=== PATIENT | female | born 1955 | race Caucasian/White ===

== ENCOUNTER 2016-11-09 14:46 | Emergency (ER) | payer OTHER ==
[~2016-11-09] VITALS: Ht 152.4 cm; Wt 61.2 kg
[~2016-11-09 14:46] MED LIST: AMOXICILLIN875 M1 PO; ATORVASTATIN CA20 MG PO; ATORVASTATIN CA40 M1 PO; ATORVASTATIN CA40 MG PO; AUGMENTIN 875 M1 TAB PO; LISINOPRIL10 MG PO; LOPRESSOR 12.12.5 MG PO; METOPROLOL SUCC25 M1 PO; OXYCODONE HCL5 M1 PO; ROXICODONE5 MG PO; SYNTHROID0.025 MG PO; SYNTHROID0.125 MG PO
--- NOTE | 2016-11-09 16:17 | ED GENERAL ADULT ---
History of Present Illness General Chief Complaint: General Adult Stated Complaint: SENT IN FOR HIGH B/P Source: patient Exam Limitations: no limitations Vital Signs & Intake/Output Vital Signs & Intake/Output Vital Signs Date Time Temp Pulse Resp B/P Pulse O2 O2 Flow FiO2 Ox Delivery Rate 11/09 1617 98 Room Air 11/09 1451 97.4 96 18 157/73 96 Room Air Allergies Coded Allergies: NO KNOWN ALLERGIES (08/11/15) Reconcile Medications Amoxicillin 875 MG TABLET 1 TAB PO BID ANTIBIOTIC Atorvastatin Calcium 40 MG TABLET 1 TAB PO DAILY CHOLESTEROL (Reported) Levothyroxine Sodium (Synthroid) 0.125 MG TAB 1 TAB PO DAILY AC THYROID HEALTH Metoprolol Succinate 25 MG TAB 1 TAB PO DAILY HEART/BP (Reported) Oxycodone HCl 5 MG TABLET 1 TAB PO Q6-PRN PRN PAIN Triage Note: 61 [facility]ENTER DUE TO HYPERTENSION, "IT WAS 200 OVER SOMETHING". PT STATES HX OF SAME AND IS ON METOPROLOL BID - TOOK DOSE SCHEDULED THIS AM AND IS DUE AGAIN AT DINNER. DENIES COMPLAINTS. DENIES C/P. DENIES SOB. ONLY FEELS "WARM" B/P 157/73. Triage Nurses Notes Reviewed? yes Onset: Abrupt Duration: minute(s): (30) Timing: single episode today Injury Environment: home Severity: mild No Modifying Factors: none Associated Symptoms: ANXIETY HPI: This is a 61 year old female who presents to [facility] ER for chief complaint of elevated blood pressure while at the wound care center. She states that she was nervous about the wound dressing changes since they are painful. She is complaint with her BP medications. SHe states now that the appointment is over she is feeling better. No headache, blurred vision, dizziness, confusion. Denies any weakness, numbness, difficulty waling. No chest pain, shortness of breath, cough, palpitations. Past History Travel History Traveled to [place] past 21 day No Medical History Any Pertinent Medical History? see below for history Neurological: NONE EENT: NONE Cardiovascular: CAD, hypertension, hyperlipidemia, PVD Respiratory: NONE Gastrointestinal: NONE Hepatic: NONE Renal: NONE Musculoskeletal: NONE Psychiatric: NONE Endocrine: hyperthyroidism Blood Disorders: NONE Cancer(s): NONE GEOLOGICAL SCOUT/Reproductive: NONE History of MRSA: No History of VRE: No History of CDIFF: No Surgical History Surgical History: non-contributory, TUBAL LIGATION Psychosocial History Who do you live with Significant Other Services at Home None What is your primary language Georgian Tobacco Use: Quit >30 days ago Family History Hx Contributory? No Review of Systems Review of Systems Constitutional: Denies: chills, fever. EENTM: Reports: no symptoms. Respiratory: Denies: cough, short of breath, sputum production. Cardiovascular: Denies: chest pain, palpitations. GI: Denies: abdominal pain. Genitourinary: Reports: no symptoms. Musculoskeletal: Reports: no symptoms. Skin: Reports: no symptoms. Neurological/Psychological: Reports: anxiety. Denies: ataxia, confusion, headache. Hematologic/Endocrine: Denies: bruising, bleeding, polyuria, polydipsia. Immunologic/Allergic: Denies: splenectomy. All Other Systems: Reviewed and Negative Physical Exam Physical Exam General Appearance: well developed/nourished, alert, awake, anxious, mild distress Head: atraumatic, normal appearance Eyes: Bilateral: normal appearance, PERRL, EOMI. Ears, Nose, Throat: normal pharynx, normal ENT inspection, hearing grossly normal Neck: normal inspection, supple, full range of motion Respiratory: normal breath sounds, chest non-tender, no respiratory distress Cardiovascular: regular rate/rhythm Peripheral Pulses: 2+ radial (R), 2+ radial (L) Gastrointestinal: normal bowel sounds, soft, non-tender Extremities: normal inspection, normal capillary refill, normal range of motion, no edema, BILATERAL LEGS WRAPPED Neurologic/Psych: no motor/sensory deficits, awake, alert, oriented x 3, normal gait, normal mood/affect Skin: intact, normal color, warm/dry Core Measures ACS in differential dx? No CVA/TIA Diagnosis: No Severe Sepsis Present: No Septic Shock Present: No Progress Differential Diagnoses I considered the following diagnoses in my evaluation of the patient: [ hypertension, elevated blood pressure, anxiety, pain] Plan of Care: Manual blood pressure in the ED 150/80. Initial ED EKG: none Departure Departure Time of Disposition: 1628 Disposition: HOME OR SELF CARE Condition: Stable Clinical Impression Primary Impression: Anxiety Secondary Impressions: Elevated blood pressure reading Referrals: Ama MUÑOZ MD (PCP/Family) Additional Instructions: CONTINUE YOUR REGULAR BLOOD PRESSURE MEDICATIONS. RETURN TO THE ER NEEDED. Departure Forms: Customer Survey General Discharge Information Critical Care Note Critical Care Note Critical Care Time: non-applicable
[2016-11-09 16:39] VITALS: BP 151/80
[2017-02-14] MEDS ORDERED: FERROUS SULFAT325 M3 PO (08:57)
[2017-02-14] MEDS ORDERED: GABAPENTIN300 M2 PO (08:58)
== END 2016-11-09 16:39 ==
LOC: ERH 14:46
DX: F41.9 Anxiety disorder, unspecified (principal); I10 Essential (primary) hypertension

== ENCOUNTER 2016-11-17 11:36 | Inpatient (IN) | payer OTHER ==
[~2016-11-17] VITALS: Ht 152.4 cm; Wt 63.5 kg
--- NOTE | 2016-11-17 11:43 | ED GENERAL ADULT ---
History of Present Illness General Chief Complaint: Lower Extremity Problems Stated Complaint: BIBA LEG WOUNDS Source: patient, family, old records Exam Limitations: no limitations Vital Signs & Intake/Output Vital Signs & Intake/Output Vital Signs Date Time Temp Pulse Resp B/P Pulse O2 O2 Flow FiO2 Ox Delivery Rate 11/18 1551 99.0 93 20 124/62 96 11/18 0927 98 136/64 11/18 0832 99.4 96 20 132/64 94 11/18 0041 98.2 101 20 160/74 96 Room Air 11/17 2138 92 116/68 ED Intake and Output 11/18 0000 11/17 1200 Intake Total 1060 Output Total 575 Balance 485 Intake, IV 700 Intake, Oral 360 Output, Urine 575 Patient 140 lb 140 lb Weight Allergies Coded Allergies: NO KNOWN ALLERGIES (08/11/15) Triage Nurses Notes Reviewed? yes Onset: Gradual Duration: hour(s): (13) Timing: no prior history Injury Environment: home Severity: moderate Severity Numbers: 8 No Modifying Factors: none HPI: Patient is a 61-year-old female with history of coronary artery disease, hypertension, peripheral vascular disease presenting to the emergency department with chief complaint of increasing lower extremity pain, numbness and tingling getting worse over the past 13 hours. She saw her vascular surgeon yesterday and was started on amoxicillin for suspected cellulitis of the left lower extremity. She took her first dose this morning. The worsening pain started prior to taking amoxicillin. Denies any fevers but reports malaise. She had a very difficult time walking to answer the door this morning for her visiting nurse. She also reports that her right foot feels cooler than normal. Denies any specific injury. The wounds on her left lower extremity have been there for the past 3 years. According to her vascular surgeon the wounds have been improving but recently got infected. (BENTLEY PADILLA,LISANDRA) Reconcile Medications Amoxicillin/Clavulanate Potass (Amox-Clav 875-125 MG Tablet) 875 MG-125 MG TABLET 1 TAB PO BID cellulitis (Reported) Atorvastatin Calcium 40 MG TABLET 1 TAB PO DAILY CHOLESTEROL (Reported) Hydrochlorothiazide 25 MG TABLET 1 TAB PO DAILY Blood pressure (Reported) Levothyroxine Sodium (Synthroid) 0.125 MG TAB 1 TAB PO DAILY AC THYROID HEALTH Lisinopril 10 MG TABLET 1 TAB PO DAILY BP (Reported) Metoprolol Tartrate 50 MG TABLET 1 TAB PO BID blood pressure (Reported) Oxycodone HCl 5 MG TABLET 1 TAB PO Q6-PRN PRN PAIN (MAYE TOM,JAMA) Past History Travel History Traveled to [place] past 21 day No Medical History Any Pertinent Medical History? 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 No (LISANDRA RUST) Review of Systems Review of Systems Constitutional: Reports: no symptoms. Comments Review of systems: See HPI, All other systems negative. Constitutional, no chills fever or weight loss HEENT: No visual changes no sore throat no congestion Cardiovascular: No chest pain ,palpitation Skin, no jaundice no rashes Respiratory: No dyspnea cough sputum or hemoptysis GI: No nausea no vomiting : No dysuria No hematuria Muscle skeletal: no back pain, no neck pain, Neurologic: no confusion Psych: No stress anxiety Immunology: No splenectomy or history of AIDS (LISANDRA RUST) Physical Exam Physical Exam General Appearance: well developed/nourished, no apparent distress, alert, awake , comfortable Comments: Well-developed well-nourished person in no acute distress HEENT: Pupils equally round and reactive to light and accommodation. Nose is atraumatic. Neck: Normal inspection Back: Nontender Cardiovascular: Regular rate and rhythms no murmurs rubs or gallops, normal JVP Respiratory: Chest nontender. No respiratory distress.breath sounds clear to auscultation bilaterally Extremity: 2+ pitting edema in the left lower extremity, no edema noted in the right lower extremity. Positive calf tenderness to palpation of the left lower extremity. Pedal pulses are 1+ bilaterally. Limited range of motion of left foot secondary to pain and swelling. Very warm to palpation over this area. Right foot is very cool to palpation, pale in color. Neuro: Alert oriented x3, motor sensory normal, lower extremity deep tendon reflexes are intact bilaterally. Skin: Left lower extremity has chronic-appearing wounds, approximately 3, ulcerous, tenderness palpation extremely erythematous and warm to palpation over the left lower extremity from the dorsum of the left foot extending to the left patella. Moderate edema noted of the left lower extremity. No active discharge from the chronic wounds, dressing is dry. Psych: Mood and affect is normal, memory and judgment is normal. Core Measures ACS in differential dx? No CVA/TIA Diagnosis: No Severe Sepsis Present: No Septic Shock Present: No (BENTLEY PADILLA,LISANDRA) Progress Differential Diagnoses I considered the following diagnoses in my evaluation of the patient: DVT, arterial occlusion, cellulitis, sepsis, neuropathy Plan of Care: Orders Procedure Date/time Status PT Evaluate & Treat 11/18 UNK Active Therapeutic Activities 11/18 UNK Complete PT EVAL LOW COMPLEX 20 MIN 11/18 UNK Complete Gait Training 11/18 UNK Complete Isolation 11/18 UNK Active Skin/Pressure Ulcer Assess (Sk 11/17 1951 Active Pain Treatment and Response 11/17 1946 Active PHYSICIAN CONSULT 11/17 UNK Active Current Medications Sig/Bibi Start time Last Medication Dose Stop Time Status Admin Acetaminophen 650 MG Q6P PRN 11/17 1715 AC (Tylenol) Morphine Sulfate 2 MG Q4P PRN 11/17 1715 AC (Morphine) Laboratory Tests 11/18/16 0615: Anion Gap 8, Estimated GFR > 60, BUN/Creatinine Ratio 20.0, Triglycerides 89, Cholesterol 126, LDL Cholesterol, Calc 63 L, HDL Cholesterol 46, Cholesterol/ HDL Ratio 3, CBC w Diff NO MAN DIFF REQ, RBC 3.59 L, MCV 79.8 L, MCH 25.8 L, RDW 16.4 H, MPV 8.6, Gran % 68.3, Lymphocytes % 20.1 L, Monocytes % 10.5 H, Eosinophils % 0.6, Basophils % 0.5, Absolute Granulocytes 5.5, Absolute Lymphocytes 1.6, Absolute Monocytes 0.8 H, Absolute Eosinophils 0.1, Absolute Basophils 0, PUBS MCHC 32.3 L 11/17/16 2233: Urine Color YEL, Urine Clarity CLDY H, Urine pH 6.0, Ur Specific [place] 1.020, Urine Protein NEG, Urine Ketones NEG, Urine Nitrite NEG, Urine Bilirubin NEG, Urine Urobilinogen 0.2, Ur Leukocyte Esterase LARGE H, Ur Microscopic SEDIMENT EXAMINED, Urine RBC 5-10 H, Urine WBC 25-50 H, Ur Epithelial Cells MOD H, Urine Mucus FEW, Urine Hemoglobin TRACE-INTACT, Urine Glucose NEG 11/17/163: Ur Random Creatinine 75.0, Ur Random Sodium 117 H, Ur Random Potassium 14.2, Fraction Sodium Excret 1.9 H Diagnostic Imaging: Viewed by Me: Ultrasound. Discussed w/RAD: Ultrasound. Radiology Impression: PATIENT: DARRELL MONTES PRESENT AGE: 61 PATIENT ACCOUNT NO: [id number] : 54 LOCATION: [facility] ORDERING PHYSICIAN: LISANDRA PADILLA SERVICE DATE: 11/17/16 EXAM TYPE: US - US-UNILATERAL VENOUS DOPPLER EXAMINATION: US TRIPLEX LOWER EXTREMITY, LEFT CLINICAL INFORMATION: Pain redness and swelling. COMPARISON: None. TECHNIQUE: Color-flow triplex imaging with spectral analysis and compression Doppler were performed on the left lower extremity. FINDINGS: Respiratory variation, normal compression and augmented flow are noted throughout the lower extremity. The visualized common femoral vein, superficial femoral vein, profunda femoral vein, popliteal vein and midcalf peroneal and posterior tibial venous segments show no evidence of deep venous thrombosis. Technologist incidentally notes occlusion of the femoral artery with reconstitution in the popliteal. There is no Harper's cyst. IMPRESSION: Normal triplex deep venous scan without evidence of deep venous thrombosis involving the left lower extremity. Femoral artery occlusion. Initial ED EKG: NSR (78 BPM) Comments: 11/17/2016 1:41:09 PM on arrival patient no acute distress, neurologically intact , pupils are one plus bilaterally. Suspecting cellulitis in the left lower extremity, concern for arterial occlusion in the right lower family secondary to cool extremity. We will speak with vascular initially to determine if more imaging is needed secondary to extensive history of arterial occlusion. 11/17/2016 2:40:05 PM patient will be admitted for cellulitis, IV antibiotics. Spoke with , her vascular surgeon, he is recommending admission to medicine with formal consultation if needed. He is not recommending any imaging of the large airways at this time as he just saw her yesterday in the office. 11/17/2016 2:53:42 PM patient given IV Unasyn for cellulitis. Pain controlled at this time. Patient will be admitted for cellulitis to general medicine. (LISANDRA RUST) Departure Departure Time of Disposition: 1348 Disposition: STILL A PATIENT Condition: Stable Clinical Impression Primary Impression: Cellulitis Qualifiers: Site of cellulitis: extremity Site of cellulitis of extremity: lower extremity Laterality: left Qualified Code: L03.116 - Cellulitis of left lower limb Referrals: Ama MUÑOZ MD (PCP/Family) Departure Forms: Customer Survey General Discharge Information Admission Note Spoke With: MIKE GARCIA MD Documentation of Exam: Documentation of any treatments & extenuating circumstances including Concerns Regarding Discharge (functional status, medication knowledge or non-compliance, living conditions, etc.) that warrant an admission rather than observation: Patient requiring IV antibiotics, blood cultures return, vascular consultation, may require infectious disease consultation. Discharge at this time would be medically harmful. (LISANDRA RUST) PA/NUT ROASTER HELPER Co-Sign Statement Statement: ED Attending supervision documentation- X I saw and evaluated the patient. I have also reviewed all the pertinent lab results and diagnostic results. I agree with the findings and the plan of care as documented in the PA's/NUT ROASTER HELPER's documentation. [] I have reviewed the ED Record and agree with the PA's/NUT ROASTER HELPER's documentation. [] Additions or exceptions (if any) to the PAs/NUT ROASTER HELPER's note and plan are summarized below: [] (MAYE TOM,JAMA) Critical Care Note Critical Care Note Critical Care Time: non-applicable (LISANDRA RUST)
--- NOTE | 2016-11-17 11:47 | NUR ---
61 Y/O FEMALE BIBA FROM HOME FOR BILATERAL LEG PAIN WITH NUMBNESS, TINGLING AND DECREASED SENSATION. PT STS FOR PAST THREE YRS SHE HAS HAD WOUNDS FROM SHAVING AND HAS SINCE RECEIVED 3 SKIN GRAFTS TO THE LEFT LEG. PT ARRIVES A/O X3 AND STS SHE USUALLY SEES DR. MIKE AND SAW HIM YESTERDAY AND DRESSED WOUND AND ALL WAS FINE TILL LAST NIGHT WHEN SHE STARTED TO EXPERIENCE SYMPTOMS AND THIS MORNING SHE WAS UNABLE TO AMBULATE TO GET DOOR FOR VISITING NURSE. PT ARRIVES AND STS PAIN 6/10 ABLE TO FEEL TOUCH BUT STS IT IS NUMB AND 'WIRED" WHEN TOUCHED. THERE IS NO WOUNDS TO THE RIGHT LEG BUT IT DOES FELL NUMB WITH DECREASE SENSATION. PA STUDENT AT BEDSIDE TO JAZ PT
--- NOTE | 2016-11-17 11:59 | NUR ---
VALERIE HAGAN EVALUATED PT
--- NOTE | 2016-11-17 12:42 | NUR ---
PT DIFFICULT STICK, 1 BLOOD CULTURE BOTTLE SENT, LAV,SST, AND BLUE TOP
[2016-11-17 12:53] LABS: ABSOLUTE BASOPHIL COUNT 0 /CUMM (0.0-0.2); ABSOLUTE EOSINOPHIL COUNT 0.1 /CUMM (0.0-0.7); ABSOLUTE GRANULOCYTE CT 7.5 /CUMM (1.4-6.5); ABSOLUTE LYMPH COUNT 1.5 /CUMM (1.2-3.4); ABSOLUTE MONOCYTE COUNT 0.5 /CUMM (0.10-0.60); BASOPHIL % 0 % (0.0-2.0); EOSINOPHIL % 0.8 % (0-5); GRANULOCYTE % 78.5 % (42.2-75.2); HEMATOCRIT 33.1 % (37-47); MEAN CORPUSCULAR HGB 25.1 PG (27.0-31.0); MEAN CORPUSCULAR HGB CONC 31.4 G/DL (33.0-37.0); MEAN CORPUSCULAR VOLUME 79.8 FL (81.0-99.0); MEAN PLATELET VOLUME 8.1 FL (7.4-10.4); PLATELET COUNT 389 /CUMM (130-400); RBC DISTRIBUTION WIDTH 16.7 % (11.5-14.5); RED BLOOD CELL CT 4.14 /CUMM (4.20-5.40); WHITE BLOOD CELL COUNT 9.6 /CUMM (4.8-10.8)
[2016-11-17] MEDS ORDERED: LISINOPRIL10 M1 PO (14:29)
--- NOTE | 2016-11-17 14:31 | NUR ---
PT MEDICATED WITH UNASYN AND NS PER EMAR. EKG COMPLETED AND CMR DONE.
--- NOTE | 2016-11-17 14:33 | NUR ---
HOUSE STAFF AT BEDSIDE FOR EVAL.
--- NOTE | 2016-11-17 14:36 | ULTRASOUND REPORT ---
EXAMINATION: US TRIPLEX LOWER EXTREMITY, LEFT CLINICAL INFORMATION: Pain redness and swelling. COMPARISON: None. TECHNIQUE: Color-flow triplex imaging with spectral analysis and compression Doppler were performed on the left lower extremity. FINDINGS: Respiratory variation, normal compression and augmented flow are noted throughout the lower extremity. The visualized common femoral vein, superficial femoral vein, profunda femoral vein, popliteal vein and midcalf peroneal and posterior tibial venous segments show no evidence of deep venous thrombosis. Technologist incidentally notes occlusion of the femoral artery with reconstitution in the popliteal. There is no Harper's cyst. IMPRESSION: Normal triplex deep venous scan without evidence of deep venous thrombosis involving the left lower extremity. Femoral artery occlusion.
--- NOTE | 2016-11-17 14:53 | History & Physical ---
See Addendum JILL RAYGOZA 11/17/16 4813: General Information and HPI MD Statement: I have seen and personally examined DARRELL SINGH and documented this H&P. The patient is a 61 year old F who presented with a patient stated chief complaint of left leg ulcers and redness Source of Information: patient, old records History of Present Illness: Ms. Singh is a 61-year-old woman who is known to be in her usual state of health until 1 week ago. 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 Kline) with recent antibiotic use for increasing erythema of the left lower extremity. She was sent by Dr. Knutson's office, when she complained of pain and loss of sensation/tingling, numbness sensation in her lower extremities, worsening in redness in left leg x1 day. As per the patient, worsening of redness in the left lower extremity 1 day, spreading from the foot up to left knee. Was also concerned about tingling numbness sensation bilateral lower that started this a.m, associated motor weakness in the feet, inability to stand on her feet. Also associated with increasing pain bilateral lower extremities, L> R, 6/10, no radiation, located in the feet. No discharge from ulcers on the left foot. No fever, shortness of breath, palpitations were noted. No lightheadedness, seizures, motor weakness in upper and lower extremities. Former smoker 35 pack years, quit 3 years ago. Recent addition of diuretic to her medication list. Sees Dr. Mejia PCP, Dr. Simon (fence installer), Dr. Donald (vascular surgeon), Dr. Kline (supervisor rod placing). Allergies/Medications Allergies: Coded Allergies: NO KNOWN ALLERGIES (08/11/15) Home Med list Amoxicillin/Clavulanate Potass (Amox-Clav 875-125 MG Tablet) 875 MG-125 MG TABLET 1 TAB PO BID cellulitis (Reported) Atorvastatin Calcium 40 MG TABLET 1 TAB PO DAILY CHOLESTEROL (Reported) Hydrochlorothiazide 25 MG TABLET 1 TAB PO DAILY Blood pressure (Reported) Levothyroxine Sodium (Synthroid) 0.125 MG TAB 1 TAB PO DAILY AC THYROID HEALTH Lisinopril 10 MG TABLET 1 TAB PO DAILY BP (Reported) Metoprolol Tartrate 50 MG TABLET 1 TAB PO BID blood pressure (Reported) Oxycodone HCl 5 MG TABLET 1 TAB PO Q6-PRN PRN PAIN Past History Travel History Traveled to [place] past 21 day No Medical History Neurological: NONE EENT: NONE Cardiovascular: CAD, hypertension, hyperlipidemia, PVD Respiratory: NONE Gastrointestinal: NONE Hepatic: NONE Renal: NONE Musculoskeletal: NONE Psychiatric: NONE Endocrine: hyperthyroidism Blood Disorders: NONE Cancer(s): NONE 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 Psychosocial History Services at Home: None ETOH Use: denies use Illicit Drug Use: denies illicit drug use Functional Ability ADLs Independent: dressing, eating, toileting, bathing. Ambulation: independent IADLs Independent: shopping, housework, finances, food prep, telephone, transportation , medication admin. Review of Systems Review of Systems Constitutional: Denies: chills, fever. EENTM: Denies: visual changes. Cardiovascular: Reports: peripheral edema. Denies: orthopena, palpitations. Respiratory: Denies: cough, orthopnea, short of breath. GI: Denies: abdominal pain, bloody stool, changes in stool. Genitourinary: Denies: dysuria, urgency. Musculoskeletal: Denies: back pain. Skin: Reports: change in skin color, erythema. Neurological/Psychological: Reports: numbness, paresthesia, tingling. Hematologic/Endocrine: Denies: polyuria. Exam & Diagnostic Data Last 24 Hrs of Vital Signs/I&O Vital Signs Date Time Temp Pulse Resp B/P Pulse O2 O2 Flow FiO2 Ox Delivery Rate 11/17 1725 97.9 91 20 142/68 97 11/17 1600 96.5 83 15 126/57 99 Room Air Room Air 11/17 1418 98.0 74 22 138/61 100 Room Air 11/17 1137 97.1 71 124/58 99 Intake & Output 11/17 1600 11/17 0800 11/17 0000 Intake Total Output Total Balance Patient 140 lb Weight Physical Exam General Appearance Alert, Oriented X3, Cooperative, No Acute Distress, Mild Distress Skin No Rashes, ulcers: 1. left ankle 2. left soria x 3 ulcers couldnt assess the size and character of each. pt declines to expose the wounds. HEENT Atraumatic, PERRLA, EOMI, Mucous Membr. moist/pink Neck Supple, No JVD, No thryomegaly, +2 Carotid Pulse wo Bruit Lymphatic Cervical nl Cardiovascular Regular Rate, Normal S1, Normal S2, No Murmurs Lungs Normal Air Movement Abdomen Soft, No Tenderness Neurological Normal Gait, Normal Speech, Strength at 5/5 X4 Ext, Normal Tone, Sensation Intact, Cranial Nerves 3-12 NL Extremities No Clubbing, No Cyanosis, decreased pulsations dorsalis pedis-b/l, tibialis posterior b/l Body Front and Back (Adult) 1) 1. multiple ulcers Diagnostic Data EKG Results No STTWI NSR Assessment/Plan Assessment: She is an older lady w/ a PMH of PAD, chronic left leg ulcers is being evaluated for sudden onset of paresthesias of bilateral feet, increasing erythema in the left leg not associated w/ any discharge. At the time of admission, vitals- Temp 97.1, OK 71, BP 124/78, 99 RA. On examination, increased erythema, assoicated w/ worsening pain likely indicates an infection. Lab findings indicated- WBC 9.6, Hb 10.4 (Baseline 11.3), HCT 33.1 , platelets 389, Normal electrolytes- Na 142, K 3.6, Bicarbonate 27, Abnormal kidney function- BUN 24, Sr creatinine 1.7(baseline 0.8), LA 1.3. CTA 2014- indicated infrarenal abdominal aortic occlusion extending into the common iliac arteries. Also, was left superficial femoral artery is occluded Differential diagnosis- 1. Rule out Cellulitis/Infected leg ulcers. 2. Rule out Ostemyelitis. Below is the problem list and plan: 1. Lef leg erythema and swelling- No fever or leucocytosis(she was given amoxicillin). Althought, appears erythematous. Cellulitis in the differential. As per ID's instruction, to rule out Osteomyelitis, as the ulcer is close to tibial surgace. Pt to be started on unasyn(renal adjusted dose). Blood cultures x 2. Continue to monitor for fever and lecucocytosis. Assess the ulcers in the am. Check MRI w/o lela. Consider ASA. 2. 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 No s/s s/o cord compression. Neurology consult to be obtained. May consider an MRI, to rule out any ishcemic changes which is a remote possibility. 3. FRANCIS- History is very unclear for the reason of FRANCIS. Likely medication changes , or use of NSAIDs. Check urine lytes to assess pre-renal vs intrinsic causes. 4. DVT prophylaxis- heparin. As Ranked By This Provider Problem List: 1. Cellulitis Qualifiers Site of cellulitis: extremity Site of cellulitis of extremity: lower extremity Laterality: left Qualified Code: L03.116 - Cellulitis of left lower limb Core Measures/Miscellaneous Acute Coronary Syndrome ACS Diagnosis: No Cerebrovascular Accident CVA/TIA Diagnosis: No Congestive Heart Failure CHF Diagnosis: No Venous Thromboembolism VTE Risk Factors: Acute medical illness, Age > 40 VTE Prophylaxis Ordered Inpt: Pharm- Heparin No Mech VTE prophylaxis d/t: No contraindications No VTE Pharm Prophylaxis d/t: No contraindications VTE Diagnosis: No VTE Type: NONE VTE Confirmed by (Test): NONE Severe Sepsis Severe Sepsis Present: No Septic Shock Septic Shock Present: No Miscellaneous Documentation Attending Case Discussed With: CARLOS TOM,PASTORA Morgan Primary Care Physician: Ama MEJIA MD Patient sees these Specialists dr. yanely knutson Level of Patient Care: General Medicine [facility] 11/17/16 0445: Resident Review Statement Resident Statement: examined this patient, discussed with pharmacy intern, agreed with pharmacy intern, discussed with family, reviewed EMR data (avail), discussed with nursing , discussed with case mgmt, reviewed images, amended to note Other Findings: 61 yo female with pmh of hypertension, HLD, peripheral arterial disease/chronic venous insufficiency with non healing Lt. leg ulcers s/p multiple debridements and skin grafts by Dr. Knutson and Dr. Kline (last graft in ) came to ED due to inability to walk and numbness of bilateral feet this morning. She denies any bladder/bowel dysfunction or saddle anesthesia. She was seen by Dr. Knutson yesterday due to erythema of Lt. leg and given augmentin. She also started taking hydrochlorothiazide from September along with lisinopril by PCP. On exam, she was afebrile, LLE erythematous with 2+ pitting edema with chronic ulcers which were covered by dressing, and she didn't allow to take off dressing. Labs reveal normal white blood cell count with BUN/Cr 24/1.7 (baseline 0.8). Last aortogram 03/2015: Infrarenal abdominal aortic occlusion extending into the common iliac arteries. 1. Lt. leg ulcers with erythema: With underlyng severe PAD (infrarenal abdominal aortic occlusion), vascular surgery will be consulted for further management. check US of Lt. leg. Regarding possible cellulitis or osteomyelitis, ID will be consulted. Continue IV unasyn for now and follow blood/wound cultures. 2. Acute kidney injury: likely from recent HCTZ/lisinopril combination, continue IV fluid holid those meds. Check UA, lytes, FeNa. Avoid NSAIDs or nephrotoxic medications. 3. Numbness of feet: she doesn't have symptoms of spinal cord compression. unclear etiology. Check HbA1c, consider neurology consult for peripheral neuropathy / MRI. DVT ppx: SC heparin, DNR/I.
--- NOTE | 2016-11-17 15:07 | NUR ---
BED ASSIGNMENT [id number]
--- NOTE | 2016-11-17 15:07 | Cons- Vascular Surgery ---
General Information and HPI Consulting Request Date of Consult: 11/17/16 Requested By: PASTORA GONZALEZ MD Reason for Consult: Left leg wound with cellulitis History of Present Illness: 61-year-old female seen at the wound Center on November 16 with a history of left lower extremity ulceration. Recently the wound has been healing with adequate granulation tissue. However over the past week she began to have erythema and pain in the area. This has occurred previously and is consistent with cellulitis. The patient has known venous insufficiency/peripheral arterial disease which has been stable. Her wounds have healed in the past. However due to her recent pain she was told if this were to worsen to go to the emergency room. She returns today after having significant erythema and discomfort. Allergies/Medications Allergies: Coded Allergies: NO KNOWN ALLERGIES (08/11/15) Home Med List: Amoxicillin 875 MG TABLET 1 TAB PO BID ANTIBIOTIC Atorvastatin Calcium 40 MG TABLET 1 TAB PO DAILY CHOLESTEROL (Reported) Levothyroxine Sodium (Synthroid) 0.125 MG TAB 1 TAB PO DAILY AC THYROID HEALTH Lisinopril 10 MG TABLET 1 TAB PO DAILY BP (Reported) Metoprolol Succinate 25 MG TAB 1 TAB PO DAILY HEART/BP (Reported) Oxycodone HCl 5 MG TABLET 1 TAB PO Q6-PRN PRN PAIN Current Medications: Current Medications Sig/Bibi Start time Last Medication Dose Route Stop Time Status Admin Ampicillin Sodium/ 0 .STK-MED ONE 11/18 1357 DC Sulbactam Sodium .ROUTE Ampicillin Sodium/ 3,000 MG ONCE ONE 11/17 1330 DC 11/17 Sulbactam Sodium IV 11/17 1359 1424 Sodium Chloride 100 ML Heparin Sodium 5,000 UNIT Q8 11/17 1400 AC (Porcine) SC Morphine Sulfate 0 .STK-MED ONE 11/18 1237 DC .ROUTE Morphine Sulfate 2 MG ONCE ONE 11/17 1200 DC 11/17 IV 11/17 1201 1255 Sodium Chloride 1,000 ML BOLUS ONE 11/17 1215 DC 11/17 IV 11/17 1414 1424 Past History Medical History Neurological: NONE EENT: NONE Cardiovascular: CAD, hypertension, hyperlipidemia, PVD Respiratory: NONE Gastrointestinal: NONE Hepatic: NONE Renal: NONE Musculoskeletal: NONE Psychiatric: NONE Endocrine: hyperthyroidism Blood Disorders: NONE Cancer(s): NONE 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 Surgical History Pertinent Surgical History: non-contributory, TUBAL LIGATION Psychosocial History Services at Home: None ETOH Use: denies use Illicit Drug Use: denies illicit drug use Review of Systems Review of Systems: Progressive left lower extremity redness and discomfort Exam & Diagnostic Data Vital Signs and I&O Vital Signs Date Time Temp Pulse Resp B/P Pulse O2 O2 Flow FiO2 Ox Delivery Rate 11/17 1418 98.0 74 22 138/61 100 Room Air 11/17 1137 97.1 71 124/58 99 Intake & Output 11/17 1600 11/17 0800 11/17 0000 11/16 1600 11/16 0800 11/16 0000 Intake Total Output Total Balance Patient 140 lb Weight Physical Exam: Bilateral exam demonstrates both lower extremities are perfused. She does have significant erythema involving the wounds of the left leg. This has changed since previous exam. There is no pato purulence. However her exam is consistent with cellulitis. She has dopplerable distal pedal signals. Physical Exam General Appearance: well developed/nourished, alert Extremities: normal inspection (see above exam), swelling, tenderness Assessment/Plan Assessment/Plan 61-year-old female with mixed venous insufficiency and peripheral arterial disease resulting in ulceration. Her wounds which have been making progress have become compromised due to cellulitis. 1.) Recommend admission for IV antibiotics 2.) Would use following wound care: Dress wounds daily with Adaptic, Aquacel and bilateral Jevon wraps 3.) Please do not use Xeroform or Telfa as this will further compromise wounds 4.) We will follow while patient is an inpatient Problem List: 1. Wound of left lower extremity Copies To: TITI TOM,NAKITA; PRIMO NORWOOD DPM; DAYTON TOM,JAMES Moreno; HARPER TOM, FLAVIO Consult Acknowledgment - Thank you for your consult request. 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
--- NOTE | 2016-11-17 15:57 | NUR ---
REPORT GIVEN TO AMEENA ALONSO.
--- NOTE | 2016-11-17 16:03 | NUR ---
DARRELL MONTES Nurse Note by: MARIANA JOSÉ I agree with the BUNDLES HANGER findings/evaluation of this patient's condition. Entered by: MARIANA JOSÉ Date: 11/17/16 Time: 4743
--- NOTE | 2016-11-17 16:05 | NUR ---
TRANSPORT CALLED 3 TIMES. NO ONE ANSWERED, UNABLE TO LEAVE A MESSAGE.
--- NOTE | 2016-11-17 16:41 | Admission Certification ---
Admission Certification Certification Statement - As attending physician, I certify that at the time of - admission, based on clinical presentation, severity of - symptoms, need for further diagnostic testing and - therapeutic interventions, and risk of adverse outcomes - without in-hospital treatment, in my clinical assessment, - this patient requires an acute hospital stay for a minimum - of two nights or longer. I have also considered psychsocial - factors such as support system, advanced age, financial - issues, cognitive issues, and failed out-patient treatments, - past re-admission history, safety of patient, and lack of - compliance as applicable. Specific rationale supporting this admission is: Acute kidney injury and cellulitis
--- NOTE | 2016-11-17 16:41 | PN- Att Addend ---
Attending Addendum Attending Brief Note 61-year-old female with past medical history of peripheral vascular disease, hypertension, hyperlipidemia and the chronic ulcer on the left leg for last 3 years. Patient has history of multiple debridements of the ulcer and follows up with wound care clinic and was seen in the wound care clinic yesterday. Patient admitted with chief complaint of worsening redness of her left lower extremity over the last few days and was started on by mouth Augmentin yesterday. Patient decided to come to the ER today for above complaint. Patient in the ER found to also have an acute kidney injury with creatinine of 1.7, and her baseline creatinine is 0.8. Reviewing her record that shows that the patient is on hydrochlorothiazide and lisinopril. It appears that her hydrochlorothiazide was started the month ago. So we will hold her hydrochlorothiazide and lisinopril and given IV fluids and repeat the basic metabolic panel in the morning. Cellulitis of left lower extremity, wound culture sent yesterday are growing staph aureus and the Beta strept. We'll start her on Unasyn 3 g IV every 6 and will follow up on the wound cultures. Given the patient's exposure to healthcare system and positive wound cultures for staph aureus we will discuss the case with the infectious disease and will start vancomycin if needed. Discussed with patient the care plan.
--- NOTE | 2016-11-17 17:11 | Cons- Infect Disease ---
General Information and HPI Consulting Request Date of Consult: 11/17/16 Requested By: PASTORA GONZALEZ MD Reason for Consult: Rule out cellulitis left leg Source of Information: patient, old records History of Present Illness: This is a 61-year-old woman with hypertension, begun on Hydrochlorothiazide one month prior to admission, chronic renal insufficiency, peripheral vascular disease, venous insufficiency, with chronic nonhealing ulcers on the lateral aspect of her left leg status post multiple debridements, status post a skin graft 5 months prior to admission which failed, with local wound care and periodic debridements since then, most recently one day prior to admission, at which point she was placed on Augmentin because of a one-week history of increasing erythema of the left leg, admitted today after she came to the emergency room with inability to walk secondary to bilateral foot numbness. In the ER she was afebrile, with a white blood cell count of 10,000 and a BUN/ creatinine of 24 and 1.7. She was begun on Unasyn and admitted. She does report chronic pain in the left leg and notes increased erythema over the past week but denies any fevers or chills. Allergies/Medications Allergies: Coded Allergies: NO KNOWN ALLERGIES (08/11/15) Home Med List: Amoxicillin 875 MG TABLET 1 TAB PO BID ANTIBIOTIC Atorvastatin Calcium 40 MG TABLET 1 TAB PO DAILY CHOLESTEROL (Reported) Levothyroxine Sodium (Synthroid) 0.125 MG TAB 1 TAB PO DAILY AC THYROID HEALTH Lisinopril 10 MG TABLET 1 TAB PO DAILY BP (Reported) Metoprolol Succinate 25 MG TAB 1 TAB PO DAILY HEART/BP (Reported) Oxycodone HCl 5 MG TABLET 1 TAB PO Q6-PRN PRN PAIN Past History Travel History Traveled to [place] past 21 day No Medical History Neurological: NONE EENT: NONE Cardiovascular: CAD, hypertension, hyperlipidemia, PVD Respiratory: NONE Gastrointestinal: NONE Hepatic: NONE Renal: chronic kidney disease Musculoskeletal: NONE Psychiatric: NONE Endocrine: hypothyroidism Blood Disorders: NONE Cancer(s): NONE 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 History of MRSA: No History of VRE: No History of CDIFF: No Surgical History Surgical History: TUBAL LIGATION Psychosocial History Services at Home: None ETOH Use: denies use Illicit Drug Use: denies illicit drug use Review of Systems Review of Systems All Other Systems: Reviewed and Negative Exam & Diagnostic Data Last 24 Hrs of Vital Signs/I&O Vital Signs Date Time Temp Pulse Resp B/P Pulse O2 O2 Flow FiO2 Ox Delivery Rate 11/17 1600 96.5 83 15 126/57 99 Room Air Room Air 11/17 1418 98.0 74 22 138/61 100 Room Air 11/17 1137 97.1 71 124/58 99 Intake & Output 11/17 1600 11/17 0800 11/17 0000 Intake Total Output Total Balance Patient 140 lb Weight Physical Exam Other Physical Findings: She is awake and alert in no acute distress. She is afebrile. Skin reveals no rash. HEENT exam is negative. Neck is supple with no adenopathy. Lungs are clear. Heart regular rhythm with no murmur. Abdomen is soft, nontender with positive bowel sounds. Back no CVA tenderness. Extremities superficial ulcers on the lateral aspect of her left calf, with erythema surrounding these ulcers, mildly tender to palpation, with no edema; pulses 1+ and equal. Neuro decreased sensation both feet, with no focal weakness. Last 24 Hours of Lab Results: Laboratory Tests 11/17 11/17 11/17 1305 1237 1237 Chemistry Sodium (137 - 145 mmol/L) 142 Potassium (3.5 - 5.1 mmol/L) 3.6 Chloride (98 - 107 mmol/L) 100 Carbon Dioxide (22 - 30 mmol/L) 27 Anion Gap (5 - 16) 15 BUN (7 - 17 mg/dL) 24 H Creatinine (0.5 - 1.0 mg/dL) 1.7 H Estimated GFR (>60 ml/min) 30 L BUN/Creatinine Ratio (7 - 25 %) 14.1 Glucose (65 - 99 mg/dL) 108 H Hemoglobin A1c Pending Lactic Acid (0.7 - 2.1 mmol/L) 1.3 Calcium (8.4 - 10.2 mg/dL) 9.9 Total Bilirubin (0.2 - 1.3 mg/dL) 0.7 AST (14 - 36 U/L) 18 ALT (9 - 52 U/L) 23 Alkaline Phosphatase (<127 U/L) 122 Total Protein (6.3 - 8.2 g/dL) 7.8 Albumin (3.5 - 5.0 g/dL) 4.2 Globulin (1.9 - 4.2 gm/dL) 3.6 Albumin/Globulin Ratio (1.1 - 2.2 %) 1.2 TSH (0.270 - 4.200 uIU/mL) 3.470 Free T4 (0.78 - 2.44 ng/dL) 2.02 Hematology CBC w Diff NO MAN DIFF REQ WBC (4.8 - 10.8 /CUMM) 9.6 RBC (4.20 - 5.40 /CUMM) 4.14 L Hgb (12.0 - 16.0 G/DL) 10.4 L Hct (37 - 47 %) 33.1 L MCV (81.0 - 99.0 FL) 79.8 L MCH (27.0 - 31.0 PG) 25.1 L RDW (11.5 - 14.5 %) 16.7 H Plt Count (130 - 400 /CUMM) 389 MPV (7.4 - 10.4 FL) 8.1 Gran % (42.2 - 75.2 %) 78.5 H Lymphocytes % (20.5 - 51.1 %) 15.2 L Monocytes % (1.7 - 9.3 %) 5.5 Eosinophils % (0 - 5 %) 0.8 Basophils % (0.0 - 2.0 %) 0 L Absolute Granulocytes (1.4 - 6.5 /CUMM) 7.5 H Absolute Lymphocytes (1.2 - 3.4 /CUMM) 1.5 Absolute Monocytes (0.10 - 0.60 /CUMM) 0.5 Absolute Eosinophils (0.0 - 0.7 /CUMM) 0.1 Absolute Basophils (0.0 - 0.2 /CUMM) 0 PUBS MCHC (33.0 - 37.0 G/DL) 31.4 L Last 24 Hours of Ernesto Results: Superficial culture left leg November 16 positive for Group B strep and Staph aureus sensitivities pending Blood cultures 2 November 17 pending Diagnostic Data Recent Imaging Findings: Doppler of the left leg negative for DVT; occlusion of the femoral artery with reconstitution in the popliteal is noted incidentally Assessment/Plan Assessment/Plan Impression: This is a 61-year-old woman with a history of hypertension, recently begun on Hydrochlorothiazide, peripheral vascular disease and venous insufficiency, with chronic nonhealing ulcers on the lateral aspect of the left calf, status post multiple debridements and skin grafts, admitted today with the acute onset of numbness of both feet preventing her from walking and with a one week history of increasing erythema of the left leg, found to be afebrile with a normal white blood cell count and with an elevated BUN/creatinine. The etiology of her numbness is unclear. It may be secondary to a peripheral neuropathy, though it is reportedly acute, raising concern for more acute processes including spinal cord compression. The elevated BUN/creatinine could signify urinary retention, which would support the concern of cord compression, or may be medication related as she was recently begun on Hydrochlorothiazide. She has no fever or leukocytosis to suggest a cellulitis, but she reports increased erythema and, therefore, can continue her on antibiotics with close monitoring of her exam. Though the ulcers are superficial underlying osteomyelitis may need to be ruled out given their chronicity. Suggestion: 1. X-ray of the left fibula 2. Consider MRI of the left leg if x-ray negative 3. Bladder scan to rule out urinary retention 4. Neurology evaluation regarding her bilateral foot numbness 5. Further evaluation of her peripheral vascular disease and ulcers per Vascular surgery 6. Decrease Unasyn to 1.5 g IV every 8 hours Consult Acknowledgment - Thank you for your consult request.
[2016-11-17 17:25] VITALS: BP 142/68
[2016-11-17] MEDS ORDERED: AMOX-CLAV 875-1 EACH PO (17:28)
[2016-11-17] MEDS ORDERED: HYDROCHLOROTHIA25 M1 PO (17:28)
[2016-11-17] MEDS ORDERED: METOPROLOL TART50 M1 PO (17:29)
--- NOTE | 2016-11-17 18:25 | PN- Student ---
Subjective Subjective: Source: Patient History of Present Illness: Ms. Singh is a 61 y/o F that came in to the ED due to a chief complain of feet numbness. She has a past medical history of hypertension, hyperlipidemia, peripheral vascular disease and chronic ulcers due to PVD. The main complaint was that she had loss of sensation and parasthesias in both of her legs and the L-leg in particular had worsening cellulitis, edema and epidermal scalling. The patient stated that the symptoms started this morning when she was sleeping in her bed and she noticed that wasn't able to stand up in her feet due to weakness bilaterally. She also had pain which she rated 6/10 in the morning. Currently she is not complaining of any pain and she associates the relief due to the pain medications that were given to her while waiting on the ED. The patient can ambulate without any assistance and denies leg claudication at short distances (e.g. house-hold errands). The patient denies nausea, vomiting, diarrhea, constipation and weight loss. She mentioned that is a former smoker with a 35 pack/year Hx but she quit 3 years ago. Allergies/Medications: Allergies - No known allergies Current Medications - Amoxicillin (875 MG TABLET 1 TAB PO BID) - Atorvastatin Calcium (40 MG TABLET 1 TAB PO DAILY) - Levothyroxine Sodium (0.125 MG TAB 1 TAB PO DAILY AC) - Lisinopril (10 MG TABLET 1 TAB PO DAILY) - Metoprolol Succinate (25 MG TAB 1 TAB PO DAILY) - Oxycodone (HCl 5 MG TABLET 1 TAB PO Q6-PRN) Past Medical Hx: Travel History Patient denies any trips outside of the [facility]. Medical History Neurological- NONE Cardiovascular- CAD, HTN, Hyperlipidemia, Peripheral Vascular Disease Respiratory- NONE Gastrointestinal- NONE Hepatic- NONE Renal- NONE Psychiatric- NONE Endocrine- Hypothyroidism Surgical History No surgeries Family History: MOTHER Diabetes Mellitus (Diseased) Psychosocial History: Where do you live? Home Who Do You Live With? Brother Services at Home: None Primary Language: Faroese Smoking Status: Former Smoker (Quit 3 y/a) with 35 pack year Hx. EtOH Use: Denies use Illicit Drug Use: Denies any use of Illicit drugs Functional Ability: ADLs Independent: dressing, eating, toileting, bathing. Ambulation: independent IADLs Independent: shopping, housework, finances, food prep, telephone, transportation , medication admin. Review of Systems: General: The patient denies any changes in appetite, weight loss and is not in any respiratory distress at the present. Patient also denies nausea, vomiting, diarrhea, fever, chills or night sweats. HEENT: No dizzines or changes in vision. Cardiovascular: No palpitations/running heart. Respiratory: No shortness of breath. GI: No constipation, nause, vomiting or diarrhea. Genitourinary: No changes in urine color or frequency. Skin: Refer to HPI. MSK: Refer to HPI. Objective Objective: Current Medications Sig/Bibi Start time Last Medication Dose Route Stop Time Status Admin Acetaminophen 650 MG Q6P PRN 11/17 171 AC PO Ampicillin Sodium/ 0 .STK-MED ONE 11/18 1357 CAN Sulbactam Sodium .ROUTE Ampicillin Sodium/ 1,500 MG TID 11/17 2200 AC Sulbactam Sodium IV Sodium Chloride 100 ML Ampicillin Sodium/ 3,000 MG Q6H 11/17 1930 CAN Sulbactam Sodium IV Sodium Chloride 100 ML Ampicillin Sodium/ 3,000 MG ONCE ONE 11/17 1330 DC 11/17 Sulbactam Sodium IV 11/17 1359 1424 Sodium Chloride 100 ML Atorvastatin Calcium 40 MG DAILY@1700 11/18 1700 AC PO Heparin Sodium 5,000 UNIT Q8 11/17 1400 AC 11/17 (Porcine) SC 1539 Influenza Virus 0.5 ML ONCE ONE 11/17 1815 DC Vaccine IM 11/17 1816 Levothyroxine Sodium 0.125 MG DAILY AC 11/18 0700 AC PO Metoprolol Tartrate 50 MG BID 11/17 2200 AC PO Morphine Sulfate 0 .STK-MED ONE 11/18 1237 DC .ROUTE Morphine Sulfate 2 MG Q4P PRN 11/17 171 AC IV Morphine Sulfate 2 MG ONCE ONE 11/17 1200 DC 11/17 IV 11/17 1201 1255 Oxycodone HCl 5 MG Q6P PRN 11/17 1715 AC PO Sodium Chloride 1,000 ML Q10H 11/17 1715 AC IV Sodium Chloride 1,000 ML BOLUS ONE 11/17 1215 DC 11/17 IV 11/17 1414 1424 Vital Signs Date Time Temp Pulse Resp B/P Pulse O2 O2 Flow FiO2 Ox Delivery Rate 11/17 1725 97.9 91 20 142/68 97 11/17 1600 96.5 83 15 126/57 99 Room Air Room Air 11/17 1418 98.0 74 22 138/61 100 Room Air 11/17 1137 97.1 71 124/58 99 Intake & Output 11/17 1600 11/17 0800 11/17 0000 Intake Total Output Total Balance Patient 140 lb Weight Physical Examination: General: Ms. Singh is a 61 y/o F that is presenting without any signs of respiratory distress, afebrile and alert & oriented X3. Patient denies any weight changes, anorexia, chills or night sweats. HEENT: PERRLA, EOMI. Neck: No lymphadenothy on inspection/palpation. No JVD. Mouth: No signs of central cyanosis. Lungs: Clear to auscultation. CV: S1, S2 were heard; No murmurs were heard. GI: Soft, non-tender and wihout any masses. Upper Extremities: No rashes or edema present. Lower Extremities: No rashes but erythematous changes on left leg, decreased pulses and diminished sensation on light touch. Neurological: Normal Speech. Results Results: Laboratory Tests 11/17/16 1305: Lactic Acid 1.3 11/17/16 123: Hemoglobin A1c Pending 11/17/16 123: Anion Gap 15, Estimated GFR 30 L, BUN/Creatinine Ratio 14.1, Glucose 108 H, Calcium 9.9, Total Bilirubin 0.7, AST 18, ALT 23, Alkaline Phosphatase 122, Total Protein 7.8, Albumin 4.2, Globulin 3.6, Albumin/Globulin Ratio 1.2, TSH 3.470, Free T4 2.02, CBC w Diff NO MAN DIFF REQ, RBC 4.14 L, MCV 79.8 L, MCH 25.1 L, RDW 16.7 H, MPV 8.1, Gran % 78.5 H, Lymphocytes % 15.2 L, Monocytes % 5.5, Eosinophils % 0.8, Basophils % 0 L, Absolute Granulocytes 7.5 H, Absolute Lymphocytes 1.5, Absolute Monocytes 0.5, Absolute Eosinophils 0.1, Absolute Basophils 0, PUBS MCHC 31.4 L Microbiology 11/17 1340 BLOOD: Blood Culture - RECD 11/17 1250 BLOOD: Blood Culture - RECD 11/17 1237 BLOOD: Blood Culture - CAN Cancelled: REJECT BOTTLES- INCORRECT ORDR DRAWN AT TWO SEPERATE TIMES Assessment/Plan Assessment: Ms. Singh is a 61 y/o F patient (DNR/DNI) that came in to the ED due to bilateral leg parasthesias, numbness and muscukar weakness which started this morning when she was unable to stand from her bed. The patient has a previous history of HTN, Hyperlipidemia and Peripheral Vascular Disease which has been monitored by Dr. Knutson, her Vascular Surgeon. Based on the physical examination the patient has ulcerative changes in her left leg accompanied by ulcers mostly located on the tibial region of the leg. The patient denied leg claudication on moderate distances. Plan: Problem List & Plan: 1) Cellulitis Start the patient on antibiotics to avoid any potential infection or cellulitis exacerbation (Unasyn). The cellulitis on the left leg could be due to PVD or due to the ulcerative changes. 2) Lower Limb Neurological Signs Place a naeurological consult to assess numbness of the lower limbs. 3) L-leg Ulcers Follow-up on Vascular Surgeon (Dr. Knutson) visit to evaluate exten or deterioration of the ulcers. Order MRI to assess L-tibial compromise due to contiguos ulcer and rule out osteomyelitis. 4) DVT Prophylaxis Start the patient on Lovenox.
--- NOTE | 2016-11-17 19:59 | NUR ---
LATE ENTRY: 1650 PT ARRIVED ON FLOOR FROM ER. VSS, RA, AFEBRILE, PT DENIES PAIN-LESS THAN 4-AT THIS TIME. #20 IV TO RAC NS 500 ML THROUGH DIAL-A-FLOW, WOUNDS TO LLE COVERED W/GAUZE, DRESSING INTACT. PT ORIENTED TO ROOM/FLOOR. WILL CONTINUE TO MONITOR.
--- NOTE | 2016-11-17 22:28 | RADIOLOGY REPORT ---
EXAMINATION: 2 views of the left tibia/fibula CLINICAL INFORMATION: Left leg ulcers. COMPARISON: None available. FINDINGS: Soft tissue ulcers are appreciated along the medial and ventral aspect of the left lower extremity. There are no fractures. The bony articulations are maintained. No bony erosions. No periosteal reaction. No radiopaque foreign bodies. No knee joint effusion. IMPRESSION: Soft tissue ulcers are appreciated along the medial and ventral aspect of the left lower extremity. There is no radiographic evidence of osteomyelitis.
[2016-11-18 00:41] VITALS: BP 160/74
--- NOTE | 2016-11-18 06:00 | PN- Housestaff ---
JILL RAYGOZA 11/18/16 0559: Subjective Follow-up For: 1. left leg ulcers, and erythema Subjective: She was comfortable this morning. MAXIMUM TEMPERATURE 99.4. White has remained stable overnight. Symptoms improved compared to yesterday. Review of Systems Constitutional: Reports: see HPI. Objective Last 24 Hrs of Vital Signs/I&O Vital Signs Date Time Temp Pulse Resp B/P Pulse O2 O2 Flow FiO2 Ox Delivery Rate 11/18 0041 98.2 101 20 160/74 96 Room Air 11/17 2138 92 116/68 11/17 1725 97.9 91 20 142/68 97 11/17 1600 96.5 83 15 126/57 99 Room Air Room Air 11/17 1418 98.0 74 22 138/61 100 Room Air 11/17 1137 97.1 71 124/58 99 Intake & Output 11/18 0800 11/18 0000 11/17 1600 Intake Total 120 1060 Output Total 475 575 Balance -355 485 Intake, IV 700 Intake, Oral 120 360 Output, Urine 475 575 Patient 140 lb Weight Physical Exam General Appearance: No Acute Distress Other Physical Findings: General Exam: AAOx3, No acute distress, Skin: No rashes, no breakdown HEENT: PERRLA, EOMI Neck: Supple, No JVD No cervical lymphadenopathy CVS: Reg Rate, Normal S1,S2, No MGR Resp: Normal air entry, no ronchi/rales Abdomen: Soft, No tenderness, Normal Bowel Sounds Neuro: Normal Speech, Strength 5/5 b/l x 4 extremities, Sensation intact, CN III -XII NL, Reflexes 2+ Extremities: No cyanosis, pedal edema, erythema decreased compared to yesterday, ulcers on left lower extremity. No discharge. Current Medications: Current Medications Sig/Bibi Start time Last Medication Dose Route Stop Time Status Admin Acetaminophen 650 MG Q6P PRN 11/17 1715 AC PO Ampicillin Sodium/ 0 .STK-MED ONE 11/18 1357 CAN Sulbactam Sodium .ROUTE Ampicillin Sodium/ 1,500 MG TID 11/17 2200 AC 11/17 Sulbactam Sodium IV 2136 Sodium Chloride 100 ML Ampicillin Sodium/ 3,000 MG Q6H 11/17 1930 CAN Sulbactam Sodium IV Sodium Chloride 100 ML Ampicillin Sodium/ 3,000 MG ONCE ONE 11/17 1330 DC 11/17 Sulbactam Sodium IV 11/17 1359 1424 Sodium Chloride 100 ML Atorvastatin Calcium 40 MG DAILY@1700 11/18 1700 AC PO Heparin Sodium 5,000 UNIT Q8 11/17 1400 AC 11/18 (Porcine) SC 0540 Influenza Virus 0.5 ML ONCE ONE 11/17 1815 DC Vaccine IM 11/17 181 Levothyroxine Sodium 0.125 MG DAILY AC 11/18 0700 AC 11/18 PO 0540 Metoprolol Tartrate 50 MG BID 11/17 2200 AC 11/17 PO 2138 Morphine Sulfate 0 .STK-MED ONE 11/18 1237 DC .ROUTE Morphine Sulfate 2 MG Q4P PRN 11/17 171 AC IV Morphine Sulfate 2 MG ONCE ONE 11/17 1200 DC 11/17 IV 11/17 1201 1255 Oxycodone HCl 5 MG Q6P PRN 11/17 1715 AC 11/18 PO 0421 Sodium Chloride 1,000 ML Q10H 11/17 1715 AC 11/18 IV 0421 Sodium Chloride 1,000 ML BOLUS ONE 11/17 1215 DC 11/17 IV 11/17 1414 1424 Last 24 Hrs of Lab/Ernesto Results Last 24 Hrs of Labs/Mics: Laboratory Tests 11/17/162232: Urine Color YEL, Urine Clarity CLDY H, Urine pH 6.0, Ur Specific [place] 1.020, Urine Protein NEG, Urine Ketones NEG, Urine Nitrite NEG, Urine Bilirubin NEG, Urine Urobilinogen 0.2, Ur Leukocyte Esterase LARGE H, Ur Microscopic SEDIMENT EXAMINED, Urine RBC 5-10 H, Urine WBC 25-50 H, Ur Epithelial Cells MOD H, Urine Mucus FEW, Urine Hemoglobin TRACE-INTACT, Urine Glucose NEG 11/17/16 2233: Ur Random Creatinine 75.0, Ur Random Sodium 117 H, Ur Random Potassium 14.2, Fraction Sodium Excret 1.9 H 11/17/16 1305: Lactic Acid 1.3 11/17/16 1237: Hemoglobin A1c Pending 11/17/16 1237: Anion Gap 15, Estimated GFR 30 L, BUN/Creatinine Ratio 14.1, Glucose 108 H, Calcium 9.9, Total Bilirubin 0.7, AST 18, ALT 23, Alkaline Phosphatase 122, Total Protein 7.8, Albumin 4.2, Globulin 3.6, Albumin/Globulin Ratio 1.2, TSH 3.470, Free T4 2.02, CBC w Diff NO MAN DIFF REQ, RBC 4.14 L, MCV 79.8 L, MCH 25.1 L, RDW 16.7 H, MPV 8.1, Gran % 78.5 H, Lymphocytes % 15.2 L, Monocytes % 5.5, Eosinophils % 0.8, Basophils % 0 L, Absolute Granulocytes 7.5 H, Absolute Lymphocytes 1.5, Absolute Monocytes 0.5, Absolute Eosinophils 0.1, Absolute Basophils 0, PUBS MCHC 31.4 L 11/17/16 1000: Lactic Acid Cancelled Microbiology 11/17 1340 BLOOD: Blood Culture - RECD 11/17 1250 BLOOD: Blood Culture - RECD 11/17 1237 BLOOD: Blood Culture - CAN Cancelled: REJECT BOTTLES- INCORRECT ORDR DRAWN AT TWO SEPERATE TIMES Assessment/Plan Assessment: She is an older lady w/ a PMH of PAD, chronic left leg ulcers is being evaluated for sudden onset of paresthesias of bilateral feet, increasing erythema in the left leg not associated w/ any discharge. Differential diagnosis- 1. Rule out Cellulitis/Infected leg ulcers. 2. Rule out Ostemyelitis. Below is the problem list and plan: 1. Lef leg erythema and swelling- No fever or leucocytosis. Received Augmentin as an outpatient. Although, appears erythematous. Cellulitis in the differential. To continue Augmentin at renally adjusted dose, as kidney function improved. X-ray left leg did not show any radiological signs of osteomyelitis. MRI as an outpatient. Blood cultures 2-negative so far. To discharge the patient on Augmentin in the a.m. Continue to monitor for fever and lecucocytosis. Consider use of aspirin. 2. 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 No s/s s/o cord compression. Neurology consult to be obtained. 3. FRANCIS- History is very unclear for the reason of FRANCIS. Likely medication changes , or use of NSAIDs. Resolved. Urine sodium 117, fraction sodium excretion 1.9. Likely from a diuretic. 4. DVT prophylaxis- heparin. Problem List: 1. Cellulitis Pain Ratin Pain Location: Left lower extremity Pain Goal: Pain 4 or less Pain Plan: Morphine and oxycodone. Tomorrow's Labs & Rationales: No labs necessary, as they were normal this jase LEVY MD,[employer] [facility] 11/18/16 1551: Attending MD Review Statement Attending Statement Attending MD Statement: examined this patient, discuss w/resident/PA/MEDICAL REVIEWER, agreed w/resident/PA/MEDICAL REVIEWER, reviewed EMR data (avail) Attending Assessment/Plan: Will continue Unasyn, monitor renal function, follow PT recommendations, follow vascular recommendations, continue home medications, DVT PPx
--- NOTE | 2016-11-18 06:53 | PN- Student ---
Subjective Subjective: Source: Patient Follow-up for: Cellulitis & L-leg ulcers Ms. Singh is a 61 y/o F that came in to the ED due to a chief complain of feet numbness. She has a past medical history of hypertension, hyperlipidemia, peripheral vascular disease and chronic ulcers due to PVD. The main complaint was that she had loss of sensation and parasthesias in both of her legs and the L-leg in particular had worsening cellulitis, edema and epidermal scalling. Review of Systems: General: The patient denies any changes in appetite, weight loss and is not in any respiratory distress at the present. Patient also denies nausea, vomiting, diarrhea, fever, chills or night sweats. HEENT: No dizzines or changes in vision. Cardiovascular: No palpitations/running heart. Respiratory: No shortness of breath. GI: No constipation, nause, vomiting or diarrhea. Genitourinary: No changes in urine color or frequency. Skin: Refer to HPI. MSK: Refer to HPI. Objective Objective: Current Medications Sig/Bibi Start time Last Medication Dose Route Stop Time Status Admin Acetaminophen 650 MG Q6P PRN 11/17 171 AC PO Ampicillin Sodium/ 0 .STK-MED ONE 11/18 1357 CAN Sulbactam Sodium .ROUTE Ampicillin Sodium/ 1,500 MG TID 11/17 2199 AC 11/17 Sulbactam Sodium IV 2136 Sodium Chloride 100 ML Ampicillin Sodium/ 3,000 MG Q6H 11/17 1930 CAN Sulbactam Sodium IV Sodium Chloride 100 ML Ampicillin Sodium/ 3,000 MG ONCE ONE 11/17 1330 DC 11/17 Sulbactam Sodium IV 11/17 1359 1424 Sodium Chloride 100 ML Atorvastatin Calcium 40 MG DAILY@1700 11/18 1700 AC PO Heparin Sodium 5,000 UNIT Q8 11/17 1400 AC 11/18 (Porcine) SC 0540 Influenza Virus 0.5 ML ONCE ONE 11/17 1815 DC Vaccine IM 11/17 1816 Levothyroxine Sodium 0.125 MG DAILY AC 11/18 0700 AC 11/18 PO 0540 Metoprolol Tartrate 50 MG BID 11/17 2200 AC 11/17 PO 2138 Morphine Sulfate 0 .STK-MED ONE 11/18 1237 DC .ROUTE Morphine Sulfate 2 MG Q4P PRN 11/17 1715 AC IV Morphine Sulfate 2 MG ONCE ONE 11/17 1200 DC 11/17 IV 11/17 1201 1255 Oxycodone HCl 5 MG Q6P PRN 11/17 1715 AC 11/18 PO 0421 Sodium Chloride 1,000 ML Q10H 11/17 1715 AC 11/18 IV 0421 Sodium Chloride 1,000 ML BOLUS ONE 11/17 1215 DC 11/17 IV 11/17 1414 1424 Vital Signs Date Time Temp Pulse Resp B/P Pulse O2 O2 Flow FiO2 Ox Delivery Rate 11/18 0832 99.4 96 20 132/64 94 11/18 0041 98.2 101 20 160/74 96 Room Air 11/17 2138 92 116/68 11/17 1725 97.9 91 20 142/68 97 11/17 1600 96.5 83 15 126/57 99 Room Air Room Air 11/17 1418 98.0 74 22 138/61 100 Room Air 11/17 1137 97.1 71 124/58 99 Intake & Output 11/18 1600 11/18 0800 11/18 0000 Intake Total 920 1060 Output Total 675 575 Balance 245 485 Intake, IV 800 700 Intake, Oral 120 360 Number 0 Bowel Movements Output, Urine 675 575 Patient 140 lb Weight Physical Examination: General: Ms. Singh is a 61 y/o F that is presenting without any signs of respiratory distress, afebrile and alert & oriented X3. Patient denies any weight changes, anorexia, chills or night sweats. HEENT: PERRLA, EOMI. Neck: No lymphadenothy on inspection/palpation. No JVD. Mouth: No signs of central cyanosis. Lungs: Clear to auscultation. CV: S1, S2 were heard; No murmurs were heard. GI: Soft, non-tender and wihout any masses. Upper Extremities: No rashes or edema present. Lower Extremities: No rashes but erythematous changes on left leg, normal pulses and intact sensation on light touch. Neurological: Normal Speech. Results Results: Laboratory Tests 11/18/16 0615: Sodium Pending, Potassium Pending, Chloride Pending, Carbon Dioxide Pending, Anion Gap Pending, BUN Pending, Creatinine Pending, BUN/Creatinine Ratio Pending , Triglycerides Pending, Cholesterol Pending, LDL Cholesterol, Calc Pending, HDL Cholesterol Pending, Cholesterol/HDL Ratio Pending, CBC w Diff Pending, WBC Pending, RBC Pending, Hgb Pending, Hct Pending, MCV Pending, MCH Pending, RDW Pending, Plt Count Pending, MPV Pending, PUBS MCHC Pending 11/17/163: Urine Color YEL, Urine Clarity CLDY H, Urine pH 6.0, Ur Specific [place] 1.020, Urine Protein NEG, Urine Ketones NEG, Urine Nitrite NEG, Urine Bilirubin NEG, Urine Urobilinogen 0.2, Ur Leukocyte Esterase LARGE H, Ur Microscopic SEDIMENT EXAMINED, Urine RBC 5-10 H, Urine WBC 25-50 H, Ur Epithelial Cells MOD H, Urine Mucus FEW, Urine Hemoglobin TRACE-INTACT, Urine Glucose NEG 11/17/16 2233: Ur Random Creatinine 75.0, Ur Random Sodium 117 H, Ur Random Potassium 14.2, Fraction Sodium Excret 1.9 H 11/17/16 1305: Lactic Acid 1.3 11/17/16 1237: Hemoglobin A1c Pending 11/17/16 1237: Anion Gap 15, Estimated GFR 30 L, BUN/Creatinine Ratio 14.1, Glucose 108 H, Calcium 9.9, Total Bilirubin 0.7, AST 18, ALT 23, Alkaline Phosphatase 122, Total Protein 7.8, Albumin 4.2, Globulin 3.6, Albumin/Globulin Ratio 1.2, TSH 3.470, Free T4 2.02, CBC w Diff NO MAN DIFF REQ, RBC 4.14 L, MCV 79.8 L, MCH 25.1 L, RDW 16.7 H, MPV 8.1, Gran % 78.5 H, Lymphocytes % 15.2 L, Monocytes % 5.5, Eosinophils % 0.8, Basophils % 0 L, Absolute Granulocytes 7.5 H, Absolute Lymphocytes 1.5, Absolute Monocytes 0.5, Absolute Eosinophils 0.1, Absolute Basophils 0, PUBS MCHC 31.4 L 11/17/16 1000: Lactic Acid Cancelled Microbiology 11/17 1340 BLOOD: Blood Culture - RECD 11/17 1250 BLOOD: Blood Culture - RECD 11/17 1237 BLOOD: Blood Culture - CAN Cancelled: REJECT BOTTLES- INCORRECT ORDR DRAWN AT TWO SEPERATE TIMES Assessment/Plan Assessment: Ms. Singh is a 61 y/o F patient (DNR/DNI) that came in to the ED due to bilateral leg parasthesias, numbness and muscukar weakness which started this morning when she was unable to stand from her bed. The patient has a previous history of HTN, Hyperlipidemia and Peripheral Vascular Disease which has been monitored by Dr. Knutson, her Vascular Surgeon. Based on the physical examination the patient has ulcerative changes in her left leg accompanied by ulcers mostly located on the tibial region of the leg. The patient denied leg claudication on moderate distances. Plan: Problem List & Plan: 1) Cellulitis Start the patient on antibiotics to avoid any potential infection or cellulitis. The cellulitis on the left leg could be due to PVD or due to the ulcerative changes. 2) Lower Limb Neurological Signs Place a naeurological consult to assess numbness of the lower limbs. 3) L-leg Ulcers Follow-up on Vascular Surgeon (Dr. Knutson) visit to evaluate exten or deterioration of the ulcers. Order MRI to assess L-tibial compromise due to contiguos ulcer and rule out osteomyelitis. 4) DVT Prophylaxis Start the patient on Lovenox. 11/17 1340 BLOOD: Blood Culture - RECD 11/17 1250 BLOOD: Blood Culture - RECD 11/17 1237 BLOOD: Blood Culture - CAN Cancelled: REJECT BOTTLES- INCORRECT ORDR DRAWN AT TWO SEPERATE TIMES
[2016-11-18 08:32] VITALS: BP 132/64
--- NOTE | 2016-11-18 08:42 | PN- Vascular Surgery ---
Surgical Brief Attending Note Brief Attending Note: VASCULAR ATTENTNG NOTE; Pt. seen in f/u today. States leg is improved. No rrest pain. PE: Stable LE exam/erythema decreased A/P Cellulitis/CVI/PAD 1.) Cont. ABX as pt. is improving 2.) X RAY neg for osteo--MRI likely will be expensive and low yield--recomm. d/c exam, 3.) evlevationb/cont. local wound care
[2016-11-18 09:09] LABS: ABSOLUTE BASOPHIL COUNT 0 /CUMM (0.0-0.2); ABSOLUTE EOSINOPHIL COUNT 0.1 /CUMM (0.0-0.7); ABSOLUTE GRANULOCYTE CT 5.5 /CUMM (1.4-6.5); ABSOLUTE LYMPH COUNT 1.6 /CUMM (1.2-3.4); ABSOLUTE MONOCYTE COUNT 0.8 /CUMM (0.10-0.60); BASOPHIL % 0.5 % (0.0-2.0); EOSINOPHIL % 0.6 % (0-5); GRANULOCYTE % 68.3 % (42.2-75.2); HEMATOCRIT 28.7 % (37-47); MEAN CORPUSCULAR HGB 25.8 PG (27.0-31.0); MEAN CORPUSCULAR HGB CONC 32.3 G/DL (33.0-37.0); MEAN CORPUSCULAR VOLUME 79.8 FL (81.0-99.0); MEAN PLATELET VOLUME 8.6 FL (7.4-10.4); PLATELET COUNT 366 /CUMM (130-400); RBC DISTRIBUTION WIDTH 16.4 % (11.5-14.5); RED BLOOD CELL CT 3.59 /CUMM (4.20-5.40); WHITE BLOOD CELL COUNT 8.1 /CUMM (4.8-10.8)
--- NOTE | 2016-11-18 13:01 | PN- Infect Dx ---
Subjective Subjective: Afebrile. She feels improved and notes decreased erythema and pain in the left leg. The numbness of both feet has also improved. Objective Last 24 Hrs of Vital Signs/I&O Vital Signs Date Time Temp Pulse Resp B/P Pulse O2 O2 Flow FiO2 Ox Delivery Rate 11/18 0927 98 136/64 11/18 0832 99.4 96 20 132/64 94 11/18 0041 98.2 101 20 160/74 96 Room Air 11/17 2138 92 116/68 11/17 1725 97.9 91 20 142/68 97 11/17 1600 96.5 83 15 126/57 99 Room Air Room Air 11/17 1418 98.0 74 22 138/61 100 Room Air Intake & Output 11/18 1600 11/18 0800 11/18 0000 Intake Total 920 1060 Output Total 675 575 Balance 245 485 Intake, IV 800 700 Intake, Oral 120 360 Number 0 Bowel Movements Output, Urine 675 575 Patient 140 lb Weight Physical Exam Other Physical Findings: She appears comfortable in no distress Extremities mild erythema of the left leg, with desquamation, minimally tender on palpation Results Last 24 Hours of Lab Results: Laboratory Tests 11/18 11/17 0615 2233 Chemistry Sodium (137 - 145 mmol/L) 140 Potassium (3.5 - 5.1 mmol/L) 3.9 Chloride (98 - 107 mmol/L) 106 Carbon Dioxide (22 - 30 mmol/L) 26 Anion Gap (5 - 16) 8 BUN (7 - 17 mg/dL) 16 Creatinine (0.5 - 1.0 mg/dL) 0.8 Estimated GFR (>60 ml/min) > 60 BUN/Creatinine Ratio (7 - 25 %) 20.0 Triglycerides (<150 mg/dL) 89 Cholesterol (<200 MG/DL) 126 LDL Cholesterol, Calc (65 - 129 mg/dL) 63 L HDL Cholesterol (40 - 60 mg/dL) 46 Cholesterol/HDL Ratio (0.00 - 4.23 %) 3 Hematology CBC w Diff NO MAN DIFF REQ WBC (4.8 - 10.8 /CUMM) 8.1 RBC (4.20 - 5.40 /CUMM) 3.59 L Hgb (12.0 - 16.0 G/DL) 9.3 L Hct (37 - 47 %) 28.7 L MCV (81.0 - 99.0 FL) 79.8 L MCH (27.0 - 31.0 PG) 25.8 L RDW (11.5 - 14.5 %) 16.4 H Plt Count (130 - 400 /CUMM) 366 MPV (7.4 - 10.4 FL) 8.6 Gran % (42.2 - 75.2 %) 68.3 Lymphocytes % (20.5 - 51.1 %) 20.1 L Monocytes % (1.7 - 9.3 %) 10.5 H Eosinophils % (0 - 5 %) 0.6 Basophils % (0.0 - 2.0 %) 0.5 Absolute Granulocytes (1.4 - 6.5 /CUMM) 5.5 Absolute Lymphocytes (1.2 - 3.4 /CUMM) 1.6 Absolute Monocytes (0.10 - 0.60 /CUMM) 0.8 H Absolute Eosinophils (0.0 - 0.7 /CUMM) 0.1 Absolute Basophils (0.0 - 0.2 /CUMM) 0 PUBS MCHC (33.0 - 37.0 G/DL) 32.3 L Urines Urine Color (YEL,AMB,STR) YEL Urine Clarity (CLEAR) CLDY H Urine pH (5.0 - 8.0) 6.0 Ur Specific [place] (1.001 - 1.035) 1.020 Urine Protein (NEG,<30 MG/DL) NEG Urine Ketones (NEG) NEG Urine Nitrite (NEG) NEG Urine Bilirubin (NEG) NEG Urine Urobilinogen (0.1 - 1.0 EU/dl) 0.2 Ur Leukocyte Esterase (NEG) LARGE H Ur Microscopic SEDIMENT EXAMINED Urine RBC (0 - 5 /HPF) 5-10 H Urine WBC (0 - 2 /HPF) 25-50 H Ur Epithelial Cells (NONE,FEW) MOD H Urine Mucus (FEW,NONE) FEW Urine Hemoglobin (NEG) TRACE-INTACT Urine Glucose (N MG/DL) NEG 11/17 11/17 2233 1305 Chemistry Lactic Acid (0.7 - 2.1 mmol/L) 1.3 Urines Ur Random Creatinine (mg/dL) 75.0 Ur Random Sodium (30 - 90 mmol/L) 117 H Ur Random Potassium (mmol/L) 14.2 Fraction Sodium Excret (<1% %) 1.9 H Last 24 Hours of Ernesto Results: Blood cultures 2 November 17 negative Superficial culture left leg November 16 positive for Group B strep and MSSA Recent Imaging Studies: X-ray of the left tibia and fibula November 17 no evidence of osteomyelitis Assessment/Plan Impression: Stable on Unasyn Day 2 of treatment for possible cellulitis of the left leg, with patient reporting decreased erythema and pain and with temperatures and white blood cell count remaining normal. Her renal insufficiency has resolved and was likely secondary to the Hydrochlorothiazide. Her bilateral foot numbness has also improved. Suggestion: 1. Can defer MRI of the left leg and pursue as an outpatient 2. Local wound care to her left leg ulcers per Vascular surgery 3. Increase Unasyn to 1.5 g IV every 6 hours, with change to Augmentin 875 mg po every 12 hours if continues to improve
[2016-11-18 15:51] VITALS: BP 124/62
--- NOTE | 2016-11-18 19:47 | Cons- Neurology ---
General Information and HPI Consulting Request Date of Consult: 11/18/16 Requested By: PASTORA GONZALEZ MD Reason for Consult: numbness in feet Source of Information: patient Exam Limitations: no limitations History of Present Illness: 61 year old admitted with cellulitis. C/w tingling and numbness in the feet that she had not experienced before on day 1 of admission. Since starting antibiotics the tingling has subsided. She also admits to long standing fatigability on walking with leg cramps that imporve with rest. No pato weakness at any point. Allergies/Medications Allergies: Coded Allergies: NO KNOWN ALLERGIES (08/11/15) Home Med List: Amoxicillin/Clavulanate Potass (Amox-Clav 875-125 MG Tablet) 875 MG-125 MG TABLET 1 TAB PO BID cellulitis (Reported) Atorvastatin Calcium 40 MG TABLET 1 TAB PO DAILY CHOLESTEROL (Reported) Hydrochlorothiazide 25 MG TABLET 1 TAB PO DAILY Blood pressure (Reported) Levothyroxine Sodium (Synthroid) 0.125 MG TAB 1 TAB PO DAILY AC THYROID HEALTH Lisinopril 10 MG TABLET 1 TAB PO DAILY BP (Reported) Metoprolol Tartrate 50 MG TABLET 1 TAB PO BID blood pressure (Reported) Oxycodone HCl 5 MG TABLET 1 TAB PO Q6-PRN PRN PAIN Current Medications: Current Medications Sig/Bibi Start time Last Medication Dose Route Stop Time Status Admin Acetaminophen 650 MG Q6P PRN 11/17 1715 AC PO Ampicillin Sodium/ 1,500 MG Q6 11/18 1800 AC 11/18 Sulbactam Sodium IV 1740 Sodium Chloride 100 ML Ampicillin Sodium/ 1,500 MG TID 11/17 2200 DC 11/18 Sulbactam Sodium IV 0927 Sodium Chloride 100 ML Atorvastatin Calcium 40 MG DAILY@1700 11/18 1700 AC 11/18 PO 1740 Heparin Sodium 5,000 UNIT Q8 11/17 1400 AC 11/18 (Porcine) SC 1245 Levothyroxine Sodium 0.125 MG DAILY AC 11/18 0700 AC 11/18 PO 0540 Metoprolol Tartrate 50 MG BID 11/17 2200 AC 11/18 PO 0927 Morphine Sulfate 0 .STK-MED ONE 11/18 1237 DC .ROUTE Morphine Sulfate 2 MG Q4P PRN 11/17 1715 AC IV Oxycodone HCl 5 MG Q6P PRN 11/17 1715 AC 11/18 PO 1740 Sodium Chloride 1,000 ML Q10H 11/17 1715 DC 11/18 IV 0421 Review of Systems Review of Systems: As per HPI. 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 Psychosocial History Services at Home: None Smoking Status: Never Smoked ETOH Use: denies use Illicit Drug Use: denies illicit drug use Functional Ability ADLs Independent: dressing, eating, toileting, bathing. Ambulation: independent IADLs Independent: shopping, housework, finances, food prep, telephone, transportation , medication admin. Exam & Diagnostic Data Vital Signs and I&O Vital Signs Date Time Temp Pulse Resp B/P Pulse O2 O2 Flow FiO2 Ox Delivery Rate 11/18 1551 99.0 93 20 124/62 96 11/18 0927 98 136/64 11/18 0832 99.4 96 20 132/64 94 11/18 0041 98.2 101 20 160/74 96 Room Air 11/17 2138 92 116/68 Intake & Output 11/18 1600 11/18 0800 11/18 0000 Intake Total 920 1060 Output Total 675 575 Balance 245 485 Intake, IV 800 700 Intake, Oral 120 360 Number 0 Bowel Movements Output, Urine 675 575 Patient 140 lb Weight Physical Exam: Exam not completed as the patient felt that her symptoms have subsided. Last 48 Hours of Lab Results: Laboratory Tests 11/18 11/17 0615 2233 Chemistry Sodium (137 - 145 mmol/L) 140 Potassium (3.5 - 5.1 mmol/L) 3.9 Chloride (98 - 107 mmol/L) 106 Carbon Dioxide (22 - 30 mmol/L) 26 Anion Gap (5 - 16) 8 BUN (7 - 17 mg/dL) 16 Creatinine (0.5 - 1.0 mg/dL) 0.8 Estimated GFR (>60 ml/min) > 60 BUN/Creatinine Ratio (7 - 25 %) 20.0 Triglycerides (<150 mg/dL) 89 Cholesterol (<200 MG/DL) 126 LDL Cholesterol, Calc (65 - 129 mg/dL) 63 L HDL Cholesterol (40 - 60 mg/dL) 46 Cholesterol/HDL Ratio (0.00 - 4.23 %) 3 Hematology CBC w Diff NO MAN DIFF REQ WBC (4.8 - 10.8 /CUMM) 8.1 RBC (4.20 - 5.40 /CUMM) 3.59 L Hgb (12.0 - 16.0 G/DL) 9.3 L Hct (37 - 47 %) 28.7 L MCV (81.0 - 99.0 FL) 79.8 L MCH (27.0 - 31.0 PG) 25.8 L RDW (11.5 - 14.5 %) 16.4 H Plt Count (130 - 400 /CUMM) 366 MPV (7.4 - 10.4 FL) 8.6 Gran % (42.2 - 75.2 %) 68.3 Lymphocytes % (20.5 - 51.1 %) 20.1 L Monocytes % (1.7 - 9.3 %) 10.5 H Eosinophils % (0 - 5 %) 0.6 Basophils % (0.0 - 2.0 %) 0.5 Absolute Granulocytes (1.4 - 6.5 /CUMM) 5.5 Absolute Lymphocytes (1.2 - 3.4 /CUMM) 1.6 Absolute Monocytes (0.10 - 0.60 /CUMM) 0.8 H Absolute Eosinophils (0.0 - 0.7 /CUMM) 0.1 Absolute Basophils (0.0 - 0.2 /CUMM) 0 PUBS MCHC (33.0 - 37.0 G/DL) 32.3 L Urines Urine Color (YEL,AMB,STR) YEL Urine Clarity (CLEAR) CLDY H Urine pH (5.0 - 8.0) 6.0 Ur Specific [place] (1.001 - 1.035) 1.020 Urine Protein (NEG,<30 MG/DL) NEG Urine Ketones (NEG) NEG Urine Nitrite (NEG) NEG Urine Bilirubin (NEG) NEG Urine Urobilinogen (0.1 - 1.0 EU/dl) 0.2 Ur Leukocyte Esterase (NEG) LARGE H Ur Microscopic SEDIMENT EXAMINED Urine RBC (0 - 5 /HPF) 5-10 H Urine WBC (0 - 2 /HPF) 25-50 H Ur Epithelial Cells (NONE,FEW) MOD H Urine Mucus (FEW,NONE) FEW Urine Hemoglobin (NEG) TRACE-INTACT Urine Glucose (N MG/DL) NEG 11/17 11/17 11/17 11/17 2233 1305 1237 1237 Chemistry Sodium (137 - 145 mmol/L) 142 Potassium (3.5 - 5.1 mmol/L) 3.6 Chloride (98 - 107 mmol/L) 100 Carbon Dioxide (22 - 30 mmol/L) 27 Anion Gap (5 - 16) 15 BUN (7 - 17 mg/dL) 24 H Creatinine (0.5 - 1.0 mg/dL) 1.7 H Estimated GFR (>60 ml/min) 30 L BUN/Creatinine Ratio (7 - 25 %) 14.1 Glucose (65 - 99 mg/dL) 108 H Hemoglobin A1c (<5.7) 6.3 H Lactic Acid (0.7 - 2.1 mmol/L) 1.3 Calcium (8.4 - 10.2 mg/dL) 9.9 Total Bilirubin (0.2 - 1.3 mg/dL) 0.7 AST (14 - 36 U/L) 18 ALT (9 - 52 U/L) 23 Alkaline Phosphatase (<127 U/L) 122 Total Protein (6.3 - 8.2 g/dL) 7.8 Albumin (3.5 - 5.0 g/dL) 4.2 Globulin (1.9 - 4.2 gm/dL) 3.6 Albumin/Globulin Ratio (1.1 - 2.2 %) 1.2 TSH (0.270 - 4.200 uIU/mL) 3.470 Free T4 (0.78 - 2.44 ng/dL) 2.02 Hematology CBC w Diff NO MAN DIFF REQ WBC (4.8 - 10.8 /CUMM) 9.6 RBC (4.20 - 5.40 /CUMM) 4.14 L Hgb (12.0 - 16.0 G/DL) 10.4 L Hct (37 - 47 %) 33.1 L MCV (81.0 - 99.0 FL) 79.8 L MCH (27.0 - 31.0 PG) 25.1 L RDW (11.5 - 14.5 %) 16.7 H Plt Count (130 - 400 /CUMM) 389 MPV (7.4 - 10.4 FL) 8.1 Gran % (42.2 - 75.2 %) 78.5 H Lymphocytes % (20.5 - 51.1 %) 15.2 L Monocytes % (1.7 - 9.3 %) 5.5 Eosinophils % (0 - 5 %) 0.8 Basophils % (0.0 - 2.0 %) 0 L Absolute Granulocytes (1.4 - 6.5 /CUMM) 7.5 H Absolute Lymphocytes (1.2 - 3.4 /CUMM) 1.5 Absolute Monocytes (0.10 - 0.60 /CUMM) 0.5 Absolute Eosinophils (0.0 - 0.7 /CUMM) 0.1 Absolute Basophils (0.0 - 0.2 /CUMM) 0 PUBS MCHC (33.0 - 37.0 G/DL) 31.4 L Urines Ur Random Creatinine (mg/dL) 75.0 Ur Random Sodium (30 - 90 mmol/L) 117 H Ur Random Potassium (mmol/L) 14.2 Fraction Sodium Excret (<1% %) 1.9 H 11/17 UNK Chemistry Lactic Acid Cancelled Assessment/Plan Assessment: 61 year old woman with PVD and cellulitis and related paresthesias now resolved with antibiotic treatment. Recommendations: None. Thsi consult is inappropriate and therefore will not be billed. Consult Acknowledgment - Thank you for your consult request.
[2016-11-18 23:59] VITALS: BP 120/60
--- NOTE | 2016-11-19 07:30 | PN- Housestaff ---
Subjective Follow-up For: 1. left leg swelling and redness Subjective: Ms Singh was comfortable this am. No complaints. Slept well, vitals were stable overngiht. She remained afebrile. Discussed with her about conitinuing the antibiotic that was already prescribed to her. She would have to follow up with her vascular surgeon about aspirin and high dose statin. Review of Systems Constitutional: Reports: see HPI. Objective Last 24 Hrs of Vital Signs/I&O Vital Signs Date Time Temp Pulse Resp B/P Pulse O2 O2 Flow FiO2 Ox Delivery Rate 11/18 2359 98.1 78 18 120/60 95 Room Air 11/18 2108 90 132/58 11/18 1551 99.0 93 20 124/62 96 11/18 0927 98 136/64 11/18 0832 99.4 96 20 132/64 94 Intake & Output 11/19 0800 11/19 0000 11/18 1600 Intake Total 300 100 410 Output Total 225 200 Balance 75 -100 410 Intake, IV 110 Intake, Oral 300 100 300 Number 1 Bowel Movements Output, Urine 225 200 Physical Exam General Appearance: No Acute Distress Other Physical Findings: AAOx3, No acute distress, Skin: No rashes, no breakdown HEENT: PERRLA, EOMI Neck: Supple, No JVD No cervical lymphadenopathy CVS: Reg Rate, Normal S1,S2, No MGR Resp: Normal air entry, no ronchi/rales Abdomen: Soft, No tenderness, Normal Bowel Sounds Neuro: Normal Speech, Strength 5/5 b/l x 4 extremities, Sensation intact, CN III -XII NL, Reflexes 2+ Extremities: No cyanosis, pedal edema, erythema decreased compared to yesterday, ulcers on left lower extremity. No discharge Current Medications: Current Medications Sig/Bibi Start time Last Medication Dose Route Stop Time Status Admin Acetaminophen 650 MG .STK-MED ONE 11/18 2053 DC PO 11/18 2054 Acetaminophen 650 MG Q6P PRN 11/17 171 AC 11/18 PO 2108 Ampicillin Sodium/ 1,500 MG Q6 11/18 1800 AC 11/19 Sulbactam Sodium IV 0545 Sodium Chloride 100 ML Ampicillin Sodium/ 1,500 MG TID 11/17 2200 DC 11/18 Sulbactam Sodium IV 0927 Sodium Chloride 100 ML Atorvastatin Calcium 40 MG DAILY@1700 11/18 1700 AC 11/18 PO 1740 Heparin Sodium 5,000 UNIT Q8 11/17 1400 AC 11/19 (Porcine) SC 0546 Levothyroxine Sodium 0.125 MG DAILY AC 11/18 0700 AC 11/19 PO 0546 Metoprolol Tartrate 50 MG BID 11/17 2200 AC 11/18 PO 2108 Morphine Sulfate 0 .STK-MED ONE 11/18 1237 DC .ROUTE Morphine Sulfate 2 MG Q4P PRN 11/17 171 AC IV Oxycodone HCl 5 MG Q6P PRN 11/17 1715 AC 11/18 PO 2348 Sodium Chloride 1,000 ML Q10H 11/17 1715 DC 11/18 IV 0421 Assessment/Plan Assessment: She is an older lady w/ a PMH of PAD, chronic left leg ulcers is being evaluated for sudden onset of paresthesias of bilateral feet, increasing erythema in the left leg not associated w/ any discharge. Differential diagnosis- 1. Rule out Cellulitis/Infected leg ulcers. 2. Rule out Ostemyelitis. Below is the problem list and plan: 1. Lef leg erythema and swelling- No fever or leucocytosis. Received Augmentin x 1 day as an outpatient. Cellulitis is in the differential, but considering inadequate blood supply; would treat the ulcers w/ abx for a total of 10 days. MRI to be done as an outpatient. Since the pt has PAD, she should be started on ASA. Did not have any contraindications-no GI bleed etc. Statin dose should be adjusted to a high dose statin. Defer the decsion to the vascular surgeron; pt gives a history of intolerace to high dose statin. 2. 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 No s/s s/o cord compression. 3. FRANCIS- History is very unclear for the reason of FRANCIS. Likely medication changes , or use of NSAIDs. Resolved. Urine sodium 117, fraction sodium excretion 1.9. Likely from a diuretic. Currently stable. 4. DVT prophylaxis- heparin. Problem List: 1. Cellulitis Pain Ratin Pain Location: left lower extremity Pain Goal: Pain 4 or less Pain Plan: tylenol prn roxycodone morphine Tomorrow's Labs & Rationales: none
[2016-11-19 08:01] VITALS: BP 148/80
--- NOTE | 2016-11-19 08:17 | PN- Student ---
Subjective Subjective: Follow-up for: Bilateral Feet Numbness & L-leg ulcers The patient was visited this morning and she was lying down on bed and seemed comfortable. She mentioned that sleeped well last night and there were no overnight complications. The patient denied any previous use for aspirin in the past and any complications like GI bleeding. The patient explained that she has not been able to receive a bypass of the leg in the past because of her ulcer issues. Review of Systems: General: The patient denies any changes in appetite, weight loss and is not in any respiratory distress at the present. Patient also denies nausea, vomiting, diarrhea, fever, chills or night sweats. HEENT: No dizzines or changes in vision. Cardiovascular: No palpitations/running heart. Respiratory: No shortness of breath. GI: No constipation, nause, vomiting or diarrhea. No GI bleeds. Genitourinary: No changes in urine color or frequency. Skin: Refer to HPI. Objective Objective: Current Medications Sig/Bibi Start time Last Medication Dose Route Stop Time Status Admin Acetaminophen 650 MG .STK-MED ONE 11/18 2053 DC PO 11/18 2054 Acetaminophen 650 MG Q6P PRN 11/17 1714 AC 11/18 PO 2109 Ampicillin Sodium/ 1,500 MG Q6 11/18 1800 AC 11/19 Sulbactam Sodium IV 0545 Sodium Chloride 100 ML Ampicillin Sodium/ 1,500 MG TID 11/17 2199 DC 11/18 Sulbactam Sodium IV 0927 Sodium Chloride 100 ML Atorvastatin Calcium 40 MG DAILY@1700 11/18 1700 AC 11/18 PO 1740 Heparin Sodium 5,000 UNIT Q8 11/17 1400 AC 11/19 (Porcine) SC 0546 Levothyroxine Sodium 0.125 MG DAILY AC 11/18 0700 AC 11/19 PO 0546 Metoprolol Tartrate 50 MG BID 11/17 2200 AC 11/18 PO 2108 Morphine Sulfate 0 .STK-MED ONE 11/18 1237 DC .ROUTE Morphine Sulfate 2 MG Q4P PRN 11/17 1714 AC IV Oxycodone HCl 5 MG Q6P PRN 11/17 171 AC 11/18 PO 2348 Sodium Chloride 1,000 ML Q10H 11/17 171 DC 11/18 IV 0421 Vital Signs Date Time Temp Pulse Resp B/P Pulse O2 O2 Flow FiO2 Ox Delivery Rate 11/19 0801 98.6 101 20 148/80 95 Room Air 11/18 2359 98.1 78 18 120/60 95 Room Air 11/18 2108 90 132/58 11/18 1551 99.0 93 20 124/62 96 11/18 0927 98 136/64 11/18 0832 99.4 96 20 132/64 94 Intake & Output 11/19 1600 11/19 0800 11/19 0000 Intake Total 300 510 Output Total 225 200 Balance 75 310 Intake, IV 110 Intake, Oral 300 400 Number 1 Bowel Movements Output, Urine 225 200 Physical Examination: General: Ms. Singh is a 61 y/o F that is presenting without any signs of respiratory distress, afebrile and alert & oriented X3. Patient denies any weight changes, anorexia, chills or night sweats. HEENT: PERRLA, EOMI. Neck: No JVD. Lungs: Clear to auscultation. CV: S1, S2 were heard; No murmurs were heard. Lower Extremities: No rashes but erythematous changes on left leg, normal pulses and intact sensation on light touch. Neurological: Normal Speech. Results Results: Laboratory Tests 11/18/16 0615: Anion Gap 8, Estimated GFR > 60, BUN/Creatinine Ratio 20.0, Triglycerides 89, Cholesterol 126, LDL Cholesterol, Calc 63 L, HDL Cholesterol 46, Cholesterol/ HDL Ratio 3, CBC w Diff NO MAN DIFF REQ, RBC 3.59 L, MCV 79.8 L, MCH 25.8 L, RDW 16.4 H, MPV 8.6, Gran % 68.3, Lymphocytes % 20.1 L, Monocytes % 10.5 H, Eosinophils % 0.6, Basophils % 0.5, Absolute Granulocytes 5.5, Absolute Lymphocytes 1.6, Absolute Monocytes 0.8 H, Absolute Eosinophils 0.1, Absolute Basophils 0, PUBS MCHC 32.3 L 11/17/16 2233: Urine Color YEL, Urine Clarity CLDY H, Urine pH 6.0, Ur Specific [place] 1.020, Urine Protein NEG, Urine Ketones NEG, Urine Nitrite NEG, Urine Bilirubin NEG, Urine Urobilinogen 0.2, Ur Leukocyte Esterase LARGE H, Ur Microscopic SEDIMENT EXAMINED, Urine RBC 5-10 H, Urine WBC 25-50 H, Ur Epithelial Cells MOD H, Urine Mucus FEW, Urine Hemoglobin TRACE-INTACT, Urine Glucose NEG 11/17/16 2233: Ur Random Creatinine 75.0, Ur Random Sodium 117 H, Ur Random Potassium 14.2, Fraction Sodium Excret 1.9 H 11/17/16 1305: Lactic Acid 1.3 11/17/16 1237: Hemoglobin A1c 6.3 H 11/17/16 1237: Anion Gap 15, Estimated GFR 30 L, BUN/Creatinine Ratio 14.1, Glucose 108 H, Calcium 9.9, Total Bilirubin 0.7, AST 18, ALT 23, Alkaline Phosphatase 122, Total Protein 7.8, Albumin 4.2, Globulin 3.6, Albumin/Globulin Ratio 1.2, TSH 3.470, Free T4 2.02, CBC w Diff NO MAN DIFF REQ, RBC 4.14 L, MCV 79.8 L, MCH 25.1 L, RDW 16.7 H, MPV 8.1, Gran % 78.5 H, Lymphocytes % 15.2 L, Monocytes % 5.5, Eosinophils % 0.8, Basophils % 0 L, Absolute Granulocytes 7.5 H, Absolute Lymphocytes 1.5, Absolute Monocytes 0.5, Absolute Eosinophils 0.1, Absolute Basophils 0, PUBS MCHC 31.4 L 11/17/16 1000: Lactic Acid Cancelled Microbiology 11/17 1340 BLOOD: Blood Culture - RES 11/17 1250 BLOOD: Blood Culture - RES 11/17 1237 BLOOD: Blood Culture - CAN Cancelled: REJECT BOTTLES- INCORRECT ORDR DRAWN AT TWO SEPERATE TIMES Assessment/Plan Assessment: Ms. Singh is a 61 y/o F patient (DNR/DNI) that came in to the ED due to bilateral leg parasthesias, numbness and muscukar weakness which started on the 17 of November morning when she was unable to stand from her bed. The patient has a previous history of HTN, Hyperlipidemia and Peripheral Vascular Disease which has been monitored by Dr. Knutson, her Vascular Surgeon. Patient can potentially be discharged today. Plan: Problem List & Plan: 1) Parasthesias and Numbness in both legs The patient mentioned that she still feels mild numbness and tingling although physical examination revealed no neurological compromise bilaterally. Sensation is preserved in light touch and pulses were felt though diminished, ruling out any possibility of neural damage due to vascular insufficency. Dr. Magallanes consult yesterday ruled out any neurological finding. No objective signs support this set of symptoms. Refer the patient to EMG procedure as Outpatient. 2) Erythema on L-leg Mild edema and eythema was present on the L-leg and some areas were noticeable for epidermal shedding. Since the patient has a cronic PHx of arterial vascular insufficiency the erythematous changes could be due to third spacing. Administer aspirin for th is problem and if it becomes itchy utilize anti-histamines. 3) Chronic Multiple Ulcers on L-leg Based on the PVD and since it's arterial the ulcers are deep and painful. Tx the patient with Antibiotics as inpatient and a course of Azithromycin for 5 days (Z Pack) to prevent any potential infection due to concern of contiguos ostemyelitis (since ulcers are present near the tibial bone). Follow up with vascular surgeon to assess healed ulcers. By pass graft is higly recommended in this patient.
--- NOTE | 2016-11-19 09:03 | Patient Discharge Instructions ---
Discharge Instructions General Discharge Information You were seen/treated for: #1 left lower leg ulcers and paresthesias Watch for these problems: #1 chest pain, shortness of breath #2 severe leg pain, discharge from left lower extremity ulcers. Special Instructions: #1 please follow-up with your vascular surgeon within 1-2 weeks of discharge. #2 please follow-up with your primary care provider within 1-2 weeks of discharge. #3 please take your medications as prescribed Acute Coronary Syndrome Inclusion Criteria At DC or during hospital stay patient has or had the following: ACS DIAGNOSIS No Discharge Core Measures Meds if any: Prescribed or Continued at Discharge Meds if any: NOT Prescribed or Continued at Discharge Congestive Heart Failure Inclusion Criteria At DC or during hospital stay patient has or had the following: CHF DIAGNOSIS No Discharge Core Measures Meds if any: Prescribed or Continued at Discharge Meds if any: NOT Prescribed or Continued at Discharge Cerebrovascular accident Inclusion Criteria At DC or during hospital stay patient has or had the following: CVA/TIA Diagnosis No Discharge Core Measures Meds if any: Prescribed or Continued at Discharge Meds if any: NOT Prescribed or Continued at Discharge Venous thromboembolism Inclusion Criteria VTE Diagnosis No VTE Type NONE VTE Confirmed by (Test) NONE Discharge Core Measures - Per Current guidelines, there needs to be overlap - treatment for the first 5 days of Warfarin therapy. - If discharged on Warfarin prior to 5 days of - overlap therapy, the patient will need to be - assessed for post discharge needs including - *Post discharge parental anticoagulation - *Warfarin and/or parental anticoagulation education - *Follow up date to check INR post discharge At least 5 days overlap therapy as Inpatient No Meds if any: Prescribed or Continued at Discharge Note: Overlap Therapy is Warfarin and Anticoagulant Meds if any: NOT Prescribed or Continued at Discharge
[2016-11-19 09:19] VITALS: BP 148/80
[2016-11-19] MEDS ORDERED: ASPIRIN81 M4 PO (10:00)
--- NOTE | 2016-12-09 16:08 | Discharge Summary ---
Visit Information Visit Dates Admission Date: 11/17/16 Discharge Date: 11/19/16 Hospital Course Course Attending Physician: JESSICA LEVY MD Primary Care Physician: Ama MUÑOZ MD [facility] Course: Ms. 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 Kline) with recent antibiotic use for increasing erythema of the left lower extremity. She was sent by Dr. Knutson's office, when she complained of pain and loss of sensation/tingling, numbness sensation in her lower extremities, worsening in redness in left leg x1 day prior to admission. At the time of admission, vitals- Temp 97.1(Tm 99.), MA 71, BP 124/78, 99 RA. On examination, increased erythema, assoicated w/ worsening pain likely indicates an infection. Lab findings indicated- WBC 9.6, Hb 10.4 (Baseline 11.3), HCT 33.1 , platelets 389, Normal electrolytes- Na 142, K 3.6, Bicarbonate 27, Abnormal kidney function- BUN 24, Sr creatinine 1.7(baseline 0.8), LA 1.3. CTA 2014- indicated infrarenal abdominal aortic occlusion extending into the common iliac arteries. Also, was left superficial femoral artery is occluded. Venous dopplers did not show any DVT. Differential diagnosis- 1. Cellulitis/Infected leg ulcers. 2. Rule out Ostemyelitis. Below is the problem list and plan: 1. Lef leg erythema and swelling- No fever or leucocytosis(she was given amoxicillin as an outpatient). Cellulitis was in the differential, and was started on unasyn, which was transitioned to po amoxicillin to complete a total course of 10 days. Osteomyelitis was in the differential, as the ulcer was too close to tibial surgace. Blood cultures x 2. To check MRI as an outpateint. Vitals were stable during the stay in the hospital, and did not have any leucocytosis. Dr. Leslie was consulted for advice. Wound care w/ daily with Adaptic, Aquacel and bilateral Jevon wraps was done. Dr. Knutson was consulted for advice, on management of PAD. Aspirin was added to medication regimen. 2. 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 No s/s s/o cord compression. Dr. Magallanes was consulted for advice. 3. FRANCIS- History is very unclear for the reason of FRANCIS. Likely medication changes , or use of NSAIDs. Resolved during the stay in the hospital. Sr Cr 1.7-->0.8. 4. DVT prophylaxis- heparin. Allergies: Coded Allergies: NO KNOWN ALLERGIES (08/11/15) Pertinent Lab Results: RAD - [id number], LEFT 11/17/16- Soft tissue ulcers are appreciated along the medial and ventral aspect of the left lower extremity. There is no radiographic evidence of osteomyelitis. ---- US - US-UNILATERAL VENOUS DOPPLER Normal triplex deep venous scan without evidence of deep venous thrombosis involving the left lower extremity. Femoral artery occlusion. --- Disposition Summary Disposition Principal Diagnosis: Cellulits/infected ulcer Additional Diagnosis: PAD Discharge Disposition: home or self care Discharge Instructions General Discharge Information Code Status: Full Code Patient's Diet: Waddleet Patient's Activity: as tolerated. Follow-Up Instructions/Appts: #1 please follow-up with your vascular surgeon within 1-2 weeks of discharge. #2 please follow-up with your primary care provider within 1-2 weeks of discharge. #3 please take your medications as prescribed Medications at Discharge Discharge Medications: Continue taking these medications: Levothyroxine Sodium (Synthroid) 0.125 MG TAB 1 Tablet ORAL DAILY BEFORE BREAKFAST Qty = 30 Atorvastatin Calcium (Atorvastatin Calcium) 40 MG TABLET 1 Tablet ORAL DAILY Comments: Last Taken: 11/18/16 Time: 1730 Oxycodone HCl (Oxycodone HCl) 5 MG TABLET 1 Tablet ORAL EVERY 6 HOURS NEEDED as needed for PAIN Qty = 30 Comments: Last Taken: 11/19/16 Time: 0900 Lisinopril (Lisinopril) 10 MG TABLET 1 Tablet ORAL DAILY Comments: NOT GIVEN IN HOSPITAL Hydrochlorothiazide (Hydrochlorothiazide) 25 MG TABLET 1 Tablet ORAL DAILY Qty = 90 Comments: NOT GIVEN IN HOSPITAL Metoprolol Tartrate (Metoprolol Tartrate) 50 MG TABLET 1 Tablet ORAL TWICE DAILY Qty = 180 Comments: Last Taken: 11/19/16 Time: 0900 Start taking the following new medications: Aspirin (Aspirin*) 81 MG TAB.CHEW 1 Tablet ORAL DAILY Qty = 30 No Refills Copies To: WANDA TOM,Ama PRINCE Attending MD Review Statement Documenting Attending: JESSICA LEVY MD
[2017-02-14] MEDS ORDERED: FERROUS SULFAT325 M3 PO (08:57)
[2017-02-14] MEDS ORDERED: GABAPENTIN300 M2 PO (08:58)
== END 2016-11-19 14:14 | disposition home health service (06) | DRG 383 ==
LOC: ENRESERVDT → ENRESERVTM → ERH 11:36 → ERHI 13:57 → 2NB 13:57 → ENPENDDIS 13:57 → 2NB 16:30
PROVIDERS: Internal Medicine; Physician Assistant; ADMIT Internal Medicine
DX: L03.116 Cellulitis of left lower limb (principal); N17.9 Acute kidney failure, unspecified; L97.929 Non-pressure chronic ulcer of unspecified part of left lower leg with unspecified severity; T50.2X5A Adverse effect of carbonic-anhydrase inhibitors, benzothiadiazides and other diuretics, initial encounter; Y92.009 Unspecified place in unspecified non-institutional (private) residence as the place of occurrence of the external cause; I73.9 Peripheral vascular disease, unspecified; I10 Essential (primary) hypertension; E78.5 Hyperlipidemia, unspecified; I25.10 Atherosclerotic heart disease of native coronary artery without angina pectoris
CPT/HCPCS: 2NBP; 84133; 84300; 87184; 36415; 73590-LT; 81001; 82436; 82570; 87040; 87070; 87071; 87147; 93005; 93010; 96374; 97116-GO; 97161-GP; 97530-GO; J1644; Q2036

== ENCOUNTER 2016-12-07 14:28 | Emergency (ER) | payer OTHER ==
[~2016-12-07] VITALS: Ht 152.4 cm; Wt 63.5 kg
[~2016-12-07 14:28] MED LIST changes: +AMOX-CLAV 875-1 EACH PO; +ASPIRIN81 M4 PO; +HYDROCHLOROTHIA25 M1 PO; +LISINOPRIL10 M1 PO; +METOPROLOL TART50 M1 PO
--- NOTE | 2016-12-07 14:39 | ED GENERAL ADULT ---
History of Present Illness General Chief Complaint: Lower Extremity Problems Stated Complaint: BIBA LT LEG PAIN Source: patient Exam Limitations: no limitations Vital Signs & Intake/Output Vital Signs & Intake/Output Vital Signs Date Time Temp Pulse Resp B/P Pulse O2 O2 Flow FiO2 Ox Delivery Rate 12/07 1638 97.0 100 16 170/74 98 Room Air 12/07 1429 97.0 98 18 147/65 95 Room Air ED Intake and Output 12/08 0000 12/07 1200 Intake Total Output Total Balance Patient 140 lb Weight Allergies Coded Allergies: NO KNOWN ALLERGIES (08/11/15) Reconcile Medications Aspirin (Aspirin*) 81 MG TAB.CHEW 1 TAB PO DAILY ARTERIAL DISEASE Atorvastatin Calcium 40 MG TABLET 1 TAB PO DAILY CHOLESTEROL (Reported) Doxycycline Hyclate (Vibramycin) 100 MG CAPSULE 1 CAP PO BID cellulitis Doxycycline Hyclate (Vibramycin) 100 MG CAPSULE 1 CAP PO BID cellulitis Hydrochlorothiazide 25 MG TABLET 1 TAB PO DAILY Blood pressure (Reported) Levothyroxine Sodium (Synthroid) 0.125 MG TAB 1 TAB PO DAILY AC THYROID HEALTH Lisinopril 10 MG TABLET 1 TAB PO DAILY BP (Reported) Metoprolol Tartrate 50 MG TABLET 1 TAB PO BID blood pressure (Reported) Oxycodone HCl 5 MG TABLET 1 TAB PO Q6-PRN PRN PAIN Triage Note: BIBA FROM HOME WITH C/O LEFT LOWER LEG PAIN, "I HAVE HAD MULTIPLE SKIN GRAFTS FOR BAD CIRCULATION OVER THE YEARS". 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 Triage Nurses Notes Reviewed? yes Onset: Abrupt Duration: day(s): Timing: recent history HPI: 12/07/16 4:30 pm 61-year-old female presents to the emergency department for suture removal and check of her stasis dermatitis on her left lower extremity. The patient has a history of vascular dermatitis. She status post skin grafts to the left lower extremity. She had sutures placed at [facility] approximately 10 days ago for ruptured varicosity according to the patient. She denies other complaints, no fever. She does say that the areas immediately surrounding the ulcerations are more redder than it had been, no fever. The onset of the symptoms were abrupt, the duration has been approximately 10 days ago, the severity is significant as her symptoms required to come to the emergency department. On physical exam she is awake alert oriented 3. Her left leg has multiple ulcerations. There are 2 sutures in the medial aspect of one of the ulcerations. The sutures were removed by me. She has stasis dermatitis with ulceration to the left lower 70. We'll put the patient on Vibramycin. She'll follow-up with the wound center this week to 2 sutures were removed and a Xeroform dressing was placed by the medical student under my direct supervision Past History Travel History Traveled to [place] past 21 day No Medical History Any Pertinent Medical History? 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 Hx Contributory? No Review of Systems Review of Systems Constitutional: Denies: fever. EENTM: Reports: no symptoms. Respiratory: Denies: short of breath. Cardiovascular: Denies: chest pain. GI: Reports: no symptoms. Genitourinary: Reports: no symptoms. Musculoskeletal: Reports: see HPI. Skin: Reports: see HPI. Neurological/Psychological: Reports: no symptoms. Hematologic/Endocrine: Reports: no symptoms. Physical Exam Physical Exam General Appearance: alert, awake, anxious, mild distress Head: atraumatic, normal appearance Eyes: Bilateral: normal appearance, PERRL, EOMI. Ears, Nose, Throat: normal ENT inspection Neck: supple Respiratory: no respiratory distress Cardiovascular: regular rate/rhythm Extremities: pedal edema Neurologic/Psych: no motor/sensory deficits, awake, alert, oriented x 3 Skin: rash Comments: The patient is status post skin grafting to the left lower extremity. She has multiple ulcerations, there is granulation tissue in the ulcerations. These are in the mid lower leg. There is a 2 inch medial ulceration on the leg. There were 2 sutures within the ulceration. Procedure under sterile technique, the 2 sutures were removed without complication. Xeroform sterile dressing was applied by the medical student under my direct supervision.. The patient was instructed to follow-up with the wound clinic, she is also following up with Dr. Knutson this week. She was put on doxycycline for 10 days. Core Measures ACS in differential dx? No CVA/TIA Diagnosis: No Severe Sepsis Present: No Septic Shock Present: No Progress Differential Diagnoses I considered the following diagnoses in my evaluation of the patient: [ Cellulitis, necrotizing fasciitis, infected ulceration, suture removal, abscess] Plan of Care: Follow-up the wound center this week, doxycycline as instructed, return to the ER fever or worse. Initial ED EKG: none Departure Departure Disposition: HOME OR SELF CARE Condition: Stable Clinical Impression Primary Impression: Visit for suture removal Secondary Impressions: Cellulitis, Skin ulcer Referrals: Ama MUÑOZ MD (PCP/Family) Departure Forms: Customer Survey General Discharge Information Prescriptions: Current Visit Scripts Doxycycline Hyclate (Vibramycin) 1 CAP PO BID #20 CAP Doxycycline Hyclate (Vibramycin) 1 CAP PO BID #20 CAP Critical Care Note Critical Care Note Critical Care Time: non-applicable
[2016-12-07] MEDS ORDERED: VIBRAMYCIN100 MG PO ×2 (16:28→16:29)
[2016-12-07 16:38] VITALS: BP 170/74
[2017-02-14] MEDS ORDERED: FERROUS SULFAT325 M3 PO (08:57)
[2017-02-14] MEDS ORDERED: GABAPENTIN300 M2 PO (08:58)
== END 2016-12-07 17:05 ==
LOC: ERH 14:28
DX: L03.116 Cellulitis of left lower limb (principal)
CPT/HCPCS: 99281

== ENCOUNTER 2016-12-17 10:17 | Inpatient (IN) | payer OTHER ==
[~2016-12-17] VITALS: Ht 152.4 cm; Wt 59.9 kg
[~2016-12-17 10:17] MED LIST changes: +VIBRAMYCIN100 MG PO
[2016-12-17 12:10] VITALS: BP 86/44
[2016-12-17 13:55] LABS: ABSOLUTE BASOPHIL COUNT 0 /CUMM (0.0-0.2); ABSOLUTE EOSINOPHIL COUNT 0 /CUMM (0.0-0.7); ABSOLUTE GRANULOCYTE CT 12.1 /CUMM (1.4-6.5); ABSOLUTE LYMPH COUNT 1.5 /CUMM (1.2-3.4); BASOPHIL % 0.2 % (0.0-2.0); EOSINOPHIL % 0.1 % (0-5); GRANULOCYTE % 82.7 % (42.2-75.2); HEMATOCRIT 28.3 % (37-47); MEAN CORPUSCULAR HGB 25.4 PG (27.0-31.0); MEAN CORPUSCULAR HGB CONC 31.5 G/DL (33.0-37.0); MEAN CORPUSCULAR VOLUME 80.5 FL (81.0-99.0); MEAN PLATELET VOLUME 8.1 FL (7.4-10.4); PLATELET COUNT 539 /CUMM (130-400); RBC DISTRIBUTION WIDTH 17.3 % (11.5-14.5); RED BLOOD CELL CT 3.51 /CUMM (4.20-5.40); WHITE BLOOD CELL COUNT 14.7 /CUMM (4.8-10.8)
[2016-12-17 14:06] LABS: PT 17.5 SEC (9.4-12.5)
--- NOTE | 2016-12-17 14:19 | Cons- Cardiology ---
General Information and HPI Consulting Request Date of Consult: 12/17/16 Requested By: ELINA MIKE MD Reason for Consult: Preoperative assessment and clearance Source of Information: patient, old records Exam Limitations: no limitations History of Present Illness: 61 year old female with extensive history of vascular disease. Admitted now for vascular surgical intervention on Tuesday by Dr. Mike. Cardiology input requested to evaluate the patient prior to the surgical procedure and clear for surgical intervention. The patient has been stable from a cardiovascular standpoint but her activities are very limited due to her left leg ischemic symptoms. Allergies/Medications Allergies: Coded Allergies: NO KNOWN ALLERGIES (08/11/15) Home Med List: Aspirin (Aspirin*) 81 MG TAB.CHEW 1 TAB PO DAILY ARTERIAL DISEASE Atorvastatin Calcium 40 MG TABLET 1 TAB PO DAILY CHOLESTEROL (Reported) Doxycycline Hyclate (Vibramycin) 100 MG CAPSULE 1 CAP PO BID cellulitis Doxycycline Hyclate (Vibramycin) 100 MG CAPSULE 1 CAP PO BID cellulitis Hydrochlorothiazide 25 MG TABLET 1 TAB PO DAILY Blood pressure (Reported) Levothyroxine Sodium (Synthroid) 0.125 MG TAB 1 TAB PO DAILY AC THYROID HEALTH Lisinopril 10 MG TABLET 1 TAB PO DAILY BP (Reported) Metoprolol Tartrate 50 MG TABLET 1 TAB PO BID blood pressure (Reported) Oxycodone HCl 5 MG TABLET 1 TAB PO Q6-PRN PRN PAIN Current Medications: Current Medications Sig/Bibi Start time Last Medication Dose Route Stop Time Status Admin Ampicillin Sodium/ 3,000 MG Q6H 12/17 1400 AC Sulbactam Sodium IV Sodium Chloride 100 ML Dextrose/Sodium 1,000 ML Q8H 12/17 1300 AC 12/17 Chloride IV 12/18 0459 1309 Ondansetron HCl 4 MG Q6P PRN 12/17 1315 AC IV Oxycodone/ 1 TAB Q4P PRN 12/17 1315 AC Acetaminophen PO Oxycodone/ 2 TAB Q4P PRN 12/17 1315 AC Acetaminophen PO Past History Medical History Neurological: NONE EENT: NONE Cardiovascular: CAD, hypertension, hyperlipidemia, PVD Respiratory: NONE Gastrointestinal: NONE Hepatic: NONE Renal: NONE Musculoskeletal: NONE Psychiatric: NONE Endocrine: hypothyroidism Blood Disorders: NONE Cancer(s): 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 Psychosocial History Services at Home: None Functional Ability ADLs Independent: dressing, eating, toileting, bathing. Ambulation: independent IADLs Independent: shopping, housework, finances, food prep, telephone, transportation , medication admin. Exam & Diagnostic Data Vital Signs and I&O Intake & Output 12/17 1600 12/17 0800 12/17 0000 12/16 1600 12/16 0800 12/16 0000 Intake Total Output Total Balance Patient 130 lb Weight Physical Exam: General: Thin WF in mild distress due to leg discomfort: VSS HEENT: normal NEck: JVP normal; carotid normal bilaterally without audible bruits. Chest: essentially clear bilaterally Heart: Regular S1, S2, 1/6 systolic murmur Ext: left leg wrapped. Labs/[place] Results: Laboratory Tests 12/17 1301 Chemistry Sodium Pending Potassium Pending Chloride Pending Carbon Dioxide Pending Anion Gap Pending BUN Pending Creatinine Pending BUN/Creatinine Ratio Pending Calcium Pending Phosphorus Pending Magnesium Pending Coagulation PT (9.4 - 12.5 SEC) 17.5 H INR (0.90 - 1.19) 1.68 H Hematology CBC w Diff NO MAN DIFF REQ WBC (4.8 - 10.8 /CUMM) 14.7 H RBC (4.20 - 5.40 /CUMM) 3.51 L Hgb (12.0 - 16.0 G/DL) 8.9 L Hct (37 - 47 %) 28.3 L MCV (81.0 - 99.0 FL) 80.5 L MCH (27.0 - 31.0 PG) 25.4 L RDW (11.5 - 14.5 %) 17.3 H Plt Count (130 - 400 /CUMM) 539 H MPV (7.4 - 10.4 FL) 8.1 Gran % (42.2 - 75.2 %) 82.7 H Lymphocytes % (20.5 - 51.1 %) 10.0 L Monocytes % (1.7 - 9.3 %) 7.0 Eosinophils % (0 - 5 %) 0.1 Basophils % (0.0 - 2.0 %) 0.2 Absolute Granulocytes (1.4 - 6.5 /CUMM) 12.1 H Absolute Lymphocytes (1.2 - 3.4 /CUMM) 1.5 Absolute Monocytes (0.10 - 0.60 /CUMM) 1.0 H Absolute Eosinophils (0.0 - 0.7 /CUMM) 0 Absolute Basophils (0.0 - 0.2 /CUMM) 0 PUBS MCHC (33.0 - 37.0 G/DL) 31.5 L Diagnostic Data EKG Results Pending Assessment/Plan Assessment/Plan Assessment: 1. PAD with left leg ischemia 2. CAD 3. HTN 4. HLD 5. Microcytic anemia 6. Chronic renal insufficiency. REcommendations: - In preparation for the upcoming surgical procedure please schedule an echocardiogram to assess LV function and a Persantine nuclear stress test to better exclude ischemia. - NPO after midnite Tuesday for stress test on Tuesday AM. - In my absence, Dr. Busby will be present for the stress test on Tuesday. - Further plans after the above results are available - Otherwise continue as per the vascular surgical service. - If a CTA of the aorta with runoff is performed, the patient should have very close monitoring of her renal function following the procedure. Consult Acknowledgment - Thank you for your consult request.
[2016-12-17 14:55] VITALS: BP 100/56
[2016-12-17 16:44] VITALS: BP 120/62
--- NOTE | 2016-12-17 17:31 | Admission Core Measures ---
Admission Lab Results I reviewed the following labs: Laboratory Tests 12/17 1301 Chemistry Sodium (137 - 145 mmol/L) 139 Potassium (3.5 - 5.1 mmol/L) 4.4 Chloride (98 - 107 mmol/L) 98 Carbon Dioxide (22 - 30 mmol/L) 20 L Anion Gap (5 - 16) 21 H BUN (7 - 17 mg/dL) 57 H Creatinine (0.5 - 1.0 mg/dL) 1.9 H Estimated GFR (>60 ml/min) 27 L BUN/Creatinine Ratio (7 - 25 %) 30.0 H Calcium (8.4 - 10.2 mg/dL) 9.6 Phosphorus (2.5 - 4.5 mg/dL) 5.2 H Magnesium (1.6 - 2.3 mg/dL) 2.4 H Coagulation PT (9.4 - 12.5 SEC) 17.5 H INR (0.90 - 1.19) 1.68 H Hematology CBC w Diff NO MAN DIFF REQ WBC (4.8 - 10.8 /CUMM) 14.7 H RBC (4.20 - 5.40 /CUMM) 3.51 L Hgb (12.0 - 16.0 G/DL) 8.9 L Hct (37 - 47 %) 28.3 L MCV (81.0 - 99.0 FL) 80.5 L MCH (27.0 - 31.0 PG) 25.4 L RDW (11.5 - 14.5 %) 17.3 H Plt Count (130 - 400 /CUMM) 539 H MPV (7.4 - 10.4 FL) 8.1 Gran % (42.2 - 75.2 %) 82.7 H Lymphocytes % (20.5 - 51.1 %) 10.0 L Monocytes % (1.7 - 9.3 %) 7.0 Eosinophils % (0 - 5 %) 0.1 Basophils % (0.0 - 2.0 %) 0.2 Absolute Granulocytes (1.4 - 6.5 /CUMM) 12.1 H Absolute Lymphocytes (1.2 - 3.4 /CUMM) 1.5 Absolute Monocytes (0.10 - 0.60 /CUMM) 1.0 H Absolute Eosinophils (0.0 - 0.7 /CUMM) 0 Absolute Basophils (0.0 - 0.2 /CUMM) 0 PUBS MCHC (33.0 - 37.0 G/DL) 31.5 L Admission Meds I reviewed the following Meds: Current Medications Sig/Bibi Start time Last Medication Dose Stop Time Status Admin Atorvastatin Calcium 40 MG 1700 12/17 1700 AC (Lipitor) Levothyroxine Sodium 0.125 MG DAILY AC 12/18 0700 AC (Synthroid) Metoprolol Tartrate 50 MG BID 12/17 2200 AC (Lopressor) Ondansetron HCl 4 MG Q6P PRN 12/17 1315 AC (Zofran) Oxycodone/ 1 TAB Q4P PRN 12/17 1315 AC Acetaminophen (Percocet) Sodium Chloride 1,000 ML BOLUS ONE 12/17 1445 CAN (Normal Saline 0.9%) 12/17 1544 Acute Coronary Syndrome Inclusion Criteria ACS Diagnosis No Inpatient Core Measures LDL Reminder: If No, please order W/I first 24hr of stay Congestive Heart Failure Inclusion Criteria CHF Diagnosis No Cerebrovascular accident Inclusion Criteria CVA/TIA Diagnosis No Inpatient Core Measures Bedside Swallow Eval Reminder: If BSE failed, place ST order Antithrombotic Reminder: Order Antithrombotic Medication by end of day 2 Antithrombotic Reminder: Document Reason Antithrombotic Not ordered by end of day 2 AFIB/Flutter Reminder: If Present, add to problem list AFIB/Flutter Reminder: Order Anticoag Medication for pts with AFIB/Flutter Atherosclerosis Reminder: If Present, add to problem list LDL Reminder: If No, please order W/I first 24hr of stay PT Order Reminder: If No, please order Venous thromboembolism Inpatient Core Measures VTE Risk Factors: Age > 40 VTE Prophylaxis Ordered In Pharm- Heparin No [facility] VTE prophylaxis d/t Lower limb ischemia No VTE Pharm Prophylaxis d/t No contraindications Inclusion Criteria - Per Current guidelines, there needs to be overlap - treatment for the first 5 days of Warfarin therapy. - Parenteral Anticoagulation (IV or SC) needs to be - given along with Warfarin therapy. VTE Diagnosis No VTE Type NONE VTE Confirmed by (Test) NONE Problem List As ranked by this Provider includes Assessment & Plan 1. PAD (peripheral artery disease) HOME MEDS Home Med List Aspirin (Aspirin*) 81 MG TAB.CHEW 1 TAB PO DAILY ARTERIAL DISEASE Atorvastatin Calcium 40 MG TABLET 1 TAB PO DAILY CHOLESTEROL (Reported) Doxycycline Hyclate (Vibramycin) 100 MG CAPSULE 1 CAP PO BID cellulitis Doxycycline Hyclate (Vibramycin) 100 MG CAPSULE 1 CAP PO BID cellulitis Hydrochlorothiazide 25 MG TABLET 1 TAB PO DAILY Blood pressure (Reported) Levothyroxine Sodium (Synthroid) 0.125 MG TAB 1 TAB PO DAILY AC THYROID HEALTH Lisinopril 10 MG TABLET 1 TAB PO DAILY BP (Reported) Metoprolol Tartrate 50 MG TABLET 1 TAB PO BID blood pressure (Reported) Oxycodone HCl 5 MG TABLET 1 TAB PO Q6-PRN PRN PAIN
[2016-12-17 23:21] LABS: PTT 38 SEC (25-37)
[2016-12-18] VITALS: BP 106/76
[2016-12-18 00:02] VITALS: BP 106/58
[2016-12-18 07:05] LABS: PTT 48 SEC (25-37)
[2016-12-18 08:17] VITALS: BP 136/65
[2016-12-18 08:21] LABS: ABSOLUTE BASOPHIL COUNT 0 /CUMM (0.0-0.2); ABSOLUTE EOSINOPHIL COUNT 0 /CUMM (0.0-0.7); ABSOLUTE GRANULOCYTE CT 11.4 /CUMM (1.4-6.5); ABSOLUTE LYMPH COUNT 1.6 /CUMM (1.2-3.4); ABSOLUTE MONOCYTE COUNT 1.3 /CUMM (0.10-0.60); BASOPHIL % 0.2 % (0.0-2.0); EOSINOPHIL % 0.2 % (0-5); GRANULOCYTE % 79.7 % (42.2-75.2); HEMATOCRIT 25.1 % (37-47); MEAN CORPUSCULAR HGB 25.5 PG (27.0-31.0); MEAN CORPUSCULAR HGB CONC 31.5 G/DL (33.0-37.0); MEAN CORPUSCULAR VOLUME 81.2 FL (81.0-99.0); MEAN PLATELET VOLUME 8.2 FL (7.4-10.4); PLATELET COUNT 539 /CUMM (130-400); WHITE BLOOD CELL COUNT 14.4 /CUMM (4.8-10.8)
--- NOTE | 2016-12-18 08:49 | PN- Vascular Surgery ---
Subjective Subjective: NAEO. Patient continues to have pain in her LLE. She has had similar ulcers off and on for the past couple of years. No changes in sensation to LLE. States she still has good feeling in her left foot. Tolerating diet without n/ v. Denies CP/SOB. Objective Vital Signs and I&Os Vital Signs Date Time Temp Pulse Resp B/P Pulse O2 O2 Flow FiO2 Ox Delivery Rate 12/18 0817 98.3 107 20 136/65 96 Room Air 12/18 0002 98.0 96 20 106/58 95 12/17 2216 112 112/60 12/17 1644 98.2 107 20 120/62 96 Room Air 12/17 1455 96 100/56 12/17 1210 98.1 98 18 86/44 96 Room Air Room Air Intake & Output 12/18 1600 12/18 0800 12/18 0000 12/17 1600 12/17 0800 12/17 0000 Intake Total 1240 600 240 Output Total 300 150 Balance 940 450 240 Intake, IV 1000 360 Intake, Oral 240 240 240 Output, Urine 300 150 Patient 130 lb Weight Physical Exam: General: NAD, comfortable, A&Ox3 Chest: Decreased breath sounds at lung bases, no wheezes, no rales. Heart S1S2 normal. Abdomen: soft, nontender, nondistended. Ext: Left soria/foot ucler covered with xeroform and gauze dressing. No purulent drainage. Dopplerable PT in Left foot. No calve swelling/TTP. Current Medications: Current Medications Sig/Bibi Start time Last Medication Dose Route Stop Time Status Admin Ampicillin Sodium/ 3,000 MG Q6H 12/17 1400 AC 12/18 Sulbactam Sodium IV 0246 Sodium Chloride 100 ML Atorvastatin Calcium 40 MG 1700 12/17 1700 AC 12/17 PO 1849 Dextrose/Sodium 1,000 ML Q8H 12/17 1300 DC 12/17 Chloride IV 12/18 0459 1309 Heparin Sodium/ 25,000 UNIT Q24H 12/17 1445 AC 12/17 Dextrose IV 1619 Dextrose/Water 500 ML Levothyroxine Sodium 0.125 MG DAILY AC 12/18 0700 AC 12/18 PO 0528 Metoprolol Tartrate 50 MG BID 12/17 2200 AC 12/17 PO 2216 Ondansetron HCl 4 MG Q6P PRN 12/17 1315 AC IV Oxycodone/ 1 TAB Q4P PRN 12/17 1315 AC Acetaminophen PO Oxycodone/ 2 TAB Q4P PRN 12/17 1315 AC 12/17 Acetaminophen PO 1849 Sodium Chloride 1,000 ML BOLUS ONE 12/17 1445 CAN IV 12/17 1544 Sodium Chloride 1,000 ML Q10H 12/17 1445 AC 12/18 IV 0045 Results Last 48 Hours of Labs: Laboratory Tests 12/18 12/18 12/18 0652 0600 0600 Chemistry Sodium (137 - 145 mmol/L) 140 Potassium (3.5 - 5.1 mmol/L) 4.0 Chloride (98 - 107 mmol/L) 101 Carbon Dioxide (22 - 30 mmol/L) 25 Anion Gap (5 - 16) 14 BUN (7 - 17 mg/dL) 37 H Creatinine (0.5 - 1.0 mg/dL) 0.9 Estimated GFR (>60 ml/min) > 60 BUN/Creatinine Ratio (7 - 25 %) 41.1 H Calcium (8.4 - 10.2 mg/dL) 8.7 Phosphorus (2.5 - 4.5 mg/dL) 3.3 Magnesium (1.6 - 2.3 mg/dL) 2.1 Coagulation PT (9.4 - 12.5 SEC) Cancelled 17.0 H INR (0.90 - 1.19) Cancelled 1.63 H APTT (25 - 37 SEC) 48 H Hematology CBC w Diff NO MAN DIFF REQ WBC (4.8 - 10.8 /CUMM) 14.4 H RBC (4.20 - 5.40 /CUMM) 3.10 L Hgb (12.0 - 16.0 G/DL) 7.9 L Hct (37 - 47 %) 25.1 L MCV (81.0 - 99.0 FL) 81.2 MCH (27.0 - 31.0 PG) 25.5 L RDW (11.5 - 14.5 %) 17.0 H Plt Count (130 - 400 /CUMM) 539 H MPV (7.4 - 10.4 FL) 8.2 Gran % (42.2 - 75.2 %) 79.7 H Lymphocytes % (20.5 - 51.1 %) 11.1 L Monocytes % (1.7 - 9.3 %) 8.8 Eosinophils % (0 - 5 %) 0.2 Basophils % (0.0 - 2.0 %) 0.2 Absolute Granulocytes (1.4 - 6.5 /CUMM) 11.4 H Absolute Lymphocytes (1.2 - 3.4 /CUMM) 1.6 Absolute Monocytes (0.10 - 0.60 /CUMM) 1.3 H Absolute Eosinophils (0.0 - 0.7 /CUMM) 0 Absolute Basophils (0.0 - 0.2 /CUMM) 0 PUBS MCHC (33.0 - 37.0 G/DL) 31.5 L 12/17 12/17 2230 1301 Chemistry Sodium (137 - 145 mmol/L) 139 Potassium (3.5 - 5.1 mmol/L) 4.4 Chloride (98 - 107 mmol/L) 98 Carbon Dioxide (22 - 30 mmol/L) 20 L Anion Gap (5 - 16) 21 H BUN (7 - 17 mg/dL) 57 H Creatinine (0.5 - 1.0 mg/dL) 1.9 H Estimated GFR (>60 ml/min) 27 L BUN/Creatinine Ratio (7 - 25 %) 30.0 H Calcium (8.4 - 10.2 mg/dL) 9.6 Phosphorus (2.5 - 4.5 mg/dL) 5.2 H Magnesium (1.6 - 2.3 mg/dL) 2.4 H Coagulation PT (9.4 - 12.5 SEC) 17.5 H INR (0.90 - 1.19) 1.68 H APTT (25 - 37 SEC) 38 H Hematology CBC w Diff NO MAN DIFF REQ WBC (4.8 - 10.8 /CUMM) 14.7 H RBC (4.20 - 5.40 /CUMM) 3.51 L Hgb (12.0 - 16.0 G/DL) 8.9 L Hct (37 - 47 %) 28.3 L MCV (81.0 - 99.0 FL) 80.5 L MCH (27.0 - 31.0 PG) 25.4 L RDW (11.5 - 14.5 %) 17.3 H Plt Count (130 - 400 /CUMM) 539 H MPV (7.4 - 10.4 FL) 8.1 Gran % (42.2 - 75.2 %) 82.7 H Lymphocytes % (20.5 - 51.1 %) 10.0 L Monocytes % (1.7 - 9.3 %) 7.0 Eosinophils % (0 - 5 %) 0.1 Basophils % (0.0 - 2.0 %) 0.2 Absolute Granulocytes (1.4 - 6.5 /CUMM) 12.1 H Absolute Lymphocytes (1.2 - 3.4 /CUMM) 1.5 Absolute Monocytes (0.10 - 0.60 /CUMM) 1.0 H Absolute Eosinophils (0.0 - 0.7 /CUMM) 0 Absolute Basophils (0.0 - 0.2 /CUMM) 0 PUBS MCHC (33.0 - 37.0 G/DL) 31.5 L Assessment/Plan Assessment/Plan 61yo F with severe PAD. She will require a CTA with runoff of lower extremities but Creatinine yesterday was 1.9. She has been getting IVF at 100mL /hr. - Pain control - continue IVF hydration - f/u Cr - continue regular diet - heparin gtt - I/O's - will d/w attending Core Measures/Miscellaneous Venous Thromboembolism VTE Risk Factors: Age > 40 VTE Contraindications: No Contraindications VTE Prophylaxis Ordered Inpt: Pharm- Heparin VTE Diagnosis: No VTE Type: NONE VTE Confirmed by (Test): NONE Beta Nury Is Beta Unry a Home Med? Yes If Yes, Was This Ordered Today? Yes Antibiotics Is Patient on Antibiotics? Yes
--- NOTE | 2016-12-18 13:26 | CT SCAN REPORT ---
PROCEDURE: CT ANGIOGRAM ABDOMEN, PELVIS AND LOWER EXTREMITY RUNOFF WITH CONTRAST INTERPRETING VASCULAR \T\ INTERVENTIONAL RADIOLOGIST: Rene Rodriguez MD CLINICAL INFORMATION: Severe PAD, left leg ischemia. TECHNIQUE: Routine abdominal aorta and lower extremity runoff CTA protocol with contrast was performed. 125 mL of Optiray 350 was administered. The images were reviewed and postprocessed on a dedicated 3-D workstation. COMPARISON: CTA runoff 04/12/2015. FINDINGS: Vascular: 1. Mesenteric Arteries: There is mild stenosis at the origin of the celiac artery. The SMA appears widely patent. The ELIZA is occluded as it originates via the occluded infrarenal aorta. 2. Renal Arteries:Due to the motion artifact, the distal aspects of the renal arteries could not be interrogated. The single renal arteries bilaterally appear to be patent proximally. 3. Infrarenal Abdominal Aorta: There is moderate calcified plaque in the suprarenal abdominal aorta. There is chronic occlusion of the infrarenal abdominal aorta. There are extensive collateral vessels throughout the abdominal and pelvic body wall. 4. Right Lower Extremity Arterial Perfusion: The right common iliac artery is again occluded. Collaterals via the right internal iliac artery reconstitute the right external iliac artery which is diminutive but patent. The right common femoral artery is patent. The profunda femoral artery is patent. The SFA popliteal arteries are both widely patent. Venous contamination limits evaluation of the runoff to the foot; however, there does appear to be a 3-vessel runoff to the right foot. 5. Left Lower Extremity Arterial Perfusion: The left common iliac artery is again heavily calcified and occluded. The external iliac artery is moderately calcified and diminutive but is reconstituted via collaterals from the internal iliac artery. The common femoral artery is diminutive but patent. The SFA is occluded from the bifurcation but reconstitutes at the level of the adductor hiatus via collaterals. The profunda femoral artery appears patent. The popliteal artery is patent proximally but appears to be severely diseased in the midportion but reconstitutes below the knee. Evaluation below the knee is limited due to venous contamination; however, there does appear to be at least a 2-vessel runoff to the right foot. 6. Inferior Vena Cava: Patent. 7. Iliac venous system: Patent. 8. Deena-mesenteric venous system: Patent. Nonvascular: LUNG BASES: Respiratory motion degrades image quality in the lung bases. No focal consolidation. LIVER, GALLBLADDER, AND BILIARY TREE: Subcentimeter hypodensity in the dome of the liver too small to characterize but statistically likely represents a small cyst. Geographic area of low attenuation along the anterior falciform ligament likely represents focal fatty infiltration. Apparent thickening of the gallbladder fundus with tiny focal calcification is similar to prior exam. PANCREAS: Unremarkable. SPLEEN: Unremarkable. ADRENAL GLANDS: Unremarkable. KIDNEYS AND URETERS: Renal cortical thinning in the posterior lower pole of the right kidney is similar to prior, may be sequela of prior infectious/ischemic insult. The kidneys otherwise enhance symmetrically. No hydronephrosis. Tiny subcentimeter hypodensities in the interpolar region of both kidneys are too small to characterize but statistically likely represent small cysts. BLADDER: Unremarkable. GASTROINTESTINAL TRACT: The small and large bowel are unremarkable. The appendix is unremarkable. ABDOMINAL WALL: Extensive collateral vessels throughout the abdominal and pelvic wall. Fat-containing left inguinal hernia. LYMPH NODES: No enlarged abdominal or pelvic lymph nodes are appreciated. PELVIC VISCERA: The retroverted uterus is unremarkable. No adnexal masses. OSSEOUS STRUCTURES: No destructive bony lesions. IMPRESSION: 1. 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 Reconstitution of the external iliac arteries via internal iliac artery collaterals. Extensive body wall collaterals. 2. 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 3. Venous contamination limits evaluation below the knee; however, there does appear to be a 3-vessel runoff to the feet bilaterally. 4. Apparent gallbladder fundus thickening with focal calcification; this may represent adenomyomatosis versus a small calcified polyp, unchanged from prior. 5. Probable focal hepatic steatosis along the falciform ligament.
[2016-12-18 16:09] LABS: PTT 61 SEC (25-37)
[2016-12-18 16:32] VITALS: BP 122/56
[2016-12-19 01:25] VITALS: BP 112/62
[2016-12-19 05:39] LABS: ABSOLUTE BASOPHIL COUNT 0.1 /CUMM (0.0-0.2); ABSOLUTE EOSINOPHIL COUNT 0 /CUMM (0.0-0.7); ABSOLUTE GRANULOCYTE CT 10.5 /CUMM (1.4-6.5); ABSOLUTE LYMPH COUNT 1.4 /CUMM (1.2-3.4); ABSOLUTE MONOCYTE COUNT 1.2 /CUMM (0.10-0.60); BASOPHIL % 0.7 % (0.0-2.0); EOSINOPHIL % 0.2 % (0-5); GRANULOCYTE % 79.8 % (42.2-75.2); HEMATOCRIT 23.5 % (37-47); MEAN CORPUSCULAR HGB 25.9 PG (27.0-31.0); MEAN CORPUSCULAR HGB CONC 31.8 G/DL (33.0-37.0); MEAN CORPUSCULAR VOLUME 81.3 FL (81.0-99.0); MEAN PLATELET VOLUME 8.6 FL (7.4-10.4); PLATELET COUNT 416 /CUMM (130-400); RBC DISTRIBUTION WIDTH 17.1 % (11.5-14.5); WHITE BLOOD CELL COUNT 13.2 /CUMM (4.8-10.8)
[2016-12-19 05:52] LABS: PTT 63 SEC (25-37)
--- NOTE | 2016-12-19 08:08 | PN- Vascular Surgery ---
Subjective Subjective: No acute events overnight. Continues to complain of pain in her LLE. No changes in sensation to LLE. Tolerating diet, voiding spontaneously. Understands that she is scheduled for surgery on Tuesday12/21/2016. Objective Vital Signs and I&Os Vital Signs Date Time Temp Pulse Resp B/P Pulse O2 O2 Flow FiO2 Ox Delivery Rate 12/19 0125 98.6 96 20 112/62 97 Room Air 12/18 203 138/64 12/18 1632 99.0 102 19 122/56 97 12/18 1112 107 136/65 12/18 0817 98.3 107 20 136/65 96 Room Air Intake & Output 12/19 0800 12/19 0000 12/18 1600 12/18 0800 12/18 0000 12/17 1600 Intake Total 1226 384.9 1700 1240 600 240 Output Total 600 600 300 150 Balance 1226 -215.1 1100 940 450 240 Intake, IV 1026 384.9 1200 1000 360 Intake, Oral 200 500 240 240 240 Output, Urine 600 600 300 150 Patient 130 lb Weight Physical Exam: General: CAOx3, NAD. Chest: Decreased breath sounds at lung bases. Regular, rate, rhythm. Ext: Left soria/foot ucler covered with xeroform and gauze dressing. No purulent drainage. Dopplerable PT in Left foot. No calve swelling/TTP. Current Medications: Current Medications Sig/Bibi Start time Last Medication Dose Route Stop Time Status Admin Ampicillin Sodium/ 3,000 MG Q6H 12/17 1400 12/19 Sulbactam Sodium IV 0146 Sodium Chloride 100 ML Atorvastatin Calcium 40 MG 1700 12/17 1700 12/18 PO 1605 Heparin Sodium/ 25,000 UNIT Q24H 12/17 1445 AC 12/18 Dextrose IV 1609 Dextrose/Water 500 ML Levothyroxine Sodium 0.125 MG DAILY AC 12/18 0700 12/19 PO 0541 Metoprolol Tartrate 50 MG BID 12/17 2200 12/18 PO 2031 Ondansetron HCl 4 MG Q6P PRN 12/17 1315 AC IV Oxycodone/ 1 TAB Q4P PRN 12/17 1315 AC Acetaminophen PO Oxycodone/ 2 TAB Q4P PRN 12/17 1315 AC 12/18 Acetaminophen PO 1909 Sodium Chloride 1,000 ML Q10H 12/17 1445 AC 12/18 IV 2030 Results Last 48 Hours of Labs: Laboratory Tests 12/19 12/18 0500 1445 Chemistry Sodium (137 - 145 mmol/L) 142 Potassium (3.5 - 5.1 mmol/L) 3.9 Chloride (98 - 107 mmol/L) 103 Carbon Dioxide (22 - 30 mmol/L) 27 Anion Gap (5 - 16) 12 BUN (7 - 17 mg/dL) 17 Creatinine (0.5 - 1.0 mg/dL) 0.7 Estimated GFR (>60 ml/min) > 60 BUN/Creatinine Ratio (7 - 25 %) 24.3 Coagulation APTT (25 - 37 SEC) 63 H 61 H Hematology CBC w Diff NO MAN DIFF REQ WBC (4.8 - 10.8 /CUMM) 13.2 H RBC (4.20 - 5.40 /CUMM) 2.90 L Hgb (12.0 - 16.0 G/DL) 7.5 L Hct (37 - 47 %) 23.5 L MCV (81.0 - 99.0 FL) 81.3 MCH (27.0 - 31.0 PG) 25.9 L RDW (11.5 - 14.5 %) 17.1 H Plt Count (130 - 400 /CUMM) 416 H MPV (7.4 - 10.4 FL) 8.6 Gran % (42.2 - 75.2 %) 79.8 H Lymphocytes % (20.5 - 51.1 %) 10.5 L Monocytes % (1.7 - 9.3 %) 8.8 Eosinophils % (0 - 5 %) 0.2 Basophils % (0.0 - 2.0 %) 0.7 Absolute Granulocytes (1.4 - 6.5 /CUMM) 10.5 H Absolute Lymphocytes (1.2 - 3.4 /CUMM) 1.4 Absolute Monocytes (0.10 - 0.60 /CUMM) 1.2 H Absolute Eosinophils (0.0 - 0.7 /CUMM) 0 Absolute Basophils (0.0 - 0.2 /CUMM) 0.1 PUBS MCHC (33.0 - 37.0 G/DL) 31.8 L 12/18 12/18 12/18 0652 0600 0600 Chemistry Sodium (137 - 145 mmol/L) 140 Potassium (3.5 - 5.1 mmol/L) 4.0 Chloride (98 - 107 mmol/L) 101 Carbon Dioxide (22 - 30 mmol/L) 25 Anion Gap (5 - 16) 14 BUN (7 - 17 mg/dL) 37 H Creatinine (0.5 - 1.0 mg/dL) 0.9 Estimated GFR (>60 ml/min) > 60 BUN/Creatinine Ratio (7 - 25 %) 41.1 H Calcium (8.4 - 10.2 mg/dL) 8.7 Phosphorus (2.5 - 4.5 mg/dL) 3.3 Magnesium (1.6 - 2.3 mg/dL) 2.1 Coagulation PT (9.4 - 12.5 SEC) Cancelled 17.0 H INR (0.90 - 1.19) Cancelled 1.63 H APTT (25 - 37 SEC) 48 H Hematology CBC w Diff NO MAN DIFF REQ WBC (4.8 - 10.8 /CUMM) 14.4 H RBC (4.20 - 5.40 /CUMM) 3.10 L Hgb (12.0 - 16.0 G/DL) 7.9 L Hct (37 - 47 %) 25.1 L MCV (81.0 - 99.0 FL) 81.2 MCH (27.0 - 31.0 PG) 25.5 L RDW (11.5 - 14.5 %) 17.0 H Plt Count (130 - 400 /CUMM) 539 H MPV (7.4 - 10.4 FL) 8.2 Gran % (42.2 - 75.2 %) 79.7 H Lymphocytes % (20.5 - 51.1 %) 11.1 L Monocytes % (1.7 - 9.3 %) 8.8 Eosinophils % (0 - 5 %) 0.2 Basophils % (0.0 - 2.0 %) 0.2 Absolute Granulocytes (1.4 - 6.5 /CUMM) 11.4 H Absolute Lymphocytes (1.2 - 3.4 /CUMM) 1.6 Absolute Monocytes (0.10 - 0.60 /CUMM) 1.3 H Absolute Eosinophils (0.0 - 0.7 /CUMM) 0 Absolute Basophils (0.0 - 0.2 /CUMM) 0 PUBS MCHC (33.0 - 37.0 G/DL) 31.5 L 02/24 02/24 2230 1301 Chemistry Sodium (137 - 145 mmol/L) 139 Potassium (3.5 - 5.1 mmol/L) 4.4 Chloride (98 - 107 mmol/L) 98 Carbon Dioxide (22 - 30 mmol/L) 20 L Anion Gap (5 - 16) 21 H BUN (7 - 17 mg/dL) 57 H Creatinine (0.5 - 1.0 mg/dL) 1.9 H Estimated GFR (>60 ml/min) 27 L BUN/Creatinine Ratio (7 - 25 %) 30.0 H Calcium (8.4 - 10.2 mg/dL) 9.6 Phosphorus (2.5 - 4.5 mg/dL) 5.2 H Magnesium (1.6 - 2.3 mg/dL) 2.4 H Coagulation PT (9.4 - 12.5 SEC) 17.5 H INR (0.90 - 1.19) 1.68 H APTT (25 - 37 SEC) 38 H Hematology CBC w Diff NO MAN DIFF REQ WBC (4.8 - 10.8 /CUMM) 14.7 H RBC (4.20 - 5.40 /CUMM) 3.51 L Hgb (12.0 - 16.0 G/DL) 8.9 L Hct (37 - 47 %) 28.3 L MCV (81.0 - 99.0 FL) 80.5 L MCH (27.0 - 31.0 PG) 25.4 L RDW (11.5 - 14.5 %) 17.3 H Plt Count (130 - 400 /CUMM) 539 H MPV (7.4 - 10.4 FL) 8.1 Gran % (42.2 - 75.2 %) 82.7 H Lymphocytes % (20.5 - 51.1 %) 10.0 L Monocytes % (1.7 - 9.3 %) 7.0 Eosinophils % (0 - 5 %) 0.1 Basophils % (0.0 - 2.0 %) 0.2 Absolute Granulocytes (1.4 - 6.5 /CUMM) 12.1 H Absolute Lymphocytes (1.2 - 3.4 /CUMM) 1.5 Absolute Monocytes (0.10 - 0.60 /CUMM) 1.0 H Absolute Eosinophils (0.0 - 0.7 /CUMM) 0 Absolute Basophils (0.0 - 0.2 /CUMM) 0 PUBS MCHC (33.0 - 37.0 G/DL) 31.5 L Recent Imaging Studies: CTA abdomen, pelvix, lower extremities with runoff 12/18/2016 IMPRESSION: 1. 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 Reconstitution of the external iliac arteries via internal iliac artery collaterals. Extensive body wall collaterals. 2. 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 3. Venous contamination limits evaluation below the knee; however, there does appear to be a 3-vessel runoff to the feet bilaterally. 4. Apparent gallbladder fundus thickening with focal calcification; this may represent adenomyomatosis versus a small calcified polyp, unchanged from prior. 5. Probable focal hepatic steatosis along the falciform ligament. Assessment/Plan Assessment/Plan This is a 61 year old female with a significant past cardiac and medical history admitted for severe PAD, ischemia to E. CTA abdomen, pelvis, and lower extremity with runoff completed yesterday 12/18/2016 demonstrating chronic occlusion to infrarenal abdominal aorta, and L SFA. Cr 0.7 stable today after IVF hydration and CTA imaging. - Pain control: percocet - regular diet, NPO after midnight for nuclear stress test. - Cardiology: Nuclear stress test tomorrow. Echocardiogram ordered, results pending - Plan for OR Tuesday if medically cleared - continue IVF NS at 100 cc/hr - CBC, BMP reviewed - continue unasyn - continue regular diet - continue heparin gtt - strict I/O's - continue home medications - Will follow up with attending. Core Measures/Miscellaneous Venous Thromboembolism VTE Risk Factors: Age > 40 VTE Contraindications: No Contraindications VTE Prophylaxis Ordered Inpt: Pharm- Heparin VTE Diagnosis: No VTE Type: NONE VTE Confirmed by (Test): NONE Beta Nury Is Beta Nury a Home Med? Yes If Yes, Was This Ordered Today? Yes Antibiotics Is Patient on Antibiotics? Yes
[2016-12-19 08:17] VITALS: BP 134/59
[2016-12-19 16:30] VITALS: BP 132/60
[2016-12-19 19:34] LABS: PTT 70 SEC (25-37)
[2016-12-19 23:43] VITALS: BP 120/72
--- NOTE | 2016-12-20 07:10 | PN- Vascular Surgery ---
Subjective Subjective: The patient was seen this morning. She was sleepy but easily arousable complaining of left lower leg pain. She had no other complaints the current time. Objective Vital Signs and I&Os Vital Signs Date Time Temp Pulse Resp B/P Pulse O2 O2 Flow FiO2 Ox Delivery Rate 12/19 2343 98.0 92 20 120/72 95 Room Air 12/19 2033 110 126/66 12/19 1630 98.2 99 20 132/60 100 Room Air 12/19 0904 134/59 12/19 0817 99.1 106 20 134/59 97 Room Air Intake & Output 12/20 0800 12/20 0000 12/19 1600 12/19 0800 12/19 0000 12/18 1600 Intake Total 6261 391 4206 1226 384.9 1700 Output Total 550 600 300 600 600 Balance 450 25 900 1226 -215.1 1100 Intake, IV 1000 548 289 0957 384.9 1200 Intake, Oral 240 500 200 500 Output, Urine 550 600 300 600 600 Physical Exam: Gen.: Sleepy but arousable and in no obvious distress Skin: Warm and dry Extremities: Bilateral lower extremities are warm without calf tenderness. Gross motor and sensory are intact. There is 1+ pitting edema bilaterally Left pretibial area with surgical dressing that is clean, dry, and intact. I could not appreciate any distal palpable pulses on the left lower extremity. Right lower extremity with palpable DP pulse. Assessment/Plan Assessment/Plan Assessment: 61-year-old female with significant peripheral vascular disease currently being treated for a nonhealing left lower extremity ulcer. The patient has significant occlusive disease and is due to have an axillary bifemoral bypass tomorrow if deemed an acceptable risk by cardiology Plan: Follow-up morning laboratory studies Continue heparin drip and IV antibiotics Follow up echo and nuclear stress test for today Continue current pain regiment Daily dressing changes Follow-up cardiology consultation recommendations Core Measures/Miscellaneous Venous Thromboembolism VTE Risk Factors: Age > 40 VTE Contraindications: No Contraindications VTE Prophylaxis Ordered Inpt: Pharm- Heparin VTE Diagnosis: No VTE Type: NONE VTE Confirmed by (Test): NONE Beta Nury Is Beta Nury a Home Med? Yes If Yes, Was This Ordered Today? Yes Antibiotics Is Patient on Antibiotics? Yes
[2016-12-20 08:22] LABS: PTT 70 SEC (25-37)
[2016-12-20 08:36] VITALS: BP 140/70
--- NOTE | 2016-12-20 09:46 | PN- Vascular Surgery ---
Surgical Brief Attending Note Brief Attending Note: 61-year-old female admitted with advanced PAD. Recently her lower extremity exam has gotten significantly worse. She been making steady progress with wound care and had declined surgery. However since her leg has worsened she wishes now to consent to proceed. Awaiting stress test and cardiac clearance for a extra-anatomic axillobifemoral bypass tomorrow. No rest pain. Physical exam reveals lower extremity are perfused. There are no palpable pedal pulses. Right leg demonstrates dense eschar. Motor and sensation are intact. A/p 61-year-old female for extra-anatomic bypass tomorrow Continue local wound care Continue medical therapy and antibiotics to infected wound base and high risk for infection due to need for extensive revascularization
--- NOTE | 2016-12-20 14:37 | IV DIPYRIDAMOLE NUCLEAR STRESS ---
Clinical Diagnosis: Possible Coronary Artery Disease Furnace Brazer: Cadence Tran IV DIPYRIDAMOLE INFUSED: 35 mg IV AMINOPHYLLINE INFUSED: 0 mg PATIENT WEIGHT: 130 lbs INTERPRETATION: The patient's baseline EKG showed normal sinus rhythm at 100 BPM. Baseline B/P 150/70. The patient received 35 mg of dipyridamole infused intravenously over a 4 minute period. TC-99M or Myoview was injected after dipyridamole infusion. The patient tolerated the infusion well. There were no EKG changes seen following pharmacologic infusion. IMPRESSION: The test was supervised by the interpreting Optics Engineer, who was in attendance during the entire test. No EKG evidence of stress induced myocardial ischemia. See separately dictated Nuclear Report.
[2016-12-20 16:45] VITALS: BP 134/68
--- NOTE | 2016-12-20 17:18 | NUCLEAR MEDICINE REPORT ---
EXAMINATION: PERSANTINE STRESS AND RESTING SPECT MYOCARDIAL PERFUSION IMAGING STUDY WITH GATED SPECT IMAGES: CLINICAL INDICATION: Coronary artery disease. Hypertension. COMPARISON: None. TECHNIQUE: Regional myocardial perfusion was assessed using a 1 day protocol. Stress images were obtained on 12/20/2016 following the intravenous administration of 18.3 mCi Tc 99m Myoview. Stress consisted of 55 mg Persantine given intravenously. Four minutes following the sestamibi injection, 125 mg aminophylline was given intravenously. Rest images were obtained 12/20/2016 following the intravenous administration of 29.3 mCi Technetium 99m Myoview. Single photon emission tomographic (SPECT) images were obtained. SPECT images were acquired in a 64 x 64 matrix of 64 projections over 180 degrees. There were reconstructed into standard short axis, horizontal and vertical long axis cardiac projections. FINDINGS: The post stress images demonstrate the left ventricular chamber to be normal in size. There is homogeneous distribution of activity in the left ventricular myocardium with no regions of abnormally decreased activity noted. The resting images also demonstrate homogeneous distribution of activity in the left ventricular myocardium, and are not significantly changed from the post stress images. The images were obtained using a gated SPECT technique, which permits visualization of wall motion and calculation of the left ventricular ejection fraction. No left ventricular wall motion abnormalities are noted on either the stress or resting study. The calculated left ventricular ejection fraction is 76% on the stress study. IMPRESSION: Normal Persantine stress and resting myocardial perfusion study with normal left ventricular wall motion and ejection fraction.
[2016-12-20 19:00] VITALS: BP 182/96
[2016-12-20 19:33] LABS: ABSOLUTE BASOPHIL COUNT 0 /CUMM (0.0-0.2); ABSOLUTE EOSINOPHIL COUNT 0 /CUMM (0.0-0.7); ABSOLUTE GRANULOCYTE CT 12.9 /CUMM (1.4-6.5); ABSOLUTE LYMPH COUNT 1.2 /CUMM (1.2-3.4); ABSOLUTE MONOCYTE COUNT 1.5 /CUMM (0.10-0.60); BASOPHIL % 0 % (0.0-2.0); EOSINOPHIL % 0 % (0-5); GRANULOCYTE % 82.8 % (42.2-75.2); HEMATOCRIT 25.5 % (37-47); MEAN CORPUSCULAR HGB 25.5 PG (27.0-31.0); MEAN CORPUSCULAR HGB CONC 31.2 G/DL (33.0-37.0); MEAN CORPUSCULAR VOLUME 81.7 FL (81.0-99.0); MEAN PLATELET VOLUME 8.2 FL (7.4-10.4); PLATELET COUNT 507 /CUMM (130-400); RBC DISTRIBUTION WIDTH 17.2 % (11.5-14.5); RED BLOOD CELL CT 3.12 /CUMM (4.20-5.40); WHITE BLOOD CELL COUNT 15.5 /CUMM (4.8-10.8)
[2016-12-20 19:45] LABS: PTT 65 SEC (25-37)
--- NOTE | 2016-12-20 20:00 | Event Note ---
See Addendum Event Note Event Note: Called by nursing staff to evaluate patient for postprocedure tachycardia. Although she was tachycardic earlier today in the 110s upon return from her echo and dipyridamole stress test her tachycardia and increased to 130 bpm. Of note the patient service technician pst stated that the patient's heart rate did go into the 150s during her echo. Postprocedure studies however of the dipyridamole stress tests were within normal limits according to Dr. Fernandez, sandwich maker. Upon arrival to the patient's bedside the patient did not complain of any chest pain however did state that she was short of breath and wheezing a little bit. There is no nausea or vomiting or dizziness. Blood pressure was 182/96 with a heart rate at 120 and respiratory rate at 26 with an O2 sat at 98% on 2 L. CV: Regular rate and rhythm, tachycardia Lungs: Diffuse wheezing throughout Abdomen: Soft nontender to palpation Extremity: Warm, pulses intact Assessment Wheezing, with tachycardia of unknown origin Plan This case was discussed with Dr. Fernandez who recommended that the patient be evaluated first by the house staff, Dr. Cuello was contacted and this case was reviewed and she said that she would have one of her resident evaluate this patient TERRELL. In the meantime a stat chest x-ray was ordered, CBC, BEP, EKG, were also ordered.
[2016-12-20 20:11] VITALS: BP 186/80
--- NOTE | 2016-12-20 20:38 | RADIOLOGY REPORT ---
EXAMINATION: XR PORTABLE CHEST CLINICAL INFORMATION: Tachycardia. Wheezing. Volume overload. Shortness of breath. COMPARISON: Chest x-ray 05/15/2014 TECHNIQUE: Portable AP portable view of the chest was obtained. 8:03 PM FINDINGS: There is mild central pulmonary vascular congestion. Small right pleural effusion blunting the right costophrenic angle. No focal consolidation. IMPRESSION: Mild central pulmonary vascular congestion.
[2016-12-20 22:10] VITALS: BP 192/92
[2016-12-21 00:26] VITALS: BP 162/78
[2016-12-21 01:00] VITALS: BP 180/98
--- NOTE | 2016-12-21 03:10 | Cons- Medical ---
BRANDON FLETCHER 12/21/16 0310: General Information and HPI Consulting Request Date of Consult: 12/21/16 Requested By: ELINA KNUTSON MD Reason for Consult: Shortness of breath Source of Information: patient, old records Exam Limitations: no limitations History of Present Illness: She is 61-year-old woman with severe peripheral vascular disease, hypertension, hyperlipidemia, chronic nonhealing ulcer on left leg with multiple debridements and failed attempts for multiple skin grafts by Dr. Knutson and Dr. Kline (last graft in ). Admitted now for vascular surgical intervention, extra- anatomic axillobifemoral bypass on Tuesday by Dr. Knutson. She was seen by wellness educator for risk stratification and clearance for surgical procedure. According to their recommendations nuclear stress test and an echocardiogram was performed. IV Dipyridamole Nuclear stress test that did not show any evidence of stress-induced AR. Echocardiogram still pending. According to patient since morning she was having difficulty breathing that exacerbated after stress test. She is unable to complete full sentence. She was on room air but later was on put on 2 L of oxygen via nasal cannula. She denies any chest pain or discomfort , palpitations, nausea, vomiting, abdominal pain, diarrhea or constipation, any urinary changes. Allergies/Medications Allergies: Coded Allergies: NO KNOWN ALLERGIES (08/11/15) Home Med List: Aspirin (Aspirin*) 81 MG TAB.CHEW 1 TAB PO DAILY ARTERIAL DISEASE Atorvastatin Calcium 40 MG TABLET 1 TAB PO DAILY CHOLESTEROL (Reported) Doxycycline Hyclate (Vibramycin) 100 MG CAPSULE 1 CAP PO BID cellulitis Doxycycline Hyclate (Vibramycin) 100 MG CAPSULE 1 CAP PO BID cellulitis Hydrochlorothiazide 25 MG TABLET 1 TAB PO DAILY Blood pressure (Reported) Levothyroxine Sodium (Synthroid) 0.125 MG TAB 1 TAB PO DAILY AC THYROID HEALTH Lisinopril 10 MG TABLET 1 TAB PO DAILY BP (Reported) Metoprolol Tartrate 50 MG TABLET 1 TAB PO BID blood pressure (Reported) Oxycodone HCl 5 MG TABLET 1 TAB PO Q6-PRN PRN PAIN Current Medications: Current Medications Sig/Bibi Start time Last Medication Dose Route Stop Time Status Admin Albuterol Sulfate 3 ML Q4P PRN 12/20 2300 AC 12/20 INH 2240 Aminophylline 250 MG .STK-MED ONE 12/20 1437 DC IV 12/20 1438 Ampicillin Sodium/ 3,000 MG Q6H 12/20 2300 AC 12/21 Sulbactam Sodium IV 0430 Sodium Chloride 100 ML Ampicillin Sodium/ 3,000 MG Q6H 12/17 1400 DC 12/20 Sulbactam Sodium IV 1741 Sodium Chloride 100 ML Aspirin 325 MG ONCE ONE 12/21 0245 DC 12/21 PO 12/21 0246 0430 Atorvastatin Calcium 40 MG 1700 12/17 1700 AC 12/20 PO 1741 Dipyridamole 35 MG ONE ONE 12/20 1115 AC Dextrose/Water 33 ML IV 12/22 0314 Furosemide 20 MG ONCE ONE 12/21 2345 DC IV 12/21 2346 Furosemide 40 MG ONCE ONE 12/21 0430 DC IV 12/21 0431 Furosemide 20 MG ONCE ONE 12/21 0200 DC 12/21 IV 12/21 0201 0218 Furosemide 20 MG ONCE ONE 12/21 0030 DC 12/21 IV 12/21 0031 0023 Heparin Sodium/ 25,000 UNIT Q24H 12/17 1445 DC 12/20 Dextrose IV 12/21 0500 0920 Dextrose/Water 500 ML Levothyroxine Sodium 0.125 MG DAILY AC 12/18 0700 AC 12/20 PO 0526 Lisinopril 10 MG DAILY 12/20 2027 AC 12/20 PO 2210 Methylprednisolone 40 MG DAILY 12/21 0330 AC 12/21 IV 0430 Metoprolol Tartrate 50 MG BID 12/17 2200 AC 12/20 PO 1857 Ondansetron HCl 4 MG Q6P PRN 12/17 1315 AC IV Oxycodone/ 1 TAB Q4P PRN 12/17 1315 AC Acetaminophen PO Oxycodone/ 2 TAB Q4P PRN 12/17 1315 AC 12/19 Acetaminophen PO 1904 Patient Medication 1 ED .STK-MED ONE 12/20 1326 DC Teaching ED 12/20 1327 Sodium Chloride 1,000 ML Q10H 12/17 1445 DC 12/20 IV 1424 Review of Systems Review of Systems Constitutional: Reports: see HPI. Past History Medical History Blood Transfusion Hx: No Neurological: NONE EENT: NONE Cardiovascular: CAD, hypertension, hyperlipidemia, PVD Respiratory: NONE Gastrointestinal: NONE Hepatic: NONE Renal: NONE Musculoskeletal: NONE Psychiatric: NONE Endocrine: hypothyroidism Blood Disorders: NONE Cancer(s): NONE PROVIDER ENROLLMENT SPECIALIST/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 Psychosocial History Where Do You Live? Home Services at Home: None Smoking Status: Former Smoker Functional Ability ADLs Independent: dressing, eating, toileting, bathing. Ambulation: independent IADLs Independent: shopping, housework, finances, food prep, telephone, transportation , medication admin. Exam & Diagnostic Data Last 24 Hrs of Vital Signs/I&O Vital Signs Date Time Temp Pulse Resp B/P Pulse O2 O2 Flow FiO2 Ox Delivery Rate 12/21 0100 99.4 120 24 180/98 94 Nasal 2.0L Cannula 12/21 0026 114 162/78 12/20 2240 95 Nasal 2.0L Cannula 12/20 2209 111 192/92 12/200 111 192/92 12/20 2010 106 186/80 94 Nasal 2.0L Cannula 12/20 1900 99.9 122 26 182/96 98 Nasal 2.0L Cannula 12/20 1857 122 182/96 12/20 1645 99.9 120 24 134/68 89 Room Air 12/20 1010 116 144/68 12/20 0836 98.9 108 20 140/70 92 Room Air 12/20 0800 93 Room Air Room Air Intake & Output 12/21 0800 12/21 0000 12/20 1600 Intake Total Output Total 1265 Balance -1265 Output, Urine 1265 Physical Exam General Appearance: well developed/nourished, alert, awake, moderate distress, tachypneic Ears, Nose, Throat: dry mucous membranes Neck: elevated JVD Respiratory: diffuse rhonchi and wheezes bilaterally, use of accessory muscles Cardiovascular: tachycardia Gastrointestinal: normal bowel sounds, soft, non-tender Extremities: pitting edema bilateral lower extremities. Left leg bandage intact. Very tender to touch. Pedal pulses not palpable. Last 24 Hrs of Labs/Ernesto: Laboratory Tests 12/21/16 0030: Troponin I 0.16 *H 12/20/16 191: Anion Gap 13, Estimated GFR > 60, BUN/Creatinine Ratio 17.1, Calcium 8.6, Phosphorus 3.9, Magnesium 1.7, Troponin I 0.10, Zlo-X-Gtrtiudbrzl Pept 56894 H, APTT 65 H, CBC w Diff NO MAN DIFF REQ, RBC 3.12 L, MCV 81.7, MCH 25.5 L, RDW 17.2 H, MPV 8.2, Gran % 82.8 H, Lymphocytes % 7.8 L, Monocytes % 9.4 H, Eosinophils % 0, Basophils % 0 L, Absolute Granulocytes 12.9 H, Absolute Lymphocytes 1.2, Absolute Monocytes 1.5 H, Absolute Eosinophils 0, Absolute Basophils 0, PUBS MCHC 31.2 L 12/20/16 0720: APTT 70 H Assessment/Plan Assessment/Plan She is 61-year-old woman with severe peripheral vascular disease, hypertension, hyperlipidemia, chronic nonhealing ulcer on left leg with multiple debridements and failed attempts for multiple skin grafts by Dr. Knutson and Dr. Kline (last graft in ). Admitted now for vascular surgical intervention, extra- anatomic axillobifemoral bypass on Tuesday by Dr. Knutson. She is status post IV Dipyridamole nuclear stress test as recommended by cardiology for cardiac clearance before vascular procedure. Patient was having worsening of shortness of breath after having nuclear stress test. She was on 2 L of oxygen by nasal cannula. Physical exam was suggestive of fluid overload and possible congestive heart failure. Stat EKG troponin CBC and BEP were ordered. Chest x-ray was also done. Chest x-ray showed mild central pulmonary vascular congestion. First set of troponins was negative per second troponins came back as positive, 0.16. ProBNP 59027. EKG showed ST segment depressions in leads V4, V5 and V6. Patient was still asymptomatic. We tried to reach cardiology, Dr. Fernandez multiple times but was not able to get hold of him. She was given 20 mg of IV Lasix stat and dose was repeated after some time. In addition to CHF other possibility of shortness of breath could be bronchospasm secondary to IV Dipyridamole. She was given nebulization treatment by respiratory. Finally i was able to talk to Dr. Hawkins about her condition and all above- mentioned events. He recommended to give patient 40 mg of IV Lasix if she is still short of breath. He also recommended to start patient on nitroglycerin, KATT inhibitor, digoxin, low sodium diet and oxygen supplementation. Please note that patient is already on IV heparin drip per vascular surgery. She was given 325 mg by mouth aspirin 1. Later on she was started on Solu- Medrol 40 mg daily. Surgery was contacted and it was found out that given patient's current condition she is not going for surgical procedure until she would be cleared for surgery by wellness educator. Plan * Monitor vitals closely * Continue supplemental oxygen. Keep oxygen saturation more than 92%. Continue TRC nebs * Continue Solu-Medrol 40 mg IV daily * Follow-up echocardiogram * Cardio consult for re evaluation and further recommendations * Serial EKGs and troponins * Strict I's and O's, daily weights * Continue IV heparin drip. Patient was given aspirin 325 mg by mouth 1. Surgery was okay with that. * Further management per surgery Consult Acknowledgment - Thank you for your consult request. KIM SHAVER 12/21/16 0314: Assessment/Plan Consult Acknowledgment - Thank you for your consult request. Attending MD Review Statement Attending Statement Attending MD Statement: examined this patient, discuss w/resident/PA/SURVEY RESEARCH TEACHER, agreed w/resident/PA/SURVEY RESEARCH TEACHER, reviewed EMR data (avail), reviewed images, amended to note Attending Assessment/Plan: CC: acute SOB, Diaphoresis PMHx: HTN, PAD, Chronic ulcer on LLE, CAD, HLD, hypothyroidism We were called for persistent and worsening shortness of breath, diaphoresis, tachycardia, high blood pressure after dipyridamole stress test. Patient went for stress test today, according to her after the injection she was feeling shortness of breath, which progressively worsened. She went for repeat imaging, and came back to floor and was persistently short of breath. Patient was evaluated by surgical PA and was found to be tachycardic in up to 120s to 130s, tachypneic with respiratory rate 26 and requiring 2 L of nasal cannula to saturate at 98%. The purpose of patient with chest x-ray, CBC, BP, EKG and troponin. Chest x-ray showed vascular congestion, proBNP was elevated to 10,300, troponin 0.10. Total 40 mg of IV Lasix was given, IV fluids were stopped. Patient still was tachypneic, short of breath so he was called for consult. Patient denies chest pain, abdominal discomfort, nausea vomiting, headache blurry vision, any neurological weakness. Vitals: HR in 108-122, T max 99.9, RR 26, blood pressure 192/92, saturating 95% on 2 L on examination: Moderate to severe respiratory distress, tachypneic, cannot complete sentences, elevated JVD, mucosa dry, no lymphadenopathy RS: Diffuse wheezing and crackles bilaterally. Abdomen: Soft, NT, ND, bowel sounds present, CVS: S1-S2, RRR, no focal neurological deficit, no pedal edema, peripheral pulses and perfusion intact. Labs: WBC increased to 15.5 with neutrophils 82%, hemoglobin 7.9 stable, repeat BMP unremarkable but troponin increased from 0.12 to 0.16, proBNP 10,300 EKG: ST depression in lateral leads CXR: Mild central pulmonary vascular congestion SPECT scan and dipyridamole stress test done today reviewed: Normal ejection fraction, normal stress test. A and P #1 persistent shortness of breath after stress test, patient is diffusely wheezing bilaterally with crackles, differential includes bronchospasm, rule out ACS. so EKG and troponin were suggested, First set of trop negative but second troponin trending up, we called cardiology. TRC with albuterol, IV Solu-Medrol 40 mg IV daily, continue oxygen by nasal cannula, additional 20 mg of IV Lasix, hold IV fluids, continue heparin drip, aspirin 325 if okay with surgery. Patient received metoprolol already, patient is planned for surgery tomorrow, but because of this persistent shortness of breath and tachycardia, she needs to be reevaluated.
--- NOTE | 2016-12-21 06:15 | Cons- Medical ---
General Information and HPI Consulting Request Date of Consult: 12/21/16 Requested By: ELINA MIKE MD Reason for Consult: Shortness of breath Source of Information: patient, old records Exam Limitations: no limitations History of Present Illness: She is 61-year-old woman with severe peripheral vascular disease, hypertension, hyperlipidemia, chronic nonhealing ulcer on left leg with multiple debridements and failed attempts for multiple skin grafts by Dr. Mike and Dr. Kline (last graft in ). Admitted now for vascular surgical intervention, extra- anatomic axillobifemoral bypass on Tuesday by Dr. Mike. She was seen by edi programmer analyst for risk stratification and clearance for surgical procedure. According to their recommendations nuclear stress test and an echocardiogram was performed. IV Dipyridamole Nuclear stress test that did not show any evidence of stress-induced AK. Echocardiogram still pending. According to patient since morning she was having difficulty breathing that exacerbated after stress test. She is unable to complete full sentence. She was on room air but later was on put on 2 L of oxygen via nasal cannula. She denies any chest pain or discomfort , palpitations, nausea, vomiting, abdominal pain, diarrhea or constipation, any urinary changes. Allergies/Medications Allergies: Coded Allergies: NO KNOWN ALLERGIES (08/11/15) Home Med List: Aspirin (Aspirin*) 81 MG TAB.CHEW 1 TAB PO DAILY ARTERIAL DISEASE Atorvastatin Calcium 40 MG TABLET 1 TAB PO DAILY CHOLESTEROL (Reported) Doxycycline Hyclate (Vibramycin) 100 MG CAPSULE 1 CAP PO BID cellulitis Doxycycline Hyclate (Vibramycin) 100 MG CAPSULE 1 CAP PO BID cellulitis Hydrochlorothiazide 25 MG TABLET 1 TAB PO DAILY Blood pressure (Reported) Levothyroxine Sodium (Synthroid) 0.125 MG TAB 1 TAB PO DAILY AC THYROID HEALTH Lisinopril 10 MG TABLET 1 TAB PO DAILY BP (Reported) Metoprolol Tartrate 50 MG TABLET 1 TAB PO BID blood pressure (Reported) Oxycodone HCl 5 MG TABLET 1 TAB PO Q6-PRN PRN PAIN Past History Medical History Blood Transfusion Hx: No Neurological: NONE EENT: NONE Cardiovascular: CAD, hypertension, hyperlipidemia, PVD Respiratory: NONE Gastrointestinal: NONE Hepatic: NONE Renal: NONE Musculoskeletal: NONE Psychiatric: NONE Endocrine: hypothyroidism Blood Disorders: NONE Cancer(s): NONE CERAMICS ENGINEER/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 Psychosocial History Where Do You Live? Home Services at Home: None Smoking Status: Former Smoker Functional Ability ADLs Independent: dressing, eating, toileting, bathing. Ambulation: independent IADLs Independent: shopping, housework, finances, food prep, telephone, transportation , medication admin. Assessment/Plan Consult Acknowledgment - Thank you for your consult request.
--- NOTE | 2016-12-21 07:20 | PN- Medicine Consult ---
JOCYMARCIEANA 12/21/16 0720: Assessment/Plan Assessment/Plan Assessment: This is a 61-year-old woman with severe peripheral vascular disease, hypertension, hyperlipidemia, chronic nonhealing ulcer on left leg with multiple debridements and failed attempts for multiple skin grafts by Dr. Knutson and Dr. Kline (last graft in ). Admitted now for vascular surgical intervention, extra-anatomic axillobifemoral bypass on Tuesday by Dr. Knutson. She is status post IV Dipyridamole nuclear stress test as recommended by cardiology for cardiac clearance before vascular procedure. Patient had worsening shortness of breath after nuclear stress test necessitating requirement of oxygen at 2 L through NC. Physical examination revealed evidence of fluid overload most likely from congestive heart failure. She had increased proBNP of 10,300 and post troponin is 0.16. Plan: Congestive heart failure Patient is manifesting with new CHF. She is on Lasix, lisinopril 10 mg and was recommended to be started on nitroglycerin and digoxin by cardiology overnight. Will follow up with covering supply chain analyst to determine maximum medical management. Strict I and O's and CHF diet with low sodium. Given new CHF flare the patient cannot proceed with surgery. Elevated troponins First troponin were negative however on the second repeat a troponin of 0.16, repeated troponin this morning 0.27 still going up. Patient received aspirin 325 mg and is on heparin drip. We will continue to trend troponins till when it plateau or start decreasing. Repeat troponin and EKG at 12:30. This patient overnight has remained very tachycardic heart rate in 120s, she is not fluid depleted, we will give metoprolol 50 early and consider dose increase if patient continues to be high. This is a potential candidate to rule out pulmonary embolism. Hypokalemia Potassium level of 3.3, patient receiving 60 MEQ of potassium chloride. Repeat potassium level at 12:30 consider replenishing accordingly. Problem List: 1. Hyperlipidemia 2. HTN (hypertension) 3. CHF (congestive heart failure) 4. Skin ulcer Subjective Subjective: Review the patient lying on the bed he reports he has slept much better. She still continues to have heavy breathing but is better than yesterday. She denies any chest pain or palpitation lightheadedness or dizziness. Overnight the patient has a negative fluid balance of around 2.9 L. Review of Systems Constitutional: Denies: chills, fever. Cardiovascular: Reports: palpitations. Denies: chest pain, peripheral edema. Respiratory: Reports: short of breath. Denies: cough, wheezing. Gastrointestinal: Denies: abdominal pain, nausea, vomiting. Genitourinary: Denies: no symptoms. Musculoskeletal: Denies: no symptoms. Comments: All other systems reviewed and are negative Objective Last 24 Hrs of Vital Signs/I&O Vital Signs Date Time Temp Pulse Resp B/P Pulse O2 O2 Flow FiO2 Ox Delivery Rate 12/21 0100 99.4 120 24 180/98 94 Nasal 2.0L Cannula 12/21 0026 114 162/78 12/20 2240 95 Nasal 2.0L Cannula 12/20 2209 111 192/92 12/20 2210 111 192/92 12/20 2010 106 186/80 94 Nasal 2.0L Cannula 12/20 1900 99.9 122 26 182/96 98 Nasal 2.0L Cannula 12/20 1857 122 182/96 12/20 1645 99.9 120 24 134/68 89 Room Air 12/20 1010 116 144/68 12/20 0836 98.9 108 20 140/70 92 Room Air Intake & Output 12/21 1600 12/21 0800 12/21 0000 Intake Total 450 Output Total 3300 1265 Balance -2850 -1265 Intake, IV 330 Intake, Oral 120 Output, Urine 3300 1265 Physical Exam General Appearance: no apparent distress, alert, awake Head: atraumatic, normal appearance Neck: normal inspection, supple Cardiovascular: regular rate/rhythm Respiratory: crackles, Crackles prominent on the bases Abdomen: normal bowel sounds, soft, non-tender Extremities: normal inspection Current Medications: Current Medications Sig/Bibi Start time Last Medication Dose Route Stop Time Status Admin Albuterol Sulfate 3 ML Q4P PRN 12/20 2300 AC 12/20 INH 2240 Aminophylline 250 MG .STK-MED ONE 12/20 1437 DC IV 12/20 1438 Ampicillin Sodium/ 3,000 MG Q6H 12/20 2300 AC 12/21 Sulbactam Sodium IV 0430 Sodium Chloride 100 ML Ampicillin Sodium/ 3,000 MG Q6H 12/17 1400 DC 12/20 Sulbactam Sodium IV 1741 Sodium Chloride 100 ML Aspirin 325 MG ONCE ONE 12/21 0245 DC 12/21 PO 12/21 0246 0430 Atorvastatin Calcium 40 MG 1700 12/17 1700 AC 12/20 PO 1741 Dipyridamole 35 MG ONE ONE 12/20 1115 AC Dextrose/Water 33 ML IV 12/22 0314 Furosemide 20 MG ONCE ONE 12/21 2345 DC IV 12/21 2346 Furosemide 40 MG ONCE ONE 12/21 0430 DC IV 12/21 0431 Furosemide 20 MG ONCE ONE 12/21 0200 DC 12/21 IV 12/21 0201 0218 Furosemide 20 MG ONCE ONE 12/21 0030 DC 12/21 IV 12/21 0031 0023 Heparin Sodium/ 25,000 UNIT Q24H 12/21 0630 AC 12/21 Dextrose IV 0630 Dextrose/Water 500 ML Heparin Sodium/ 25,000 UNIT Q24H 12/17 1445 DC 12/20 Dextrose IV 12/21 0500 0920 Dextrose/Water 500 ML Levothyroxine Sodium 0.125 MG DAILY AC 12/18 0700 AC 12/21 PO 0630 Lisinopril 10 MG DAILY 12/20 2027 AC 12/20 PO 2210 Magnesium Oxide 400 MG ONE ONE 12/21 0815 DC PO 12/21 0816 Methylprednisolone 40 MG DAILY 12/21 0330 AC 12/21 IV 0430 Metoprolol Tartrate 50 MG BID 12/17 2200 AC 12/20 PO 1857 Ondansetron HCl 4 MG Q6P PRN 12/17 1315 AC IV Oxycodone/ 1 TAB Q4P PRN 12/17 1315 AC Acetaminophen PO Oxycodone/ 2 TAB Q4P PRN 12/17 1315 AC 12/19 Acetaminophen PO 1904 Patient Medication 1 ED .STK-MED ONE 12/20 1326 AK Teaching ED 12/20 1327 Potassium Chloride 60 MEQ ONCE ONE 12/21 0815 DC PO 12/21 0816 Sodium Chloride 1,000 ML Q10H 12/17 1445 DC 12/20 IV 1424 Results Last 24 Hrs Lab/Ernesto Results: Laboratory Tests 12/21/16 0630: Anion Gap 12, Estimated GFR > 60, BUN/Creatinine Ratio 15.7, Troponin I 0.27 *H, CBC w Diff Pending, WBC Pending, RBC Pending, Hgb Pending, Hct Pending, MCV Pending, MCH Pending, RDW Pending, Plt Count Pending, MPV Pending, Gran % Pending, Lymphocytes % Pending, Monocytes % Pending, Eosinophils % Pending, Basophils % Pending, Absolute Granulocytes Pending, Absolute Lymphocytes Pending , Absolute Monocytes Pending, Absolute Eosinophils Pending, Absolute Basophils Pending, PUBS MCHC Pending 12/21/16 0030: Troponin I 0.16 *H 12/20/16 1911: Anion Gap 13, Estimated GFR > 60, BUN/Creatinine Ratio 17.1, Calcium 8.6, Phosphorus 3.9, Magnesium 1.7, Troponin I 0.10, Sbg-K-Ihsnfhopcix Pept 13867 H, APTT 65 H, CBC w Diff NO MAN DIFF REQ, RBC 3.12 L, MCV 81.7, MCH 25.5 L, RDW 17.2 H, MPV 8.2, Gran % 82.8 H, Lymphocytes % 7.8 L, Monocytes % 9.4 H, Eosinophils % 0, Basophils % 0 L, Absolute Granulocytes 12.9 H, Absolute Lymphocytes 1.2, Absolute Monocytes 1.5 H, Absolute Eosinophils 0, Absolute Basophils 0, PUBS MCHC 31.2 L Microbiology 12/21 0215 URINE ROUT: Urine Culture - RECD MIKE GARCIA MD 12/21/16 1741: Attending MD Review Statement Attending Sign Off Attending Cosign Statement: I have: examined this patient, reviewed [facility] E[facility] data, personally reviewd images, discussd w/resident/PA/ASSEMBLER BONDING, discussed mgmt plan w/pt, agreed w/resident/ PA/ASSEMBLER BONDING, amended to note. Other Findings: The patient was seen and discussed with house staff. Agree with plan of care as outlined. Will check CTPA to exclude PE. Cardiology input appreciated. Will transfer patient to medical service.
--- NOTE | 2016-12-21 07:24 | ECHOCARDIOGRAM REPORT ---
DARRELL MONTES Age: 61 : 1955 Gender: F Exam Date: 12/20/2016 16:27 Exam Location: [address] [place] [address] Ht (in): 60 Wt (lb): 130 BSA: 1.59 BP: 144 / 68 Ordering Physician: RODOLFO MARIE Referring Physician: Casey Simon MD Technologist: Emily Weston [facility] Room Number: 209-02 Indications: LV FUNCTION AFTER ACS Rhythm: Sinus Technical Quality: Fair, Technically difficult study FINDINGS Left Ventricle Normal size left ventricle. No obvious regional wall motion abnormalities. Hyperdynamic left ventricular systolic function. Right Ventricle Right ventricle not well visualized, grossly normal. Right Atrium Right atrium not well visualized, grossly normal. Left Atrium Mild left atrial dilatation. Mitral Valve Mitral valve thickened. Aortic Valve Trileaflet aortic valve. Diffuse thickening (sclerosis) of the aortic valve cusps without reduced excursion. No aortic stenosis. No aortic regurgitation. Tricuspid Valve Tricuspid valve not well visualized. Trace to mild tricuspid regurgitation. Right ventricular systolic pressure estimated to be elevated at 50 mmHg. Pulmonic Valve Pulmonic valve not well visualized. Pericardium No pericardial effusion. Great Vessels Aortic root and proximal ascending aorta not well visualized, grossly normal. CONCLUSIONS 1. THis was a technically difficult examination due to the patient's body habitus and elevated heart rate. 2. Mild aortic sclerosis is present with no valvular stenosis or insufficiency. 3. Mitral leaflet thickening is present with mild to moderate eccentric mitral insufficiency and mild left atrial dilatation. 4. There is no significant pericardial fluid present. 5. The left ventricular chamber size is normal. The LV systolic function is hyperdynamic with an ejection fraction of 80%. THere are no obvious resting wall motion abnormalities. 6. The right heart structures were not optimally assessed. Mild tricuspid insufficiency is present with pulmonary hypertension and an estimated RV systolic pressure of 50 mmHg. 7. A followup examination is suggested when the patient's heart rate is slower to reassess the severity of mitral insufficiency and the RV systolic pressure. Casey Simon M.D. (Electronically Signed) Final Date: 21 December 2016 07:23 MEASUREMENTS (Male / Female) Normal Values 2D ECHO LV Diastolic Diameter PLAX 4.1 cm 4.2 - 5.9 / 3.9 - 5.3 cm LV Systolic Diameter PLAX 2.1 cm 2.1 - 4.0 cm LV Fractional Shortening PLAX 48.8 % 25 - 46 % LV Ejection Fraction 2D Teich 80.6 % IVS Diastolic Thickness 1.0 cm LVPW Diastolic Thickness 1.0 cm LV Relative Wall Thickness 0.5 RV Internal Dim ED PLAX 2.2 cm 1.9 - 3.8 cm LVOT Diameter 1.9 cm Aortic Root Diameter 2.5 cm LA Systolic Diameter LX 3.0 cm 3.0 - 4.0 / 2.7 - 3.8 cm LA Volume 36.0 cm 18 - 58 / 22 - 52 cm Ascending Aorta Diameter 2.7 cm DOPPLER AV Peak Velocity 159.0 cm/s AV Peak Gradient 10.1 mmHg AV Mean Velocity 103.0 cm/s AV Mean Gradient 5.0 mmHg AV Velocity Time Integral 30.6 cm LVOT Peak Velocity 132.0 cm/s LVOT Peak Gradient 7.0 mmHg LVOT Mean Velocity 76.1 cm/s LVOT Mean Gradient 3.0 mmHg LVOT Velocity Time Integral 25.1 cm LVOT Stroke Volume 71.2 cm AV Area Cont Eq vti 2.3 cm AV Area Cont Eq pk 2.4 cm MV Peak Velocity 169.0 cm/s MV Peak Gradient 11.4 mmHg MV Mean Velocity 116.0 cm/s MV Mean Gradient 6.0 mmHg Mitral E Point Velocity 131.0 cm/s Mitral A Point Velocity 125.0 cm/s Mitral E to A Ratio 1.0 MV PHT Velocity 179.0 cm/s MV Deceleration Moody 853.0 cm/s MV Pressure Half Time 63.0 ms MV Area PHT 3.5 cm MV Deceleration Time 193.0 ms TR Peak Velocity 335.0 cm/s TR Peak Gradient 44.9 mmHg Right Atrial Pressure 5.0 mmHg Pulmonary Artery Systolic Pressu 49.9 mmHg Right Ventricular Systolic Press 49.9 mmHg PV Peak Velocity 119.0 cm/s PV Peak Gradient 5.7 mmHg PV Mean Velocity 82.2 cm/s PV Mean Gradient 3.0 mmHg PV Velocity Time Integral 18.2 cm LV E' Lateral Velocity 10.0 cm/s Mitral E to LV E' Lateral Ratio 13.1 LV E' Septal Velocity 10.5 cm/s Mitral E to LV E' Septal Ratio 12.5
[2016-12-21 08:01] LABS: ABSOLUTE BASOPHIL COUNT 0 /CUMM (0.0-0.2); ABSOLUTE EOSINOPHIL COUNT 0 /CUMM (0.0-0.7); ABSOLUTE GRANULOCYTE CT 12.7 /CUMM (1.4-6.5); ABSOLUTE LYMPH COUNT 0.7 /CUMM (1.2-3.4); BASOPHIL % 0.2 % (0.0-2.0); EOSINOPHIL % 0 % (0-5); GRANULOCYTE % 87.9 % (42.2-75.2); HEMATOCRIT 25.6 % (37-47); MEAN CORPUSCULAR HGB 25.6 PG (27.0-31.0); MEAN CORPUSCULAR VOLUME 80.1 FL (81.0-99.0); MEAN PLATELET VOLUME 8.9 FL (7.4-10.4); PLATELET COUNT 511 /CUMM (130-400)
--- NOTE | 2016-12-21 08:25 | PN- Vascular Surgery ---
Surgical Brief Attending Note Brief Attending Note: VASCULAR ATTENDING NOTE: Events [id number] test patient noted to have persistent tachycardia and SOB--sats now 94% on 02. Pt. awaiting revasc. surgery. PE: AF HR 115 sat 94 % on O2, RR 18 Ext: LE exam is stable- Trop-trending up A/P Medically compromised-will need to reschedule revasc. 1.) Consider transfer ro medicine for optimization prior to procedure 2.) Await cardiology f/u 3.) Cont. local wound care
[2016-12-21 09:02] VITALS: BP 170/90
[2016-12-21 09:29] LABS: WHITE BLOOD CELL COUNT 14.5 /CUMM (4.8-10.8)
[2016-12-21 09:55] LABS: PTT 67 SEC (25-37)
--- NOTE | 2016-12-21 10:09 | PN- Cardiology ---
Subjective Subjective: The patient underwent echocardiogram and pharmacologic nuclear stress testing yesterday. She noted increased shortness of breath earlier in the day, and when required to lie flat for the tests her shortness of breath became significantly worse. She was noted to have decreased oxygen saturation, and she was started on oxygen. She was noted to have sinus tachycardia, and she was moved to telemetry. Troponin levels were checked and were found to be mildly elevated. Chest x-ray was consistent with congestive heart failure. IV heparin was started. She has had no chest pain. She notes that her shortness of breath is somewhat better today, however it continues to be worse with lying flat. No palpitations. No syncope. No lightheadedness. Objective Vital Signs and I&Os Vital Signs Date Time Temp Pulse Resp B/P Pulse O2 O2 Flow FiO2 Ox Delivery Rate 12/21 0902 97.7 114 20 170/90 96 Nasal 2.0L Cannula 12/21 0844 108 170/90 12/21 0844 108 170/90 12/21 0100 99.4 120 24 180/98 94 Nasal 2.0L Cannula 12/21 0026 114 162/78 12/20 2240 95 Nasal 2.0L Cannula 12/20 2210 111 192/92 12/20 2210 111 192/92 12/20 2010 106 186/80 94 Nasal 2.0L Cannula 12/20 1900 99.9 122 26 182/96 98 Nasal 2.0L Cannula 12/20 1857 122 182/96 12/20 1645 99.9 120 24 134/68 89 Room Air 12/20 1010 116 144/68 Intake & Output 12/21 1600 12/21 0800 12/21 0000 12/20 1600 12/20 0800 12/20 0000 Intake Total 450 1000 625 Output Total 3300 1265 550 600 Balance -2850 -1265 450 25 Intake, IV 330 1000 385 Intake, Oral 120 240 Output, Urine 3300 1265 550 600 Physical Exam: Gen: The patient is in no acute distress HEENT: Normal nose, ears, and oropharynx. Pupils equal bilaterally. Conjunctiva normal. Neck: Supple with no JVD, no masses, and no thyromegaly Lungs: Bilateral rales in the bases with normal respiratory effort Heart: RRR, S1, S2, 1/6 systolic murmur. 1+ peripheral edema, 2+ pulses in the lower extremities bilaterally Abdomen: Soft, nontender, no masses. No hepatomegaly. No splenomegaly Extremities: Left lower extremity dressing in place. No clubbing or cyanosis. Normal muscle strength in the upper and lower extremities Skin: Normal skin turgor with no skin ulcers or lesions noted. Neuro: Cranial nerves intact. Sensation intact Psych: Alert and oriented 3 with appropriate affect Current Medications: Current Medications Sig/Bibi Start time Last Medication Dose Route Stop Time Status Admin Albuterol Sulfate 3 ML Q4P PRN 12/20 2300 AC 12/20 INH 2240 Aminophylline 250 MG .STK-MED ONE 12/20 1437 DC IV 12/20 1438 Ampicillin Sodium/ 3,000 MG Q6H 12/20 2300 AC 12/21 Sulbactam Sodium IV 0430 Sodium Chloride 100 ML Ampicillin Sodium/ 3,000 MG Q6H 12/17 1400 DC 12/20 Sulbactam Sodium IV 1741 Sodium Chloride 100 ML Aspirin 325 MG ONCE ONE 12/21 0245 DC 12/21 PO 12/21 0246 0430 Atorvastatin Calcium 40 MG 1700 12/17 1700 AC 12/20 PO 1741 Dipyridamole 35 MG ONE ONE 12/20 1115 AC Dextrose/Water 33 ML IV 12/22 0314 Furosemide 20 MG ONCE ONE 12/21 2345 DC IV 12/21 2346 Furosemide 40 MG ONCE ONE 12/21 0430 DC IV 12/21 0431 Furosemide 20 MG ONCE ONE 12/21 0200 DC 12/21 IV 12/21 0201 0218 Furosemide 20 MG ONCE ONE 12/21 0030 DC 12/21 IV 12/21 0031 0023 Heparin Sodium/ 25,000 UNIT Q24H 12/21 0630 AC 12/21 Dextrose IV 0630 Dextrose/Water 500 ML Heparin Sodium/ 25,000 UNIT Q24H 12/17 1445 DC 12/20 Dextrose IV 12/21 0500 0920 Dextrose/Water 500 ML Levothyroxine Sodium 0.125 MG DAILY AC 12/18 0700 AC 12/21 PO 0630 Lisinopril 10 MG DAILY 12/20 2027 AC 12/21 PO 0844 Magnesium Oxide 400 MG ONE ONE 12/21 0815 DC 12/21 PO 12/21 0816 0843 Methylprednisolone 40 MG DAILY 12/21 0330 AC 12/21 IV 0430 Metoprolol Tartrate 50 MG BID 12/17 2200 AC 12/21 PO 0844 Ondansetron HCl 4 MG Q6P PRN 12/17 1315 AC IV Oxycodone/ 1 TAB Q4P PRN 12/17 1315 AC Acetaminophen PO Oxycodone/ 2 TAB Q4P PRN 12/17 1315 AC 12/19 Acetaminophen PO 1904 Patient Medication 1 ED .STK-MED ONE 12/20 1326 DC Teaching ED 12/20 1327 Potassium Chloride 60 MEQ ONCE ONE 12/21 0815 DC PO 12/21 0816 Sodium Chloride 1,000 ML Q10H 12/17 1445 DC 12/20 IV 1424 Results Last 48 Hrs of Labs/Mics: Laboratory Tests 12/21/16 0915: APTT Pending 12/21/16 0630: Anion Gap 12, Estimated GFR > 60, BUN/Creatinine Ratio 15.7, Troponin I 0.27 *H, CBC w Diff NO MAN DIFF REQ, RBC 3.20 L, MCV 80.1 L, MCH 25.6 L, RDW 17.0 H, MPV 8.9, Gran % 87.9 H, Lymphocytes % 5.0 L, Monocytes % 6.9, Eosinophils % 0, Basophils % 0.2, Absolute Granulocytes 12.7 H, Absolute Lymphocytes 0.7 L, Absolute Monocytes 1.0 H, Absolute Eosinophils 0, Absolute Basophils 0, PUBS MCHC 32.0 L 12/21/16 0030: Troponin I 0.16 *H 12/20/16 1911: Anion Gap 13, Estimated GFR > 60, BUN/Creatinine Ratio 17.1, Calcium 8.6, Phosphorus 3.9, Magnesium 1.7, Troponin I 0.10, [id number] Pept 65777 H, APTT 65 H, CBC w Diff NO MAN DIFF REQ, RBC 3.12 L, MCV 81.7, MCH 25.5 L, RDW 17.2 H, MPV 8.2, Gran % 82.8 H, Lymphocytes % 7.8 L, Monocytes % 9.4 H, Eosinophils % 0, Basophils % 0 L, Absolute Granulocytes 12.9 H, Absolute Lymphocytes 1.2, Absolute Monocytes 1.5 H, Absolute Eosinophils 0, Absolute Basophils 0, PUBS MCHC 31.2 L 12/20/16 0720: APTT 70 H 12/19/16 1817: APTT 70 H Recent Imaging Studies: Chest x-ray: Mild central pulmonary vascular congestion. Nuclear stress test: The post stress images demonstrate the left ventricular chamber to be normal in size. There is homogeneous distribution of activity in the left ventricular myocardium with no regions of abnormally decreased activity noted. The resting images also demonstrate homogeneous distribution of activity in the left ventricular myocardium, and are not significantly changed from the post stress images. The images were obtained using a gated SPECT technique, which permits visualization of wall motion and calculation of the left ventricular ejection fraction. No left ventricular wall motion abnormalities are noted on either the stress or resting study. The calculated left ventricular ejection fraction is 76% on the stress study. Nuclear images independently reviewed. Echocardiogram: 1. THis was a technically difficult examination due to the patient's body habitus and elevated heart rate. 2. Mild aortic sclerosis is present with no valvular stenosis or insufficiency. 3. Mitral leaflet thickening is present with mild to moderate eccentric mitral insufficiency and mild left atrial dilatation. 4. There is no significant pericardial fluid present. 5. The left ventricular chamber size is normal. The LV systolic function is hyperdynamic with an ejection fraction of 80%. THere are no obvious resting wall motion abnormalities. 6. The right heart structures were not optimally assessed. Mild tricuspid insufficiency is present with pulmonary hypertension and an estimated RV systolic pressure of 50 mmHg. 7. A followup examination is suggested when the patient's heart rate is slower to reassess the severity of mitral insufficiency and the RV systolic pressure. Assessment/Plan Assessment/Plan Assessment: 1. Peripheral arterial disease with left lower summary ischemia 2. Coronary artery disease 3. No evidence of ischemia on nuclear stress test 4. Acute diastolic heart failure (HFpEF) 5. Mild troponin elevation, secondary to demand ischemia and diastolic heart failure Plan: * Lasix 20 mg IV every 12 hours * Continue other cardiac medications. * Follow input and output with daily weights * Would delay surgery until medically stable. * Monitor on telemetry. Continue telemetry? Yes
[2016-12-21 15:30] VITALS: BP 148/72
--- NOTE | 2016-12-21 17:34 | CT SCAN REPORT ---
EXAMINATION: CT ANGIOGRAM OF THE CHEST WITH AND WITHOUT CONTRAST (CT PULMONARY ANGIOGRAM FOR PE) CLINICAL INFORMATION: Shortness of breath. Tachycardia. COMPARISON: Chest x-ray 12/20/2016. Chest x-ray 01/05/2008 TECHNIQUE: Prior to contrast administration, noncontrast localization images were obtained. Subsequently, multidetector volumetric imaging was performed from the thoracic inlet to below the diaphragms following the administration of 71 mL Optiray 320 intravenous contrast. No contrast reaction reported Sagittal, coronal, and MIP oblique sagittal reformatted images were obtained on the CT workstation, uploaded to PACS, and reviewed. Total exam dose-length product 379.52 mGy-cm FINDINGS: QUALITY OF STUDY/CONTRAST BOLUS: Satisfactory. PULMONARY ARTERIES: No central or segmental pulmonary emboli. THORACIC AORTA: Thoracic aortic wall calcifications but no aneurysm of the aorta or aortic dissection. LUNG: Bibasilar atelectasis. Small focal groundglass airspace opacity in the anterior right middle lobe, sagittal image 69. There is emphysematous lucency of lung. PLEURA: Small to moderate volume layering bilateral pleural effusions. MEDIASTINUM: Normal heart size. No pericardial effusion. No hilar or mediastinal lymphadenopathy. No evidence of septal bowing or right heart strain. CHEST WALL/AXILLA: No axillary or internal mammary lymphadenopathy. OSSEOUS STRUCTURES: No acute or suspicious osseous abnormality. UPPER ABDOMEN: Unremarkable. No reflux of contrast into the hepatic veins to suggest elevated right heart pressures. IMPRESSION: 1. No evidence of pulmonary embolism 2. Bibasilar dependent atelectasis with bilateral pleural effusions. Small groundglass infiltrate peripheral anterior right middle lobe. 3. Emphysematous changes of lungs. VTE: negative
[2016-12-21 22:28] LABS: PTT 54 SEC (25-37)
[2016-12-21 22:58] VITALS: BP 122/60
[2016-12-22 06:14] LABS: ABSOLUTE BASOPHIL COUNT 0 /CUMM (0.0-0.2); ABSOLUTE EOSINOPHIL COUNT 0 /CUMM (0.0-0.7); ABSOLUTE GRANULOCYTE CT 10.6 /CUMM (1.4-6.5); ABSOLUTE LYMPH COUNT 1.5 /CUMM (1.2-3.4); ABSOLUTE MONOCYTE COUNT 1.3 /CUMM (0.10-0.60); BASOPHIL % 0.2 % (0.0-2.0); EOSINOPHIL % 0 % (0-5); HEMATOCRIT 24.4 % (37-47); MEAN CORPUSCULAR HGB 25.6 PG (27.0-31.0); MEAN CORPUSCULAR HGB CONC 31.7 G/DL (33.0-37.0); MEAN CORPUSCULAR VOLUME 80.7 FL (81.0-99.0); MEAN PLATELET VOLUME 8.4 FL (7.4-10.4); PLATELET COUNT 510 /CUMM (130-400); RBC DISTRIBUTION WIDTH 17.9 % (11.5-14.5); RED BLOOD CELL CT 3.02 /CUMM (4.20-5.40); WHITE BLOOD CELL COUNT 13.4 /CUMM (4.8-10.8)
[2016-12-22 06:31] LABS: PTT 97 SEC (25-37)
[2016-12-22 08:00] VITALS: BP 168/70
--- NOTE | 2016-12-22 11:48 | PN- Cardiology ---
Subjective Subjective: Clinically, the patient appears to be doing better. Her respiratory status has improved. She is currently off of supplemental oxygen and satting okay. No other cardiac symptoms. Objective Vital Signs and I&Os Vital Signs Date Time Temp Pulse Resp B/P Pulse O2 O2 Flow FiO2 Ox Delivery Rate 12/22 0831 101 168/70 12/22 0831 101 168/70 12/22 0800 94 Room Air 12/22 08 97.9 101 20 168/70 96 Nasal 1.0L Cannula 12/22 0800 97 Nasal 1.0L Cannula 12/22 0000 96 Nasal 2.0L Cannula 12/21 2258 98.6 117 20 122/60 96 Nasal 2.0L Cannula 12/21 2142 117 122/60 12/21 1919 95 Nasal 1.0L Cannula 12/21 1600 Nasal 1.0L Cannula 12/21 1530 97.3 113 18 148/72 96 Nasal 1.0L Cannula 12/21 1506 Nasal 2.0L Cannula Intake & Output 12/22 1600 12/22 0812/22 0000 12/21 1600 12/21 0800 12/21 0000 Intake Total 600 704 480 450 Output Total 250 638 653 5243 1265 Balance 350 -96 -170 -2850 -1265 Intake, IV 360 224 330 Intake, Oral 240 480 480 120 Number 0 Bowel Movements Output, Urine 250 667 124 8211 1265 Patient 130 lb Weight Current Medications: Current Medications Sig/Bibi Start time Last Medication Dose Route Stop Time Status Admin Albuterol Sulfate 3 ML Q4P PRN 12/21 1515 CAN INH Albuterol Sulfate 3 ML Q4P PRN 12/20 2300 AC 12/20 INH 2240 Ampicillin Sodium/ 3,000 MG Q6H 12/20 2300 AC 12/22 Sulbactam Sodium IV 0513 Sodium Chloride 100 ML Atorvastatin Calcium 40 MG 1700 12/17 1700 AC 12/21 PO 1755 Bisacodyl 5 MG DAILY 12/22 1145 AC PO Dipyridamole 35 MG ONE 12/20 1115 DC Dextrose/Water 33 ML IV 12/22 0314 Furosemide 20 MG ONCE ONE 12/21 2345 DC IV 12/21 2346 Furosemide 20 MG 7:30 AM, & 4:30 PM 12/21 1630 AC 12/22 IV 0831 Heparin Sodium 2,500 UNIT ONCE ONE 12/21 2330 DC 12/21 (Porcine) IV 12/21 2331 2330 Heparin Sodium 5,000 UNIT .STK-MED ONE 12/21 2305 DC (Porcine) IV 12/21 2306 Heparin Sodium/ 25,000 UNIT Q24H 12/21 0630 AC 12/22 Dextrose IV 0623 Dextrose/Water 500 ML Levothyroxine Sodium 0.125 MG DAILY AC 12/18 0700 AC 12/22 PO 0623 Lisinopril 10 MG DAILY 12/20 2026 AC 12/22 PO 0831 Methylprednisolone 40 MG DAILY 12/21 0330 DC 12/22 IV 0832 Metoprolol Tartrate 50 MG BID 12/17 220 AC 12/22 PO 0831 Ondansetron HCl 4 MG Q6P PRN 12/17 1315 AC IV Oxycodone/ 1 TAB Q4P PRN 12/17 1315 AC Acetaminophen PO Oxycodone/ 2 TAB Q4P PRN 12/17 1315 AC 12/22 Acetaminophen PO 0831 Patient Medication 1 ED ONE ONE 12/21 1400 DC Teaching ED 12/21 1401 Potassium Chloride 40 MEQ ONCE ONE 12/22 0745 DC PO 12/22 0746 Results Last 48 Hrs of Labs/Mics: Laboratory Tests 12/22/16 0525: Anion Gap 12, Estimated GFR > 60, BUN/Creatinine Ratio 26.3 H, Magnesium 2.2, APTT 97 H, CBC w Diff NO MAN DIFF REQ, RBC 3.02 L, MCV 80.7 L, MCH 25.6 L, RDW 17.9 H, MPV 8.4, Gran % 79.0 H, Lymphocytes % 10.8 L, Monocytes % 10.0 H , Eosinophils % 0, Basophils % 0.2, Absolute Granulocytes 10.6 H, Absolute Lymphocytes 1.5, Absolute Monocytes 1.3 H, Absolute Eosinophils 0, Absolute Basophils 0, PUBS MCHC 31.7 L 12/21/16 2117: APTT 54 H 12/21/16 1330: Anion Gap 14, Estimated GFR > 60, BUN/Creatinine Ratio 20.0, Magnesium 2.0, Troponin I 0.16 *H 12/21/16 0915: APTT 67 H 12/21/16 0630: Anion Gap 12, Estimated GFR > 60, BUN/Creatinine Ratio 15.7, Troponin I 0.27 *H, CBC w Diff NO MAN DIFF REQ, RBC 3.20 L, MCV 80.1 L, MCH 25.6 L, RDW 17.0 H, MPV 8.9, Gran % 87.9 H, Lymphocytes % 5.0 L, Monocytes % 6.9, Eosinophils % 0, Basophils % 0.2, Absolute Granulocytes 12.7 H, Absolute Lymphocytes 0.7 L, Absolute Monocytes 1.0 H, Absolute Eosinophils 0, Absolute Basophils 0, PUBS MCHC 32.0 L 12/21/16 0030: Troponin I 0.16 *H 12/20/16 1911: Anion Gap 13, Estimated GFR > 60, BUN/Creatinine Ratio 17.1, Calcium 8.6, Phosphorus 3.9, Magnesium 1.7, Troponin I 0.10, Kpe-X-Pnecmgljuro Pept 05968 H, APTT 65 H, CBC w Diff NO MAN DIFF REQ, RBC 3.12 L, MCV 81.7, MCH 25.5 L, RDW 17.2 H, MPV 8.2, Gran % 82.8 H, Lymphocytes % 7.8 L, Monocytes % 9.4 H, Eosinophils % 0, Basophils % 0 L, Absolute Granulocytes 12.9 H, Absolute Lymphocytes 1.2, Absolute Monocytes 1.5 H, Absolute Eosinophils 0, Absolute Basophils 0, PUBS MCHC 31.2 L Assessment/Plan Assessment/Plan Assessment: 1. Acute diastolic heart failure 2. Peripheral arterial disease with left lower extremity ischemia; pending surgical intervention 3. Mild to moderate mitral insufficiency 4. Mild troponin elevation related to demand ischemia and acute diastolic heart failure Recommendations: -Continue IV Lasix for another 24 hours -Follow-up chest x-ray, PA and lateral, tomorrow -I will discuss the case with Dr. Knutson prior to any further plans for surgical intervention for timing of surgery. Continue telemetry? Yes
--- NOTE | 2016-12-22 12:08 | PN- Att Addend ---
Attending Addendum Attending Brief Note 61F PMH HTN, HLD, severe PVD admitted initially to vascular surgery service for evaluation of chronic non-healing ischemic ulcer on left foot associated with severe pain. Had CTA evaluation which showed bilateral occlusive disease and was scheduled for bifemoral bypass. Underwent echocardiogram and nuclear stress test. Stress test was negative for ischemia. Echo showed diastolic heart failure and pulmonary hypertension. On the day following the stress tests, patient remained tachycardic and began to complain of shortness of breath. She slowly developed acute on chronic diastolic CHF and elevated troponin in the setting of demand ischemia. She was then transferred to medical service, where a CTA of the chest was done, which did not show pulmonary embolism, but showed mild bilateral pleural effusions. Today she complains of continued left leg pain. Her breathing is improved. Troponin has peaked at 0.27. AFVSS NAD Supple RRR Bibasilar crackles Soft, NTND 1+ edema bilateral feet Pulses diminished A&Ox3 no focal deficits Current Medications Sig/Bibi Start time Last Medication Dose Route Stop Time Status Admin Albuterol Sulfate 3 ML Q4P PRN 12/21 1515 CAN INH Albuterol Sulfate 3 ML Q4P PRN 12/20 2300 AC 12/20 INH 2240 Ampicillin Sodium/ 3,000 MG Q6H 12/20 2300 AC 12/22 Sulbactam Sodium IV 0513 Sodium Chloride 100 ML Atorvastatin Calcium 40 MG 1700 12/17 1700 AC 12/21 PO 1755 Bisacodyl 5 MG DAILY 12/22 1145 AC PO Dipyridamole 35 MG ONE ONE 12/20 1115 DC Dextrose/Water 33 ML IV 12/22 0314 Furosemide 20 MG ONCE 12/21 2345 DC IV 12/21 2346 Furosemide 20 MG 7:30 AM, & 4:30 PM 12/21 1630 AC 12/22 IV 0831 Heparin Sodium 2,500 UNIT ONCE ONE 12/21 2330 DC 12/21 (Porcine) IV 12/21 2331 2330 Heparin Sodium 5,000 UNIT .STK-MED ONE 12/21 2305 DC (Porcine) IV 12/21 2306 Heparin Sodium/ 25,000 UNIT Q24H 12/21 0630 AC 12/22 Dextrose IV 0623 Dextrose/Water 500 ML Levothyroxine Sodium 0.125 MG DAILY AC 12/18 0700 AC 12/22 PO 0623 Lisinopril 10 MG DAILY 12/20 2026 AC 12/22 PO 0831 Methylprednisolone 40 MG DAILY 12/21 0330 DC 12/22 IV 0832 Metoprolol Tartrate 50 MG BID 12/170 AC 12/22 PO 0831 Ondansetron HCl 4 MG Q6P PRN 12/17 1315 AC IV Oxycodone/ 1 TAB Q4P PRN 12/17 1315 AC Acetaminophen PO Oxycodone/ 2 TAB Q4P PRN 12/17 1315 AC 12/22 Acetaminophen PO 0831 Patient Medication 1 ED ONE ONE 12/21 1400 DC Teaching ED 12/21 1401 Potassium Chloride 40 MEQ ONCE ONE 12/22 0745 DC PO 12/22 0746 Laboratory Tests 12/22 12/21 12/21 0525 2117 1330 Chemistry Sodium (137 - 145 mmol/L) 145 143 Potassium (3.5 - 5.1 mmol/L) 3.6 3.9 Chloride (98 - 107 mmol/L) 102 101 Carbon Dioxide (22 - 30 mmol/L) 32 H 28 Anion Gap (5 - 16) 12 14 BUN (7 - 17 mg/dL) 21 H 14 Creatinine (0.5 - 1.0 mg/dL) 0.8 0.7 Estimated GFR (>60 ml/min) > 60 > 60 BUN/Creatinine Ratio (7 - 25 %) 26.3 H 20.0 Magnesium (1.6 - 2.3 mg/dL) 2.2 2.0 Troponin I (< 0.11 ng/ml) 0.16 *H Coagulation APTT (25 - 37 SEC) 97 H 54 H Hematology CBC w Diff NO MAN DIFF REQ WBC (4.8 - 10.8 /CUMM) 13.4 H RBC (4.20 - 5.40 /CUMM) 3.02 L Hgb (12.0 - 16.0 G/DL) 7.7 L Hct (37 - 47 %) 24.4 L MCV (81.0 - 99.0 FL) 80.7 L MCH (27.0 - 31.0 PG) 25.6 L RDW (11.5 - 14.5 %) 17.9 H Plt Count (130 - 400 /CUMM) 510 H MPV (7.4 - 10.4 FL) 8.4 Gran % (42.2 - 75.2 %) 79.0 H Lymphocytes % (20.5 - 51.1 %) 10.8 L Monocytes % (1.7 - 9.3 %) 10.0 H Eosinophils % (0 - 5 %) 0 Basophils % (0.0 - 2.0 %) 0.2 Absolute Granulocytes (1.4 - 6.5 /CUMM) 10.6 H Absolute Lymphocytes (1.2 - 3.4 /CUMM) 1.5 Absolute Monocytes (0.10 - 0.60 /CUMM) 1.3 H Absolute Eosinophils (0.0 - 0.7 /CUMM) 0 Absolute Basophils (0.0 - 0.2 /CUMM) 0 PUBS MCHC (33.0 - 37.0 G/DL) 31.7 L 1. Acute on chronic diastolic CHF 2. Demand ischemia 3. Shortness of breath 4. Sinus tachycardia 5. Severe peripheral arterial disease 6. Chronic LLE ischemic ulcer 7. Intractable leg pain Plan - Continue on telemetry - Continue Lasix - Monitor I/O, daily weights - Follow cardiology and vascular recommendations - CXR tomorrow morning, PA/Lat - Continue heparin drip - Continue home medications - Pending clinical improvement, will hold off on surgical procedure tomorrow, will likely be ready for Sunday 12/24
--- NOTE | 2016-12-22 13:02 | PN- Housestaff ---
Subjective Follow-up For: severe PVD Subjective: Seen and examined patient, complains of left lower leg pain. Denies fever, chills, chest pain, palpitations. Review of Systems Constitutional: Denies: chills, diaphoresis, fever, malaise, weakness, unexplained weight loss. Cardiovascular: Denies: chest pain, edema, orthopena, palpitations, peripheral edema, syncope. Respiratory: Denies: cough, hemoptysis, orthopnea, short of breath, sputum production, stridor, wheezing. Objective Last 24 Hrs of Vital Signs/I&O Vital Signs Date Time Temp Pulse Resp B/P Pulse O2 O2 Flow FiO2 Ox Delivery Rate 12/22 08 101 168/70 12/22 0831 101 16812/22 0800 94 Room Air 12/22 08 97.9 101 20 168/70 96 Nasal 1.0L Cannula 12/22 08 97 Nasal 1.0L Cannula 12/22 0000 96 Nasal 2.0L Cannula 12/21 2258 98.6 117 20 122/60 96 Nasal 2.0L Cannula 12/21 2142 117 122/60 12/21 1919 95 Nasal 1.0L Cannula 12/21 1600 Nasal 1.0L Cannula 12/21 1530 97.3 113 18 148/72 96 Nasal 1.0L Cannula Intake & Output 12/22 1600 12/22 0800 12/22 0000 Intake Total 926.4 600 704 Output Total 1000 250 800 Balance -73.6 350 -96 Intake, IV 326.4 360 224 Intake, Oral 600 240 480 Number 0 Bowel Movements Output, Urine 1000 250 800 Physical Exam General Appearance: Alert, Oriented X3, Cooperative, No Acute Distress Cardiovascular: Regular Rate, Normal S1, Normal S2 Lungs: Clear to Auscultation, Normal Air Movement Extremities: No Edema Current Medications: Current Medications Sig/Bibi Start time Last Medication Dose Route Stop Time Status Admin Albuterol Sulfate 3 ML Q4P PRN 12/21 1515 CAN INH Albuterol Sulfate 3 ML Q4P PRN 12/20 2300 AC 12/20 INH 2240 Ampicillin Sodium/ 3,000 MG Q6H 12/20 2300 AC 12/22 Sulbactam Sodium IV 1237 Sodium Chloride 100 ML Atorvastatin Calcium 40 MG 1700 12/17 1700 AC 12/21 PO 1755 Bisacodyl 5 MG DAILY 12/22 1145 AC 12/22 PO 1346 Dipyridamole 35 MG ONE ONE 12/20 1115 DC Dextrose/Water 33 ML IV 12/22 0314 Furosemide 20 MG ONCE ONE 12/21 2345 DC IV 12/21 2346 Furosemide 20 MG 7:30 AM, & 4:30 PM 12/21 1630 AC 12/22 IV 0831 Heparin Sodium 2,500 UNIT ONCE ONE 12/21 2330 DC 12/21 (Porcine) IV 12/21 2330 2330 Heparin Sodium 5,000 UNIT .STK-MED ONE 12/21 2305 DC (Porcine) IV 12/21 2306 Heparin Sodium/ 25,000 UNIT Q24H 12/21 0630 AC 12/22 Dextrose IV 0623 Dextrose/Water 500 ML Levothyroxine Sodium 0.125 MG DAILY AC 12/18 0700 AC 12/22 PO 0623 Lisinopril 10 MG DAILY 12/20 202 AC 12/22 PO 0831 Methylprednisolone 40 MG DAILY 12/21 0330 DC 12/22 IV 0832 Metoprolol Tartrate 50 MG BID 12/17 2200 AC 12/22 PO 0831 Ondansetron HCl 4 MG Q6P PRN 12/17 1315 AC IV Oxycodone/ 1 TAB Q4P PRN 12/17 1315 AC Acetaminophen PO Oxycodone/ 2 TAB Q4P PRN 12/17 1315 AC 12/22 Acetaminophen PO 0831 Potassium Chloride 40 MEQ ONCE ONE 12/22 0745 DC 12/22 PO 12/22 0746 1346 Last 24 Hrs of Lab/Ernesto Results Last 24 Hrs of Labs/Mics: Laboratory Tests 12/22/16 1341: APTT 55 H 12/22/16 0525: Anion Gap 12, Estimated GFR > 60, BUN/Creatinine Ratio 26.3 H, Magnesium 2.2, APTT 97 H, CBC w Diff NO MAN DIFF REQ, RBC 3.02 L, MCV 80.7 L, MCH 25.6 L, RDW 17.9 H, MPV 8.4, Gran % 79.0 H, Lymphocytes % 10.8 L, Monocytes % 10.0 H , Eosinophils % 0, Basophils % 0.2, Absolute Granulocytes 10.6 H, Absolute Lymphocytes 1.5, Absolute Monocytes 1.3 H, Absolute Eosinophils 0, Absolute Basophils 0, PUBS MCHC 31.7 L 02/28/17 2117: APTT 54 H Assessment/Plan Assessment: 61-year-old woman with severe peripheral vascular disease, hypertension, hyperlipidemia, chronic nonhealing ulcer on left leg with multiple debridements and failed attempts for multiple skin grafts (last graft in ). Current admission for extra-anatomic axillobifemoral bypass. She is status post recent IV Dipyridamole nuclear stress test was normal. She was transferred to the medicine service for acute CHF and positive troponins. Afebrile overnight, white count trending down. Chest x-ray showed mild central pulmonary vascular congestion, Echo shows hyperdynamic EF at 80%. CTA chest shows no evidence of pulmonary embolism. Problem list: New-onset CHF Positive troponins Severe peripheral vascular disease Hypertension Hyperlipidemia Chronic nonhealing ulcer Cellulitis Plan: On IV Lasix, continue strict I's and O's will repeat chest x-ray tomorrow Troponins trended down, no new EKG changes Continue IV heparin, continue to hold aspirin Continue IV Unasyn day 4 for cellulitis Cardiology on board appreciated recommendations, vascular surgeon on board appreciate recommendations Heart healthy diet DVT prophylaxis IV heparin full code Problem List: 1. PAD (peripheral artery disease) 2. Hyperlipidemia 3. HTN (hypertension) 4. CHF (congestive heart failure) 5. Elevated troponin Pain Ratin Pain Location: Left lower leg Pain Goal: Pain 4 or less Pain Plan: Current regimen Tomorrow's Labs & Rationales: CBC/BEP
[2016-12-22 14:47] LABS: PTT 55 SEC (25-37)
[2016-12-22 16:20] VITALS: BP 162/78
[2016-12-22 22:03] LABS: PTT 73 SEC (25-37)
[2016-12-22 22:45] VITALS: BP 158/78
[2016-12-23 00:27] VITALS: BP 147/70
[2016-12-23 08:00] VITALS: BP 168/70
--- NOTE | 2016-12-23 08:08 | PN- Housestaff ---
THEA JERONIMO 12/23/16 0808: Subjective Follow-up For: severe PVD Tele-Events Since Last Visit: NSR, 82-96, no overnight events. Subjective: Seen and examined patient, offers no complaints. Denies fever, chills, chest pain, palpitations. Review of Systems Constitutional: Denies: chills, diaphoresis, fever, malaise, weakness, unexplained weight loss. Cardiovascular: Denies: chest pain, edema, orthopena, palpitations, peripheral edema, syncope. Respiratory: Denies: cough, hemoptysis, orthopnea, short of breath, sputum production, stridor, wheezing. Objective Last 24 Hrs of Vital Signs/I&O Vital Signs Date Time Temp Pulse Resp B/P Pulse O2 O2 Flow FiO2 Ox Delivery Rate 12/23 08 98.4 90 18 168/70 93 Room Air 12/23 0027 98.3 89 20 147/70 94 Room Air 12/22 2245 158/78 12/22 2131 101 176/80 12/22 1620 98.2 106 20 162/78 95 Room Air 12/22 1600 Room Air 12/22 0831 101 168/70 12/22 0831 101 168/70 Intake & Output 12/23 1600 12/23 0800 12/23 0000 Intake Total 495.6 945 Output Total 300 950 Balance 195.6 -5 Intake, IV 445.6 345 Intake, Oral 50 600 Number 1 Bowel Movements Output, Urine 300 950 Physical Exam General Appearance: Alert, Oriented X3, Cooperative, No Acute Distress Cardiovascular: Regular Rate, Normal S1, Normal S2 Lungs: Clear to Auscultation, Normal Air Movement Extremities: left leg dressing Current Medications: Current Medications Sig/Bibi Start time Last Medication Dose Route Stop Time Status Admin Albuterol Sulfate 3 ML Q4P PRN 12/20 2300 AC 12/20 INH 2240 Ampicillin Sodium/ 3,000 MG Q6H 12/20 2300 AC 12/23 Sulbactam Sodium IV 0535 Sodium Chloride 100 ML Atorvastatin Calcium 40 MG 1700 12/17 1700 AC 12/22 PO 1649 Bisacodyl 5 MG DAILY 12/22 1145 AC 12/22 PO 1346 Furosemide 20 MG 7:30 AM, & 4:30 PM 12/21 1630 AC 12/22 IV 1649 Heparin Sodium/ 25,000 UNIT Q24H 12/21 0630 AC 12/22 Dextrose IV 1702 Dextrose/Water 500 ML Levothyroxine Sodium 0.125 MG DAILY AC 12/18 0700 AC 12/23 PO 0608 Lisinopril 10 MG DAILY 12/20 2026 AC 12/22 PO 0831 Methylprednisolone 40 MG DAILY 12/21 0330 DC 12/22 IV 0832 Metoprolol Tartrate 50 MG BID 12/17 220 AC 12/22 PO 2131 Ondansetron HCl 4 MG Q6P PRN 12/17 1315 AC IV Oxycodone/ 1 TAB Q4P PRN 12/17 1315 AC Acetaminophen PO Oxycodone/ 2 TAB Q4P PRN 12/17 1315 AC 12/22 Acetaminophen PO 2131 Last 24 Hrs of Lab/Ernesto Results Last 24 Hrs of Labs/Mics: Laboratory Tests 12/23/16 0627: Anion Gap 10, Estimated GFR > 60, BUN/Creatinine Ratio 35.7 H, Magnesium 1.9, CBC w Diff Pending, WBC Pending, RBC Pending, Hgb Pending, Hct Pending, MCV Pending, MCH Pending, RDW Pending, Plt Count Pending, MPV Pending, PUBS MCHC Pending 12/22/16 2114: APTT 73 H 12/22/16 1341: APTT 55 H Assessment/Plan Assessment: 61-year-old woman with severe peripheral vascular disease, hypertension, hyperlipidemia, chronic nonhealing ulcer on left leg with multiple debridements and failed attempts for multiple skin grafts (last graft in ). Current admission for extra-anatomic axillobifemoral bypass. She is status post recent IV Dipyridamole nuclear stress test was normal. She was transferred to the medicine service for acute CHF and positive troponins. Afebrile overnight, white count trending down. Chest x-ray showed mild central pulmonary vascular congestion, Echo shows hyperdynamic EF at 80%. CTA chest shows no evidence of pulmonary embolism. Problem list: New-onset CHF Positive troponins Severe peripheral vascular disease Hypertension Hyperlipidemia Chronic nonhealing ulcer Cellulitis Plan: On IV Lasix, continue strict I's and O's, neg 1.1L will repeat chest x-ray today Troponins trended down, no new EKG changes Continue IV heparin, continue to hold aspirin Continue IV Unasyn day 5 for cellulitis H/H 7.4/23.8 will continue to monitor closely, will type and screen with tommorrow's am lab . Cardiology on board appreciated recommendations, vascular surgeon on board appreciate recommendations Heart healthy diet DVT prophylaxis IV heparin full code Problem List: 1. Wound of left lower extremity 2. CHF (congestive heart failure) 3. HTN (hypertension) Pain Ratin Pain Location: na Pain Goal: Pain 4 or less Pain Plan: current regimen Tomorrow's Labs & Rationales: JESSICA CHAN MD 12/23/16 1311: Attending MD Review Statement Attending Statement Attending MD Statement: examined this patient, discuss w/resident/PA/BUTTON [employer]ER AND INST[employer]ER, agreed w/resident/PA/BUTTON [employer]ST[employer]ER, reviewed EMR data (avail) Attending Assessment/Plan: 61F PMH HTN, HLD, severe PVD admitted initially to vascular surgery service for evaluation of chronic non-healing ischemic ulcer on left foot associated with severe pain. Had CTA evaluation which showed bilateral occlusive disease and was scheduled for bifemoral bypass. Underwent echocardiogram and nuclear stress test. Stress test was negative for ischemia. Echo showed diastolic heart failure and pulmonary hypertension. On the day following the stress tests, patient remained tachycardic and began to complain of shortness of breath. She slowly developed acute on chronic diastolic CHF and elevated troponin in the setting of demand ischemia. She was then transferred to medical service, where a CTA of the chest was done, which did not show pulmonary embolism, but showed mild bilateral pleural effusions. Today patient is more awake. She has no complaints and says she feels better. AFVSS NAD Supple RRR Bibasilar crackles Soft, NTND 1+ edema bilateral feet Pulses diminished A&Ox3 no focal deficits 1. Acute on chronic diastolic CHF 2. Demand ischemia 3. Shortness of breath 4. Sinus tachycardia 5. Severe peripheral arterial disease 6. Chronic LLE ischemic ulcer 7. Intractable leg pain Plan - Continue on telemetry - Continue Lasix - Monitor I/O, daily weights - Follow cardiology and vascular recommendations - Repeat CXR is unchanged - Continue heparin drip - Continue home medications - Will defer to cardiology regarding timing of vascular procedure
[2016-12-23 08:43] LABS: ABSOLUTE BASOPHIL COUNT 0 /CUMM (0.0-0.2); ABSOLUTE EOSINOPHIL COUNT 0 /CUMM (0.0-0.7); ABSOLUTE GRANULOCYTE CT 8.5 /CUMM (1.4-6.5); ABSOLUTE MONOCYTE COUNT 1.2 /CUMM (0.10-0.60); BASOPHIL % 0.2 % (0.0-2.0); EOSINOPHIL % 0.1 % (0-5); GRANULOCYTE % 72.5 % (42.2-75.2); HEMATOCRIT 23.8 % (37-47); MEAN CORPUSCULAR VOLUME 80.3 FL (81.0-99.0); MEAN PLATELET VOLUME 8.4 FL (7.4-10.4); PLATELET COUNT 517 /CUMM (130-400); RBC DISTRIBUTION WIDTH 17.5 % (11.5-14.5); RED BLOOD CELL CT 2.96 /CUMM (4.20-5.40); WHITE BLOOD CELL COUNT 11.7 /CUMM (4.8-10.8)
--- NOTE | 2016-12-23 08:48 | RADIOLOGY REPORT ---
EXAMINATION: XR PORTABLE CHEST CLINICAL INFORMATION: Short of breath. Pulmonary congestion. COMPARISON: None TECHNIQUE: Portable AP view of the chest was obtained. FINDINGS: Both lungs are with increased pulmonary vascularity especially in both lung bases suggestive of congestion. The upper lobes are expanded and clear. Heart size is borderline normal. No gross bony abnormality seen. IMPRESSION: Mild pulmonary vascular congestion. No change from 12/20/2016 exam.
[2016-12-23 09:59] LABS: PTT 60 SEC (25-37)
[2016-12-23 12:15] VITALS: BP 138/66
--- NOTE | 2016-12-23 13:25 | PN- Cardiology ---
Subjective Subjective: Clinically, the patient appears to be doing better. Off of supplemental oxygen. Respiratory status stable. No other cardiac complaints. To my eye, the chest x-ray appears improved although it is a slightly underpenetrated study. Objective Vital Signs and I&Os Vital Signs Date Time Temp Pulse Resp B/P Pulse O2 O2 Flow FiO2 Ox Delivery Rate 12/23 1025 90 168/70 12/23 1025 90 168/70 12/23 0800 98.4 90 18 168/70 93 Room Air 12/23 0027 98.3 89 20 147/70 94 Room Air 12/22 2245 158/78 12/22 2131 101 176/80 12/22 1620 98.2 106 20 162/78 95 Room Air 12/22 1600 Room Air Intake & Output 12/23 1600 12/23 0812/23 0000 12/22 1600 12/22 0800 12/22 0000 Intake Total 495.6 945 926.4 600 704 Output Total 414 506 2911 250 800 Balance 195.6 -5 -73.6 350 -96 Intake, IV 445.6 345 326.4 360 224 Intake, Oral 50 600 600 240 480 Number 1 0 Bowel Movements Output, Urine 486 495 2713 250 800 Current Medications: Current Medications Sig/Bibi Start time Last Medication Dose Route Stop Time Status Admin Albuterol Sulfate 3 ML Q4P PRN 12/20 230 AC 12/20 INH 2240 Ampicillin Sodium/ 3,000 MG Q6H 12/20 2300 AC 12/23 Sulbactam Sodium IV 1026 Sodium Chloride 100 ML Atorvastatin Calcium 40 MG 1700 12/17 1700 AC 12/22 PO 1649 Bisacodyl 5 MG DAILY 12/22 1145 AC 12/22 PO 1346 Furosemide 20 MG 7:30 AM, & 4:30 PM 12/21 1630 AC 12/23 IV 0832 Heparin Sodium/ 25,000 UNIT Q24H 12/21 0630 AC 12/23 Dextrose IV 1034 Dextrose/Water 500 ML Levothyroxine Sodium 0.125 MG DAILY AC 12/18 0700 AC 12/23 PO 0608 Lisinopril 10 MG DAILY 12/20 202 AC 12/23 PO 1025 Metoprolol Tartrate 50 MG BID 12/17 2200 AC 12/23 PO 1025 Ondansetron HCl 4 MG Q6P PRN 12/17 1315 AC IV Oxycodone/ 1 TAB Q4P PRN 12/17 1315 AC Acetaminophen PO Oxycodone/ 2 TAB Q4P PRN 12/17 1315 AC 12/23 Acetaminophen PO 1024 Results Last 48 Hrs of Labs/Mics: Laboratory Tests 12/23/16 0900: APTT 60 H 12/23/16 0627: Anion Gap 10, Estimated GFR > 60, BUN/Creatinine Ratio 35.7 H, Magnesium 1.9, CBC w Diff NO MAN DIFF REQ, RBC 2.96 L, MCV 80.3 L, MCH 25.0 L, RDW 17.5 H, MPV 8.4, Gran % 72.5, Lymphocytes % 17.2 L, Monocytes % 10.0 H, Eosinophils % 0.1, Basophils % 0.2, Absolute Granulocytes 8.5 H, Absolute Lymphocytes 2.0, Absolute Monocytes 1.2 H, Absolute Eosinophils 0, Absolute Basophils 0, PUBS MCHC 31.0 L 12/22/16 2114: APTT 73 H 12/22/16 1341: APTT 55 H 12/22/16 0525: Anion Gap 12, Estimated GFR > 60, BUN/Creatinine Ratio 26.3 H, Magnesium 2.2, APTT 97 H, CBC w Diff NO MAN DIFF REQ, RBC 3.02 L, MCV 80.7 L, MCH 25.6 L, RDW 17.9 H, MPV 8.4, Gran % 79.0 H, Lymphocytes % 10.8 L, Monocytes % 10.0 H , Eosinophils % 0, Basophils % 0.2, Absolute Granulocytes 10.6 H, Absolute Lymphocytes 1.5, Absolute Monocytes 1.3 H, Absolute Eosinophils 0, Absolute Basophils 0, PUBS MCHC 31.7 L 12/21/16 2117: APTT 54 H 12/21/16 1330: Anion Gap 14, Estimated GFR > 60, BUN/Creatinine Ratio 20.0, Magnesium 2.0, Troponin I 0.16 *H Assessment/Plan Assessment/Plan Assessment: 1. Acute diastolic heart failure 2. Peripheral arterial disease with left lower extremity ischemia; pending surgical intervention 3. Mild to moderate mitral insufficiency 4. Mild troponin elevation related to demand ischemia and acute diastolic heart failure Recommendations: -Transition to oral Lasix -Keep the patient on case monitor for now -I will discuss the case with Dr. Knutson in the morning. At that time, we can make plans with respect to the patient's in-house disposition. It is likely that the surgery will not be until Tuesday or Tuesday. In view of the sequence of recent events, the patient should be monitored postoperatively as well. Continue telemetry? Yes
[2016-12-23 16:24] VITALS: BP 152/78
[2016-12-23 17:36] LABS: PTT 80 SEC (25-37)
[2016-12-23 22:49] VITALS: BP 158/82
[2016-12-24 05:33] LABS: ABSOLUTE BASOPHIL COUNT 0 /CUMM (0.0-0.2); ABSOLUTE EOSINOPHIL COUNT 0.2 /CUMM (0.0-0.7); ABSOLUTE GRANULOCYTE CT 8.3 /CUMM (1.4-6.5); ABSOLUTE LYMPH COUNT 2.1 /CUMM (1.2-3.4); ABSOLUTE MONOCYTE COUNT 1.3 /CUMM (0.10-0.60); BASOPHIL % 0.3 % (0.0-2.0); EOSINOPHIL % 1.4 % (0-5); GRANULOCYTE % 70.1 % (42.2-75.2); HEMATOCRIT 26.6 % (37-47); MEAN CORPUSCULAR HGB 25.5 PG (27.0-31.0); MEAN CORPUSCULAR HGB CONC 31.7 G/DL (33.0-37.0); MEAN PLATELET VOLUME 7.5 FL (7.4-10.4); RED BLOOD CELL CT 3.31 /CUMM (4.20-5.40); WHITE BLOOD CELL COUNT 11.8 /CUMM (4.8-10.8)
[2016-12-24 05:42] LABS: PTT 98 SEC (25-37)
[2016-12-24 05:52] LABS: MEAN CORPUSCULAR VOLUME 80.2 FL (81.0-99.0); PLATELET COUNT 602 /CUMM (130-400)
--- NOTE | 2016-12-24 07:28 | PN- Housestaff ---
JOELYURIDIATHAE LOZADA 12/24/16 0728: Subjective Follow-up For: severe PVD new onst chf Tele-Events Since Last Visit: NSR 70s-80s Subjective: Seen and examined patient, offers no complaints. Denies fever, chills, chest pain, palpitations. States that her pain is well controlled. Review of Systems Constitutional: Denies: chills, diaphoresis, fever, malaise, weakness, unexplained weight loss. Cardiovascular: Denies: chest pain, edema, orthopena, palpitations, peripheral edema, syncope. Respiratory: Denies: cough, hemoptysis, orthopnea, short of breath, sputum production, stridor, wheezing. Objective Last 24 Hrs of Vital Signs/I&O Vital Signs Date Time Temp Pulse Resp B/P Pulse O2 O2 Flow FiO2 Ox Delivery Rate 12/24 0752 98.2 90 16 150/80 92 Room Air 12/24 0000 Room Air 12/23 2249 98.1 77 18 158/82 94 Room Air 12/23 2129 96 158/82 12/23 1947 94 Room Air 12/23 1624 98.3 89 18 152/78 95 Room Air 12/23 1215 90 138/66 12/23 1100 94 Room Air 12/23 1025 90 168/70 12/23 1025 90 168/70 Intake & Output 12/24 1600 12/24 0800 12/24 0000 Intake Total 914 914 Output Total 500 1350 Balance 414 -436 Intake, IV 464 264 Intake, Oral 450 650 Number 0 0 Bowel Movements Output, Urine 500 1350 Physical Exam General Appearance: Alert, Oriented X3, Cooperative, No Acute Distress Cardiovascular: Regular Rate, Normal S1, Normal S2 Lungs: Clear to Auscultation, Normal Air Movement Current Medications: Current Medications Sig/Bibi Start time Last Medication Dose Route Stop Time Status Admin Albuterol Sulfate 3 ML Q4P PRN 12/20 2300 AC 12/20 INH 2240 Ampicillin Sodium/ 3,000 MG Q6H 12/20 2300 AC 12/24 Sulbactam Sodium IV 0526 Sodium Chloride 100 ML Atorvastatin Calcium 40 MG 1700 12/17 1700 AC 12/23 PO 1721 Bisacodyl 5 MG DAILY 12/22 1145 AC 12/22 PO 1346 Furosemide 40 MG 7:30 AM, & 4:30 PM 12/24 0730 AC PO Furosemide 20 MG 7:30 AM, & 4:30 PM 12/21 1630 DC 12/23 IV 12/24 1999 1717 Heparin Sodium/ 25,000 UNIT Q24H 12/21 0630 AC 12/24 Dextrose IV 0242 Dextrose/Water 500 ML Levothyroxine Sodium 0.125 MG DAILY AC 12/18 0700 AC 12/24 PO 0526 Lisinopril 10 MG DAILY 12/20 2026 12/23 PO 1025 Magnesium Oxide 400 MG ONE ONE 12/24 0745 DC PO 12/24 0746 Metoprolol Tartrate 50 MG BID 12/17 2199 AC 12/23 PO 2129 Ondansetron HCl 4 MG Q6P PRN 12/17 1315 AC IV Oxycodone/ 1 TAB Q4P PRN 12/17 1315 AC Acetaminophen PO Oxycodone/ 2 TAB Q4P PRN 12/17 1315 AC 12/23 Acetaminophen PO 2009 Patient Medication 1 ED .STK-MED ONE 12/23 1349 [place] Teaching ED 12/23 1350 Potassium Chloride 40 MEQ ONCE ONE 12/24 0745 DC PO 12/24 0746 Last 24 Hrs of Lab/Ernesto Results Last 24 Hrs of Labs/Mics: Laboratory Tests 12/24/16 0515: Anion Gap 7, Estimated GFR > 60, BUN/Creatinine Ratio 31.3 H, Magnesium 1.9, APTT 98 H, CBC w Diff NO MAN DIFF REQ, RBC 3.31 L, MCV 80.2 L, MCH 25.5 L, RDW 17.0 H, MPV 7.5, Gran % 70.1, Lymphocytes % 17.5 L, Monocytes % 10.7 H, Eosinophils % 1.4, Basophils % 0.3, Absolute Granulocytes 8.3 H, Absolute Lymphocytes 2.1, Absolute Monocytes 1.3 H, Absolute Eosinophils 0.2, Absolute Basophils 0, PUBS MCHC 31.7 L 12/23/16 1655: APTT 80 H 12/23/16 0900: APTT 60 H Assessment/Plan Assessment: 61-year-old woman with severe peripheral vascular disease, hypertension, hyperlipidemia, chronic nonhealing ulcer on left leg with multiple debridements and failed attempts for multiple skin grafts (last graft in ). Current admission for extra-anatomic axillobifemoral bypass. She is status post recent IV Dipyridamole nuclear stress test was normal. She was transferred to the medicine service for acute CHF and positive troponins. Afebrile overnight, white count trending down. Chest x-ray showed mild central pulmonary vascular congestion, Echo shows hyperdynamic EF at 80%. CTA chest shows no evidence of pulmonary embolism. Problem list: New-onset CHF Positive troponins Severe peripheral vascular disease Hypertension Hyperlipidemia Chronic nonhealing ulcer Cellulitis Plan: transitioned to PO lasix today, continue strict I's and O's, neg -400ml Troponins trended down, no new EKG changes Continue IV heparin, continue to hold aspirin Continue IV Unasyn day 6 for cellulitis H/H improved to 8.4/26.6 will continue to monitor closely Cardiology on board appreciated recommendations, vascular surgeon on board appreciate recommendations Heart healthy diet DVT prophylaxis IV heparin full code Problem List: 1. Hyperlipidemia 2. HTN (hypertension) 3. CHF (congestive heart failure) 4. Elevated troponin 5. PAD (peripheral artery disease) 6. Cellulitis Pain Ratin Pain Location: left lower leg Pain Goal: Pain 4 or less Pain Plan: current regimen Tomorrow's Labs & Rationales: bep/cbc JESSICA LEVY MD 12/24/16 1126: Attending MD Review Statement Attending Statement Attending MD Statement: examined this patient, discuss w/resident/PA/DIRECTOR OF PROMOTIONS, agreed w/resident/PA/DIRECTOR OF PROMOTIONS, reviewed EMR data (avail) Attending Assessment/Plan: 61F PMH HTN, HLD, severe PVD admitted initially to vascular surgery service for evaluation of chronic non-healing ischemic ulcer on left foot associated with severe pain. Had CTA evaluation which showed bilateral occlusive disease and was scheduled for bifemoral bypass. Underwent echocardiogram and nuclear stress test. Stress test was negative for ischemia. Echo showed diastolic heart failure and pulmonary hypertension. On the day following the stress tests, patient remained tachycardic and began to complain of shortness of breath. She slowly developed acute on chronic diastolic CHF and elevated troponin in the setting of demand ischemia. She was then transferred to medical service, where a CTA of the chest was done, which did not show pulmonary embolism, but showed mild bilateral pleural effusions. Today patient is more awake. She has no complaints and says she feels better. AFVSS NAD Supple RRR Bibasilar crackles Soft, NTND 1+ edema bilateral feet Pulses diminished A&Ox3 no focal deficits 1. Acute on chronic diastolic CHF 2. Demand ischemia 3. Shortness of breath 4. Sinus tachycardia 5. Severe peripheral arterial disease 6. Chronic LLE ischemic ulcer 7. Intractable leg pain Plan - Continue on telemetry - Switch to PO Lasix - Monitor I/O, daily weights - Follow cardiology and vascular recommendations - Repeat CXR is unchanged - Continue heparin drip - Continue home medications - Patient may go for vascular procedure on Tuesday or Tuesday. Would be beneficial for patient to remain on telemetry over the weekend, given her recent acute episode of CHF and demand ischemia, followed by post-operative monitoring
[2016-12-24 07:52] VITALS: BP 150/80
--- NOTE | 2016-12-24 10:29 | PN- Cardiology ---
Subjective Subjective: Clinically, the patient appears to be doing well. No new cardiac symptoms. Respiratory status improved. Objective Vital Signs and I&Os Vital Signs Date Time Temp Pulse Resp B/P Pulse O2 O2 Flow FiO2 Ox Delivery Rate 12/24 0957 98.2 90 16 150/80 12/24 0957 98.2 90 16 150/80 03 0752 98.2 90 16 150/80 92 Room Air 12/24 0000 Room Air 12/23 2249 98.1 77 18 158/82 94 Room Air 12/23 2129 96 158/82 12/23 1947 94 Room Air 12/23 1624 98.3 89 18 152/78 95 Room Air 12/23 1215 90 138/66 12/23 1100 94 Room Air Intake & Output 12/24 1600 12/24 0800 12/24 0000 12/23 1600 12/23 0800 12/23 0000 Intake Total 261 137 3161 495.6 945 Output Total 500 1350 1650 300 950 Balance 414 -436 -572 195.6 -5 Intake, IV 464 264 258 445.6 345 Intake, Oral 450 650 820 50 600 Number 0 0 1 Bowel Movements Output, Urine 500 1350 1650 300 950 Current Medications: Current Medications Sig/Bibi Start time Last Medication Dose Route Stop Time Status Admin Acetaminophen 650 MG Q8P PRN 12/24 0915 AC PO Albuterol Sulfate 3 ML Q4P PRN 12/20 2300 AC 12/20 INH 2240 Ampicillin Sodium/ 3,000 MG Q6H 12/20 2300 AC 12/24 Sulbactam Sodium IV 1000 Sodium Chloride 100 ML Atorvastatin Calcium 40 MG 1700 12/17 1700 AC 12/23 PO 1721 Bisacodyl 5 MG DAILY 12/22 1145 AC 12/24 PO 0957 Furosemide 40 MG 7:30 AM, & 4:30 PM 12/24 0730 AC 12/24 PO 0957 Furosemide 20 MG 7:30 AM, & 4:30 PM 12/21 1630 DC 12/23 IV 12/24 1999 1717 Heparin Sodium/ 25,000 UNIT Q24H 12/21 06 AC 12/24 Dextrose IV 0242 Dextrose/Water 500 ML Levothyroxine Sodium 0.125 MG DAILY AC 12/18 07 AC 12/24 PO 0526 Lisinopril 10 MG DAILY 12/20 2026 AC 12/24 PO 0957 Magnesium Oxide 400 MG ONE ONE 12/24 0745 DC 12/24 PO 12/24 0746 0957 Metoprolol Tartrate 50 MG BID 12/17 2200 AC 12/24 PO 0957 Ondansetron HCl 4 MG Q6P PRN 12/17 1315 AC IV Oxycodone/ 2 TAB Q8P PRN 12/24 0915 AC Acetaminophen PO Oxycodone/ 1 TAB Q4P PRN 12/17 1315 DC Acetaminophen PO Oxycodone/ 2 TAB Q4P PRN 12/17 1315 DC 12/23 Acetaminophen PO 2009 Patient Medication 1 ED .STK-MED ONE 12/23 1349 DC Teaching ED 12/23 1350 Potassium Chloride 40 MEQ ONCE ONE 12/24 0745 DC PO 12/24 0746 Results Last 48 Hrs of Labs/Mics: Laboratory Tests 12/24/16 0515: Anion Gap 7, Estimated GFR > 60, BUN/Creatinine Ratio 31.3 H, Magnesium 1.9, APTT 98 H, CBC w Diff NO MAN DIFF REQ, RBC 3.31 L, MCV 80.2 L, MCH 25.5 L, RDW 17.0 H, MPV 7.5, Gran % 70.1, Lymphocytes % 17.5 L, Monocytes % 10.7 H, Eosinophils % 1.4, Basophils % 0.3, Absolute Granulocytes 8.3 H, Absolute Lymphocytes 2.1, Absolute Monocytes 1.3 H, Absolute Eosinophils 0.2, Absolute Basophils 0, PUBS MCHC 31.7 L 12/23/16 1655: APTT 80 H 12/23/16 0900: APTT 60 H 12/23/16 0627: Anion Gap 10, Estimated GFR > 60, BUN/Creatinine Ratio 35.7 H, Magnesium 1.9, CBC w Diff NO MAN DIFF REQ, RBC 2.96 L, MCV 80.3 L, MCH 25.0 L, RDW 17.5 H, MPV 8.4, Gran % 72.5, Lymphocytes % 17.2 L, Monocytes % 10.0 H, Eosinophils % 0.1, Basophils % 0.2, Absolute Granulocytes 8.5 H, Absolute Lymphocytes 2.0, Absolute Monocytes 1.2 H, Absolute Eosinophils 0, Absolute Basophils 0, PUBS MCHC 31.0 L 12/22/16 2114: APTT 73 H 12/22/16 1341: APTT 55 H Assessment/Plan Assessment/Plan Assessment: 1. Acute diastolic heart failure 2. Peripheral arterial disease with left lower extremity ischemia; pending surgical intervention 3. Mild to moderate mitral insufficiency 4. Mild troponin elevation related to demand ischemia and acute diastolic heart failure Recommendations: -Transition to oral Lasix -Keep the patient on volunteer services assistant for now -I will discuss the case with Dr. Knutson this morning. At that time, we can make plans with respect to the patient's in-house disposition. It is likely that the surgery will not be until Tuesday or Tuesday. In view of the sequence of recent events, the patient should be monitored postoperatively as well. Continue telemetry? Yes
[2016-12-24 14:56] LABS: PTT 76 SEC (25-37)
[2016-12-24 16:17] VITALS: BP 150/78
[2016-12-25 00:10] VITALS: BP 140/70
[2016-12-25 04:34] LABS: PTT 99 SEC (25-37)
[2016-12-25 04:42] LABS: ABSOLUTE BASOPHIL COUNT 0.1 /CUMM (0.0-0.2); ABSOLUTE EOSINOPHIL COUNT 0.1 /CUMM (0.0-0.7); ABSOLUTE GRANULOCYTE CT 8.8 /CUMM (1.4-6.5); ABSOLUTE LYMPH COUNT 2.5 /CUMM (1.2-3.4); ABSOLUTE MONOCYTE COUNT 1.2 /CUMM (0.10-0.60); BASOPHIL % 0.7 % (0.0-2.0); GRANULOCYTE % 68.9 % (42.2-75.2); MEAN CORPUSCULAR HGB 25.2 PG (27.0-31.0); MEAN CORPUSCULAR HGB CONC 31.3 G/DL (33.0-37.0); MEAN CORPUSCULAR VOLUME 80.6 FL (81.0-99.0); MEAN PLATELET VOLUME 8.3 FL (7.4-10.4); PLATELET COUNT 616 /CUMM (130-400); RBC DISTRIBUTION WIDTH 17.7 % (11.5-14.5); RED BLOOD CELL CT 3.59 /CUMM (4.20-5.40); WHITE BLOOD CELL COUNT 12.8 /CUMM (4.8-10.8)
[2016-12-25 07:31] VITALS: BP 142/61
--- NOTE | 2016-12-25 08:14 | PN- Housestaff ---
See Addendum Subjective Follow-up For: PAD new onset CHF necrotic arterial ulcer Tele-Events Since Last Visit: SR 80s-100s Subjective: Pt seen this morning, she was in good spirits. She did report 4/10 left leg pain, which improved with current pain regimen. She is nonweightbearing on the left and has not ambulated. I ordered PT for her as she would like to ambulate more, and would need assistance ambulating. [place] renewed. Review of Systems Constitutional: Denies: chills, fever. EENTM: Denies: visual changes. Cardiovascular: Denies: chest pain. Respiratory: Denies: cough. Gastrointestinal: Denies: abdominal pain. Objective Last 24 Hrs of Vital Signs/I&O Vital Signs Date Time Temp Pulse Resp B/P Pulse O2 O2 Flow FiO2 Ox Delivery Rate 12/25 0927 142/61 12/25 0926 142/61 12/25 0834 96 Room Air 12/25 0731 98.9 90 17 142/61 96 Room Air 12/25 0010 98.6 84 20 140/70 92 12/24 2116 104 140/66 12/24 1834 94 Room Air 12/24 1617 98.0 93 20 150/78 94 12/24 1314 95 Room Air Room Air Intake & Output 12/25 1600 12/25 0800 12/25 0000 Intake Total 185 850 Output Total 500 900 Balance -315 -50 Intake, IV 185 400 Intake, Oral 450 Output, Urine 500 900 Physical Exam General Appearance: Alert, Oriented X3, Cooperative, No Acute Distress Skin: LLE wrapped HEENT: Atraumatic Cardiovascular: Regular Rate, Normal S1, Normal S2, No Murmurs, Gallops, Rubs Lungs: Clear to Auscultation, Normal Air Movement Abdomen: Normal Bowel Sounds, Soft, No Tenderness Neurological: Normal Speech Extremities: No Edema Current Medications: Current Medications Sig/Bibi Start time Last Medication Dose Route Stop Time Status Admin Acetaminophen 650 MG Q8P PRN 12/24 0915 AC PO Albuterol Sulfate 3 ML Q4P PRN 12/20 2300 DC 12/20 INH 2240 Ampicillin Sodium/ 3,000 MG Q6H 12/24 2359 AC 12/25 Sulbactam Sodium IV 0547 Sodium Chloride 100 ML Ampicillin Sodium/ 3,000 MG Q6H 12/20 2300 DC 12/24 Sulbactam Sodium IV 2314 Sodium Chloride 100 ML Atorvastatin Calcium 40 MG 1700 12/17 1700 AC 12/24 PO 1733 Bisacodyl 5 MG DAILY 12/22 1145 AC 12/25 PO 0926 Furosemide 40 MG 7:30 AM, & 4:30 PM 12/24 0730 AC 12/25 PO 0926 Heparin Sodium/ 25,000 UNIT Q24H 12/21 0630 AC 12/25 Dextrose IV 12/27 0000 0558 Dextrose/Water 500 ML Levothyroxine Sodium 0.125 MG DAILY AC 12/18 0700 AC 12/25 PO 0547 Lisinopril 10 MG DAILY 12/20 2026 AC 12/25 PO 0927 Metoprolol Tartrate 50 MG BID 12/17 2199 AC 12/25 PO 0926 Ondansetron HCl 4 MG Q6P PRN 12/17 1315 AC IV Oxycodone/ 2 TAB Q8P PRN 12/24 0915 AC 12/25 Acetaminophen PO 0548 Last 24 Hrs of Lab/Ernesto Results Last 24 Hrs of Labs/Mics: Laboratory Tests 12/25/16 0350: Anion Gap 12, Estimated GFR > 60, BUN/Creatinine Ratio 28.8 H, Magnesium 2.5 H , APTT 99 H, CBC w Diff NO MAN DIFF REQ, RBC 3.59 L, MCV 80.6 L, MCH 25.2 L, RDW 17.7 H, MPV 8.3, Gran % 68.9, Lymphocytes % 19.8 L, Monocytes % 9.6 H, Eosinophils % 1.0, Basophils % 0.7, Absolute Granulocytes 8.8 H, Absolute Lymphocytes 2.5, Absolute Monocytes 1.2 H, Absolute Eosinophils 0.1, Absolute Basophils 0.1, PUBS MCHC 31.3 L 12/24/16 1430: APTT 76 H Assessment/Plan Assessment: 61-year-old woman with severe peripheral vascular disease, hypertension, hyperlipidemia, chronic nonhealing ulcer on left leg with multiple debridements and failed attempts for multiple skin grafts (last graft in ). Current admission for extra-anatomic axillobifemoral bypass. She is status post recent IV Dipyridamole nuclear stress test was normal. She was transferred to the medicine service for acute CHF and positive troponins. Afebrile overnight, white count trending down. Chest x-ray showed mild central pulmonary vascular congestion, Echo shows hyperdynamic EF at 80%. CTA chest shows no evidence of pulmonary embolism. Problem list: New-onset CHF Positive troponins Severe peripheral vascular disease Hypertension Hyperlipidemia Chronic nonhealing ulcer Cellulitis Plan: Hg improved to 9.1 will continue to monitor closely PT to ambulate (nonweight bearing on the left) Continue IV Unasyn day 7 for cellulitis Continue PO lasix Continue IV heparin, continue to hold aspirin Cardiology on board appreciated recommendations, vascular surgeon on board appreciate recommendations Heart healthy diet DVT prophylaxis IV heparin full code Problem List: 1. PAD (peripheral artery disease) 2. CHF (congestive heart failure) Pain Ratin Pain Location: LLE Pain Goal: Pain 4 or less Pain Plan: percocet 2 tab q4p Tomorrow's Labs & Rationales: CBC for anemia BEP for increased BUN mag for hypermag DVT/Prophylaxis: pharmacological
--- NOTE | 2016-12-25 12:30 | PN- Cardiology ---
Subjective Subjective: Clinically stable. No symptoms. Respiratory status normal. No new cardiac issues. Objective Vital Signs and I&Os Vital Signs Date Time Temp Pulse Resp B/P Pulse O2 O2 Flow FiO2 Ox Delivery Rate 12/25 09 142/61 12/25 0926 142/61 / 0834 96 Room Air 12/25 0731 98.9 90 17 142/61 96 Room Air / 0010 98.6 84 20 140/70 92 12/24 2116 104 140/66 12/24 1834 94 Room Air 12/24 1617 98.0 93 20 150/78 94 12/24 1314 95 Room Air Room Air Intake & Output 12/25 1600 12/25 0812/25 0000 12/24 1600 12/24 0812/24 0000 Intake Total 185 850 674.2 914 914 Output Total 500 501 187 2747 Balance -315 -50 674.2 414 -436 Intake, IV 185 400 214.2 464 264 Intake, Oral 450 460 450 650 Number 0 0 Bowel Movements Output, Urine 500 963 598 7973 Current Medications: Current Medications Sig/Bibi Start time Last Medication Dose Route Stop Time Status Admin Acetaminophen 650 MG Q8P PRN 12/24 0915 AC PO Albuterol Sulfate 3 ML Q4P PRN 12/20 2300 DC 12/20 INH 2240 Ampicillin Sodium/ 3,000 MG Q6H 12/24 2359 AC 12/25 Sulbactam Sodium IV 0547 Sodium Chloride 100 ML Ampicillin Sodium/ 3,000 MG Q6H 12/20 2300 DC 12/24 Sulbactam Sodium IV 2314 Sodium Chloride 100 ML Atorvastatin Calcium 40 MG 1700 12/17 1700 AC 12/24 PO 1733 Bisacodyl 5 MG DAILY 12/22 1145 AC 12/25 PO 0926 Furosemide 40 MG 7:30 AM, & 4:30 PM 12/24 07 AC 12/25 PO 0926 Heparin Sodium/ 25,000 UNIT Q24H 12/21 06 AC 12/25 Dextrose IV 12/27 0000 0558 Dextrose/Water 500 ML Levothyroxine Sodium 0.125 MG DAILY AC 12/18 0700 AC 12/25 PO 0547 Lisinopril 10 MG DAILY 12/20 2026 AC 12/25 PO 0927 Metoprolol Tartrate 50 MG BID 12/17 2199 AC 12/25 PO 0926 Ondansetron HCl 4 MG Q6P PRN 12/17 1315 AC IV Oxycodone/ 2 TAB Q8P PRN 12/24 0915 AC 12/25 Acetaminophen PO 0548 Results Last 48 Hrs of Labs/Mics: Laboratory Tests 12/25/16 1207: APTT Pending 12/25/16 0350: Anion Gap 12, Estimated GFR > 60, BUN/Creatinine Ratio 28.8 H, Magnesium 2.5 H , APTT 99 H, CBC w Diff NO MAN DIFF REQ, RBC 3.59 L, MCV 80.6 L, MCH 25.2 L, RDW 17.7 H, MPV 8.3, Gran % 68.9, Lymphocytes % 19.8 L, Monocytes % 9.6 H, Eosinophils % 1.0, Basophils % 0.7, Absolute Granulocytes 8.8 H, Absolute Lymphocytes 2.5, Absolute Monocytes 1.2 H, Absolute Eosinophils 0.1, Absolute Basophils 0.1, PUBS MCHC 31.3 L 12/24/16 1430: APTT 76 H 12/24/16 0515: Anion Gap 7, Estimated GFR > 60, BUN/Creatinine Ratio 31.3 H, Magnesium 1.9, APTT 98 H, CBC w Diff NO MAN DIFF REQ, RBC 3.31 L, MCV 80.2 L, MCH 25.5 L, RDW 17.0 H, MPV 7.5, Gran % 70.1, Lymphocytes % 17.5 L, Monocytes % 10.7 H, Eosinophils % 1.4, Basophils % 0.3, Absolute Granulocytes 8.3 H, Absolute Lymphocytes 2.1, Absolute Monocytes 1.3 H, Absolute Eosinophils 0.2, Absolute Basophils 0, PUBS MCHC 31.7 L 12/23/16 1655: APTT 80 H Assessment/Plan Assessment/Plan Assessment: 1. Acute diastolic heart failure 2. Peripheral arterial disease with left lower extremity ischemia; pending surgical intervention 3. Mild to moderate mitral insufficiency 4. Mild troponin elevation related to demand ischemia and acute diastolic heart failure Recommendations: -Continue current medical regimen -Keep the patient on quality assurance monitor final for now -The patient is tentatively scheduled for surgery on Tuesday. I discussed the situation with Dr. pal. I also discussed the situation with the patient. At the moment, the patient appears totally stable. Her nuclear stress test was unremarkable. Her left ventricular function is normal. She does have mild to moderate mitral insufficiency. I pointed out to the patient, that she does have some increased risk for any surgical procedures due to her risk factors, known vascular disease, and recent episode. Nevertheless, she is stable at the moment , she has no obvious symptoms, her preoperative noninvasive cardiac evaluation was unrevealing. I believe that the patient is stable to proceed with the procedure on Tuesday. -The patient should be kept on the quality assurance monitor final postoperatively and have serial ECGs postoperatively as well. Continue telemetry? Yes
[2016-12-25 13:45] LABS: PTT > 120 SEC (25-37)
[2016-12-25 16:08] VITALS: BP 133/61
[2016-12-25 21:39] LABS: PTT 50 SEC (25-37)
[2016-12-25 22:36] VITALS: BP 158/78
[2016-12-26 05:17] LABS: PTT 81 SEC (25-37)
[2016-12-26 07:50] VITALS: BP 170/70
--- NOTE | 2016-12-26 08:33 | PN- Housestaff ---
HAMLET TOM,RACHNA 12/26/16 0833: Subjective Follow-up For: PAD pending vascular intervention new onset CHF necrotic arterial ulcer Complaints: pain scale (0-10) (5) Subjective: The patient reports no issues with sleeping. Has pain in the LLE with pins and needle sensation with touch. She is aware of the risks as noted in race car mechanic Dr. Simon's note. Patient confrimed the risks again with me and she would still like to have the vascular intervention. Patient offers no other new complaints. Review of Systems Constitutional: Reports: see HPI. Objective Last 24 Hrs of Vital Signs/I&O Vital Signs Date Time Temp Pulse Resp B/P Pulse O2 O2 Flow FiO2 Ox Delivery Rate 12/26 0832 94 170/70 12/26 0750 98.4 83 20 170/70 96 Room Air 12/25 2236 98.1 90 20 158/78 94 Room Air 12/25 2226 93 158/78 12/25 1608 98.7 115 20 133/61 95 Room Air Intake & Output 12/26 1600 12/26 0800 12/26 0000 Intake Total 800 Output Total 300 Balance 500 Intake, IV 200 Intake, Oral 600 Number 1 Bowel Movements Output, Urine 300 Physical Exam General Appearance: Alert, Oriented X3, Cooperative Skin: LEFT LE COVERED IN KATT WRAP. HEENT: Atraumatic, PERRLA, EOMI, Mucous Membr. moist/pink Cardiovascular: Regular Rate, Normal S1, Normal S2, No Murmurs Lungs: Clear to Auscultation Abdomen: Normal Bowel Sounds, Soft, No Tenderness, No Hepatospenomegaly, No Masses Neurological: SENSATION IS INTACT IN LE B/L. INCREASE IN SENSITIVITY OF LLE. Extremities: No Clubbing, No Cyanosis, No Edema, DECREASED PULSES IN LLE VS RLE Current Medications: Current Medications Sig/Bibi Start time Last Medication Dose Route Stop Time Status Admin Acetaminophen 650 MG Q8P PRN 12/24 0915 AC 12/26 PO 0418 Ampicillin Sodium/ 3,000 MG Q6H 12/24 2359 AC 12/26 Sulbactam Sodium IV 0618 Sodium Chloride 100 ML Atorvastatin Calcium 40 MG 1700 12/17 1700 AC 12/25 PO 1759 Bisacodyl 5 MG DAILY 12/22 1145 AC 12/26 PO 0832 Furosemide 40 MG 7:30 AM, & 4:30 PM 12/24 0730 AC 12/26 PO 0832 Heparin Sodium/ 25,000 UNIT .STK-MED ONE 12/25 1234 DC Dextrose IV 12/25 1235 Heparin Sodium/ 25,000 UNIT Q24H 12/21 0630 AC 12/26 Dextrose IV 12/27 0000 0833 Dextrose/Water 500 ML Levothyroxine Sodium 0.125 MG DAILY AC 12/18 0700 AC 12/26 PO 0619 Lisinopril 10 MG DAILY 12/20 2026 AC 12/26 PO 0833 Metoprolol Tartrate 50 MG BID 12/17 2200 AC 12/26 PO 0832 Ondansetron HCl 4 MG Q6P PRN 12/17 1315 AC IV Oxycodone/ 2 TAB Q8P PRN 12/24 0915 AC 12/26 Acetaminophen PO 0049 Last 24 Hrs of Lab/Ernesto Results Last 24 Hrs of Labs/Mics: Laboratory Tests 12/26/16 0420: APTT 81 H 12/25/16 2040: APTT 50 H 12/25/16 1207: APTT > 120 *H Assessment/Plan Assessment: 61-year-old woman with severe peripheral vascular disease, hypertension, hyperlipidemia, chronic nonhealing ulcer on left leg with multiple debridements and failed attempts for multiple skin grafts (last graft in ). Current admission for extra-anatomic axillobifemoral bypass. She is status post recent IV Dipyridamole nuclear stress test was normal. She was transferred to the medicine service for acute CHF and positive troponins. Afebrile overnight, white count trending down. Chest x-ray showed mild central pulmonary vascular congestion, Echo shows hyperdynamic EF at 80%. CTA chest shows no evidence of pulmonary embolism. Problem list: New-onset CHF Positive troponins Severe peripheral vascular disease Hypertension Hyperlipidemia Chronic nonhealing ulcer Cellulitis Plan: PT to ambulate (nonweight bearing on the left) Strict ins and outs with daily weights. Currently in positive fluid balance. Echocardiogram as outpatient. Per cardiology postop serial EKG. Currently patient will be going to OR on at 7am. Pain is well controlled as patient has had no issues with sleep. Continue IV Unasyn day 7 for cellulitis (DAY 7 today) Continue PO lasix Continue IV heparin, continue to hold aspirin Heart healthy diet DVT prophylaxis IV heparin full code Problem List: 1. PAD (peripheral artery disease) 2. CHF (congestive heart failure) Pain Ratin Pain Location: LLE Pain Goal: Pain 7 or less Pain Plan: Pain pathway Tomorrow's Labs & Rationales: Possible surgery CAM TOMJESSICA 12/26/16 1456: Attending MD Review Statement Attending Statement Attending MD Statement: examined this patient, discuss w/resident/PA/LOCOMOTIVE MECHANIC, agreed w/resident/PA/LOCOMOTIVE MECHANIC, reviewed EMR data (avail) Attending Assessment/Plan: 61F PMH HTN, HLD, severe PVD admitted initially to vascular surgery service for evaluation of chronic non-healing ischemic ulcer on left foot associated with severe pain. Had CTA evaluation which showed bilateral occlusive disease and was scheduled for bifemoral bypass. Underwent echocardiogram and nuclear stress test. Stress test was negative for ischemia. Echo showed diastolic heart failure and pulmonary hypertension. On the day following the stress tests, patient remained tachycardic and began to complain of shortness of breath. She slowly developed acute on chronic diastolic CHF and elevated troponin in the setting of demand ischemia. She was then transferred to medical service, where a CTA of the chest was done, which did not show pulmonary embolism, but showed mild bilateral pleural effusions. Today patient is more awake. She has no complaints and says she feels better. AFVSS NAD Supple RRR Bibasilar crackles Soft, NTND 1+ edema bilateral feet Pulses diminished A&Ox3 no focal deficits 1. Acute on chronic diastolic CHF 2. Demand ischemia 3. Shortness of breath 4. Sinus tachycardia 5. Severe peripheral arterial disease 6. Chronic LLE ischemic ulcer 7. Intractable leg pain Plan - Continue on telemetry - Switch to PO Lasix - Monitor I/O, daily weights - Follow cardiology and vascular recommendations - Repeat CXR is unchanged - Continue heparin drip - Continue home medications - Patient may go for vascular procedure on Tuesday or Tuesday. Would be beneficial for patient to remain on telemetry over the weekend, given her recent acute episode of CHF and demand ischemia, followed by post-operative monitoring
[2016-12-26 10:45] VITALS: BP 130/52
--- NOTE | 2016-12-26 12:06 | PN- Vascular Surgery ---
Subjective Subjective: Pt awake and alert Scheduled for surgery tomorrow morning, all questions answered and she would like to proceed Objective Vital Signs and I&Os Vital Signs Date Time Temp Pulse Resp B/P Pulse O2 O2 Flow FiO2 Ox Delivery Rate 12/27 0732 94 170/70 12/26 0750 98.4 83 20 170/70 96 Room Air 12/25 2236 98.1 90 20 158/78 94 Room Air 12/25 2226 93 158/78 12/25 1608 98.7 115 20 133/61 95 Room Air Intake & Output 12/26 1600 12/26 0800 12/26 0000 12/25 1600 12/25 0800 12/25 0000 Intake Total 800 900 185 850 Output Total 300 750 500 900 Balance 500 150 -315 -50 Intake, IV 200 180 185 400 Intake, Oral 600 720 450 Number 1 Bowel Movements Output, Urine 300 750 500 900 Assessment/Plan Assessment/Plan 61 yo female with severe pad and nonhealing lle ulcer now medically optimized Acceptable risk per Cardiology note Discussed with medical coder aMnjit Swanson Pt is medically cleared for surgery tomorrow Keep npo after midnight except meds with sips Hep drip off at midnight for 730am surgery per Dr Knutson - discussed with medical coder
--- NOTE | 2016-12-26 13:58 | PN- Cardiology ---
Subjective Subjective: The patient remains stable today with no respiratory distress and no new cardiac symptoms Objective Vital Signs and I&Os Vital Signs Date Time Temp Pulse Resp B/P Pulse O2 O2 Flow FiO2 Ox Delivery Rate 12/26 1045 92 130/52 03/ 0832 94 170/70 03/05 0750 98.4 83 20 170/70 96 Room Air / 2236 98.1 90 20 158/78 94 Room Air / 2226 93 158/78 03/ 1608 98.7 115 20 133/61 95 Room Air Intake & Output 12/26 1600 / 0800 03/ 0000 03/ 1600 12/25 0800 / 0000 Intake Total 800 900 185 850 Output Total 300 750 500 900 Balance 500 150 -315 -50 Intake, IV 200 180 185 400 Intake, Oral 600 720 450 Number 1 Bowel Movements Output, Urine 300 750 500 900 Current Medications: Current Medications Sig/Bibi Start time Last Medication Dose Route Stop Time Status Admin Acetaminophen 650 MG .STK-MED ONE 12/26 0415 DC PO 12/26 0416 Acetaminophen 650 MG Q8P PRN 12/24 0915 AC 12/26 PO 0418 Ampicillin Sodium/ 3,000 MG Q6H 12/24 2359 AC 12/26 Sulbactam Sodium IV 12/26 2300 1206 Sodium Chloride 100 ML Atorvastatin Calcium 40 MG 1700 12/17 1700 AC 12/25 PO 1759 Bisacodyl 5 MG DAILY 12/22 1145 AC 12/26 PO 0832 Furosemide 40 MG 7:30 AM, & 4:30 PM 12/24 0730 AC 12/26 PO 0832 Heparin Sodium/ 25,000 UNIT Q24H 12/21 0630 AC 12/26 Dextrose IV 12/27 0000 0833 Dextrose/Water 500 ML Levothyroxine Sodium 0.125 MG DAILY AC 12/18 0700 AC 12/26 PO 0619 Lisinopril 10 MG DAILY 12/20 2026 AC 12/26 PO 0833 Metoprolol Tartrate 50 MG BID 12/17 2200 AC 12/26 PO 0832 Ondansetron HCl 4 MG Q6P PRN 12/17 1315 AC IV Oxycodone/ 2 TAB Q8P PRN 12/24 0915 AC 12/26 Acetaminophen PO 1044 Results Last 48 Hrs of Labs/Mics: Laboratory Tests 12/26/16 1235: Sodium Pending, Potassium Pending, Chloride Pending, Carbon Dioxide Pending, Anion Gap Pending, BUN Pending, Creatinine Pending, BUN/Creatinine Ratio Pending , Magnesium Pending, CBC w Diff Pending, WBC Pending, RBC Pending, Hgb Pending, Hct Pending, MCV Pending, MCH Pending, RDW Pending, Plt Count Pending, MPV Pending, PUBS MCHC Pending 12/26/16 0420: APTT 81 H 12/25/16 2040: APTT 50 H 12/25/16 1207: APTT > 120 *H 12/25/16 0350: Anion Gap 12, Estimated GFR > 60, BUN/Creatinine Ratio 28.8 H, Magnesium 2.5 H , APTT 99 H, CBC w Diff NO MAN DIFF REQ, RBC 3.59 L, MCV 80.6 L, MCH 25.2 L, RDW 17.7 H, MPV 8.3, Gran % 68.9, Lymphocytes % 19.8 L, Monocytes % 9.6 H, Eosinophils % 1.0, Basophils % 0.7, Absolute Granulocytes 8.8 H, Absolute Lymphocytes 2.5, Absolute Monocytes 1.2 H, Absolute Eosinophils 0.1, Absolute Basophils 0.1, PUBS MCHC 31.3 L 12/24/16 1430: APTT 76 H Assessment/Plan Assessment/Plan Assessment: 1. Acute diastolic heart failure 2. Peripheral arterial disease with left lower extremity ischemia; pending surgical intervention 3. Mild to moderate mitral insufficiency 4. Mild troponin elevation related to demand ischemia and acute diastolic heart failure Recommendations: -Continue current medical regimen -Keep the patient on type disk quality control supervisor for now -The patient is tentatively scheduled for surgery on Tuesday. I discussed the situation with Dr. Knutson. I also discussed the situation with the patient. At the moment, the patient appears totally stable. Her nuclear stress test was unremarkable. Her left ventricular function is normal. She does have mild to moderate mitral insufficiency. I pointed out to the patient, that she does have some increased risk for any surgical procedures due to her risk factors, known vascular disease, and recent episode. Nevertheless, she is stable at the moment , she has no obvious symptoms, her preoperative noninvasive cardiac evaluation was unrevealing. I believe that the patient is stable to proceed with the procedure on Spike. -The patient should be kept on the type disk quality control supervisor postoperatively and have serial ECGs postoperatively as well. Continue telemetry? Yes
[2016-12-26 15:11] LABS: ABSOLUTE EOSINOPHIL COUNT 0.2 /CUMM (0.0-0.7); ABSOLUTE LYMPH COUNT 2.5 /CUMM (1.2-3.4); ABSOLUTE MONOCYTE COUNT 1.5 /CUMM (0.10-0.60); MEAN CORPUSCULAR VOLUME 81.2 FL (81.0-99.0); MEAN PLATELET VOLUME 8.4 FL (7.4-10.4); WHITE BLOOD CELL COUNT 14.3 /CUMM (4.8-10.8)
[2016-12-26 15:14] LABS: ABSOLUTE BASOPHIL COUNT 0 /CUMM (0.0-0.2); ABSOLUTE GRANULOCYTE CT 10.1 /CUMM (1.4-6.5); BASOPHIL % 0.3 % (0.0-2.0); EOSINOPHIL % 1.4 % (0-5); GRANULOCYTE % 70.4 % (42.2-75.2); HEMATOCRIT 29.1 % (37-47); MEAN CORPUSCULAR HGB 25.4 PG (27.0-31.0); MEAN CORPUSCULAR HGB CONC 31.3 G/DL (33.0-37.0); PLATELET COUNT 639 /CUMM (130-400); RBC DISTRIBUTION WIDTH 17.4 % (11.5-14.5); RED BLOOD CELL CT 3.58 /CUMM (4.20-5.40)
[2016-12-26 16:14] VITALS: BP 112/58
[2016-12-26 17:55] LABS: PTT 82 SEC (25-37)
[2016-12-26 23:47] VITALS: BP 114/60
[2016-12-27 04:59] LABS: ABSOLUTE BASOPHIL COUNT 0 /CUMM (0.0-0.2); ABSOLUTE EOSINOPHIL COUNT 0.3 /CUMM (0.0-0.7); ABSOLUTE GRANULOCYTE CT 9.9 /CUMM (1.4-6.5); ABSOLUTE LYMPH COUNT 2.3 /CUMM (1.2-3.4); ABSOLUTE MONOCYTE COUNT 1.2 /CUMM (0.10-0.60); BASOPHIL % 0.2 % (0.0-2.0); EOSINOPHIL % 1.9 % (0-5); GRANULOCYTE % 72.4 % (42.2-75.2); MEAN CORPUSCULAR HGB 25.6 PG (27.0-31.0); MEAN CORPUSCULAR HGB CONC 31.5 G/DL (33.0-37.0); MEAN CORPUSCULAR VOLUME 81.4 FL (81.0-99.0); MEAN PLATELET VOLUME 8.4 FL (7.4-10.4); PLATELET COUNT 658 /CUMM (130-400); RED BLOOD CELL CT 3.56 /CUMM (4.20-5.40); WHITE BLOOD CELL COUNT 13.7 /CUMM (4.8-10.8)
[2016-12-27 05:02] LABS: PTT 26 SEC (25-37)
--- NOTE | 2016-12-27 07:36 | PN- Housestaff ---
JOELHONGTHEA 12/27/16 0723: Subjective Follow-up For: PAD pending vascular intervention new onset CHF necrotic arterial ulcer Tele-Events Since Last Visit: NSR, 81-90s Subjective: Seen and examined patient offers no complaints. Reported no overnight events. Review of Systems Constitutional: Denies: chills, diaphoresis, fever, malaise, weakness, unexplained weight loss. Cardiovascular: Denies: chest pain, edema, orthopena, palpitations, peripheral edema, syncope. Respiratory: Denies: cough, hemoptysis, orthopnea, short of breath, sputum production, stridor, wheezing. Objective Last 24 Hrs of Vital Signs/I&O Vital Signs Date Time Temp Pulse Resp B/P Pulse O2 O2 Flow FiO2 Ox Delivery Rate 12/26 2347 98.1 80 18 114/60 96 Room Air 12/26 2046 98 154/78 03/ 1614 97.9 91 18 112/58 95 03/05 1045 92 130/52 03/05 0832 94 170/70 03/05 0750 98.4 83 20 170/70 96 Room Air Intake & Output 12/27 0800 / 0000 03 1600 Intake Total 1055.6 785 Output Total 1000 600 Balance 55.6 185 Intake, IV 335.6 225 Intake, Oral 720 560 Output, Urine 1000 600 Patient 128 lb Weight Physical Exam General Appearance: Alert, Oriented X3 Cardiovascular: Regular Rate, Normal S1, Normal S2 Lungs: Normal Air Movement Abdomen: Soft Extremities: No Edema Current Medications: Current Medications Sig/Bibi Start time Last Medication Dose Route Stop Time Status Admin Acetaminophen 650 MG Q8P PRN 12/24 0915 AC 12/26 PO 0418 Ampicillin Sodium/ 3,000 MG Q6H 12/24 2359 DC / Sulbactam Sodium IV 12/26 2300 1815 Sodium Chloride 100 ML Atorvastatin Calcium 40 MG 1700 12/17 1700 AC / PO 1815 Bisacodyl 5 MG DAILY 12/22 1145 AC 12/26 PO 0832 Furosemide 40 MG 7:30 AM, & 4:30 PM 12/24 0730 AC 12/26 PO 1815 Heparin Sodium/ 25,000 UNIT Q24H 12/21 0630 DC 12/26 Dextrose IV 12/27 0000 0833 Dextrose/Water 500 ML Levothyroxine Sodium 0.125 MG DAILY AC 12/18 0700 AC 12/26 PO 0619 Lisinopril 10 MG DAILY 12/20 2026 AC 12/26 PO 0833 Metoprolol Tartrate 50 MG BID 12/17 2199 AC 12/26 PO 2045 Ondansetron HCl 4 MG Q6P PRN 12/17 1315 AC IV Oxycodone/ 2 TAB Q8P PRN 12/24 09 AC 12/26 Acetaminophen PO 2045 Last 24 Hrs of Lab/Ernesto Results Last 24 Hrs of Labs/Mics: Laboratory Tests 12/27/16 0425: Anion Gap 9, Estimated GFR > 60, BUN/Creatinine Ratio 21.1, Magnesium 2.2, APTT 26, CBC w Diff NO MAN DIFF REQ, RBC 3.56 L, MCV 81.4, MCH 25.6 L, RDW 18.0 H, MPV 8.4, Gran % 72.4, Lymphocytes % 16.5 L, Monocytes % 9.0, Eosinophils % 1.9, Basophils % 0.2, Absolute Granulocytes 9.9 H, Absolute Lymphocytes 2.3, Absolute Monocytes 1.2 H, Absolute Eosinophils 0.3, Absolute Basophils 0, PUBS MCHC 31.5 L 12/26/16 1630: APTT 82 H 12/26/16 1235: Anion Gap 15, Estimated GFR > 60, BUN/Creatinine Ratio 21.1, Magnesium 2.1, CBC w Diff NO MAN DIFF REQ, RBC 3.58 L, MCV 81.2, MCH 25.4 L, RDW 17.4 H, MPV 8.4 , Gran % 70.4, Lymphocytes % 17.4 L, Monocytes % 10.5 H, Eosinophils % 1.4, Basophils % 0.3, Absolute Granulocytes 10.1 H, Absolute Lymphocytes 2.5, Absolute Monocytes 1.5 H, Absolute Eosinophils 0.2, Absolute Basophils 0, PUBS MCHC 31.3 L Assessment/Plan Assessment: 61-year-old woman with severe peripheral vascular disease, hypertension, hyperlipidemia, chronic nonhealing ulcer on left leg with multiple debridements and failed attempts for multiple skin grafts (last graft in ). Current admission for extra-anatomic axillobifemoral bypass. She is status post recent IV Dipyridamole nuclear stress test was normal. She was transferred to the medicine service for acute CHF and positive troponins. Afebrile overnight, white count trending down. Chest x-ray showed mild central pulmonary vascular congestion, Echo shows hyperdynamic EF at 80%. CTA chest shows no evidence of pulmonary embolism. Stable for surgery today, pt aware of risks involved with the surgery. Problem list: New-onset CHF Positive troponins Severe peripheral vascular disease Hypertension Hyperlipidemia Chronic nonhealing ulcer Cellulitis Plan: PT NPO for vascular surgery today Strict ins and outs with daily weights. - 200 balance Echocardiogram as outpatient. Per cardiology will need postop serial EKG. Pain is well controlled Completed course of Unasyn for cellulitis Continue PO lasix continue to hold aspirin Heart healthy diet DVT prophylaxis IV heparin full code Problem List: 1. Wound of left lower extremity 2. HTN (hypertension) 3. CHF (congestive heart failure) 4. Elevated troponin Pain Ratin Pain Location: left lower leg Pain Goal: Pain 4 or less Pain Plan: current regimen Tomorrow's Labs & Rationales: cbc (post op/ IV heparin), bep/mag CLARIBEL TOM,JUSTINO 12/27/16 1459: Attending MD Review Statement Attending Statement Attending MD Statement: examined this patient, discuss w/resident/PA/CARPENTER, agreed w/resident/PA/CARPENTER, reviewed EMR data (avail), discussed with nursing, discussed with case mgmt Attending Assessment/Plan: 61-year-old female with peripheral arterial disease with hypertension and hyperlipidemia who was transferred to telemetry for acute heart failure with questionable positive troponins. The plan is revascularization in the OR today with axillary bifemoral bypass and likely ICU postoperatively given high risk for postop complications. Will need cardiology follow-up closely postoperatively and will likely need pulmonary follow-up pending on respiratory status.
[2016-12-27 09:16] VITALS: BP 130/60
[2016-12-27 11:57] LABS: ABSOLUTE EOSINOPHIL COUNT 0.1 /CUMM (0.0-0.7); ABSOLUTE LYMPH COUNT 1.4 /CUMM (1.2-3.4); ABSOLUTE MONOCYTE COUNT 0.6 /CUMM (0.10-0.60); EOSINOPHIL % 0.4 % (0-5); WHITE BLOOD CELL COUNT 13.9 /CUMM (4.8-10.8)
[2016-12-27 12:05] LABS: ABSOLUTE BASOPHIL COUNT 0 /CUMM (0.0-0.2); ABSOLUTE GRANULOCYTE CT 11.9 /CUMM (1.4-6.5); BASOPHIL % 0.1 % (0.0-2.0); MEAN CORPUSCULAR HGB 25.7 PG (27.0-31.0); MEAN CORPUSCULAR HGB CONC 32.4 G/DL (33.0-37.0); MEAN CORPUSCULAR VOLUME 79.3 FL (81.0-99.0); MEAN PLATELET VOLUME 8.1 FL (7.4-10.4); RBC DISTRIBUTION WIDTH 17.3 % (11.5-14.5)
[2016-12-27 12:13] LABS: PLATELET COUNT 577 /CUMM (130-400)
[2016-12-27 12:14] LABS: GRANULOCYTE % 85.4 % (42.2-75.2)
[2016-12-27 14:29] LABS: ABSOLUTE BASOPHIL COUNT 0 /CUMM (0.0-0.2); ABSOLUTE EOSINOPHIL COUNT 0 /CUMM (0.0-0.7); ABSOLUTE MONOCYTE COUNT 0.8 /CUMM (0.10-0.60); EOSINOPHIL % 0 % (0-5); MEAN CORPUSCULAR HGB CONC 31.8 G/DL (33.0-37.0); RED BLOOD CELL CT 3.32 /CUMM (4.20-5.40)
[2016-12-27 14:33] LABS: ABSOLUTE GRANULOCYTE CT 16.5 /CUMM (1.4-6.5); ABSOLUTE LYMPH COUNT 1.1 /CUMM (1.2-3.4); BASOPHIL % 0 % (0.0-2.0); HEMATOCRIT 26.3 % (37-47); MEAN CORPUSCULAR HGB 25.3 PG (27.0-31.0); MEAN CORPUSCULAR VOLUME 79.3 FL (81.0-99.0); MEAN PLATELET VOLUME 7.4 FL (7.4-10.4); RBC DISTRIBUTION WIDTH 16.9 % (11.5-14.5); WHITE BLOOD CELL COUNT 18.4 /CUMM (4.8-10.8)
--- NOTE | 2016-12-27 14:36 | RADIOLOGY REPORT ---
EXAMINATION: XR ABDOMEN CLINICAL INDICATION: Axillobifemoral bypass. COMPARISON: CTA of the lower extremity dated 12/18/2016. TECHNIQUE/FINDINGS: Fluoroscopic equipment was dedicated to the operating room for the performance of an axillobifemoral bypass procedure. Several spot films were obtained and are archived in PACS. Fluoroscopy time: 23 minutes and 34 seconds. IMPRESSION: Administrative dictation for axillobifemoral bypass procedure in the OR. Please refer to operative notes for interpretation.
[2016-12-27 14:48] LABS: PLATELET COUNT 590 /CUMM (130-400)
[2016-12-27 14:49] LABS: GRANULOCYTE % 89.8 % (42.2-75.2)
--- NOTE | 2016-12-27 14:51 | Cons- CRCU ---
CYRUS TOM,[facility] [place] 12/27/16 1451: General Information and HPI Consulting Request Date of Consult: 12/27/16 Requested By: Tevin Knutson MD Reason for Consult: CRCU management Source of Information: patient, old records Exam Limitations: no limitations History of Present Illness: Ms. Singh is a 61 y/o F with PMHx of severe PAD, HTN and HLD who was admitted for evaluation of chronic non healing ischemic ulcer of left foot associated with severe pain. She was evaluated by a CTA which showed bilateral peripheral arterial occlusive disease and she was scheduled for a axillary bifemoral bypass. For cardiac clearance, ECHO and nuclear stress test were performed. ECHO revealed diastolic heart failure and pulmonary HTN and nuclear stress test was normal. Her hospital course was complicated by elevation in her troponins following the nuclear stress test felt to represent demand ischemia as well as acute exacerbation of CHF after receiving IV fluids in anticipation for contrast enhanced CT. Today she underwent axillary bifemoral bypass with revascularization of the left leg with no complications and was subsequently placed in the ICU for close monitoring overnight. Patient was seen and examined post-operatively. She is doing well and has no complaints. Post-operative pain is well-controlled. She denies chest pain or shortness of breath. Allergies/Medications Allergies: Coded Allergies: NO KNOWN ALLERGIES (08/11/15) Home Med List: Aspirin (Aspirin*) 81 MG TAB.CHEW 1 TAB PO DAILY ARTERIAL DISEASE Atorvastatin Calcium 40 MG TABLET 1 TAB PO DAILY CHOLESTEROL (Reported) Doxycycline Hyclate (Vibramycin) 100 MG CAPSULE 1 CAP PO BID cellulitis Doxycycline Hyclate (Vibramycin) 100 MG CAPSULE 1 CAP PO BID cellulitis Hydrochlorothiazide 25 MG TABLET 1 TAB PO DAILY Blood pressure (Reported) Levothyroxine Sodium (Synthroid) 0.125 MG TAB 1 TAB PO DAILY AC THYROID HEALTH Lisinopril 10 MG TABLET 1 TAB PO DAILY BP (Reported) Metoprolol Tartrate 50 MG TABLET 1 TAB PO BID blood pressure (Reported) Oxycodone HCl 5 MG TABLET 1 TAB PO Q6-PRN PRN PAIN Current Medications: Current Medications Sig/Bibi Start time Last Medication Dose Route Stop Time Status Admin Acetaminophen 650 MG Q8P PRN 12/27 1800 AC PO Acetaminophen 650 MG Q8P PRN 12/24 0915 DC 12/26 PO 0418 Ampicillin Sodium/ 3,000 MG Q6H 12/27 1400 AC 12/27 Sulbactam Sodium IV 1839 Sodium Chloride 100 ML Ampicillin Sodium/ 3,000 MG Q6H 12/24 2359 DC 12/26 Sulbactam Sodium IV 12/26 2300 1815 Sodium Chloride 100 ML Aspirin 325 MG DAILY 12/28 1000 AC PO Aspirin 325 MG ONCE ONE 12/27 1645 DC 12/27 PO 12/27 1646 1747 Atorvastatin Calcium 40 MG 1700 12/28 1700 AC PO Atorvastatin Calcium 40 MG 1700 12/17 1700 DC 12/26 PO 1815 Bisacodyl 5 MG DAILY 12/28 1000 AC PO Bisacodyl 5 MG DAILY 12/22 1145 DC 12/26 PO 0832 Clopidogrel Bisulfate 75 MG DAILY 12/28 1000 AC PO Clopidogrel Bisulfate 75 MG ONCE ONE 12/27 1645 DC 12/27 PO 12/27 1646 1747 Dextrose/Sodium 1,000 ML Q13H 12/27 1400 AC 12/27 Chloride IV 1840 Fentanyl Citrate 250 MCG .STK-MED ONE 12/27 918 DC IM 12/27 09 Fentanyl Citrate 250 MCG .STK-MED ONE 12/27 07 DC IM 12/27 07 Furosemide 40 MG 7:30 AM, & 4:30 PM 12/28 0730 AC PO Furosemide 40 MG 7:30 AM, & 4:30 PM 12/24 0730 DC 12/26 PO 1815 Heparin Sodium/ 25,000 UNIT Q24H 12/21 0630 DC 12/26 Dextrose IV 12/27 0000 0833 Dextrose/Water 500 ML Hydrocortisone 100 MG .STK-MED ONE 12/28 715 DC Sodium Succinate IM 12/27 07 Hydromorphone HCl 2 MG .STK-MED ONE 12/27 714 DC IM 12/27 0716 Levothyroxine Sodium 0.125 MG DAILY AC 12/28 07 AC PO Levothyroxine Sodium 0.125 MG DAILY AC 12/18 07 DC 12/26 PO 0619 Lisinopril 10 MG DAILY 12/28 1000 AC PO Lisinopril 10 MG DAILY 12/20 2026 DC 12/26 PO 0833 Metoprolol Tartrate 50 MG BID 12/27 2199 AC PO Metoprolol Tartrate 50 MG BID 12/17 2199 DC 12/26 PO 204 Midazolam HCl 2 MG .STK-MED ONE 12/28 715 DC IM 12/27 0717 Morphine Sulfate 2 MG Q3P PRN 12/27 1400 AC IV Ondansetron HCl 4 MG Q6P PRN 12/27 1800 AC IV Ondansetron HCl 4 MG Q6P PRN 12/17 1315 DC IV Oxycodone/ 1 TAB Q4P PRN 12/27 1400 AC Acetaminophen PO Oxycodone/ 2 TAB Q4P PRN 12/27 1400 AC Acetaminophen PO Oxycodone/ 2 TAB Q8P PRN 12/24 0915 DC 12/26 Acetaminophen PO 2045 Review of Systems Review of Systems Constitutional: Reports: no symptoms. Past History Medical History Blood Transfusion Hx: No Neurological: NONE EENT: NONE Cardiovascular: CAD, diastolic CHF, hypertension, hyperlipidemia, PVD Respiratory: NONE Gastrointestinal: NONE Hepatic: NONE Renal: NONE Musculoskeletal: NONE Psychiatric: NONE Endocrine: hypothyroidism Blood Disorders: NONE Cancer(s): NONE [employer] RELATIONS/Reproductive: NONE Surgical History Surgical History: tubal ligation, revascularization of left leg Family History Relations & Conditions If Any: MOTHER (diabetes). Psychosocial History Where Do You Live? Home Services at Home: None Smoking Status: Former Smoker Functional Ability ADLs Independent: dressing, eating, toileting, bathing. Ambulation: independent IADLs Independent: shopping, housework, finances, food prep, telephone, transportation , medication admin. Exam & Diagnostic Data Last 24 Hrs of Vital Signs/I&O Vital Signs Date Time Temp Pulse Resp B/P Pulse O2 O2 Flow FiO2 Ox Delivery Rate 12/27 1800 98 Room Air 12/27 1800 97.7 102 20 136/72 98 Room Air 12/27 0934 Room Air Room Air 12/27 0850 Room Air Room Air 12/26 2347 98.1 80 18 114/60 96 Room Air Intake & Output 12/27 1600 12/27 0800 12/27 0000 Intake Total 0 1055.6 Output Total 450 1000 Balance -450 55.6 Intake, IV 0 335.6 Intake, Oral 0 720 Number 0 Bowel Movements Output, Stool 0 Output, Urine 450 1000 Patient 58.23 kg Weight Physical Exam General Appearance: no apparent distress, alert, awake, comfortable Head: atraumatic, normal appearance Neck: supple Respiratory: decreased breath sounds Cardiovascular: regular rate/rhythm, normal S1 and S2 Gastrointestinal: soft, non-tender, positive bowel sounds Extremities: LLE dressing in place Skin: warm/dry Last 48 Hrs of Labs/Ernesto: Laboratory Tests 12/27/16 1138: CBC w Diff NO MAN DIFF REQ, RBC 2.90 L, MCV 79.3 L, MCH 25.7 L, RDW 17.3 H, MPV 8.1, Gran % 85.4 H, Lymphocytes % 9.9 L, Monocytes % 4.2, Eosinophils % 0.4, Basophils % 0.1, Absolute Granulocytes 11.9 H, Absolute Lymphocytes 1.4, Absolute Monocytes 0.6, Absolute Eosinophils 0.1, Absolute Basophils 0, PUBS MCHC 32.4 L 12/27/16 1000: Anion Gap 10, Estimated GFR > 60, BUN/Creatinine Ratio 20.0, Magnesium 1.9, Creatine Kinase 280 H, Troponin I < 0.01, CBC w Diff NO MAN DIFF REQ, RBC 3.32 L, MCV 79.3 L, MCH 25.3 L, RDW 16.9 H, MPV 7.4, Gran % 89.8 H, Lymphocytes % 6.0 L, Monocytes % 4.2, Eosinophils % 0, Basophils % 0 L, Absolute Granulocytes 16.5 H, Absolute Lymphocytes 1.1 L, Absolute Monocytes 0.8 H, Absolute Eosinophils 0, Absolute Basophils 0, PUBS MCHC 31.8 L 12/27/16 0425: Anion Gap 9, Estimated GFR > 60, BUN/Creatinine Ratio 21.1, Magnesium 2.2, APTT 26, CBC w Diff NO MAN DIFF REQ, RBC 3.56 L, MCV 81.4, MCH 25.6 L, RDW 18.0 H, MPV 8.4, Gran % 72.4, Lymphocytes % 16.5 L, Monocytes % 9.0, Eosinophils % 1.9, Basophils % 0.2, Absolute Granulocytes 9.9 H, Absolute Lymphocytes 2.3, Absolute Monocytes 1.2 H, Absolute Eosinophils 0.3, Absolute Basophils 0, PUBS MCHC 31.5 L 12/26/16 1630: APTT 82 H 12/26/16 1235: Anion Gap 15, Estimated GFR > 60, BUN/Creatinine Ratio 21.1, Magnesium 2.1, CBC w Diff NO MAN DIFF REQ, RBC 3.58 L, MCV 81.2, MCH 25.4 L, RDW 17.4 H, MPV 8.4 , Gran % 70.4, Lymphocytes % 17.4 L, Monocytes % 10.5 H, Eosinophils % 1.4, Basophils % 0.3, Absolute Granulocytes 10.1 H, Absolute Lymphocytes 2.5, Absolute Monocytes 1.5 H, Absolute Eosinophils 0.2, Absolute Basophils 0, PUBS MCHC 31.3 L 12/26/16 0420: APTT 81 H Diagnostic Data EKG Results Sinus rhythm HR 96 QTc 491 Assessment/Plan Impression/Plan: 61 y/o F with PMHx of severe PAD, HTN and HLD admitted for chronic non healing ischemic ulcer of left foot s/p revascularization of LLE, with a hospital course complicated by elevated troponins and acute diastolic CHF. Respiratory: Extubated post-procedure. Respiratory status stable. SpO2 > 95% on RA. * TRC as needed. Infectious Disease: #Cellulitis: Remains afebrile but with persistent leukocytosis, of unclear etiology. * Continue Unasyn 3 g IV Q6H for post-op prophylaxis. Consider discontinuing tomorrow. * Continue daily dressing changes. Cardiovascular: #PAD: S/p vascularization of LLE with axillary bifemoral bypass. EKG post- procedure without any changes. * Surgery following. Appreciate their recs. * Repeat EKG in the AM. * Continue prior to admission atorvastatin 40 mg PO daily. * Start aspirin and Plavix daily. First dose administered in the operating room. * Bed rest until the morning. May elevate the bed slightly while patient is eating. * Neurovascular checks Q1H. #Acute diastolic CHF: Nuclear stress test unremarkable. ECHO with normal LV function. * Cardiology following. Appreciate their recs. * Monitor strict I/Os. * Continue telemetry monitoring. * Continue Lasix 40 mg PO BID. #Hypertension: * Continue prior to admission lisinopril 10 mg PO daily and metoprolol 50 mg PO BID. * Hold prior to admission HCTZ as patient is on Lasix. * Monitor BP closely. Patient has an arterial line in place. #Elevated troponins: Troponins trended to a maximum of 0.27 following nuclear stress test but came down. Likely represents demand ischemia in the setting of acute diastolic CHF. Troponin pre-op today <0.01. * NTD. Hematology: #Anemia: H/H 8.4/26.3 preoperatively. Appears to be chronic microcytic hypochronic anemia, baseline Hgb 7-9. * Check CBC postoperatively. Consider transfusion if H/H has dropped. Metabolic: #Hypothyroidism: * Continue prior to admission levothyroxine 0.125 mg PO daily. Alimentary: Heart Healthy Neurologic: AAO x3 #Pain: * Morphine 2 mg IV Q3H PRN for severe pain (scale 7-10). * Percocet 2 tabs PO Q4H PRN for moderate pain (scale 4-6). * Percocet 1 tab PO Q4H PRN and Tylenol 650 mg PO Q8H PRN for mild pain (scale 1 -3). Fluids: D5NS @ 75 cc/hr Lytes: Replete to K > 4 and Mg > 2 DVT PPx: ALPs CODE: FULL Problem List: 1. Diastolic CHF 2. PAD (peripheral artery disease) 3. HTN (hypertension) 4. Hypothyroidism 5. Ischemic ulcer of left foot 6. Cellulitis 7. S/P vascular surgery 8. Microcytic hypochromic anemia 9. Chronic anemia Consult Acknowledgment - Thank you for your consult request. JACKLYN TOM,Dinora ESTEBAN 12/27/16 1512: General Information and HPI Consulting Request Date of Consult: 12/27/16 Requested By: Dr. Knutson Reason for Consult: CRCU management Source of Information: patient, old records Exam Limitations: no limitations Assessment/Plan Other Findings/Comments: I have personally seen and examined the patient. I agree with the above assessment. Briefly, the patient is a 61-year-old female with an extensive history of vascular disease. The patient was brought in for cardiology clearance for her surgical procedure. Of note, the patient had a nuclear stress test, after which she bumped her troponins. During her hospital course, the patient was given IV fluid in anticipation of a contrast enhanced CAT scan. She subsequently went into acute diastolic heart failure which required intervention. The patient was stabilized and sent to the OR today. She underwent an axillary bifemoral bypass with revascularization of the left leg, and aortic pelvic CCE, and a diagnostic angiogram. The patient tolerated the surgery well without significant blood loss. She was extubated postprocedure with a stable respiratory status. The patient is being placed in the critical care unit for closer monitoring overnight. Of note, the patient's labs are positive for a white blood cell count of 13.9 and a hemoglobin of 7.5. The patient is on aspirin and Plavix and there is no significant report of bleeding. She also remains on IV Unasyn for cellulitis. Impression: 1. Severe peripheral vascular disease status post revascularization of left lower extremity. 2. History of right lower extremity amputation. 3. Cellulitis, on IV Unasyn. Cultures are negative so far. 4. Diastolic heart failure, improved on Lasix. 5. Anemia without evidence of bleeding. 6. Positive troponin the setting of recent nuclear stress test. Plan: * Monitor strict I's and O's. * Closely follow blood pressure noting the patient has an arterial line. * Postoperative serial EKGs. * Please check labs including a CBC and ICU bundle. We may need to consider transfusion. * Continue Lasix, follow up cardiology input. * Continue aspirin and Plavix as per vascular surgery. * Continue IV Unasyn for cellulitis. * Monitor in the critical care unit. Consult Acknowledgment - Thank you for your consult request.
--- NOTE | 2016-12-27 16:15 | PN- Vascular Surgery ---
Subjective Subjective: The patient was seen this afternoon postoperatively. She reports some minor incisional pain but is otherwise comfortable. She has no other complaints at the current time and denies any difficulty breathing or chest pain. Objective Vital Signs and I&Os Vital Signs Date Time Temp Pulse Resp B/P Pulse O2 O2 Flow FiO2 Ox Delivery Rate 12/27 0934 Room Air Room Air 12/27 0850 Room Air Room Air 12/26 2347 98.1 80 18 114/60 96 Room Air 12/26 2046 98 154/78 12/26 1614 97.9 91 18 112/58 95 Intake & Output 12/27 1600 12/27 0812/27 0000 12/26 1600 12/26 0800 12/26 0000 Intake Total 0 1055.6 785 800 Output Total 450 1000 600 300 Balance -450 55.6 185 500 Intake, IV 0 335.6 225 200 Intake, Oral 0 720 560 600 Number 0 1 Bowel Movements Output, Stool 0 Output, Urine 450 1000 600 300 Patient 128 lb Weight Most recent vital signs: Blood pressure 160/60, pulse 105, temperature 90.7, O2 saturation 100% on 2 L via nasal cannula I and O's: 20 6N else N of lactated Ringer's/330 mL that of urine. Costa catheter/EBL 100 Laboratory Tests 12/27 12/27 1138 UNK Chemistry Sodium (137 - 145 mmol/L) 137 Potassium (3.5 - 5.1 mmol/L) 4.1 Chloride (98 - 107 mmol/L) 99 Carbon Dioxide (22 - 30 mmol/L) 28 Anion Gap (5 - 16) 10 BUN (7 - 17 mg/dL) 18 H Creatinine (0.5 - 1.0 mg/dL) 0.9 Estimated GFR (>60 ml/min) > 60 BUN/Creatinine Ratio (7 - 25 %) 20.0 Magnesium (1.6 - 2.3 mg/dL) 1.9 Creatine Kinase (30 - 135 U/L) 280 H Troponin I (< 0.11 ng/ml) < 0.01 Hematology CBC w Diff NO MAN DIFF REQ NO MAN DIFF REQ WBC (4.8 - 10.8 /CUMM) 13.9 H 18.4 H RBC (4.20 - 5.40 /CUMM) 2.90 L 3.32 L Hgb (12.0 - 16.0 G/DL) 7.5 L 8.4 L Hct (37 - 47 %) 23.0 L 26.3 L MCV (81.0 - 99.0 FL) 79.3 L 79.3 L MCH (27.0 - 31.0 PG) 25.7 L 25.3 L RDW (11.5 - 14.5 %) 17.3 H 16.9 H Plt Count (130 - 400 /CUMM) 577 H 590 H MPV (7.4 - 10.4 FL) 8.1 7.4 Gran % (42.2 - 75.2 %) 85.4 H 89.8 H Lymphocytes % (20.5 - 51.1 %) 9.9 L 6.0 L Monocytes % (1.7 - 9.3 %) 4.2 4.2 Eosinophils % (0 - 5 %) 0.4 0 Basophils % (0.0 - 2.0 %) 0.1 0 L Absolute Granulocytes (1.4 - 6.5 /CUMM) 11.9 H 16.5 H Absolute Lymphocytes (1.2 - 3.4 /CUMM) 1.4 1.1 L Absolute Monocytes (0.10 - 0.60 /CUMM) 0.6 0.8 H Absolute Eosinophils (0.0 - 0.7 /CUMM) 0.1 0 Absolute Basophils (0.0 - 0.2 /CUMM) 0 0 PUBS MCHC (33.0 - 37.0 G/DL) 32.4 L 31.8 L 03/06 03/05 0425 1630 Chemistry Sodium (137 - 145 mmol/L) 137 Potassium (3.5 - 5.1 mmol/L) 4.2 Chloride (98 - 107 mmol/L) 97 L Carbon Dioxide (22 - 30 mmol/L) 30 Anion Gap (5 - 16) 9 BUN (7 - 17 mg/dL) 19 H Creatinine (0.5 - 1.0 mg/dL) 0.9 Estimated GFR (>60 ml/min) > 60 BUN/Creatinine Ratio (7 - 25 %) 21.1 Magnesium (1.6 - 2.3 mg/dL) 2.2 Coagulation APTT (25 - 37 SEC) 26 82 H Hematology CBC w Diff NO MAN DIFF REQ WBC (4.8 - 10.8 /CUMM) 13.7 H RBC (4.20 - 5.40 /CUMM) 3.56 L Hgb (12.0 - 16.0 G/DL) 9.1 L Hct (37 - 47 %) 29.0 L MCV (81.0 - 99.0 FL) 81.4 MCH (27.0 - 31.0 PG) 25.6 L RDW (11.5 - 14.5 %) 18.0 H Plt Count (130 - 400 /CUMM) 658 H MPV (7.4 - 10.4 FL) 8.4 Gran % (42.2 - 75.2 %) 72.4 Lymphocytes % (20.5 - 51.1 %) 16.5 L Monocytes % (1.7 - 9.3 %) 9.0 Eosinophils % (0 - 5 %) 1.9 Basophils % (0.0 - 2.0 %) 0.2 Absolute Granulocytes (1.4 - 6.5 /CUMM) 9.9 H Absolute Lymphocytes (1.2 - 3.4 /CUMM) 2.3 Absolute Monocytes (0.10 - 0.60 /CUMM) 1.2 H Absolute Eosinophils (0.0 - 0.7 /CUMM) 0.3 Absolute Basophils (0.0 - 0.2 /CUMM) 0 PUBS MCHC (33.0 - 37.0 G/DL) 31.5 L Physical Exam: Gen.: Alert and in no obvious distress Skin: Warm and dry Cardiac: S1-S2 regular Pulmonary: Bilateral breath sounds are equal and decreased at bases with upper respiratory congestion Chest: Right chest surgical dressing is clean, dry, and intact. There is a palpable graft pulse Extremities: Bilateral groin surgical incisions are clean, dry, and intact without signs of significant edema or hematoma. Bilateral lower extremities are warm without calf tenderness. Left leg wound dressing is clean and intact. Gross motor and sensory are intact. There are bilateral dopplerable dorsalis pedis pulses. Assessment/Plan Assessment/Plan Assessment: 61-year-old female status post right axillary bifemoral bypass. Postoperatively the patient is resting as expected, her pain is under adequate control, and there dopplerable distal pulses. Recommendations: Patient will be started on aspirin and Plavix daily first dose to be given in recovery room Bed rest until the morning the patient may have had of bed slightly elevated to eat Follow-up laboratory studies and EKG Continue IV Unasyn for leg wound with daily dressing changes Advance diet as tolerated GI and DVT prophylaxis When necessary anti-emetics, antipyretics, and pain medications Neurovascular checks per protocol Total respiratory care Continue care per primary team and consultation recommendations
--- NOTE | 2016-12-27 17:51 | Operative Report ---
Operative/Inv Procedure Report Surgery Date: 12/27/16 Name of Procedure: Axillobifemoral extra-anatomic bypass, aortogram with bilateral pelvic and diagnostoc left leg angiogram, 1st order catheterization Pre-Operative Diagnosis: PAD with left leg ulceration and rest pain Post-Operative Diagnosis: PAD with left leg ulceration and rest pain Estimated Blood Loss: less than 50ml Surgeon/Keno Writer/Runner: RASHID TOM, HARPER CORDOBA MD, KAVEH (ASST.) Anesthesia: laryngeal mask airway Implants: 8 MM PROPATEN AX-BIFEM. GRAFT Urine Output: N Complications: NONE Condition: Stable to PACU Operative Indication: Limb threatening left leg ulceration/rest pain Operative/Procedure Note Note: This is a 61-year-old female with a history of advanced PAD. She previously has declined intervention. However, recently her wounds have worsened. She has nonhealing left leg wounds of the leg down to the ankle. Risk benefits and alternatives explained to the patient including bleeding infection pain scar limb loss and . Due to rest pain and tissue loss she consented to the procedure. Of note a second surgeon was required for an phlebotomy lab assistant due to the complexity of the case and the lack of an adequate resident or PA to assist. Patient was brought to the operating room and laid supine on the table. A timeout was performed. The right arm was abducted. Sharp dissection was carried down through the skin and subcutaneous tissue of both groins. This was done with Bovie electrocautery and a 15 blade. The bilateral femoral, profunda femoris and superficial femoral arteries were encircled and controlled. The patient was bolused with 5000 units of heparin and an additional 1000 units heparin every 40 minutes throughout the case. Bilateral femoral punctures were then performed. Dr. Barr performed this portion of the case. Aortography, pelvic, and a left leg angiogram was performed with the addition of the catheter to access the right side. None of these vessels were intervened on. With the use of multiple catheters, wires and a reentry device the aorta was accessed. The left iliac and right iliac were accessed from the contralateral sides. The aorta was also accessed from the axillary artery after a cutdown. However, the aorta could not be reentered. Therefore, this portion of the case was abandoned. Dr. Lebron performed this portion of the case. I performed the open bypass with his assistance. Due to the lack of endovascular options and decision was made to perform an ax femoral bypass. The right axillary artery was dissected free. There was a known left-sided axillary artery occlusion. The 15 blade was used to make an incision and sharp dissection was carried down to the level of the axillary artery. The artery was controlled with clamps and vessel loops. Side branches were controlled also with vessel loops. A [place] 8 mm Propaten Ax-fem. bypass graft was then brought into the field. It was tunneled subcutaneously from the axilla to the right groin. The graft was then also brought into the left groin field via blunt dissection in the subcutaneous space in a C-like configuration. The proximal anastomosis was then completed with a running 6-0 Prolene suture. It was tied down and flushed appropriately. A clamp was then placed on the proximal graft. Similarly, bilateral common femoral anastomoses were completed with a running 6-0 Prolene suture. The clamp was sequentially moved distally and from right to left. After completion all occluding clamps are removed. Pulsatile flow was now noted into the bilateral femoral systems. Single points of bleeding were controlled with additional Prolene sutures. Doppler signals were now noted in the feet. The SFA and profunda femoris was noted to have biphasic flow. A left lower extremity and again was completed by Dr. Barr which demonstrated a patent profunda femoris with reconstitution of the popliteal artery. 2-3 vessel runoff was noted to the foot. Please see his notes for dictation. Attention was now turned to closure. The wounds were copiously irrigated with saline solution. Hemostasis was achieved with Gelfoam thrombin. All 3 wounds were controlled for hemostasis with Bovie electrocautery and silk ties. They were closed in layers and the skin was closed with nylon sutures and skin emma. The sponge and needle instrument counts were correct. The patient was then transported to the recovery area stable and awake. The patient tolerated the procedure well. Due to the lack of an endovascular option Findings: Severe PAD bilateral CC: Dinora VILLASENOR MD; Trevon MCKINNEY MD
[2016-12-27 18:00] VITALS: BP 136/72
[2016-12-27 23:09] LABS: ABSOLUTE BASOPHIL COUNT 0 /CUMM (0.0-0.2); ABSOLUTE EOSINOPHIL COUNT 0 /CUMM (0.0-0.7); ABSOLUTE GRANULOCYTE CT 9.5 /CUMM (1.4-6.5); ABSOLUTE LYMPH COUNT 1.3 /CUMM (1.2-3.4); ABSOLUTE MONOCYTE COUNT 1.6 /CUMM (0.10-0.60); BASOPHIL % 0.2 % (0.0-2.0); EOSINOPHIL % 0.1 % (0-5); GRANULOCYTE % 76.1 % (42.2-75.2); MEAN CORPUSCULAR HGB 24.8 PG (27.0-31.0); MEAN CORPUSCULAR HGB CONC 30.6 G/DL (33.0-37.0); MEAN PLATELET VOLUME 8.3 FL (7.4-10.4); PLATELET COUNT 598 /CUMM (130-400); RBC DISTRIBUTION WIDTH 17.7 % (11.5-14.5); RED BLOOD CELL CT 3.09 /CUMM (4.20-5.40); WHITE BLOOD CELL COUNT 12.5 /CUMM (4.8-10.8)
[2016-12-28] VITALS: BP 98/54
--- NOTE | 2016-12-28 05:55 | PN- Vascular Surgery ---
See Addendum Subjective Subjective: pod#1 s/p ax-fem bipass no major complaints this am deneis cp, sob, no n+v with diet Objective Vital Signs and I&Os Vital Signs Date Time Temp Pulse Resp B/P Pulse O2 O2 Flow FiO2 Ox Delivery Rate 03/ 0107 92 114/50 03/06 2131 100 Room Air Room Air 03/ 1800 98 Room Air / 1800 97.7 102 20 136/72 98 Room Air / 0934 Room Air Room Air / 0850 Room Air Room Air Intake & Output / 0800 03/ 0000 03/06 1600 03/ 0800 03/ 0000 03/05 1600 Intake Total 0 1055.6 785 Output Total 450 1000 600 Balance -450 55.6 185 Intake, IV 0 335.6 225 Intake, Oral 0 720 560 Number 0 Bowel Movements Output, Stool 0 Output, Urine 450 1000 600 Patient 128 lb Weight Physical Exam: cv: rrr lungs: occasional rhonchi decreased in bases abd: soft, nt/nd lower groin hematoma at operative site(expected) ext: bialt le doppler dp pulses warm cms grossly intact drsg clean dry chest: drsg dry, no hematoma present lyles: clear urine, adequate Assessment/Plan Assessment/Plan vascualr stable plan asa/plavix daily no need fro heparin gtt advacne diet may oob per attending today will discuss with Dr Knutson Core Measures/Miscellaneous Venous Thromboembolism VTE Risk Factors: Age > 40 VTE Contraindications: No Contraindications VTE Diagnosis: No VTE Type: NONE VTE Confirmed by (Test): NONE Beta Nury Is Beta Nury a Home Med? Yes If Yes, Was This Ordered Today? Yes Antibiotics Is Patient on Antibiotics? Yes
[2016-12-28 06:13] LABS: ABSOLUTE BASOPHIL COUNT 0 /CUMM (0.0-0.2); ABSOLUTE EOSINOPHIL COUNT 0 /CUMM (0.0-0.7); ABSOLUTE MONOCYTE COUNT 1.8 /CUMM (0.10-0.60); EOSINOPHIL % 0.3 % (0-5); MEAN CORPUSCULAR HGB 25.3 PG (27.0-31.0); MEAN CORPUSCULAR HGB CONC 31.2 G/DL (33.0-37.0)
[2016-12-28 06:18] LABS: ABSOLUTE LYMPH COUNT 1.6 /CUMM (1.2-3.4); BASOPHIL % 0.4 % (0.0-2.0); GRANULOCYTE % 69.9 % (42.2-75.2); HEMATOCRIT 23.3 % (37-47); MEAN CORPUSCULAR VOLUME 81.2 FL (81.0-99.0); PLATELET COUNT 556 /CUMM (130-400); RBC DISTRIBUTION WIDTH 17.7 % (11.5-14.5); RED BLOOD CELL CT 2.86 /CUMM (4.20-5.40); WHITE BLOOD CELL COUNT 11.4 /CUMM (4.8-10.8)
--- NOTE | 2016-12-28 07:01 | PN- Resident CRCU ---
Subjective HPI/CRCU Issues: No acute events overnight. She remained hemodynamically stable. Patient was seen and examined this morning. She has been doing well postoperatively. She complains of incisional pain but it is well-controlled with pain medications. She denies chest pain, shortness of breath, nausea or vomiting. Objective Vital Signs & I&O Last 8 Hrs of Vitals and I&O: Vital Signs Date Time Temp Pulse Resp B/P Pulse O2 O2 Flow FiO2 Ox Delivery Rate 12/28 1611 Room Air Room Air 12/28 1600 98.4 96 20 100/60 99 Room Air / 1200 97 Room Air / 0911 93 102/60 / 0911 98 102/60 / 0800 98.0 92 17 100/50 97 Room Air 12/28 0800 97 Room Air / 0107 92 114/50 03/ 0000 97.9 96 30 98/54 98 Room Air Room Air 12/27 2131 100 Room Air Room Air 12/27 1800 98 Room Air / 1800 97.7 102 20 136/72 98 Room Air Intake & Output 12/28 1600 Intake Total 900 Output Total 1000 Balance -100 Intake, IV 420 Intake, Oral 480 Number 0 Bowel Movements Output, Urine 1000 Exam General Appearance: no apparent distress, alert, awake, comfortable Head: atraumatic, normal appearance Neck: supple Respiratory: lungs clear Cardiovascular: regular rate/rhythm, normal S1 and S2, no murmurs, rubs or gallops Gastrointestinal: soft, non-tender, positive bowel sounds Extremities: LLE dressing in place Skin: warm/dry Current Medications: Current Medications Sig/Bibi Start time Last Medication Dose Route Stop Time Status Admin Acetaminophen 650 MG Q8P PRN 12/27 1800 AC PO Acetaminophen 650 MG Q8P PRN 12/24 0915 DC 12/26 PO 0418 Ampicillin Sodium/ 3,000 MG Q6H 12/27 1400 DC 12/28 Sulbactam Sodium IV 0745 Sodium Chloride 100 ML Aspirin 325 MG DAILY 12/28 1000 AC 12/28 PO 0911 Atorvastatin Calcium 40 MG 1700 12/28 1700 AC 12/28 PO 1533 Atorvastatin Calcium 40 MG 1700 12/17 1700 DC 12/26 PO 1815 Bisacodyl 5 MG DAILY 12/28 1000 AC 12/28 PO 0911 Bisacodyl 5 MG DAILY 12/22 1145 DC 12/26 PO 0832 Clopidogrel Bisulfate 75 MG DAILY 12/28 1000 AC 12/28 PO 0911 Dextrose/Sodium 1,000 ML Q13H 12/27 1400 DC 12/28 [place] 0212 Furosemide 40 MG 7:30 AM, & 4:30 PM 12/28 0730 AC 12/28 PO 1533 Furosemide 40 MG 7:30 AM, & 4:30 PM 12/24 0730 DC 12/26 PO 1815 Heparin Sodium 5,000 UNIT Q8 12/28 0820 AC 12/28 (Porcine) SC 1403 Levothyroxine Sodium 0.125 MG DAILY AC 12/28 0700 AC 12/28 PO 0703 Levothyroxine Sodium 0.125 MG DAILY AC 12/18 0700 DC 12/26 PO 0619 Lisinopril 10 MG DAILY 12/28 1000 AC 12/28 PO 0911 Lisinopril 10 MG DAILY 12/20 2026 DC 12/26 PO 0833 Metoprolol Tartrate 50 MG BID 12/27 2200 AC 12/28 PO 0911 Metoprolol Tartrate 50 MG BID 12/17 2200 DC 12/26 PO 2046 Morphine Sulfate 2 MG Q3P PRN 12/27 1400 AC 12/28 IV 0838 Ondansetron HCl 4 MG Q6P PRN 12/27 1800 AC IV Ondansetron HCl 4 MG Q6P PRN 12/17 1315 DC IV Oxycodone/ 1 TAB Q4P PRN 12/27 1400 AC Acetaminophen PO Oxycodone/ 2 TAB Q4P PRN 12/27 1400 AC 12/28 Acetaminophen PO 1532 Results Results: Laboratory Tests 12/28 12/28 1140 0802 Hematology CBC w Diff NO MAN DIFF REQ Cancelled WBC (4.8 - 10.8 /CUMM) 12.3 H Cancelled RBC (4.20 - 5.40 /CUMM) 2.81 L Cancelled Hgb (12.0 - 16.0 G/DL) 7.2 *L Cancelled Hct (37 - 47 %) 22.9 L Cancelled MCV (81.0 - 99.0 FL) 81.4 Cancelled MCH (27.0 - 31.0 PG) 25.5 L Cancelled RDW (11.5 - 14.5 %) 18.1 H Cancelled Plt Count (130 - 400 /CUMM) 540 H Cancelled MPV (7.4 - 10.4 FL) 8.3 Cancelled Gran % (42.2 - 75.2 %) 74.0 Lymphocytes % (20.5 - 51.1 %) 12.4 L Monocytes % (1.7 - 9.3 %) 13.0 H Eosinophils % (0 - 5 %) 0.4 Basophils % (0.0 - 2.0 %) 0.2 Absolute Granulocytes (1.4 - 6.5 /CUMM) 9.1 H Absolute Lymphocytes (1.2 - 3.4 /CUMM) 1.5 Absolute Monocytes (0.10 - 0.60 /CUMM) 1.6 H Absolute Eosinophils (0.0 - 0.7 /CUMM) 0 Absolute Basophils (0.0 - 0.2 /CUMM) 0 PUBS MCHC (33.0 - 37.0 G/DL) 31.3 L Cancelled 03/07 03/06 0530 2200 Chemistry Sodium (137 - 145 mmol/L) 139 138 Potassium (3.5 - 5.1 mmol/L) 4.1 4.3 Chloride (98 - 107 mmol/L) 104 100 Carbon Dioxide (22 - 30 mmol/L) 26 27 Anion Gap (5 - 16) 9 11 BUN (7 - 17 mg/dL) 15 18 H Creatinine (0.5 - 1.0 mg/dL) 0.8 0.9 Estimated GFR (>60 ml/min) > 60 > 60 Glucose (65 - 99 mg/dL) 110 H 126 H Calcium (8.4 - 10.2 mg/dL) 8.4 8.5 Phosphorus (2.5 - 4.5 mg/dL) 3.4 3.9 Magnesium (1.6 - 2.3 mg/dL) 2.0 2.0 Total Bilirubin (0.2 - 1.3 mg/dL) 0.2 0.2 AST (14 - 36 U/L) 191 H 195 H ALT (9 - 52 U/L) 43 48 Troponin I (< 0.11 ng/ml) < 0.01 Albumin (3.5 - 5.0 g/dL) 2.4 L 2.5 L Hematology CBC w Diff NO MAN DIFF REQ NO MAN DIFF REQ WBC (4.8 - 10.8 /CUMM) 11.4 H 12.5 H RBC (4.20 - 5.40 /CUMM) 2.86 L 3.09 L Hgb (12.0 - 16.0 G/DL) 7.3 *L 7.7 L Hct (37 - 47 %) 23.3 L 25.0 L MCV (81.0 - 99.0 FL) 81.2 81.0 MCH (27.0 - 31.0 PG) 25.3 L 24.8 L RDW (11.5 - 14.5 %) 17.7 H 17.7 H Plt Count (130 - 400 /CUMM) 556 H 598 H MPV (7.4 - 10.4 FL) 8.0 8.3 Gran % (42.2 - 75.2 %) 69.9 76.1 H Lymphocytes % (20.5 - 51.1 %) 13.9 L 10.8 L Monocytes % (1.7 - 9.3 %) 15.5 H 12.8 H Eosinophils % (0 - 5 %) 0.3 0.1 Basophils % (0.0 - 2.0 %) 0.4 0.2 Absolute Granulocytes (1.4 - 6.5 /CUMM) 8.0 H 9.5 H Absolute Lymphocytes (1.2 - 3.4 /CUMM) 1.6 1.3 Absolute Monocytes (0.10 - 0.60 /CUMM) 1.8 H 1.6 H Absolute Eosinophils (0.0 - 0.7 /CUMM) 0 0 Absolute Basophils (0.0 - 0.2 /CUMM) 0 0 PUBS MCHC (33.0 - 37.0 G/DL) 31.2 L 30.6 L EKG Findings: 12/28/2016 @ 4:28 AM HR 82 Sinus rhythm QTc 477 Impression/Plan Impression/Problem List Impression: 61 y/o F with PMHx of severe PAD, HTN and HLD admitted for chronic non healing ischemic ulcer of left foot s/p revascularization of LLE, with a hospital course complicated by elevated troponins and acute diastolic CHF. Problem List: 1. Ischemic ulcer of left foot 2. Anemia 3. Diastolic CHF 4. Hypothyroidism 5. Severe peripheral arterial disease 6. S/P vascular surgery 7. Unstageable pressure ulcer of buttock 8. Cellulitis Pain Ratin Tomorrow's Labs & Rationales: CBC and ICU bundle (ICU patient) Plan Respiratory: Respiratory status stable. Remains on room air with SpO2 > 95%. * Encourage incentive spirometry to prevent postoperative atelectasis. Infectious Diseases: #Cellulitis: S/p 11 days of Unasyn which should have been sufficient to treat cellulitis. * Discontinue Unasyn. Cardiovascular: #PAD: POD #1, s/p revascularization of LLE with axillary bifemoral bypass. Has been doing well postoperatively. * Vascular surgery following. Appreciate their recs. * Continue prior to admission atorvastatin 40 mg PO daily. * Continue aspirin 325 mg PO daily and Plavix 75 mg PO daily. * Continue neurovascular checks Q1H. * Patient will need to remain in the ICU while requiring hourly neurovascular checks. * Per surgery, keep Costa in as patient is still not mobile. * Continue PT. #Acute diastolic CHF: Nuclear stress test unremarkable. ECHO with normal LV function. EKG this AM with NSR and no acute changes. * Cardiology following. Appreciate their recs. * Monitor strict I/Os. * Continue telemetry monitoring. * Continue Lasix 40 mg PO BID. #Hypertension: * Continue prior to admission lisinopril 10 mg PO daily and metoprolol 50 mg PO BID. * Hold prior to admission HCTZ as patient is on Lasix. * Remove arterial line. Hematology: #Anemia: H/H has dropped down to 7.2/22.9 this AM from 7.7/25.0 last night. Chronic anemia with baseline Hgb of 8-9. * Transfuse 1 unit of pRBCs. Metabolic: #Hypothyroidism: * Continue prior to admission levothyroxine 0.125 mg PO daily. Alimentary: Heart Healthy - NPO at midnight for OR tomorrow Neurological: #Pain: * Morphine 2 mg IV Q3H PRN for severe pain (scale 7-10). * Percocet 2 tabs PO Q4H PRN for moderate pain (scale 4-6). * Percocet 1 tab PO Q4H PRN and Tylenol 650 mg PO Q8H PRN for mild pain (scale 1 -3). Skin: #Chronic non healing ischemic ulcer of LLE: * Plan for OR tomorrow for debridement and wound vac placement by vascular surgery. #Pressure ulcer: Unstageable pressure ulcers on left buttock extending to the gluteal fold measuring approximately 11.2 x 3.5 cm. * Management per wound care team. DVT/Prophylaxis: pharmacological Code Status: Full Code
[2016-12-28 08:00] VITALS: BP 100/50
--- NOTE | 2016-12-28 09:51 | PN- CRCU ---
Subjective HPI/Critical Care Issues: The patient is awake and alert. She reports feeling better overall. She remained hemodynamically stable and afebrile. The patient's oxygen saturation is 99% on room air. Urine output. There were no overnight events reported. She admits to feeling uncomfortable due to the cardiac leads, IVs and tubes. Objective Current Medications: Current Medications Sig/Bibi Start time Last Medication Dose Route Stop Time Status Admin Acetaminophen 650 MG Q8P PRN 12/27 1800 AC PO Acetaminophen 650 MG Q8P PRN 12/24 0915 DC 12/26 PO 0418 Ampicillin Sodium/ 3,000 MG Q6H 12/27 1400 AC 12/28 Sulbactam Sodium IV 0745 Sodium Chloride 100 ML Aspirin 325 MG DAILY 12/28 1000 AC 12/28 PO 0911 Aspirin 325 MG ONCE ONE 12/27 1645 DC 12/27 PO 12/27 1646 1747 Atorvastatin Calcium 40 MG 1700 12/28 1700 AC PO Atorvastatin Calcium 40 MG 1700 12/17 1700 DC 12/26 PO 1815 Bisacodyl 5 MG DAILY 12/28 1000 AC 12/28 PO 0911 Bisacodyl 5 MG DAILY 12/22 1145 DC 12/26 PO 0832 Clopidogrel Bisulfate 75 MG DAILY 12/28 1000 AC 12/28 PO 0911 Clopidogrel Bisulfate 75 MG ONCE ONE 12/27 1645 DC 12/27 PO 12/27 1646 1747 Dextrose/Sodium 1,000 ML Q13H 12/27 1400 AC 12/28 [place] 0212 Furosemide 40 MG 7:30 AM, & 4:30 PM 12/28 0730 AC 12/28 PO 0745 Furosemide 40 MG 7:30 AM, & 4:30 PM 12/24 0730 DC 12/26 PO 1815 Heparin Sodium 5,000 UNIT Q8 12/28 0820 AC 12/28 (Porcine) SC 0838 Hydromorphone HCl 2 MG .STK-MED ONE 12/27 1658 DC IM 12/27 1659 Hydromorphone HCl 2 MG .STK-MED ONE 12/27 1429 DC IM 12/27 1430 Levothyroxine Sodium 0.125 MG DAILY AC 12/28 0700 AC 12/28 PO 0703 Levothyroxine Sodium 0.125 MG DAILY AC 12/18 0700 DC 12/26 PO 0619 Lisinopril 10 MG DAILY 12/28 1000 AC 12/28 PO 0911 Lisinopril 10 MG DAILY 12/20 2026 DC 12/26 PO 0833 Meperidine HCl 50 MG .STK-MED ONE 12/27 1429 DC IM 12/27 1430 Metoprolol Tartrate 50 MG BID 12/27 2200 AC 12/28 PO 0911 Metoprolol Tartrate 50 MG BID 12/17 220 DC 12/26 PO 2046 Morphine Sulfate 2 MG Q3P PRN 12/27 1400 AC 12/28 IV 0838 Ondansetron HCl 4 MG Q6P PRN 12/27 1800 AC IV Ondansetron HCl 4 MG Q6P PRN 12/17 1315 DC IV Oxycodone/ 1 TAB Q4P PRN 12/27 1400 AC Acetaminophen PO Oxycodone/ 2 TAB Q4P PRN 12/27 1400 AC Acetaminophen PO Oxycodone/ 2 TAB Q8P PRN 12/24 0915 DC 12/26 Acetaminophen PO 2046 Vital Signs & I&O Last 24 Hrs of Vitals and I&O: Vital Signs Date Time Temp Pulse Resp B/P Pulse O2 O2 Flow FiO2 Ox Delivery Rate 12/28 0911 93 102/60 12/28 0911 98 102/60 12/28 0800 98.0 92 17 100/50 97 Room Air 12/28 0800 97 Room Air / 0107 92 114/50 / 0000 97.9 96 30 98/54 98 Room Air Room Air 12/27 2131 100 Room Air Room Air 12/27 1800 98 Room Air / 1800 97.7 102 20 136/72 98 Room Air Intake & Output 12/28 1600 12/28 0800 03/ 0000 Intake Total 679 415 Output Total 300 520 Balance 379 -105 Intake, IV 639 375 Intake, Oral 40 40 Number 0 0 Bowel Movements Output, Urine 300 520 Physical Exam General Appearance: no apparent distress, alert, awake, comfortable Head: atraumatic, normal appearance Neck: supple Respiratory: decreased breath sounds Cardiovascular: regular rate/rhythm, normal S1 and S2 Gastrointestinal: soft, non-tender, positive bowel sounds Extremities: LLE dressing in place Skin: warm/dry Results Last 24 Hrs of Lab Results: Laboratory Tests 12/28/16 0802: CBC w Diff Cancelled, WBC Cancelled, RBC Cancelled, Hgb Cancelled, Hct Cancelled , MCV Cancelled, MCH Cancelled, RDW Cancelled, Plt Count Cancelled, MPV Cancelled, PUBS MCHC Cancelled 12/28/16 0530: Anion Gap 9, Estimated GFR > 60, Glucose 110 H, Calcium 8.4, Phosphorus 3.4, Magnesium 2.0, Total Bilirubin 0.2, AST 191 H, ALT 43, Troponin I < 0.01, Albumin 2.4 L, CBC w Diff NO MAN DIFF REQ, RBC 2.86 L, MCV 81.2, MCH 25.3 L, RDW 17.7 H, MPV 8.0, Gran % 69.9, Lymphocytes % 13.9 L, Monocytes % 15.5 H, Eosinophils % 0.3, Basophils % 0.4, Absolute Granulocytes 8.0 H, Absolute Lymphocytes 1.6, Absolute Monocytes 1.8 H, Absolute Eosinophils 0, Absolute Basophils 0, PUBS MCHC 31.2 L 12/27/16 2200: Anion Gap 11, Estimated GFR > 60, Glucose 126 H, Calcium 8.5, Phosphorus 3.9, Magnesium 2.0, Total Bilirubin 0.2, AST 195 H, ALT 48, Albumin 2.5 L, CBC w Diff NO MAN DIFF REQ, RBC 3.09 L, MCV 81.0, MCH 24.8 L, RDW 17.7 H, MPV 8.3, Gran % 76.1 H, Lymphocytes % 10.8 L, Monocytes % 12.8 H, Eosinophils % 0.1, Basophils % 0.2, Absolute Granulocytes 9.5 H, Absolute Lymphocytes 1.3, Absolute Monocytes 1.6 H, Absolute Eosinophils 0, Absolute Basophils 0, PUBS MCHC 30.6 L 12/27/16 1138: CBC w Diff NO MAN DIFF REQ, RBC 2.90 L, MCV 79.3 L, MCH 25.7 L, RDW 17.3 H, MPV 8.1, Gran % 85.4 H, Lymphocytes % 9.9 L, Monocytes % 4.2, Eosinophils % 0.4, Basophils % 0.1, Absolute Granulocytes 11.9 H, Absolute Lymphocytes 1.4, Absolute Monocytes 0.6, Absolute Eosinophils 0.1, Absolute Basophils 0, PUBS MCHC 32.4 L 12/27/16 1000: Anion Gap 10, Estimated GFR > 60, BUN/Creatinine Ratio 20.0, Magnesium 1.9, Creatine Kinase 280 H, Troponin I < 0.01, CBC w Diff NO MAN DIFF REQ, RBC 3.32 L, MCV 79.3 L, MCH 25.3 L, RDW 16.9 H, MPV 7.4, Gran % 89.8 H, Lymphocytes % 6.0 L, Monocytes % 4.2, Eosinophils % 0, Basophils % 0 L, Absolute Granulocytes 16.5 H, Absolute Lymphocytes 1.1 L, Absolute Monocytes 0.8 H, Absolute Eosinophils 0, Absolute Basophils 0, PUBS MCHC 31.8 L Impression/Plan Impression/Plan Impression/Plan: 1. Status post left axillary femoral bypass, for severe peripheral vascular disease and chronic nonhealing ischemic ulcer of the left foot. 2. Lower extremity cellulitis, on IV Unasyn. 3. CAD, with a positive troponins in acute diastolic CHF during this hospital admission, improved. 4. History of hypertension on lisinopril and metoprolol at home. 5. Anemia without evidence of active bleeding, undergoing transfusion. 6. Stable respiratory status. Recommendations: * Recheck CBC later today. * Complete course of Unasyn. * Discontinue A-line and Costa catheter if okay with surgery. * Continue Lasix for negative fluid balance. * Discontinue IV fluids. * Continue aspirin, Plavix and heparin as per vascular surgery. * Start incentive spirometry - request from respiratory therapy. * The patient will require additional surgical intervention as per vascular surgery. * Continue all supportive care. * Stable respiratory status without ICU issues at present. * If the patient continues to require hourly pulse/Doppler checks, she will need to remain in the critical care unit.
--- NOTE | 2016-12-28 12:24 | Operative Report ---
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 She presented with nonhealing left lower extremity wounds. Dr. Knutson scheduled her for axial bifemoral bypass with possible angiogram and intervention. I independently performed the angiograms. Please refer to Dr. Knutson's operative notes regarding the axillofemoral bypass segment of the operation. After bilateral common femoral artery cutdowns, micropuncture technique was used to enter the common femoral artery bilaterally. 5 [place] sheaths were then exchanged for the micropuncture sheath. Attempt initially was made at crossing the right common iliac artery occlusion using glide wire, 01 for an 018 wires with different support catheters. However, I was only able to get into the subintimal plane not able to come back into the true lumen of the aorta by using the reentry device. On the left side, similar thing as explained above occurred as again using different wires and support catheters I was not able to get into the true lumen of the aorta and was traveling in the subintimal plane. Angiograms in a retrograde fashion through bilateral sheaths were performed throughout the procedure with findings detailed below. With unsuccessful endovascular segment of the operation, axillobifemoral bypass was completed. For the details of this operation please refer to Dr. Knutson's operative note. Using micropuncture technique the left segment of the femoral femoral bypass was punctured with micropuncture needle. A micropuncture sheath was placed in an antegrade fashion and left leg angiogram was performed with findings outlined below. Wires and catheters were removed. The patient tolerated the procedure well. Radiographic findings: -Patent bilateral external iliac artery with severe diffuse disease. -Bilateral common iliac arteries are occluded -The left SFA is occluded from its origin. The profunda is patent with multiple large branches -The left SFA reconstitutes above the knee and popliteal and tibioperoneal trunk. There is three-vessel, albeit underfilled, runoff to the foot.
[2016-12-28 13:19] LABS: ABSOLUTE BASOPHIL COUNT 0 /CUMM (0.0-0.2); ABSOLUTE EOSINOPHIL COUNT 0 /CUMM (0.0-0.7); HEMATOCRIT 22.9 % (37-47)
[2016-12-28 13:23] LABS: ABSOLUTE GRANULOCYTE CT 9.1 /CUMM (1.4-6.5); ABSOLUTE LYMPH COUNT 1.5 /CUMM (1.2-3.4); ABSOLUTE MONOCYTE COUNT 1.6 /CUMM (0.10-0.60); BASOPHIL % 0.2 % (0.0-2.0); EOSINOPHIL % 0.4 % (0-5); MEAN CORPUSCULAR HGB 25.5 PG (27.0-31.0); MEAN CORPUSCULAR HGB CONC 31.3 G/DL (33.0-37.0); MEAN CORPUSCULAR VOLUME 81.4 FL (81.0-99.0); MEAN PLATELET VOLUME 8.3 FL (7.4-10.4); PLATELET COUNT 540 /CUMM (130-400); RBC DISTRIBUTION WIDTH 18.1 % (11.5-14.5); RED BLOOD CELL CT 2.81 /CUMM (4.20-5.40); WHITE BLOOD CELL COUNT 12.3 /CUMM (4.8-10.8)
--- NOTE | 2016-12-28 14:28 | PN- Cardiology ---
Subjective Subjective: The patient is doing well postoperatively. She has incisional discomfort. No shortness of breath. No palpitations. No diaphoresis. Objective Vital Signs and I&Os Vital Signs Date Time Temp Pulse Resp B/P Pulse O2 O2 Flow FiO2 Ox Delivery Rate 12/28 1200 97 Room Air / 0911 93 102/60 12/28 0911 98 102/60 / 0800 98.0 92 17 100/50 97 Room Air 12/28 0800 97 Room Air 12/28 0107 92 114/50 03/ 0000 97.9 96 30 98/54 98 Room Air Room Air 12/27 2131 100 Room Air Room Air 12/27 1800 98 Room Air 12/27 1800 97.7 102 20 136/72 98 Room Air Intake & Output 12/28 1600 12/28 0800 / 0000 12/27 1600 12/27 0800 / 0000 Intake Total 679 415 0 1055.6 Output Total 300 262 363 5950 Balance 379 -105 -450 55.6 Intake, IV 639 375 0 335.6 Intake, Oral 40 40 0 720 Number 0 0 0 Bowel Movements Output, Stool 0 Output, Urine 300 703 086 3166 Patient 128 lb Weight Physical Exam: Gen: NAD HEENT: normal Lungs: clear to auscultation, normal resp. effort Heart: RRR, S1, S2, no murmurs Abdomen: Soft, nontender, no masses Extremities: No clubbing, cyanosis, or edema. Neuro: Alert and oriented x 3, cranial nerves intact Current Medications: Current Medications Sig/Bibi Start time Last Medication Dose Route Stop Time Status Admin Acetaminophen 650 MG Q8P PRN 12/27 1800 AC PO Acetaminophen 650 MG Q8P PRN 12/24 0915 DC 12/26 PO 0418 Ampicillin Sodium/ 3,000 MG Q6H 12/27 1400 DC 12/28 Sulbactam Sodium IV 0745 Sodium Chloride 100 ML Aspirin 325 MG DAILY 12/28 1000 AC 12/28 PO 0911 Aspirin 325 MG ONCE ONE 12/27 1645 DC 12/27 PO 12/27 1646 1747 Atorvastatin Calcium 40 MG 1700 12/28 1700 AC PO Atorvastatin Calcium 40 MG 1700 12/17 1700 DC 12/26 PO 1815 Bisacodyl 5 MG DAILY 12/28 1000 AC 12/28 PO 0911 Bisacodyl 5 MG DAILY 03/01 1145 DC 12/26 PO 0832 Clopidogrel Bisulfate 75 MG DAILY 12/28 1000 AC 12/28 PO 0911 Clopidogrel Bisulfate 75 MG ONCE ONE 12/27 1645 DC 12/27 PO 12/27 1646 1747 Dextrose/Sodium 1,000 ML Q13H 12/27 1400 DC 12/28 [place] [address]12 Furosemide 40 MG 7:30 AM, & 4:30 PM 12/28 0730 AC 12/28 PO 0745 Furosemide 40 MG 7:30 AM, & 4:30 PM 12/24 0730 DC 12/26 PO 1815 Heparin Sodium 5,000 UNIT Q8 12/28 0820 AC 12/28 (Porcine) SC 1403 Hydromorphone HCl 2 MG .STK-MED ONE 12/27 1658 DC IM 12/27 1659 Hydromorphone HCl 2 MG .STK-MED ONE 12/27 1429 DC IM 12/27 1430 Levothyroxine Sodium 0.125 MG DAILY AC 12/28 0700 AC 12/28 PO 0703 Levothyroxine Sodium 0.125 MG DAILY AC 12/18 0700 DC 12/26 PO 0619 Lisinopril 10 MG DAILY 12/28 1000 AC 12/28 PO 0911 Lisinopril 10 MG DAILY 12/20 2026 DC 12/26 PO 0833 Meperidine HCl 50 MG .STK-MED ONE 12/27 1429 DC IM 12/27 1430 Metoprolol Tartrate 50 MG BID 12/27 2200 AC 12/28 PO 0911 Metoprolol Tartrate 50 MG BID 12/17 2200 DC 12/26 PO 2046 Morphine Sulfate 2 MG Q3P PRN 12/27 1400 AC 12/28 IV 0838 Ondansetron HCl 4 MG Q6P PRN 12/27 1800 AC IV Ondansetron HCl 4 MG Q6P PRN 12/17 1315 DC IV Oxycodone/ 1 TAB Q4P PRN 12/27 1400 AC Acetaminophen PO Oxycodone/ 2 TAB Q4P PRN 12/27 1400 AC Acetaminophen PO Results Last 48 Hrs of Labs/Mics: Laboratory Tests 12/28/16 1140: CBC w Diff NO MAN DIFF REQ, RBC 2.81 L, MCV 81.4, MCH 25.5 L, RDW 18.1 H, MPV 8.3, Gran % 74.0, Lymphocytes % 12.4 L, Monocytes % 13.0 H, Eosinophils % 0.4, Basophils % 0.2, Absolute Granulocytes 9.1 H, Absolute Lymphocytes 1.5, Absolute Monocytes 1.6 H, Absolute Eosinophils 0, Absolute Basophils 0, PUBS MCHC 31.3 L 12/28/16 0802: CBC w Diff Cancelled, WBC Cancelled, RBC Cancelled, Hgb Cancelled, Hct Cancelled , MCV Cancelled, MCH Cancelled, RDW Cancelled, Plt Count Cancelled, MPV Cancelled, PUBS MCHC Cancelled 12/28/16 0530: Anion Gap 9, Estimated GFR > 60, Glucose 110 H, Calcium 8.4, Phosphorus 3.4, Magnesium 2.0, Total Bilirubin 0.2, AST 191 H, ALT 43, Troponin I < 0.01, Albumin 2.4 L, CBC w Diff NO MAN DIFF REQ, RBC 2.86 L, MCV 81.2, MCH 25.3 L, RDW 17.7 H, MPV 8.0, Gran % 69.9, Lymphocytes % 13.9 L, Monocytes % 15.5 H, Eosinophils % 0.3, Basophils % 0.4, Absolute Granulocytes 8.0 H, Absolute Lymphocytes 1.6, Absolute Monocytes 1.8 H, Absolute Eosinophils 0, Absolute Basophils 0, [facility] MCHC 31.2 L 12/27/16 2200: Anion Gap 11, Estimated GFR > 60, Glucose 126 H, Calcium 8.5, Phosphorus 3.9, Magnesium 2.0, Total Bilirubin 0.2, AST 195 H, ALT 48, Albumin 2.5 L, CBC w Diff NO MAN DIFF REQ, RBC 3.09 L, MCV 81.0, MCH 24.8 L, RDW 17.7 H, MPV 8.3, Gran % 76.1 H, Lymphocytes % 10.8 L, Monocytes % 12.8 H, Eosinophils % 0.1, Basophils % 0.2, Absolute Granulocytes 9.5 H, Absolute Lymphocytes 1.3, Absolute Monocytes 1.6 H, Absolute Eosinophils 0, Absolute Basophils 0, [facility] MCHC 30.6 L 12/27/16 1138: CBC w Diff NO MAN DIFF REQ, RBC 2.90 L, MCV 79.3 L, MCH 25.7 L, RDW 17.3 H, MPV 8.1, Gran % 85.4 H, Lymphocytes % 9.9 L, Monocytes % 4.2, Eosinophils % 0.4, Basophils % 0.1, Absolute Granulocytes 11.9 H, Absolute Lymphocytes 1.4, Absolute Monocytes 0.6, Absolute Eosinophils 0.1, Absolute Basophils 0, PUBS MCHC 32.4 L 12/27/16 1000: Anion Gap 10, Estimated GFR > 60, BUN/Creatinine Ratio 20.0, Magnesium 1.9, Creatine Kinase 280 H, Troponin I < 0.01, CBC w Diff NO MAN DIFF REQ, RBC 3.32 L, MCV 79.3 L, MCH 25.3 L, RDW 16.9 H, MPV 7.4, Gran % 89.8 H, Lymphocytes % 6.0 L, Monocytes % 4.2, Eosinophils % 0, Basophils % 0 L, Absolute Granulocytes 16.5 H, Absolute Lymphocytes 1.1 L, Absolute Monocytes 0.8 H, Absolute Eosinophils 0, Absolute Basophils 0, PUBS MCHC 31.8 L 12/27/16 0425: Anion Gap 9, Estimated GFR > 60, BUN/Creatinine Ratio 21.1, Magnesium 2.2, APTT 26, CBC w Diff NO MAN DIFF REQ, RBC 3.56 L, MCV 81.4, MCH 25.6 L, RDW 18.0 H, MPV 8.4, Gran % 72.4, Lymphocytes % 16.5 L, Monocytes % 9.0, Eosinophils % 1.9, Basophils % 0.2, Absolute Granulocytes 9.9 H, Absolute Lymphocytes 2.3, Absolute Monocytes 1.2 H, Absolute Eosinophils 0.3, Absolute Basophils 0, PUBS MCHC 31.5 L 12/26/16 1630: APTT 82 H Assessment/Plan Assessment/Plan Assessment: 1. Status post left axillary femoral bypass, for severe peripheral vascular disease and chronic nonhealing ischemic ulcer of the left foot. 2. Coronary artery disease 3. No evidence of ischemia on nuclear stress test 4. Acute diastolic heart failure (HFpEF) 5. Mild troponin elevation, secondary to demand ischemia and diastolic heart failure Plan: * Tinea. Lasix. * Continue other cardiac medications. * Monitor on telemetry. Continue telemetry? Yes
--- NOTE | 2016-12-28 15:31 | PN- Vascular Surgery ---
Surgical Brief Attending Note Brief Attending Note: VASCULAR ATTENDING NOTE: Pt. now POD #1 s/p AX-BIFem byass. No acute events. No complaints. PE: AF/VSS Ext: Wounds C/D/I w/dressings/LE perfused, multiphasic dopplers A/P May transfer to floor For OR debridement tommorow/washout/VAC Cont. ABX and likely will convert to PO after procedure ASA/Plavix/SQ heparin
[2016-12-28 16:00] VITALS: BP 100/60
--- NOTE | 2016-12-28 17:16 | Event Note ---
Event Note Event Note: The surgical PA, Titus, called and communicated that the patiet is okay for downgrade to Tele. She was supposed to get hourly dopplers and pulse checks 24- hours post op, no longer a need for closer monitoring. Dr. Knutson's note also mentioned she is okay for the floor. The plan stays for her to go to the OR in am for wound debridement and wound VAC, but she no longer needs critical care monitoring per surgery. Dr. Mcgarry and Dr. Callejas updated.
[2016-12-28 23:46] VITALS: BP 98/56
[2016-12-29 05:17] LABS: ABSOLUTE BASOPHIL COUNT 0 /CUMM (0.0-0.2); ABSOLUTE EOSINOPHIL COUNT 0.1 /CUMM (0.0-0.7); ABSOLUTE GRANULOCYTE CT 9.2 /CUMM (1.4-6.5); ABSOLUTE LYMPH COUNT 1.9 /CUMM (1.2-3.4); ABSOLUTE MONOCYTE COUNT 1.6 /CUMM (0.10-0.60); BASOPHIL % 0.3 % (0.0-2.0); EOSINOPHIL % 0.5 % (0-5); GRANULOCYTE % 71.8 % (42.2-75.2); HEMATOCRIT 27.1 % (37-47); MEAN CORPUSCULAR HGB 26.1 PG (27.0-31.0); MEAN CORPUSCULAR HGB CONC 31.5 G/DL (33.0-37.0); MEAN CORPUSCULAR VOLUME 83.1 FL (81.0-99.0); MEAN PLATELET VOLUME 8.4 FL (7.4-10.4); PLATELET COUNT 566 /CUMM (130-400); RED BLOOD CELL CT 3.27 /CUMM (4.20-5.40); WHITE BLOOD CELL COUNT 12.8 /CUMM (4.8-10.8)
--- NOTE | 2016-12-29 05:42 | PN- Vascular Surgery ---
Subjective Subjective: POD #2 s/p AX-BIFem byass. No acute events. No complaints. She was transfused last evening 1 unit of packed red blood cells, no transfusion reaction. She is nothing by mouth for surgical debridement left lower extremity wound and wound VAC placement later today by Dr. Knutson Objective Vital Signs and I&Os Vital Signs Date Time Temp Pulse Resp B/P Pulse O2 O2 Flow FiO2 Ox Delivery Rate 12/29 0000 95 Room Air 12/28 2346 98.9 83 18 98/56 95 Room Air 12/28 2214 102 112/58 / 2000 98 Room Air 12/28 1611 Room Air Room Air 12/28 1600 98.4 96 20 100/60 99 Room Air 12/28 1200 97 Room Air 12/28 0911 93 102/60 12/28 0911 98 102/60 12/28 0800 98.0 92 17 100/50 97 Room Air 12/28 0800 97 Room Air Intake & Output 12/29 0800 /08 0000 / 1600 12/28 0800 / 0000 / 1600 Intake Total 240 900 679 415 Output Total 650 1000 300 520 Balance -410 -100 379 -105 Intake, IV 420 639 375 Intake, Oral 240 480 40 40 Number 0 0 0 0 Bowel Movements Output, Urine 650 1000 300 520 Physical Exam: Well-developed well-nourished no apparent distress. Lying on stretcher in no acute distress HEENT: Atraumatic, Neck: Supple, no lymphadenopathy Respiratory: No respiratory distress clear to auscultation bilateral. Chest dressing clean dry and intact Heart: Regular rate and rhythm no murmur Extremities: No edema, Bilateral groin dressings clean dry and intact, no significant hematoma Bilateral lower extremity with dopplerable dorsal pedal and posterior tibial pulses, toes are warm with good capillary refill. Neuro: Alert and oriented x3 Psych: Mood affect normal, normal memory normal judgment. Skin: Warm and dry, no rash on exposed skin Results Last 48 Hours of Labs: Laboratory Tests 12/29 12/28 12/28 12/28 0405 1140 0802 0530 Chemistry Sodium (137 - 145 mmol/L) Pending 139 Potassium (3.5 - 5.1 mmol/L) Pending 4.1 Chloride (98 - 107 mmol/L) Pending 104 Carbon Dioxide (22 - 30 mmol/L) Pending 26 Anion Gap (5 - 16) Pending 9 BUN (7 - 17 mg/dL) Pending 15 Creatinine (0.5 - 1.0 mg/dL) Pending 0.8 Estimated GFR (>60 ml/min) > 60 Glucose (65 - 99 mg/dL) Pending 110 H Calcium (8.4 - 10.2 mg/dL) Pending 8.4 Phosphorus (2.5 - 4.5 mg/dL) Pending 3.4 Magnesium (1.6 - 2.3 mg/dL) Pending 2.0 Total Bilirubin (0.2 - 1.3 mg/dL) Pending 0.2 AST (14 - 36 U/L) Pending 191 H ALT (9 - 52 U/L) Pending 43 Troponin I (< 0.11 ng/ml) < 0.01 Albumin (3.5 - 5.0 g/dL) Pending 2.4 L Hematology CBC w Diff Pending NO MAN DIFF REQ Cancelled NO MAN DIFF REQ WBC (4.8 - 10.8 /CUMM) Pending 12.3 H Cancelled 11.4 H RBC (4.20 - 5.40 /CUMM) Pending 2.81 L Cancelled 2.86 L Hgb (12.0 - 16.0 G/DL) Pending 7.2 *L Cancelled 7.3 *L Hct (37 - 47 %) Pending 22.9 L Cancelled 23.3 L MCV (81.0 - 99.0 FL) Pending 81.4 Cancelled 81.2 MCH (27.0 - 31.0 PG) Pending 25.5 L Cancelled 25.3 L RDW (11.5 - 14.5 %) Pending 18.1 H Cancelled 17.7 H Plt Count (130 - 400 /CUMM) Pending 540 H Cancelled 556 H MPV (7.4 - 10.4 FL) Pending 8.3 Cancelled 8.0 Gran % (42.2 - 75.2 %) Pending 74.0 69.9 Lymphocytes % (20.5 - 51.1 %) Pending 12.4 L 13.9 L Monocytes % (1.7 - 9.3 %) Pending 13.0 H 15.5 H Eosinophils % (0 - 5 %) Pending 0.4 0.3 Basophils % (0.0 - 2.0 %) Pending 0.2 0.4 Absolute Granulocytes (1.4 - 6.5 /CUMM) Pending 9.1 H 8.0 H Absolute Lymphocytes (1.2 - 3.4 /CUMM) Pending 1.5 1.6 Absolute Monocytes (0.10 - 0.60 /CUMM) Pending 1.6 H 1.8 H Absolute Eosinophils (0.0 - 0.7 /CUMM) Pending 0 0 Absolute Basophils (0.0 - 0.2 /CUMM) Pending 0 0 PUBS MCHC (33.0 - 37.0 G/DL) Pending 31.3 L Cancelled 31.2 L 12/27 12/27 2200 1138 Chemistry Sodium (137 - 145 mmol/L) 138 Potassium (3.5 - 5.1 mmol/L) 4.3 Chloride (98 - 107 mmol/L) 100 Carbon Dioxide (22 - 30 mmol/L) 27 Anion Gap (5 - 16) 11 BUN (7 - 17 mg/dL) 18 H Creatinine (0.5 - 1.0 mg/dL) 0.9 Estimated GFR (>60 ml/min) > 60 Glucose (65 - 99 mg/dL) 126 H Calcium (8.4 - 10.2 mg/dL) 8.5 Phosphorus (2.5 - 4.5 mg/dL) 3.9 Magnesium (1.6 - 2.3 mg/dL) 2.0 Total Bilirubin (0.2 - 1.3 mg/dL) 0.2 AST (14 - 36 U/L) 195 H ALT (9 - 52 U/L) 48 Albumin (3.5 - 5.0 g/dL) 2.5 L Hematology CBC w Diff NO MAN DIFF REQ NO MAN DIFF REQ WBC (4.8 - 10.8 /CUMM) 12.5 H 13.9 H RBC (4.20 - 5.40 /CUMM) 3.09 L 2.90 L Hgb (12.0 - 16.0 G/DL) 7.7 L 7.5 L Hct (37 - 47 %) 25.0 L 23.0 L MCV (81.0 - 99.0 FL) 81.0 79.3 L MCH (27.0 - 31.0 PG) 24.8 L 25.7 L RDW (11.5 - 14.5 %) 17.7 H 17.3 H Plt Count (130 - 400 /CUMM) 598 H 577 H MPV (7.4 - 10.4 FL) 8.3 8.1 Gran % (42.2 - 75.2 %) 76.1 H 85.4 H Lymphocytes % (20.5 - 51.1 %) 10.8 L 9.9 L Monocytes % (1.7 - 9.3 %) 12.8 H 4.2 Eosinophils % (0 - 5 %) 0.1 0.4 Basophils % (0.0 - 2.0 %) 0.2 0.1 Absolute Granulocytes (1.4 - 6.5 /CUMM) 9.5 H 11.9 H Absolute Lymphocytes (1.2 - 3.4 /CUMM) 1.3 1.4 Absolute Monocytes (0.10 - 0.60 /CUMM) 1.6 H 0.6 Absolute Eosinophils (0.0 - 0.7 /CUMM) 0 0.1 Absolute Basophils (0.0 - 0.2 /CUMM) 0 0 PUBS MCHC (33.0 - 37.0 G/DL) 30.6 L 32.4 L 03/06 UNK Chemistry Sodium (137 - 145 mmol/L) 137 Potassium (3.5 - 5.1 mmol/L) 4.1 Chloride (98 - 107 mmol/L) 99 Carbon Dioxide (22 - 30 mmol/L) 28 Anion Gap (5 - 16) 10 BUN (7 - 17 mg/dL) 18 H Creatinine (0.5 - 1.0 mg/dL) 0.9 Estimated GFR (>60 ml/min) > 60 BUN/Creatinine Ratio (7 - 25 %) 20.0 Magnesium (1.6 - 2.3 mg/dL) 1.9 Creatine Kinase (30 - 135 U/L) 280 H Troponin I (< 0.11 ng/ml) < 0.01 Hematology CBC w Diff NO MAN DIFF REQ WBC (4.8 - 10.8 /CUMM) 18.4 H RBC (4.20 - 5.40 /CUMM) 3.32 L Hgb (12.0 - 16.0 G/DL) 8.4 L Hct (37 - 47 %) 26.3 L MCV (81.0 - 99.0 FL) 79.3 L MCH (27.0 - 31.0 PG) 25.3 L RDW (11.5 - 14.5 %) 16.9 H Plt Count (130 - 400 /CUMM) 590 H MPV (7.4 - 10.4 FL) 7.4 Gran % (42.2 - 75.2 %) 89.8 H Lymphocytes % (20.5 - 51.1 %) 6.0 L Monocytes % (1.7 - 9.3 %) 4.2 Eosinophils % (0 - 5 %) 0 Basophils % (0.0 - 2.0 %) 0 L Absolute Granulocytes (1.4 - 6.5 /CUMM) 16.5 H Absolute Lymphocytes (1.2 - 3.4 /CUMM) 1.1 L Absolute Monocytes (0.10 - 0.60 /CUMM) 0.8 H Absolute Eosinophils (0.0 - 0.7 /CUMM) 0 Absolute Basophils (0.0 - 0.2 /CUMM) 0 PUBS MCHC (33.0 - 37.0 G/DL) 31.8 L Assessment/Plan Assessment/Plan Pt. now POD #2 s/p AX-BIFem byass. -Acute blood loss anemia status post transfusion yesterday, CBC pending for this morning, patient not symptomatic -Continue current meds -Pain medication as needed -Aspirin 325 mg, Plavix 75 and heparin subcutaneous 5000 for DVT prophylaxis -To OR today for debridement left lower extremity wound and wound VAC placement, can be downgraded to the floor afterwards if medically stable throughout procedure. Core Measures/Miscellaneous Venous Thromboembolism VTE Risk Factors: Age > 40 VTE Contraindications: No Contraindications VTE Diagnosis: No VTE Type: NONE VTE Confirmed by (Test): NONE Beta Nury Is Beta Nury a Home Med? Yes If Yes, Was This Ordered Today? Yes Antibiotics Is Patient on Antibiotics? Yes
--- NOTE | 2016-12-29 07:06 | PN- Housestaff ---
CYRUS TOM,GE 12/29/16 0705: Subjective Follow-up For: Chronic non healing ischemic ulcer of left foot Severe PAD s/p axillary bifemoral bypass Anemia Subjective: No acute events overnight. Patient was seen and examined this morning. She has no complaints. Postoperative pain is well-controlled with medications. Later in the afternoon she went for debridement of the chronic non healing left foot ulcer with wound VAC placement which she tolerated without complications. Review of Systems Constitutional: Reports: no symptoms. Objective Last 24 Hrs of Vital Signs/I&O Vital Signs Date Time Temp Pulse Resp B/P Pulse O2 O2 Flow FiO2 Ox Delivery Rate 12/29 210 112 /08 1647 98.9 112 20 92/58 94 Room Air 03/08 0945 91 18 100/54 95 Room Air 03/08 0923 91 100/54 03/08 0000 95 Room Air 03/07 2346 98.9 83 18 98/56 95 Room Air 03/07 2214 102 112/58 Vital Signs Date Time Temp Pulse Resp B/P Pulse O2 O2 Flow FiO2 Ox Delivery Rate 12/29 2105 112 / 1647 98.9 112 20 92/58 94 Room Air 03/08 0945 91 18 100/54 95 Room Air 03/08 0923 91 100/54 03/08 0000 95 Room Air 03/07 2346 98.9 83 18 98/56 95 Room Air 03/07 2214 102 112/58 Intake & Output / 1600 03/08 0800 03/08 0000 Intake Total 640 0 240 Output Total 400 250 650 Balance 240 -250 -410 Intake, IV 400 0 Intake, Oral 240 0 240 Number 0 0 Bowel Movements Output, Urine 400 250 650 Patient 51.398 kg Weight Physical Exam General Appearance: Alert, Oriented X3, No Acute Distress HEENT: Atraumatic Neck: Supple Cardiovascular: Regular Rate, Normal S1, Normal S2 Lungs: Diminished Breath Sounds Abdomen: Soft, No Tenderness, Positive Bowel Sounds Extremities: LLE Dressing In Place Current Medications: Current Medications Sig/Bibi Start time Last Medication Dose Route Stop Time Status Admin Acetaminophen 650 MG Q8P PRN 12/27 1800 AC PO Aspirin 325 MG DAILY 12/28 1000 AC /08 PO 1502 Atorvastatin Calcium 40 MG 1700 12/28 1700 AC / PO 1709 Bisacodyl 5 MG DAILY 12/28 1000 AC 12/29 PO 1502 Clopidogrel Bisulfate 75 MG DAILY 12/28 1000 AC 12/29 PO 1502 Fentanyl Citrate 200 MCG .STK-MED ONE 12/29 1057 DC IM 12/29 1058 Fentanyl Citrate 100 MCG .STK-MED ONE 12/29 1031 DC IM 12/29 1032 Furosemide 40 MG 7:30 AM, & 4:30 PM 12/28 0730 AC 12/29 PO 1709 Heparin Sodium 5,000 UNIT Q8 12/28 0820 AC 12/29 (Porcine) SC 2105 Ketamine HCl 50 MG .STK-MED ONE 12/29 1058 DC IM 12/29 1059 Levothyroxine Sodium 0.125 MG DAILY AC 12/28 0700 AC 12/29 PO 0607 Lisinopril 10 MG DAILY 12/28 1000 AC 12/29 PO 1502 Metoprolol Tartrate 50 MG BID 12/27 2200 AC 12/29 PO 2105 Midazolam HCl 2 MG .STK-MED ONE 12/29 1031 DC IM 12/29 1032 Morphine Sulfate 2 MG Q3P PRN 12/27 1400 AC 12/28 IV 0838 Ondansetron HCl 4 MG Q6P PRN 12/27 1800 AC IV Oxycodone/ 1 TAB Q4P PRN 12/27 1400 AC Acetaminophen PO Oxycodone/ 2 TAB Q4P PRN 12/27 1400 AC 12/29 Acetaminophen PO 2104 Last 24 Hrs of Lab/Ernesto Results Last 24 Hrs of Labs/Mics: Laboratory Tests 12/29/16 0405: Anion Gap 11, Estimated GFR > 60, Glucose 89, Calcium 8.4, Phosphorus 3.8, Magnesium 2.1, Total Bilirubin 0.3, AST 114 H, ALT 40, Albumin 2.5 L, CBC w Diff NO MAN DIFF REQ, RBC 3.27 L, MCV 83.1, MCH 26.1 L, RDW 18.0 H, MPV 8.4, Gran % 71.8, Lymphocytes % 14.9 L, Monocytes % 12.5 H, Eosinophils % 0.5, Basophils % 0.3, Absolute Granulocytes 9.2 H, Absolute Lymphocytes 1.9, Absolute Monocytes 1.6 H, Absolute Eosinophils 0.1, Absolute Basophils 0, PUBS MCHC 31.5 L Assessment/Plan Assessment: 61 y/o F with PMHx of severe PAD, HTN and HLD admitted for chronic non healing ischemic ulcer of left foot s/p revascularization of LLE, with a hospital course complicated by elevated troponins and acute diastolic CHF. #Chronic non healing ischemic ulcer of LLE: Secondary to severe PAD. S/p revascularization of LLE with axillary bifemoral bypass (12/27/16) and debridement and wound VAC placement today. Tolerated the procedure well without complications. * Vascular surgery following. Appreciate their recs. * Continue prior to admission atorvastatin 40 mg PO daily. * Continue aspirin 325 mg PO daily and Plavix 75 mg PO daily. * Continue PT. * Encourage incentive spirometry. * Downgrade to telemetry. #Anemia: Chronic anemia with baseline Hgb of 8-9. S/p 1 unit of pRBCs with improvement of H/H from 7.2/22.9 to 8.5/27.1 today. * Continue to monitor H/H. #Acute diastolic CHF: Stable. * Cardiology following. Appreciate their recs. * Monitor strict I/Os. * Continue telemetry monitoring. * Continue Lasix 40 mg PO BID. #Grounglass opacity in RML: Present on CTA Chest (12/21/16). * Repeat CT scan in 3-4 months. Diet: Heart Healthy Diet DVT PPx: HSQ CODE: FULL Problem List: 1. Ischemic ulcer of left foot 2. S/P vascular surgery 3. S/P debridement 4. Severe peripheral arterial disease 5. Anemia 6. Ground glass opacity present on imaging of lung 7. Diastolic CHF Pain Ratin Pain Location: Surgical incision site Pain Goal: Pain 4 or less Pain Plan: Morphine 2 mg IV Q3H PRN for severe pain (scale 7-10) Percocet 2 tabs PO Q4H PRN for moderate pain (scale 4-6) Tylenol 650 mg PO Q8H PRN for mild pain (scale 1-3) Tomorrow's Labs & Rationales: CBC to monitor H/H in the setting of anemia BMP to monitor lytes and kidney function postoperatively JUSTINO SANFORD MD 12/29/16 1539: Attending MD Review Statement Attending Statement Attending Statement: examined this patient, discuss w/resident/PA/MACHINE STEMMER, agreed w/resident/PA/MACHINE STEMMER, reviewed EMR data (avail), discussed with nursing, discussed with case mgmt, reviewed images Attending Assessment/Plan: Pt is now a telemetry hold in the ICU. From a cardiorespiratory standpoint she is doing well on her current dose of Lasix. I discussed with Dr. Simon and she is safe to move to telemetry. She status post I &D and they are clarifying that the every hour checks are not needed anymore. She is also status post the axillary bifemoral bypass for severe peripheral vascular disease and we are closely monitoring that she doesn't go into heart failure. She status post transfusion for acute on chronic blood loss anemia.
[2016-12-29 09:45] VITALS: BP 100/54
--- NOTE | 2016-12-29 14:54 | PN- Vascular Surgery ---
Subjective Subjective: The patient was seen this afternoon postoperatively. She reports her pain is under adequate control and has no other complaints the current time. Objective Vital Signs and I&Os Vital Signs Date Time Temp Pulse Resp B/P Pulse O2 O2 Flow FiO2 Ox Delivery Rate 12/29 0845 91 18 100/54 95 Room Air 12/29 0923 91 100/54 12/29 0000 95 Room Air 12/28 2346 98.9 83 18 98/56 95 Room Air 12/28 2214 102 112/58 12/28 2000 98 Room Air 12/28 1611 Room Air Room Air 12/28 1600 98.4 96 20 100/60 99 Room Air Intake & Output 12/29 1600 12/29 0800 / 0000 12/28 1600 12/28 0800 12/28 0000 Intake Total 0 240 900 679 415 Output Total 685 573 3274 300 520 Balance -250 -410 -100 379 -105 Intake, IV 0 420 639 375 Intake, Oral 0 240 480 40 40 Number 0 0 0 0 0 Bowel Movements Output, Urine 440 718 8529 300 520 Patient 113 lb Weight Physical Exam: Gen.: Alert and in no obvious distress Skin: Warm and dry Extremities: Bilateral lower extremities are warm without calf tenderness. Gross motor and sensory are intact. Bilateral groin incisions are clean, dry, and intact without gross hematoma. Bilateral distal extremities with dopplerable DP pulses. Left lower extremity VAC dressing is in place and holding adequate suction Assessment/Plan Assessment/Plan Assessment: 61-year-old female status post axillary bifemoral bypass and subsequent debridements with wound VAC placements of left lower extremity nonhealing wound. Postoperatively patient is progressing as expected and her pain is adequately managed. Recommendations: Continue aspirin Plavix and subcutaneous heparin Keep VAC to suction next VAC change on Tuesday Continue antibiotics PRN antiemetics, antipyretics, and pain medications GI and DVT prophylaxis Total respiratory care Continue care per primary team and various consultation recommendations
[2016-12-29] MEDS ORDERED: LEVOTHYROXINE125 MCG PO (15:06)
--- NOTE | 2016-12-29 16:10 | Operative Report ---
Operative/Inv Procedure Report Surgery Date: 12/29/16 Name of Procedure: Wide excisional debridement through muscle 20 cm, additional 20 cm, placement of a vacuum-assisted closure device Pre-Operative Diagnosis: Right leg atherosclerotic peripheral arterial disease with ulceration Post-Operative Diagnosis: Same Estimated Blood Loss: less than 50ml Surgeon/Clinical Research Analyst: ELINA MIKE MD Anesthesia: local monitored anesthesi Complications: None Condition: Stable to PACU Operative Indication: Necrotic wound Operative/Procedure Note Note: This is a 61-year-old female with a history of atherosclerotic peripheral arterial disease with ulceration. She recently underwent a revascularization procedure. Her wounds look now clinically appropriate for debridement. Previously she was ischemic and time had to be allowed to ensure that these wounds may heal. Risks benefits and alternatives were discussed with the patient. She consented to the procedure. She was brought to the operating room and laid supine on the table. The left leg was prepped and draped in the usual sterile surgical fashion. A timeout was held. With the use of a Bovie electrocautery, Metzenbaum scissors and curettes a wide excisional debridement was performed. This included subcutaneous tissue and muscle. The total area was greater than 20 cm. A deep wound culture was also harvested and passed off the field. The patient has a known infection risk. After successful debridement and granulation tissue was revealed. Wound dimensions increased in length and width. The wound was then pulse irrigated with 2 L of bacitracin-soaked irrigation. Hemostasis was achieved with manual compression. Carpenter thrombin was also utilized. A vacuum-assisted closure device was then brought into the field. The sponge was cut appropriately and placed on the wound and secured with draped. He was attached to the suction and no significant leak was noted. The sponge needle and instrument counts were correct. The patient tolerated the procedure well.
[2016-12-29 16:47] VITALS: BP 92/58
--- NOTE | 2016-12-29 19:06 | PN- Cardiology ---
Subjective Subjective: She continues to do well postoperatively with no new CV issues. Objective Vital Signs and I&Os Vital Signs Date Time Temp Pulse Resp B/P Pulse O2 O2 Flow FiO2 Ox Delivery Rate 12/29 1647 98.9 112 20 92/58 94 Room Air 12/29 0945 91 18 100/54 95 Room Air 12/29 0923 91 100/54 / 0000 95 Room Air 12/28 2346 98.9 83 18 98/56 95 Room Air 12/28 2214 102 112/58 12/28 2000 98 Room Air Intake & Output 12/29 1600 12/29 0800 12/29 0000 12/28 1600 12/28 0812/28 0000 Intake Total 640 0 240 900 679 415 Output Total 400 518 446 7150 300 520 Balance 240 -250 -410 -100 379 -105 Intake, IV 400 0 420 639 375 Intake, Oral 240 0 240 480 40 40 Number 0 0 0 0 0 Bowel Movements Output, Urine 400 699 610 4998 300 520 Patient 113 lb Weight Current Medications: Current Medications Sig/Bibi Start time Last Medication Dose Route Stop Time Status Admin Acetaminophen 650 MG Q8P PRN 12/27 1800 AC PO Aspirin 325 MG DAILY 12/28 1000 AC 12/29 PO 1502 Atorvastatin Calcium 40 MG 1700 12/28 1700 AC 12/29 PO 1709 Bisacodyl 5 MG DAILY 12/28 1000 AC 12/29 PO 1502 Clopidogrel Bisulfate 75 MG DAILY 12/28 1000 AC 12/29 PO 1502 Fentanyl Citrate 200 MCG .STK-MED ONE 12/29 1057 DC IM 12/29 1058 Fentanyl Citrate 100 MCG .STK-MED ONE 12/29 1031 DC IM 12/29 1032 Furosemide 40 MG 7:30 AM, & 4:30 PM 12/28 0730 AC 12/29 PO 1709 Heparin Sodium 5,000 UNIT Q8 12/28 0820 AC 12/29 (Porcine) SC 1502 Ketamine HCl 50 MG .STK-MED ONE 12/29 1058 DC IM 12/29 1059 Levothyroxine Sodium 0.125 MG DAILY AC 12/28 0700 AC 12/29 PO 0607 Lisinopril 10 MG DAILY 12/28 1000 AC 12/29 PO 1502 Metoprolol Tartrate 50 MG BID 12/27 2200 AC 12/29 PO 0923 Midazolam HCl 2 MG .STK-MED ONE 12/29 1031 DC IM 12/29 1032 Morphine Sulfate 2 MG Q3P PRN 12/27 1400 AC 12/28 IV 0838 Ondansetron HCl 4 MG Q6P PRN 12/27 1800 AC IV Oxycodone/ 1 TAB Q4P PRN 12/27 1400 AC Acetaminophen PO Oxycodone/ 2 TAB Q4P PRN 12/27 1400 AC 12/29 Acetaminophen PO 0606 Results Last 48 Hrs of Labs/Mics: Laboratory Tests 12/29/16 0405: Anion Gap 11, Estimated GFR > 60, Glucose 89, Calcium 8.4, Phosphorus 3.8, Magnesium 2.1, Total Bilirubin 0.3, AST 114 H, ALT 40, Albumin 2.5 L, CBC w Diff NO MAN DIFF REQ, RBC 3.27 L, MCV 83.1, MCH 26.1 L, RDW 18.0 H, MPV 8.4, Gran % 71.8, Lymphocytes % 14.9 L, Monocytes % 12.5 H, Eosinophils % 0.5, Basophils % 0.3, Absolute Granulocytes 9.2 H, Absolute Lymphocytes 1.9, Absolute Monocytes 1.6 H, Absolute Eosinophils 0.1, Absolute Basophils 0, PUBS MCHC 31.5 L 12/28/16 1140: CBC w Diff NO MAN DIFF REQ, RBC 2.81 L, MCV 81.4, MCH 25.5 L, RDW 18.1 H, MPV 8.3, Gran % 74.0, Lymphocytes % 12.4 L, Monocytes % 13.0 H, Eosinophils % 0.4, Basophils % 0.2, Absolute Granulocytes 9.1 H, Absolute Lymphocytes 1.5, Absolute Monocytes 1.6 H, Absolute Eosinophils 0, Absolute Basophils 0, PUBS MCHC 31.3 L 12/28/16 0802: CBC w Diff Cancelled, WBC Cancelled, RBC Cancelled, Hgb Cancelled, Hct Cancelled , MCV Cancelled, MCH Cancelled, RDW Cancelled, Plt Count Cancelled, MPV Cancelled, PUBS MCHC Cancelled 12/28/16 0530: Anion Gap 9, Estimated GFR > 60, Glucose 110 H, Calcium 8.4, Phosphorus 3.4, Magnesium 2.0, Total Bilirubin 0.2, AST 191 H, ALT 43, Troponin I < 0.01, Albumin 2.4 L, CBC w Diff NO MAN DIFF REQ, RBC 2.86 L, MCV 81.2, MCH 25.3 L, RDW 17.7 H, MPV 8.0, Gran % 69.9, Lymphocytes % 13.9 L, Monocytes % 15.5 H, Eosinophils % 0.3, Basophils % 0.4, Absolute Granulocytes 8.0 H, Absolute Lymphocytes 1.6, Absolute Monocytes 1.8 H, Absolute Eosinophils 0, Absolute Basophils 0, PUBS MCHC 31.2 L 12/27/16 2200: Anion Gap 11, Estimated GFR > 60, Glucose 126 H, Calcium 8.5, Phosphorus 3.9, Magnesium 2.0, Total Bilirubin 0.2, AST 195 H, ALT 48, Albumin 2.5 L, CBC w Diff NO MAN DIFF REQ, RBC 3.09 L, MCV 81.0, MCH 24.8 L, RDW 17.7 H, MPV 8.3, Gran % 76.1 H, Lymphocytes % 10.8 L, Monocytes % 12.8 H, Eosinophils % 0.1, Basophils % 0.2, Absolute Granulocytes 9.5 H, Absolute Lymphocytes 1.3, Absolute Monocytes 1.6 H, Absolute Eosinophils 0, Absolute Basophils 0, PUBS MCHC 30.6 L Assessment/Plan Assessment/Plan Assessment: 1. Acute diastolic heart failure 2. Peripheral arterial disease with left lower extremity ischemia; post surgical intervention 3. Mild to moderate mitral insufficiency 4. Mild troponin elevation related to demand ischemia and acute diastolic heart failure Recommendations: -Continue current medical regimen -The patient can transfer to telemetry if ok with vascular surgery -Continue as per the vascular surgery service. Continue telemetry? Yes
[2016-12-30 00:45] VITALS: BP 100/60
[2016-12-30 08:01] LABS: ABSOLUTE BASOPHIL COUNT 0 /CUMM (0.0-0.2); ABSOLUTE EOSINOPHIL COUNT 0.2 /CUMM (0.0-0.7); ABSOLUTE GRANULOCYTE CT 12.3 /CUMM (1.4-6.5); ABSOLUTE LYMPH COUNT 1.6 /CUMM (1.2-3.4); ABSOLUTE MONOCYTE COUNT 1.4 /CUMM (0.10-0.60); BASOPHIL % 0.1 % (0.0-2.0); EOSINOPHIL % 1.1 % (0-5); GRANULOCYTE % 79.7 % (42.2-75.2); HEMATOCRIT 24.9 % (37-47); MEAN CORPUSCULAR HGB 26.1 PG (27.0-31.0); MEAN CORPUSCULAR HGB CONC 31.4 G/DL (33.0-37.0); MEAN CORPUSCULAR VOLUME 83.3 FL (81.0-99.0); MEAN PLATELET VOLUME 8.5 FL (7.4-10.4); PLATELET COUNT 532 /CUMM (130-400); RBC DISTRIBUTION WIDTH 17.9 % (11.5-14.5); RED BLOOD CELL CT 2.98 /CUMM (4.20-5.40); WHITE BLOOD CELL COUNT 15.5 /CUMM (4.8-10.8)
--- NOTE | 2016-12-30 08:11 | Transfer of Care Summary ---
Hospital Course Course Hospital Course: Ms. Singh is a 61 y/o F with PMHx of severe PAD, HTN and HLD who was admitted for evaluation of chronic non healing ischemic ulcers of left lower extremity associated with severe pain. She was evaluated by a CTA which showed bilateral peripheral arterial occlusive disease and she was scheduled for a axillary bifemoral bypass. For cardiac clearance, ECHO and nuclear stress test were performed. ECHO revealed diastolic heart failure and pulmonary HTN and nuclear stress test was normal. Her hospital course was complicated by elevation in her troponins following the nuclear stress test felt to represent demand ischemia as well as acute exacerbation of CHF after receiving IV fluids in anticipation for contrast enhanced CT. She was transferred to the ICU for close monitoring following axillary bifemoral bypass with revascularization of the left leg. Below are the issues that were addressed during ICU admission: Significant Procedures: Axillary bifemoral bypass (12/27/16) Debridement of LLE nonhealing wound and wound VAC placement (12/29/16) Assessment/Plan: #Severe PAD with chronic non healing ischemic ulcer of LLE: Patient underwent revascularization of LLE with axillary bifemoral bypass on 12/27/16 and remained in the ICU following the procedure for hourly neurovascular checks. Postoperative EKG was without any acute changes and troponin was negative. On 12/29/16, she underwent debridement and wound VAC placement which she tolerated without complications. * Vascular surgery following. Appreciate their recs. * Continue prior to admission atorvastatin 40 mg PO daily. * Continue aspirin 325 mg PO daily and Plavix 75 mg PO daily. * Continue HSQ for DVT PPx. * Continue physical therapy. * Encourage incentive spirometry. * Morphine 2 mg IV Q3H PRN for severe pain (scale 7-10), Percocet 2 tabs PO Q4H PRN for moderate pain (scale 4-6) and Percocet 1 tab PO Q4H PRN and Tylenol 650 mg PO Q8H PRN for mild pain (scale 1-3). #Anemia: Patient has chronic microcytic hypochromic anemia with baseline Hgb of 8-9. Her H/H was noted to be at a bora of 7.2/22.9 on 12/28/16 and she was transfused 1 unit of pRBCs with improvement of H/H to 8.5/27.1. * Continue to monitor H/H and transfuse as needed. #Acute diastolic CHF: Patient remained stable from a cardiac perspective. * Cardiology following. Appreciate their recs. * Monitor strict I/Os. * Continue telemetry monitoring. * Continue Lasix 40 mg PO BID.
[2016-12-30 08:30] VITALS: BP 88/50
--- NOTE | 2016-12-30 08:35 | PN- Vascular Surgery ---
Subjective Subjective: NAEO. Patient without new c/o. Pain improved since having the debridment and wound vac placed. No changes in sensation in LLE. Tolerating diet. Denies CP/ SOB. Objective Vital Signs and I&Os Vital Signs Date Time Temp Pulse Resp B/P Pulse O2 O2 Flow FiO2 Ox Delivery Rate 12/30 0045 98.3 90 20 100/60 95 Room Air 12/29 2105 112 / 1647 98.9 112 20 92/58 94 Room Air 12/29 0945 91 18 100/54 95 Room Air 12/29 0923 91 100/54 Intake & Output 12/30 1600 12/30 0812/30 0000 12/29 1600 12/29 0800 12/29 0000 Intake Total 140 260 640 0 240 Output Total 850 400 250 650 Balance -710 260 240 -250 -410 Intake, IV 20 20 400 0 Intake, Oral 120 240 240 0 240 Number 0 0 Bowel Movements Output, 0 Drainage Output, Urine 850 400 250 650 Patient 113 lb 113 lb Weight Physical Exam: General: NAD, comfortable, A&Ox3 Chest: NRD, decreased breath sounds with good air flow BLL. Sinus tachy. Abdomen: soft, nontender, nondistended. Groin dressings c/d/i. Ext: LLE wound vac in place with good negative pressure. +Dopplerable DP BLE. No calve swelling/TTP. Current Medications: Current Medications Sig/Bibi Start time Last Medication Dose Route Stop Time Status Admin Acetaminophen 650 MG Q8P PRN 12/27 1800 AC PO Aspirin 325 MG DAILY 12/28 1000 AC 12/30 PO 0934 Atorvastatin Calcium 40 MG 1700 12/28 1700 AC 12/29 PO 1709 Bisacodyl 5 MG DAILY 12/28 1000 AC 12/30 PO 0935 Clopidogrel Bisulfate 75 MG DAILY 12/28 1000 AC 12/30 PO 0934 Fentanyl Citrate 200 MCG .STK-MED ONE 12/29 1057 DC IM 12/29 1058 Fentanyl Citrate 100 MCG .STK-MED ONE 12/29 1031 DC IM 12/29 1032 Furosemide 40 MG 7:30 AM, & 4:30 PM 12/28 0730 AC 12/30 PO 0750 Heparin Sodium 5,000 UNIT Q8 12/28 0820 AC 12/30 (Porcine) SC 0501 Ketamine HCl 50 MG .STK-MED ONE 12/29 1058 DC IM 12/29 1059 Levothyroxine Sodium 0.125 MG DAILY AC 12/28 0700 AC 12/30 PO 0501 Lisinopril 10 MG DAILY 12/28 1000 AC 12/29 PO 1502 Metoprolol Tartrate 50 MG BID 12/27 2200 AC 12/29 PO 2105 Midazolam HCl 2 MG .STK-MED ONE 12/29 1031 DC IM 12/29 1032 Morphine Sulfate 2 MG Q3P PRN 12/27 1400 AC 12/28 IV 0838 Ondansetron HCl 4 MG Q6P PRN 12/27 1800 AC IV Oxycodone/ 1 TAB Q4P PRN 12/27 1400 AC Acetaminophen PO Oxycodone/ 2 TAB Q4P PRN 12/27 1400 AC 12/30 Acetaminophen PO 0501 Results Last 48 Hours of Labs: Laboratory Tests 12/30 12/29 0610 0405 Chemistry Sodium (137 - 145 mmol/L) 137 141 Potassium (3.5 - 5.1 mmol/L) 3.8 4.0 Chloride (98 - 107 mmol/L) 98 100 Carbon Dioxide (22 - 30 mmol/L) 29 30 Anion Gap (5 - 16) 9 11 BUN (7 - 17 mg/dL) 17 14 Creatinine (0.5 - 1.0 mg/dL) 0.9 0.9 Estimated GFR (>60 ml/min) > 60 > 60 BUN/Creatinine Ratio (7 - 25 %) 18.9 Glucose (65 - 99 mg/dL) 89 Calcium (8.4 - 10.2 mg/dL) 8.4 Phosphorus (2.5 - 4.5 mg/dL) 3.8 Magnesium (1.6 - 2.3 mg/dL) 2.1 Total Bilirubin (0.2 - 1.3 mg/dL) 0.3 AST (14 - 36 U/L) 114 H ALT (9 - 52 U/L) 40 Albumin (3.5 - 5.0 g/dL) 2.5 L Hematology CBC w Diff NO MAN DIFF REQ NO MAN DIFF REQ WBC (4.8 - 10.8 /CUMM) 15.5 H 12.8 H RBC (4.20 - 5.40 /CUMM) 2.98 L 3.27 L Hgb (12.0 - 16.0 G/DL) 7.8 L 8.5 L Hct (37 - 47 %) 24.9 L 27.1 L MCV (81.0 - 99.0 FL) 83.3 83.1 MCH (27.0 - 31.0 PG) 26.1 L 26.1 L RDW (11.5 - 14.5 %) 17.9 H 18.0 H Plt Count (130 - 400 /CUMM) 532 H 566 H MPV (7.4 - 10.4 FL) 8.5 8.4 Gran % (42.2 - 75.2 %) 79.7 H 71.8 Lymphocytes % (20.5 - 51.1 %) 10.3 L 14.9 L Monocytes % (1.7 - 9.3 %) 8.8 12.5 H Eosinophils % (0 - 5 %) 1.1 0.5 Basophils % (0.0 - 2.0 %) 0.1 0.3 Absolute Granulocytes (1.4 - 6.5 /CUMM) 12.3 H 9.2 H Absolute Lymphocytes (1.2 - 3.4 /CUMM) 1.6 1.9 Absolute Monocytes (0.10 - 0.60 /CUMM) 1.4 H 1.6 H Absolute Eosinophils (0.0 - 0.7 /CUMM) 0.2 0.1 Absolute Basophils (0.0 - 0.2 /CUMM) 0 0 PUBS MCHC (33.0 - 37.0 G/DL) 31.4 L 31.5 L 12/28 1140 Hematology CBC w Diff NO MAN DIFF REQ WBC (4.8 - 10.8 /CUMM) 12.3 H RBC (4.20 - 5.40 /CUMM) 2.81 L Hgb (12.0 - 16.0 G/DL) 7.2 *L Hct (37 - 47 %) 22.9 L MCV (81.0 - 99.0 FL) 81.4 MCH (27.0 - 31.0 PG) 25.5 L RDW (11.5 - 14.5 %) 18.1 H Plt Count (130 - 400 /CUMM) 540 H MPV (7.4 - 10.4 FL) 8.3 Gran % (42.2 - 75.2 %) 74.0 Lymphocytes % (20.5 - 51.1 %) 12.4 L Monocytes % (1.7 - 9.3 %) 13.0 H Eosinophils % (0 - 5 %) 0.4 Basophils % (0.0 - 2.0 %) 0.2 Absolute Granulocytes (1.4 - 6.5 /CUMM) 9.1 H Absolute Lymphocytes (1.2 - 3.4 /CUMM) 1.5 Absolute Monocytes (0.10 - 0.60 /CUMM) 1.6 H Absolute Eosinophils (0.0 - 0.7 /CUMM) 0 Absolute Basophils (0.0 - 0.2 /CUMM) 0 PUBS MCHC (33.0 - 37.0 G/DL) 31.3 L Assessment/Plan Assessment/Plan 61yo F POD# 3 s/p Right Ax-Fem bypass and POD#1 s/p LLE wound debridment with wound vac placement. Patient stable from vascular standpoint. - Pain control - continue wound vac to negative pressure - Daily groin dressing changes - I/O's - Care per primary team - will d/w attending
--- NOTE | 2016-12-30 13:15 | PN- Housestaff ---
THEA JERONIMO 12/30/16 1107: Subjective Follow-up For: PAD status post axillobifemoral bypass and bilateral pelvic angiogram new onset CHF Postop anemia Tele-Events Since Last Visit: Normal sinus rhythm, heart rate 80-90 Subjective: Seen and examined patient, offers no complaints. Denies chest pain, dizziness, shortness of breath, abdominal pain. On interview stated that her pain was controlled Review of Systems Constitutional: Denies: chills, diaphoresis, fever, malaise, weakness, unexplained weight loss. Cardiovascular: Denies: chest pain, edema, orthopena, palpitations, peripheral edema, syncope. Respiratory: Denies: cough, hemoptysis, orthopnea, short of breath, sputum production, stridor, wheezing. Objective Last 24 Hrs of Vital Signs/I&O Vital Signs Date Time Temp Pulse Resp B/P Pulse O2 O2 Flow FiO2 Ox Delivery Rate 12/31 0730 98.2 102 20 88/50 97 Room Air 12/30 0045 98.3 90 20 100/60 95 Room Air 12/29 2105 112 12/29 1647 98.9 112 20 92/58 94 Room Air Intake & Output 12/30 1600 12/30 0800 12/30 0000 Intake Total 140 260 Output Total 850 Balance -710 260 Intake, IV 20 20 Intake, Oral 120 240 Output, 0 Drainage Output, Urine 850 Patient 113 lb Weight Physical Exam General Appearance: Alert, Oriented X3, Cooperative, No Acute Distress Cardiovascular: Regular Rate, Normal S1, Normal S2 Lungs: Clear to Auscultation, Normal Air Movement Abdomen: Soft, No Tenderness Extremities: Wound vac on left lower extremity Current Medications: Current Medications Sig/Bibi Start time Last Medication Dose Route Stop Time Status Admin Acetaminophen 650 MG Q8P PRN 12/27 1800 AC PO Aspirin 325 MG DAILY 12/28 1000 AC 12/30 PO 0934 Atorvastatin Calcium 40 MG 1700 12/28 1700 AC 12/29 PO 1709 Bisacodyl 5 MG DAILY 12/28 1000 AC 12/30 PO 0935 Clopidogrel Bisulfate 75 MG DAILY 12/28 1000 AC 12/30 PO 0934 Furosemide 40 MG 7:30 AM, & 4:30 PM 12/28 0730 AC 12/30 PO 0750 Heparin Sodium 5,000 UNIT Q8 12/28 0820 AC 12/30 (Porcine) SC 0501 Levothyroxine Sodium 0.125 MG DAILY AC 12/28 0700 AC 12/30 PO 0501 Lisinopril 10 MG DAILY 12/28 1000 AC 12/29 PO 1502 Metoprolol Tartrate 50 MG BID 12/27 2200 AC 12/29 PO 2105 Morphine Sulfate 2 MG Q3P PRN 12/27 1400 AC 12/28 IV 0838 Ondansetron HCl 4 MG Q6P PRN 12/27 1800 AC IV Oxycodone/ 1 TAB Q4P PRN 12/27 1400 AC Acetaminophen PO Oxycodone/ 2 TAB Q4P PRN 12/27 1400 AC 12/30 Acetaminophen PO 0501 Last 24 Hrs of Lab/Ernesto Results Last 24 Hrs of Labs/Mics: Laboratory Tests 12/30/16 0610: Anion Gap 9, Estimated GFR > 60, BUN/Creatinine Ratio 18.9, CBC w Diff NO MAN DIFF REQ, RBC 2.98 L, MCV 83.3, MCH 26.1 L, RDW 17.9 H, MPV 8.5, Gran % 79.7 H, Lymphocytes % 10.3 L, Monocytes % 8.8, Eosinophils % 1.1, Basophils % 0.1, Absolute Granulocytes 12.3 H, Absolute Lymphocytes 1.6, Absolute Monocytes 1.4 H, Absolute Eosinophils 0.2, Absolute Basophils 0, PUBS MCHC 31.4 L Microbiology 12/29 1220 EXTREMITIE: Gross Specimen Examination - RES GRAM POSITIVE COCCI 12/29 1220 EXTREMITIE: Gram Stain - RES Assessment/Plan Assessment: 61 y/o woman with PMHx of severe PAD, HTN and HLD admitted for chronic non healing ischemic ulcer of left foot s/p revascularization of LLE, with a hospital course complicated by elevated troponins and acute diastolic CHF. Admitted to ICU for closer monitoring was transferred back to telemetry. No overnight events noted on telemetry, a febrile white count trending up to 15.5, hypotensive #Chronic non healing ischemic ulcer of LLE: Status post axillary bifemoral bypass (12/27/16) and debridement and wound VAC placement. * Deep tissue prelim showing gram-positive cocci, She recieved 5 days of IV unasyn, will obtain ID consult * Vascular surgery following. Appreciate their recs. * Continue atorvastatin 40 mg PO daily. * Continue aspirin 325 mg PO daily and Plavix 75 mg PO daily. * Continue PT. * Encourage incentive spirometry. #Anemia: Chronic anemia versus postop blood loss with baseline Hgb of 8-9. * S/p 1 unit of pRBCs with improvement of H/H from 7.8/24.9 today. * Continue to monitor H/H. #Acute diastolic CHF/: * Cardiology following. Appreciate their recs. * Monitor strict I/Os. * Continue telemetry monitoring. * Holding her lasix, lisinopril and metoprolol secondary to hypotension will continue to monitor blood pressures closely * Normal Persantine stress and resting myocardial perfusion study with normal, left ventricular wall motion and ejection fraction 80%. #Grounglass opacity in RML: Present on CTA Chest (12/21/16). * Repeat CT scan in 3-4 months. Diet: Heart Healthy Diet DVT PPx: HSQ CODE: FULL Problem List: 1. Cellulitis 2. Leg ulcer, left 3. PAD (peripheral artery disease) 4. S/P vascular surgery 5. S/P debridement Pain Ratin Pain Location: left leg Pain Goal: Pain 4 or less Pain Plan: current regimen Tomorrow's Labs & Rationales: cbc/bep CLARIBEL TOM,JUSTINO 12/30/16 1458: Attending MD Review Statement Attending Statement Attending MD Statement: examined this patient, discuss w/resident/PA/SUPERVISOR HAND SILVERING, agreed w/resident/PA/SUPERVISOR HAND SILVERING, reviewed EMR data (avail), discussed with nursing, discussed with case mgmt, reviewed images Attending Assessment/Plan: Pt's pain appears to be slightly better. She is postop day three of the axillofemoral bypass which he had done on December 27. She also had a debridement done yesterday with a wound VAC placed. I'm worried that the deep tissue culture is growing GPC and I need IDs input on whether we need to start antibiotics. I'm also worried about her blood pressure. She is on a straight cath protocol and had 400 mL of urine in her bladder in the past 8 hours but she wants to try and void. The Lasix she got in the morning but will hold any more Lasix metoprolol and lisinopril given the hypotension. She has acute on chronic blood loss anemia and will need to watch that closely.
[2016-12-30 15:43] VITALS: BP 108/58
--- NOTE | 2016-12-30 17:10 | Cons- Infect Disease ---
General Information and HPI Consulting Request Date of Consult: 12/30/16 Requested By: JUSTINO SANFORD MD Reason for Consult: Persistent leukocytosis/positive OR culture Source of Information: patient, old records History of Present Illness: This is a 61-year-old woman with chronic renal insufficiency, peripheral vascular disease, with chronic nonhealing ulcers on the lateral aspect of the left leg, status post multiple debridements and status post a failed skin graft over 6 months prior to admission, hospitalized 6 weeks prior to admission with a questionable cellulitis of the left leg, treated with Unasyn and discharged on Augmentin, with a ruptured variceal vein 3 weeks prior to admission, seen in the emergency room 10 days prior to admission with left leg pain and given a prescription for Doxycycline, admitted on December 17 with persistent left leg pain in anticipation of a left leg revascularization scheduled for the following week. On admission she was afebrile. Laboratory data revealed a white blood cell count of 15,000, BUN/creatinine 57 and 1.9, INR 1.68. She was begun on Unasyn, which was continued until December 28. CTA runoff angiogram of the abdomen, pelvis and lower extremities August 17 revealed chronic infrarenal abdominal aortic occlusion with extension into the common iliac arteries and chronic occlusion of the left SFA. On December 20 she underwent a stress test, with the procedure complicated by tachycardia and CHF, treated with Lasix and Solumedrol. Her revascularization was deferred until December 27, at which time she underwent axillobifemoral extra-anatomic bypass, with placement of a graft, and aortogram with bilateral pelvic and diagnostic left leg angiogram, with one dose of Vancomycin prophylaxis. On December 29 she underwent excisional debridement of the left leg ulcer, including the subcutaneous tissue and muscle, with Cefazolin prophylaxis, and with placement of a wound VAC. She has been afebrile since admission. Her white blood cell count has fluctuated but has remained elevated in the 11-15,000 range since admission. She was noted to be in urinary retention since yesterday, requiring straight catheterization. At present she notes some discomfort in the left leg but feels this has decreased. She offers no other complaints, and specifically denies any cough, shortness of breath, chest pain, or GI symptoms. Allergies/Medications Allergies: Coded Allergies: NO KNOWN ALLERGIES (08/11/15) Home Med List: Aspirin (Aspirin*) 81 MG TAB.CHEW 1 TAB PO DAILY ARTERIAL DISEASE Atorvastatin Calcium 40 MG TABLET 1 TAB PO DAILY CHOLESTEROL (Reported) Doxycycline Hyclate (Vibramycin) 100 MG CAPSULE 1 CAP PO BID cellulitis Doxycycline Hyclate (Vibramycin) 100 MG CAPSULE 1 CAP PO BID cellulitis Hydrochlorothiazide 25 MG TABLET 1 TAB PO DAILY Blood pressure (Reported) Levothyroxine Sodium (Synthroid) 0.125 MG TAB 1 TAB PO DAILY AC THYROID HEALTH Lisinopril 10 MG TABLET 1 TAB PO DAILY BP (Reported) Metoprolol Tartrate 50 MG TABLET 1 TAB PO BID blood pressure (Reported) Oxycodone HCl 5 MG TABLET 1 TAB PO Q6-PRN PRN PAIN Past History Medical History Blood Transfusion Hx: No Neurological: NONE EENT: NONE Cardiovascular: CAD, hypertension, hyperlipidemia, PVD Respiratory: NONE Gastrointestinal: NONE Hepatic: NONE Renal: chronic kidney disease Musculoskeletal: NONE Psychiatric: NONE Endocrine: hypothyroidism Blood Disorders: NONE Cancer(s): NONE 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 Psychosocial History Where Do You Live? Home Services at Home: None Smoking Status: Former Smoker Functional Ability ADLs Independent: dressing, eating, toileting, bathing. Ambulation: independent IADLs Independent: shopping, housework, finances, food prep, telephone, transportation , medication admin. Review of Systems Review of Systems All Other Systems: Reviewed and Negative Exam & Diagnostic Data Last 24 Hrs of Vital Signs/I&O Vital Signs Date Time Temp Pulse Resp B/P Pulse O2 O2 Flow FiO2 Ox Delivery Rate 12/30 1543 98.3 105 20 108/58 98 Room Air 12/30 1146 102/58 12/30 0830 98.2 102 20 88/50 97 Room Air 12/30 0045 98.3 90 20 100/60 95 Room Air 12/29 2105 112 Intake & Output 12/30 1600 12/30 0800 12/30 0000 Intake Total 400 140 260 Output Total 700 850 Balance -300 -710 260 Intake, IV 20 20 Intake, Oral 400 120 240 Output, 0 Drainage Output, Urine 700 850 Patient 113 lb Weight Physical Exam Other Physical Findings: She is awake and alert in no acute distress. She is afebrile. Skin reveals no rash. HEENT exam is negative. Neck is supple with no adenopathy. Lungs are clear. Chest right upper chest incision clean, with no erythema or drainage. Heart regular rhythm with no murmur. Abdomen is soft, nontender with positive bowel sounds. Back no CVA tenderness. Extremities bilateral groin incisions with dressings intact; left leg wound VAC in place with no surrounding erythema; pulses 1+ and equal both feet, with no cyanosis, clubbing or edema. Neuro is without focality. Last 24 Hours of Lab Results: Laboratory Tests 12/30 0610 Chemistry Sodium (137 - 145 mmol/L) 137 Potassium (3.5 - 5.1 mmol/L) 3.8 Chloride (98 - 107 mmol/L) 98 Carbon Dioxide (22 - 30 mmol/L) 29 Anion Gap (5 - 16) 9 BUN (7 - 17 mg/dL) 17 Creatinine (0.5 - 1.0 mg/dL) 0.9 Estimated GFR (>60 ml/min) > 60 BUN/Creatinine Ratio (7 - 25 %) 18.9 Hematology CBC w Diff NO MAN DIFF REQ WBC (4.8 - 10.8 /CUMM) 15.5 H RBC (4.20 - 5.40 /CUMM) 2.98 L Hgb (12.0 - 16.0 G/DL) 7.8 L Hct (37 - 47 %) 24.9 L MCV (81.0 - 99.0 FL) 83.3 MCH (27.0 - 31.0 PG) 26.1 L RDW (11.5 - 14.5 %) 17.9 H Plt Count (130 - 400 /CUMM) 532 H MPV (7.4 - 10.4 FL) 8.5 Gran % (42.2 - 75.2 %) 79.7 H Lymphocytes % (20.5 - 51.1 %) 10.3 L Monocytes % (1.7 - 9.3 %) 8.8 Eosinophils % (0 - 5 %) 1.1 Basophils % (0.0 - 2.0 %) 0.1 Absolute Granulocytes (1.4 - 6.5 /CUMM) 12.3 H Absolute Lymphocytes (1.2 - 3.4 /CUMM) 1.6 Absolute Monocytes (0.10 - 0.60 /CUMM) 1.4 H Absolute Eosinophils (0.0 - 0.7 /CUMM) 0.2 Absolute Basophils (0.0 - 0.2 /CUMM) 0 PUBS MCHC (33.0 - 37.0 G/DL) 31.4 L Last 24 Hours of Ernesto Results: OR culture December 29 left leg positive for scant growth of gram-positive cocci, with gram stain revealing few white blood cells and rare gram-positive cocci Diagnostic Data Recent Imaging Findings: Chest x-ray December 23 mild pulmonary vascular congestion CTA of the chest December 21 no evidence of pulmonary embolism; bibasilar dependent atelectasis with bilateral pleural effusions and a small groundglass infiltrate in the peripheral anterior right middle lobe Assessment/Plan Assessment/Plan Impression: This is a 61-year-old woman with chronic renal insufficiency, venous insufficiency and peripheral vascular disease, with a chronic left leg ulcer, status post multiple debridements over the past 6 months, admitted on December 17 in anticipation of a left leg revascularization, which had to be deferred until 3 days ago secondary to CHF and tachycardia following a stress test, treated with Unasyn from admission until one day postop, now 1 day status post debridement of the left leg ulcer, with OR culture positive for scant growth of gram-positive cocci. The significance of this culture is unclear, particularly as it was obtained at the time of debridement and may reflect contamination from the more superficial tissues. Her white blood cell count is elevated but has been elevated essentially since admission and despite over 10 days of antibiotics; therefore the significance of this is unclear as well. Her recent hospital course has been complicated by urinary retention since removal of the Costa catheter yesterday after being in place for 8 days, and the possibility of a urinary tract infection should be considered. Suggestion: 1. Continue straight catheterization protocol 2. Send urinalysis and urine culture with next catheterization 3. Continue to follow off antibiotics pending above Consult Acknowledgment - Thank you for your consult request.
--- NOTE | 2016-12-30 19:50 | PN- Cardiology ---
Subjective Subjective: Overall the patient is feeling well and denies any cardiovascular symptoms. Episodic hypotension noted. Objective Vital Signs and I&Os Vital Signs Date Time Temp Pulse Resp B/P Pulse O2 O2 Flow FiO2 Ox Delivery Rate 12/30 1543 98.3 105 20 108/58 98 Room Air 12/30 1146 102/58 12/30 0830 98.2 102 20 88/50 97 Room Air 12/30 0045 98.3 90 20 100/60 95 Room Air 12/29 2105 112 Intake & Output 12/30 1600 12/30 0812/30 0000 12/29 1600 12/29 0000 Intake Total 400 140 260 640 0 240 Output Total 700 850 400 250 650 Balance -300 -710 260 240 -250 -410 Intake, IV 20 20 400 0 Intake, Oral 400 120 240 240 0 240 Number 0 0 Bowel Movements Output, 0 Drainage Output, Urine 700 850 400 250 650 Patient 113 lb 113 lb Weight Current Medications: Current Medications Sig/Bibi Start time Last Medication Dose Route Stop Time Status Admin Acetaminophen 650 MG Q8P PRN 12/27 1800 AC PO Aspirin 325 MG DAILY 12/28 1000 AC 12/30 PO 0934 Atorvastatin Calcium 40 MG 1700 12/28 1700 AC 12/30 PO 1718 Bisacodyl 5 MG DAILY 12/28 1000 AC 12/30 PO 0935 Clopidogrel Bisulfate 75 MG DAILY 12/28 1000 AC 12/30 PO 0934 Furosemide 40 MG 7:30 AM, & 4:30 PM 12/28 0730 DC 12/30 PO 0750 Heparin Sodium 5,000 UNIT Q8 12/28 0820 AC 12/30 (Porcine) SC 1435 Levothyroxine Sodium 0.125 MG DAILY AC 12/28 0700 AC 12/30 PO 0501 Lisinopril 10 MG DAILY 12/28 1000 DC 12/29 PO 1502 Metoprolol Tartrate 25 MG BID 12/30 2200 AC PO Metoprolol Tartrate 50 MG BID 12/27 2200 DC 12/29 PO 2105 Morphine Sulfate 2 MG Q3P PRN 12/27 1400 AC 12/28 IV 0838 Ondansetron HCl 4 MG Q6P PRN 12/27 1800 AC IV Oxycodone/ 1 TAB Q4P PRN 12/27 1400 AC Acetaminophen PO Oxycodone/ 2 TAB Q4P PRN 12/27 1400 AC 12/30 Acetaminophen PO 1434 Patient Medication 1 ED .STK-MED ONE 12/30 1344 [facility] ED 12/30 1345 Results Last 48 Hrs of Labs/Mics: Laboratory Tests 12/30/16 1850: Urine Color Pending, Urine Clarity Pending, Urine pH Pending, Ur Specific [place] Pending, Urine Protein Pending, Urine Ketones Pending, Urine Nitrite Pending, Urine Bilirubin Pending, Urine Urobilinogen Pending, Ur Leukocyte Esterase Pending, Ur Microscopic SEDIMENT EXAMINED, Urine RBC Pending, Urine Hemoglobin Pending, Urine Glucose Pending 12/30/16 0610: Anion Gap 9, Estimated GFR > 60, BUN/Creatinine Ratio 18.9, CBC w Diff NO MAN DIFF REQ, RBC 2.98 L, MCV 83.3, MCH 26.1 L, RDW 17.9 H, MPV 8.5, Gran % 79.7 H, Lymphocytes % 10.3 L, Monocytes % 8.8, Eosinophils % 1.1, Basophils % 0.1, Absolute Granulocytes 12.3 H, Absolute Lymphocytes 1.6, Absolute Monocytes 1.4 H, Absolute Eosinophils 0.2, Absolute Basophils 0, PUBS MCHC 31.4 L 12/29/16 0405: Anion Gap 11, Estimated GFR > 60, Glucose 89, Calcium 8.4, Phosphorus 3.8, Magnesium 2.1, Total Bilirubin 0.3, AST 114 H, ALT 40, Albumin 2.5 L, CBC w Diff NO MAN DIFF REQ, RBC 3.27 L, MCV 83.1, MCH 26.1 L, RDW 18.0 H, MPV 8.4, Gran % 71.8, Lymphocytes % 14.9 L, Monocytes % 12.5 H, Eosinophils % 0.5, Basophils % 0.3, Absolute Granulocytes 9.2 H, Absolute Lymphocytes 1.9, Absolute Monocytes 1.6 H, Absolute Eosinophils 0.1, Absolute Basophils 0, PUBS MCHC 31.5 L Assessment/Plan Assessment/Plan Assessment: 1. Acute diastolic heart failure 2. Peripheral arterial disease with left lower extremity ischemia; post surgical intervention 3. Mild to moderate mitral insufficiency 4. Mild troponin elevation related to demand ischemia and acute diastolic heart failure 5. Significant anemia 6. Intermittent hypotension. Recommendations: -I agree with current plans to hold lisinopril for now. -COntinue metoprolol but decrease dose to 25 BID -Diuretics on hold -Anemia with HCT of <25 noted. Monitor closely and transfuse if necessary in view of recent episode of CHF and elevated troponin -Continue as per the vascular surgery service. Continue telemetry? Yes
[2016-12-30 23:59] VITALS: BP 110/60
[2016-12-31 08:19] LABS: ABSOLUTE BASOPHIL COUNT 0 /CUMM (0.0-0.2); ABSOLUTE EOSINOPHIL COUNT 0.2 /CUMM (0.0-0.7); ABSOLUTE GRANULOCYTE CT 8.9 /CUMM (1.4-6.5); ABSOLUTE LYMPH COUNT 1.6 /CUMM (1.2-3.4); ABSOLUTE MONOCYTE COUNT 1.2 /CUMM (0.10-0.60); BASOPHIL % 0 % (0.0-2.0); EOSINOPHIL % 1.4 % (0-5); GRANULOCYTE % 75.2 % (42.2-75.2); HEMATOCRIT 25.1 % (37-47); MEAN CORPUSCULAR HGB 26.4 PG (27.0-31.0); MEAN CORPUSCULAR VOLUME 82.4 FL (81.0-99.0); MEAN PLATELET VOLUME 8.5 FL (7.4-10.4); PLATELET COUNT 643 /CUMM (130-400); RBC DISTRIBUTION WIDTH 17.5 % (11.5-14.5); RED BLOOD CELL CT 3.05 /CUMM (4.20-5.40); WHITE BLOOD CELL COUNT 11.9 /CUMM (4.8-10.8)
[2016-12-31 08:32] VITALS: BP 110/60
--- NOTE | 2016-12-31 09:02 | PN- Housestaff ---
THEA JERONIMO 12/31/16 0902: Subjective Follow-up For: PAD status post axillobifemoral bypass and bilateral pelvic angiogram new onset CHF Postop anemia Urinary retention Tele-Events Since Last Visit: Normal sinus rhythm, heart rate 80s to 100s Subjective: Seen and examined patient, states that she is still unable to void on her own. She was given a suppository yesterday however she was not able to have a bowel movement. Denies burning, abdominal pain, fever, chills, shortness of breath. Review of Systems Constitutional: Denies: chills, diaphoresis, fever, malaise, weakness, unexplained weight loss. Cardiovascular: Denies: chest pain, edema, orthopena, palpitations, peripheral edema, syncope. Respiratory: Denies: cough, hemoptysis, orthopnea, short of breath, sputum production, stridor, wheezing. Objective Last 24 Hrs of Vital Signs/I&O Vital Signs Date Time Temp Pulse Resp B/P Pulse O2 O2 Flow FiO2 Ox Delivery Rate 12/31 0831 98.0 98 20 110/60 12/31 0832 98.0 98 20 110/60 96 Room Air 12/30 2359 98.3 96 20 110/60 99 Room Air 12/30 2139 100 94/60 12/30 1543 98.3 105 20 108/58 98 Room Air Intake & Output 12/31 1600 12/31 0800 12/31 0000 Intake Total 480 400 420 Output Total 600 250 Balance 480 -200 170 Intake, IV 20 Intake, Oral 480 400 400 Number 0 0 Bowel Movements Output, Urine 600 250 Physical Exam General Appearance: Alert, Oriented X3, Cooperative, No Acute Distress Cardiovascular: Regular Rate, Normal S1, Normal S2 Lungs: Clear to Auscultation, Normal Air Movement Abdomen: Normal Bowel Sounds, Soft Current Medications: Current Medications Sig/Bibi Start time Last Medication Dose Route Stop Time Status Admin Acetaminophen 650 MG Q8P PRN 12/27 1800 AC PO Aspirin 325 MG DAILY 12/28 1000 AC 12/31 PO 0931 Atorvastatin Calcium 40 MG 1700 12/28 1700 AC 12/30 PO 1718 Bisacodyl 10 MG ONCE ONE 12/31 0915 DC NM 12/31 0916 Bisacodyl 10 MG ONCE ONE 12/30 2100 DC 12/30 NM 12/30 2101 2136 Bisacodyl 5 MG DAILY 12/28 1000 AC 12/31 PO 0931 Clopidogrel Bisulfate 75 MG DAILY 12/28 1000 AC 12/31 PO 0931 Heparin Sodium 5,000 UNIT Q8 12/28 0820 AC 12/31 (Porcine) SC 1401 Levothyroxine Sodium 0.125 MG DAILY AC 12/28 0700 AC 12/31 PO 0607 Metoprolol Tartrate 25 MG BID 12/30 2200 AC 12/31 PO 0931 Morphine Sulfate 2 MG Q3P PRN 12/27 1400 AC 12/28 IV 0838 Ondansetron HCl 4 MG Q6P PRN 12/27 1800 AC IV Oxycodone/ 1 TAB Q4P PRN 12/27 1400 AC Acetaminophen PO Oxycodone/ 2 TAB Q4P PRN 12/27 1400 AC 12/31 Acetaminophen PO 0501 Polyethylene Glycol 17 GM DAILY 12/31 1000 AC 12/31 PO 1034 Senna/Docusate Sodium 2 TAB DAILY 12/31 1000 AC 12/31 PO 1034 Sodium Phosphate 1 UNIT ONCE ONE 12/31 1415 UNVr NM 12/31 1416 Last 24 Hrs of Lab/Ernesto Results Last 24 Hrs of Labs/Mics: Laboratory Tests 12/31/16 0625: Anion Gap 7, Estimated GFR > 60, BUN/Creatinine Ratio 18.8, CBC w Diff NO MAN DIFF REQ, RBC 3.05 L, MCV 82.4, MCH 26.4 L, RDW 17.5 H, MPV 8.5, Gran % 75.2, Lymphocytes % 13.7 L, Monocytes % 9.7 H, Eosinophils % 1.4, Basophils % 0 L, Absolute Granulocytes 8.9 H, Absolute Lymphocytes 1.6, Absolute Monocytes 1.2 H, Absolute Eosinophils 0.2, Absolute Basophils 0, PUBS MCHC 32.0 L 12/30/16 1850: Urine Color YEL, Urine Clarity CLEAR, Urine pH 6.5, Ur Specific [place] 1.010, Urine Protein NEG, Urine Ketones NEG, Urine Nitrite NEG, Urine Bilirubin NEG, Urine Urobilinogen 1.0, Ur Leukocyte Esterase NEG, Ur Microscopic SEDIMENT EXAMINED, Urine RBC 5-10 H, Urine WBC 3-5 H, Ur Epithelial Cells FEW, Urine Bacteria FEW H, Urine Mucus FEW, Urine Hemoglobin SMALL H, Urine Glucose NEG Microbiology 12/31 06 URINE ROUT: Urine Culture - CAN Cancelled: already addon to 12/30 urine collection. 12/30 1850 URINE ROUT: Urine Culture - RECD 12/30 1715 URINE ROUT: Urine Culture - CAN Cancelled: Cancelled via OE: Per MD Decision Assessment/Plan Assessment: 61 y/o woman with PMHx of severe PAD, HTN and HLD admitted for chronic non healing ischemic ulcer of left foot s/p revascularization of LLE, with a hospital course complicated by elevated troponins and acute diastolic CHF. Admitted to ICU for closer monitoring was transferred back to telemetry on 12/31. No overnight events noted on telemetry, a febrile white count trending down, BP stable, UA neg for infection, #Chronic non healing ischemic ulcer of LLE: * Status post axillary bifemoral bypass (12/27/16) and debridement and wound VAC placement. * Deep tissue prelim showing scant growth of staph coag, diptheroids, staph aureus, ID on board, apprec recommendations. will follow off abx for now * Vascular surgery following. Appreciate their recs. * Continue atorvastatin 40 mg PO daily. * Continue aspirin 325 mg PO daily and Plavix 75 mg PO daily. * Continue PT * Encourage incentive spirometry. #Anemia: Chronic anemia versus postop blood loss with baseline Hgb of 8-9. * S/p 1 unit of pRBCs stable today with H/H from 8.1/25.1 * Continue to monitor H/H. #Urinary retention * on straight cath protocol, will watch till tuesday and if she still not able to void on her own we will get urology involved * UA neg for infection #Acute diastolic CHF: * Cardiology following. Appreciate their recs. * Monitor strict I/Os. * Continue telemetry monitoring. * Holding her lasix, lisinopril * Discussed with cardiology and her metoprolol is decreased to 25mg BID * Normal Persantine stress and resting myocardial perfusion study with normal, left ventricular wall motion and ejection fraction 80%. #Grounglass opacity in RML: Present on CTA Chest (12/21/16). * Repeat CT scan in 3-4 months. Diet: Heart Healthy Diet DVT PPx: HSQ CODE: FULL Problem List: 1. S/P debridement 2. S/P vascular surgery 3. PAD (peripheral artery disease) 4. Ground glass opacity present on imaging of lung 5. Severe peripheral arterial disease Pain Ratin Pain Location: na Pain Goal: Pain 4 or less Pain Plan: current regimen Tomorrow's Labs & Rationales: kendrick SANFORD MD,JUSTINO 12/31/16 1331: Attending MD Review Statement Attending Statement Attending MD Statement: examined this patient, discuss w/resident/PA/SHIP MANAGER, agreed w/resident/PA/SHIP MANAGER, reviewed EMR data (avail), discussed with nursing, discussed with case mgmt, reviewed images Attending Assessment/Plan: Overall patient is in a fair bit of discomfort. She is upset about being on the straight cath protocol and has developed this postoperative urinary retention. The UA is negative with only 3-5 white cells. We are watching her off antibiotics per ID. She now has a wound VAC in PT is recommending STR. She is also severely constipated and we've ordered an aggressive bowel regimen. She status post revascularization procedure with an axillo-femoral bypass with I&D of her lower extremity ulcer. She is on dual antiplatelet therapy. She was hypotensive yesterday so we couldn't give her the Lasix and we stopped the lisinopril and now we have her on a low-dose beta sneha. As her pressure tolerates and will slowly increase her meds as she did have some demand ischemia and heart failure preop. We'll also need to follow-up on her BUN and creatinine closely.
--- NOTE | 2016-12-31 11:50 | PN- Infect Dx ---
Subjective Subjective: Afebrile. She has minimal discomfort in the left leg. She continues to require straight catheterization for urinary retention. Objective Last 24 Hrs of Vital Signs/I&O Vital Signs Date Time Temp Pulse Resp B/P Pulse O2 O2 Flow FiO2 Ox Delivery Rate 12/31 0931 98.0 98 20 110/60 12/31 0832 98.0 98 20 110/60 96 Room Air 12/30 2359 98.3 96 20 110/60 99 Room Air 12/30 2139 100 94/60 12/30 1543 98.3 105 20 108/58 98 Room Air 12/30 1146 102/58 Intake & Output 12/31 1600 12/31 0800 12/31 0000 Intake Total 400 420 Output Total 600 250 Balance -200 170 Intake, IV 20 Intake, Oral 400 400 Number 0 Bowel Movements Output, Urine 600 250 Physical Exam Other Physical Findings: She appears comfortable in no acute distress Lungs are clear Heart regular rhythm with no murmur Back no CVA tenderness Extremities left leg dressing intact, with wound VAC in place Results Last 24 Hours of Lab Results: Laboratory Tests 12/31 12/30 0625 1850 Chemistry Sodium (137 - 145 mmol/L) 137 Potassium (3.5 - 5.1 mmol/L) 4.3 Chloride (98 - 107 mmol/L) 99 Carbon Dioxide (22 - 30 mmol/L) 31 H Anion Gap (5 - 16) 7 BUN (7 - 17 mg/dL) 15 Creatinine (0.5 - 1.0 mg/dL) 0.8 Estimated GFR (>60 ml/min) > 60 BUN/Creatinine Ratio (7 - 25 %) 18.8 Hematology CBC w Diff NO MAN DIFF REQ WBC (4.8 - 10.8 /CUMM) 11.9 H RBC (4.20 - 5.40 /CUMM) 3.05 L Hgb (12.0 - 16.0 G/DL) 8.1 L Hct (37 - 47 %) 25.1 L MCV (81.0 - 99.0 FL) 82.4 MCH (27.0 - 31.0 PG) 26.4 L RDW (11.5 - 14.5 %) 17.5 H Plt Count (130 - 400 /CUMM) 643 H MPV (7.4 - 10.4 FL) 8.5 Gran % (42.2 - 75.2 %) 75.2 Lymphocytes % (20.5 - 51.1 %) 13.7 L Monocytes % (1.7 - 9.3 %) 9.7 H Eosinophils % (0 - 5 %) 1.4 Basophils % (0.0 - 2.0 %) 0 L Absolute Granulocytes (1.4 - 6.5 /CUMM) 8.9 H Absolute Lymphocytes (1.2 - 3.4 /CUMM) 1.6 Absolute Monocytes (0.10 - 0.60 /CUMM) 1.2 H Absolute Eosinophils (0.0 - 0.7 /CUMM) 0.2 Absolute Basophils (0.0 - 0.2 /CUMM) 0 PUBS MCHC (33.0 - 37.0 G/DL) 32.0 L Urines Urine Color (YEL,AMB,STR) YEL Urine Clarity (CLEAR) CLEAR Urine pH (5.0 - 8.0) 6.5 Ur Specific [place] (1.001 - 1.035) 1.010 Urine Protein (NEG,<30 MG/DL) NEG Urine Ketones (NEG) NEG Urine Nitrite (NEG) NEG Urine Bilirubin (NEG) NEG Urine Urobilinogen (0.1 - 1.0 EU/dl) 1.0 Ur Leukocyte Esterase (NEG) NEG Ur Microscopic SEDIMENT EXAMINED Urine RBC (0 - 5 /HPF) 5-10 H Urine WBC (0 - 2 /HPF) 3-5 H Ur Epithelial Cells (NONE,FEW) FEW Urine Bacteria (NEG/NONE) FEW H Urine Mucus (FEW,NONE) FEW Urine Hemoglobin (NEG) SMALL H Urine Glucose (N MG/DL) NEG Last 24 Hours of Ernesto Results: OR culture December 29 labeled left leg deep tissue positive for Staph aureus, coag negative Staph and diphtheroids Urine culture pending Assessment/Plan Impression: Stable status post debridement of the left leg ulcer 2 days ago now 4 days status post left leg revascularization. She remains afebrile with white blood cell count decreasing off antibiotics. The significance of the OR culture is unclear, with isolation of coag-negative Staph and diphtheroids suggesting contamination from more superficial tissues at the time of debridement. Urinary retention persists status post removal of Costa catheter, with her urinalysis not suggestive of infection. Suggestion: 1. Continue straight catheterization protocol 2. Follow-up urine culture 3. Continue to follow off antibiotics
--- NOTE | 2016-12-31 13:22 | Discharge Summary ---
See Addendum Visit Information Visit Dates Admission Date: 12/17/16 Discharge Date: 01/03/17 Hospital Course Course Attending Physician: CLARIBEL TOM,JUSTINO Tierney Primary Care Physician: Ama MUÑOZ MD [facility] Course: Patient is a 61 y/o F with PMHx chronic renal insufficiency, peripheral vascular disease, with chronic nonhealing ulcers on the lateral aspect of the left leg, status post multiple debridements and status post a failed skin graft over 6 months prior to admission, hospitalized 6 weeks prior to admission with a questionable cellulitis of the left leg, treated with Unasyn and discharged on Augmentin, with a ruptured variceal vein 3 weeks prior to admission, seen in the emergency room 10 days prior to admission with left leg pain and given a prescription for Doxycycline, admitted on December 17 with persistent left leg pain in anticipation of a left leg revascularization. CTA runoff angiogram of the abdomen, pelvis and lower extremities August 17 revealed chronic infrarenal abdominal aortic occlusion with extension into the common iliac arteries and chronic occlusion of the left SFA CTA unoff angiogram of the abdomen, pelvis and lower extremities 12/18 1. 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 Reconstitution of the external iliac arteries via internal iliac artery collaterals. Extensive body wall collaterals. 2. 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 3. Venous contamination limits evaluation below the knee; however, there does appear to be a 3-vessel runoff to the feet bilaterally. 4. Apparent gallbladder fundus thickening with focal calcification; this may represent adenomyomatosis versus a small calcified polyp, unchanged from prior. 5. Probable focal hepatic steatosis along the falciform ligament. CTA 12/21 1. No evidence of pulmonary embolism 2. Bibasilar dependent atelectasis with bilateral pleural effusions. Small groundglass infiltrate peripheral anterior right middle lobe. 3. Emphysematous changes of lungs. Nuclear stress test 12/20 Normal Persantine stress and resting myocardial perfusion study with normal left ventricular wall motion and ejection fraction. Echocardiogram 12/19 1. THis was a technically difficult examination due to the patient's body habitus and elevated heart rate. 2. Mild aortic sclerosis is present with no valvular stenosis or insufficiency. 3. Mitral leaflet thickening is present with mild to moderate eccentric mitral insufficiency and mild left atrial dilatation. 4. There is no significant pericardial fluid present. 5. The left ventricular chamber size is normal. The LV systolic function is hyperdynamic with an ejection fraction of 80%. THere are no obvious resting wall motion abnormalities. 6. The right heart structures were not optimally assessed. Mild tricuspid insufficiency is present with pulmonary hypertension and an estimated RV systolic pressure of 50 mmHg. 7. A followup examination is suggested when the patient's heart rate is slower to reassess the severity of mitral insufficiency and the RV systolic pressure. Significant Procedures: Axillary bifemoral bypass (12/27/16) Debridement of LLE nonhealing wound and wound VAC placement (12/29/16) Severe PAD with chronic non healing ischemic ulcer of LLE: She was evaluated by a CTA which showed bilateral peripheral arterial occlusive disease and she was scheduled for a axillary bifemoral bypass. She was begun on Unasyn, which was continued until December 28. Patient underwent revascularization of LLE with axillary bifemoral bypass on 12/27/16 and remained in the ICU following the procedure for hourly neurovascular checks. On December 29 she underwent excisional debridement of the left leg ulcer, including the subcutaneous tissue and muscle, with Cefazolin prophylaxis, and with placement of a wound VAC. Her white blood cell count has fluctuated but has remained elevated in the 11-15,000 range since admission. Vascular surgery was colsely following the patient. Patient was continued on Aspirin, Plavix, atorvastatin. Patient remained afebrile and was monitored off antibiotics. The significance of the OR culture is unclear, with isolation of coag-negative Staph and diphtheroids suggesting contamination from more superficial tissues at the time of debridement. Patient is being discharged on Aspirin 325 mg (clarified dose with surgical PALUIS EDUARDO) and Plavix. Patient needs a close outpatient follow up with Dr. Knutson ( vascular surgeon). Acute Diastolic CHF For cardiac clearance, ECHO and nuclear stress test were performed. ECHO revealed diastolic heart failure and pulmonary HTN and nuclear stress test was normal. Her hospital course was complicated by elevation in her troponins following the nuclear stress test felt to represent demand ischemia as well as acute exacerbation of CHF after receiving IV fluids in anticipation for contrast enhanced CT. She was transferred to the ICU for close monitoring following axillary bifemoral bypass with revascularization of the left leg. SInce then patient has remained stable from cardiac standpoint. She has been maintained off lasix and lisinopril in the hospital as her blood pressure has been boderline 108/60 today. She needs close monitoring for CHF exacerbation and an outpatient f/up with Lawn Mower Operator ( Dr. Mckinney). Urinary Retention Patient had a lyles cathetar previously which was taken out post surgery. She is noted to be in urinary retention post surgery and is on straight catheterization protocol. Please monitor closely for 5-6 days, if urinary rentention continues, please follow up with urology as an outpatient. Urinary retention could be due to underlying pain v/s contipation ( patient had a bowel movement yesterday). Pain Management: Patient was on mild/moderate and severe pain scales with IV morphine, percocet and PO tylenol. Morphine 2 mg IV Q3H PRN was given for severe pain (scale 7-10), Percocet 2 tabs PO Q4H PRN for moderate pain (scale 4-6) and Percocet 1 tab PO Q4H PRN. Please do not exceed acetaminophen intake from greater than 3g/ day Anemia: Patient has chronic microcytic hypochromic anemia with baseline Hgb of 8 -9. Her H/H was noted to be at a bora of 7.2/22.9 on 12/28/16 and she was transfused 1 unit of pRBCs with improvement of H/H to 8.5/27.1. Allergies: Coded Allergies: NO KNOWN ALLERGIES (08/11/15) Disposition Summary Disposition Principal Diagnosis: Severe PAD with chronic non healing ischemic ulcer of LLE Additional Diagnosis: Acute Diastolic CHF Discharge Disposition: SNF Discharge Instructions General Discharge Information Code Status: Full Code Patient's Diet: herat healthy - regular food with thin liquids Patient's Activity: as tolerated Follow-Up Instructions/Appts: Please follow up with PCP and Lawn Mower Operator upon discharge Medications at Discharge Discharge Medications: Stop taking the following medications: Oxycodone HCl (Oxycodone HCl) 5 MG TABLET ORAL EVERY 6 HOURS NEEDED as needed for PAIN Qty = 30 Lisinopril (Lisinopril) 10 MG TABLET ORAL DAILY Hydrochlorothiazide (Hydrochlorothiazide) 25 MG TABLET ORAL DAILY Qty = 90 Metoprolol Tartrate (Metoprolol Tartrate) 50 MG TABLET ORAL TWICE DAILY Qty = 180 Aspirin (Aspirin*) 81 MG TAB.CHEW ORAL DAILY Qty = 30 Doxycycline Hyclate (Vibramycin) 100 MG CAPSULE ORAL TWICE DAILY Qty = 20 Doxycycline Hyclate (Vibramycin) 100 MG CAPSULE ORAL TWICE DAILY Qty = 20 Continue taking these medications: Levothyroxine Sodium (Synthroid) 0.125 MG TAB 1 Tablet ORAL DAILY BEFORE BREAKFAST Qty = 30 Atorvastatin Calcium (Atorvastatin Calcium) 40 MG TABLET 1 Tablet ORAL DAILY Comments: Last Taken: 11/18/16 Time: 1730 Start taking the following new medications: Clopidogrel Bisulfate (Plavix) 75 MG TABLET 75 Milligram ORAL DAILY Days = 30 No Refills Metoprolol Tartrate (Metoprolol Tartrate) 25 MG TABLET 25 Milligram ORAL TWICE DAILY Qty = 60 No Refills Aspirin (Aspirin*) 325 MG TABLET 325 Milligram ORAL DAILY Qty = 60 No Refills Oxycodone HCl/Acetaminophen (Percocet 5-325 MG Tablet) 5 MG-325 MG TABLET 1 Tablet ORAL EVERY 4 HOURS NEEDED as needed for PAIN SCALE 1-3 (MILD) Qty = 15 No Refills Oxycodone HCl/Acetaminophen (Percocet 5-325 MG Tablet) 5 MG-325 MG TABLET 2 Tablet ORAL EVERY 4 HOURS NEEDED as needed for PAIN SCALE 4-6 (MODERATE ) Qty = 30 No Refills Instructions: DO NOT EXCEED THE INTAKE OF ACETAMINOPHEN BY 3g/DAY Copies To: CLARIBEL TOM,JUSTINO Tierney; Trevon MCKINNEY MD, MD, MICHAEL
[2016-12-31 16:06] VITALS: BP 98/62
--- NOTE | 2016-12-31 19:07 | PN- Cardiology ---
Subjective Subjective: Overall doing OK. No new symptoms. BP improved today Objective Vital Signs and I&Os Vital Signs Date Time Temp Pulse Resp B/P Pulse O2 O2 Flow FiO2 Ox Delivery Rate 12/31 1606 99.4 100 16 98/62 99 Room Air 12/31 0931 98.0 98 20 110/60 12/31 0832 98.0 98 20 110/60 96 Room Air 12/30 2359 98.3 96 20 110/60 99 Room Air 12/30 2139 100 94/60 Intake & Output 12/31 1600 12/31 0800 12/31 0000 12/30 1600 12/30 0812/30 0000 Intake Total 480 400 420 400 140 260 Output Total 600 250 700 850 Balance 480 -200 170 -300 -710 260 Intake, IV 20 20 20 Intake, Oral 480 400 400 400 120 240 Number 0 0 Bowel Movements Output, 0 Drainage Output, Urine 600 250 700 850 Patient 113 lb Weight Physical Exam: Gen: NAD HEENT: normal Lungs: clear to auscultation, normal resp. effort Heart: RRR, S1, S2, no murmurs Abdomen: Soft, nontender, no masses Extremities: No clubbing, cyanosis, or edema. Neuro: Alert and oriented x 3, cranial nerves intact Current Medications: Current Medications Sig/Bibi Start time Last Medication Dose Route Stop Time Status Admin Acetaminophen 650 MG Q8P PRN 12/27 1800 AC PO Aspirin 325 MG DAILY 12/28 1000 AC 12/31 PO 0931 Atorvastatin Calcium 40 MG 1700 12/28 1700 AC 12/31 PO 1622 Bisacodyl 10 MG ONCE ONE 12/31 0915 DC NE 12/31 0916 Bisacodyl 10 MG ONCE ONE 12/30 2100 DC 12/30 NE 12/30 2101 2136 Bisacodyl 5 MG DAILY 12/28 1000 AC 12/31 PO 0931 Clopidogrel Bisulfate 75 MG DAILY 12/28 1000 AC 12/31 PO 0931 Heparin Sodium 5,000 UNIT Q8 12/28 0820 AC 12/31 (Porcine) SC 1401 Levothyroxine Sodium 0.125 MG DAILY AC 12/28 0700 AC 12/31 PO 0607 Metoprolol Tartrate 25 MG BID 12/30 2200 AC 12/31 PO 0931 Morphine Sulfate 2 MG Q3P PRN 12/27 1400 AC 12/28 IV 0838 Ondansetron HCl 4 MG Q6P PRN 12/27 1800 AC IV Oxycodone/ 1 TAB Q4P PRN 12/27 1400 AC Acetaminophen PO Oxycodone/ 2 TAB Q4P PRN 12/27 1400 AC 12/31 Acetaminophen PO 0501 Polyethylene Glycol 17 GM DAILY 12/31 1000 AC 12/31 PO 1034 Senna/Docusate Sodium 2 TAB DAILY 12/31 1000 AC 12/31 PO 1034 Sodium Phosphate 1 UNIT ONCE ONE 12/31 1415 DC 12/31 NE 12/31 1416 1622 Results Last 48 Hrs of Labs/Mics: Laboratory Tests 12/31/16 0625: Anion Gap 7, Estimated GFR > 60, BUN/Creatinine Ratio 18.8, CBC w Diff NO MAN DIFF REQ, RBC 3.05 L, MCV 82.4, MCH 26.4 L, RDW 17.5 H, MPV 8.5, Gran % 75.2, Lymphocytes % 13.7 L, Monocytes % 9.7 H, Eosinophils % 1.4, Basophils % 0 L, Absolute Granulocytes 8.9 H, Absolute Lymphocytes 1.6, Absolute Monocytes 1.2 H, Absolute Eosinophils 0.2, Absolute Basophils 0, PUBS MCHC 32.0 L 12/30/16 1850: Urine Color YEL, Urine Clarity CLEAR, Urine pH 6.5, Ur Specific [place] 1.010, Urine Protein NEG, Urine Ketones NEG, Urine Nitrite NEG, Urine Bilirubin NEG, Urine Urobilinogen 1.0, Ur Leukocyte Esterase NEG, Ur Microscopic SEDIMENT EXAMINED, Urine RBC 5-10 H, Urine WBC 3-5 H, Ur Epithelial Cells FEW, Urine Bacteria FEW H, Urine Mucus FEW, Urine Hemoglobin SMALL H, Urine Glucose NEG 12/30/16 0610: Anion Gap 9, Estimated GFR > 60, BUN/Creatinine Ratio 18.9, CBC w Diff NO MAN DIFF REQ, RBC 2.98 L, MCV 83.3, MCH 26.1 L, RDW 17.9 H, MPV 8.5, Gran % 79.7 H, Lymphocytes % 10.3 L, Monocytes % 8.8, Eosinophils % 1.1, Basophils % 0.1, Absolute Granulocytes 12.3 H, Absolute Lymphocytes 1.6, Absolute Monocytes 1.4 H, Absolute Eosinophils 0.2, Absolute Basophils 0, PUBS MCHC 31.4 L Assessment/Plan Assessment/Plan Assessment: 1. Acute diastolic heart failure 2. Peripheral arterial disease with left lower extremity ischemia; post surgical intervention 3. Mild to moderate mitral insufficiency 4. Mild troponin elevation related to demand ischemia and acute diastolic heart failure 5. Significant anemia 6. Intermittent hypotension. Recommendations: -BP improved with holding lisinopril -COntinue metoprolol at 25 BID -Diuretics on hold for now -Anemia with HCT of <25 noted. Monitor closely and transfuse if necessary in view of recent episode of CHF and elevated troponin -Continue as per the vascular surgery service. -Planning for discharge to [facility] Continue telemetry? No
[2017-01-01 07:48] VITALS: BP 100/50
--- NOTE | 2017-01-01 07:49 | PN- Housestaff ---
See Addendum Subjective Follow-up For: Acute diastolic heart failure PAD with left lower extremity ischemia currently post-operative with wound vac Mild RI Demand ischemia with mild troponin elevation Anemia Hypotension, intermittent Tele-Events Since Last Visit: SR-ST, HR 87-102, No overnight events. Subjective: Patient seen and examined at bedside this AM. She endorses 7/10 left leg pain which is controlled on current pain regimen. She reports she slept well and feels otherwise well. Review of Systems Constitutional: Denies: chills, fever. EENTM: Denies: visual changes. Cardiovascular: Denies: chest pain, palpitations. Respiratory: Denies: cough, short of breath. Gastrointestinal: Denies: abdominal pain. Genitourinary: Denies: dysuria. Musculoskeletal: Reports: joint pain (Left leg). Denies: back pain. Skin: Reports: lesions (Left leg wound vac). Neurological/Psychological: Denies: confusion, headache. Hematologic/Endocrine: Denies: bleeding. Objective Last 24 Hrs of Vital Signs/I&O Vital Signs Date Time Temp Pulse Resp B/P Pulse O2 O2 Flow FiO2 Ox Delivery Rate 01/01 0859 95 108/64 01/01 0748 98.4 79 16 100/50 96 Room Air 12/31 2043 101 108/54 12/31 1606 99.4 100 16 98/62 99 Room Air 12/31 0931 98.0 98 20 110/60 Intake & Output 01/01 1600 01/01 0800 01/01 0000 Intake Total 100 470 Output Total 500 1040 Balance -400 -570 Intake, IV 20 Intake, Oral 100 450 Number 5 Bowel Movements Output, Urine 500 1040 Patient 134 lb Weight Physical Exam General Appearance: Alert, Oriented X3, Cooperative, No Acute Distress Skin: Left leg wound vac with overlaying kerlex. HEENT: Atraumatic, PERRLA, Mucous Membr. moist/pink Neck: Supple, +2 Carotid Pulse wo Bruit Lymphatic: Cervical nl Cardiovascular: Regular Rate, Normal S1, Normal S2 Lungs: Clear to Auscultation, Normal Air Movement Abdomen: Normal Bowel Sounds, Soft Neurological: Normal Speech, Normal Tone Vascular: Pulses Symmetrical Current Medications: Current Medications Sig/Bibi Start time Last Medication Dose Route Stop Time Status Admin Acetaminophen 650 MG Q8P PRN 12/27 1800 AC PO Aspirin 325 MG DAILY 12/28 1000 AC 01/01 PO 0857 Atorvastatin Calcium 40 MG 1700 12/28 1700 AC 12/31 PO 1622 Bisacodyl 10 MG ONCE ONE 12/31 0915 DC GA 12/31 0916 Bisacodyl 5 MG DAILY 12/28 1000 AC 12/31 PO 0931 Clopidogrel Bisulfate 75 MG DAILY 12/28 1000 AC 01/01 PO 0900 Heparin Sodium 5,000 UNIT Q8 12/28 0820 AC 01/01 (Porcine) SC 0509 Levothyroxine Sodium 0.125 MG DAILY AC 12/28 0700 AC 01/01 PO 0509 Metoprolol Tartrate 25 MG BID 12/30 2200 AC 01/01 PO 0859 Morphine Sulfate 2 MG Q3P PRN 12/27 1400 AC 12/28 IV 0838 Ondansetron HCl 4 MG Q6P PRN 12/27 1800 AC IV Oxycodone/ 1 TAB Q4P PRN 12/27 1400 AC Acetaminophen PO Oxycodone/ 2 TAB Q4P PRN 12/27 1400 AC 01/01 Acetaminophen PO 0902 Polyethylene Glycol 17 GM DAILY 12/31 1000 AC 12/31 PO 1034 Senna/Docusate Sodium 2 TAB DAILY 12/31 1000 AC 12/31 PO 1034 Sodium Phosphate 1 UNIT ONCE ONE 12/31 1415 DC 12/31 GA 12/31 1416 1622 Last 24 Hrs of Lab/Ernesto Results Last 24 Hrs of Labs/Mics: Laboratory Tests 01/01/17 0700: Anion Gap 10, Estimated GFR > 60, BUN/Creatinine Ratio 15.0, Magnesium 2.3, CBC w Diff Pending, WBC Pending, RBC Pending, Hgb Pending, Hct Pending, MCV Pending, MCH Pending, RDW Pending, Plt Count Pending, MPV Pending, PUBS MCHC Pending Assessment/Plan Assessment: 61 y/o woman with PMHx of severe PAD, HTN and HLD admitted for chronic non healing ischemic ulcer of left foot s/p revascularization of LLE, with a hospital course complicated by elevated troponins and acute diastolic CHF. Admitted to ICU for closer monitoring was transferred back to telemetry on 12/31. No overnight events noted on telemetry, a febrile white count trending down, BP stable, UA neg for infection, #Chronic non healing ischemic ulcer of LLE: * Status post axillary bifemoral bypass (12/27/16) and debridement and wound VAC placement. * Deep tissue prelim showing scant growth of staph coag, diptheroids, staph aureus, ID on board, apprec recommendations. will follow off abx for now * Vascular surgery following. Appreciate their recs. * Continue atorvastatin 40 mg PO daily. * Continue aspirin 325 mg PO daily and Plavix 75 mg PO daily. * Continue PT * Encourage incentive spirometry. #Anemia: Chronic anemia versus postop blood loss with baseline Hgb of 8-9. * S/p 1 unit of pRBCs on 12/28/16, awaiting AM CBC. * Continue to monitor H/H daily and transfuse as needed. #Urinary retention * On straight cath protocol, will watch till tuesday and if she still not able to void on her own we will get urology involved * UA neg for infection, no dysuria or hematuria noted. #Acute diastolic CHF: * Cardiology following. Appreciate their recs. * Monitor strict I/Os. * Continue telemetry monitoring. * Holding her lasix, lisinopril * Continue metoprolol 25 mg PO BID * Normal Persantine stress and resting myocardial perfusion study with normal, left ventricular wall motion and ejection fraction 80%. #Grounglass opacity in RML: Present on CTA Chest (12/21/16). * Repeat CT scan in 3-4 months. Diet: Heart Healthy Diet DVT PPx: HSQ CODE: FULL Problem List: 1. PAD (peripheral artery disease) 2. S/P vascular surgery 3. S/P debridement 4. Severe peripheral arterial disease 5. Chronic anemia 6. Microcytic hypochromic anemia 7. Hypothyroidism 8. Diastolic CHF Pain Ratin Pain Location: Left leg post operative area. Pain Goal: Pain 7 or less Pain Plan: Tylenol for mild, morphine for severe pain and percocet for moderate. Tomorrow's Labs & Rationales: CBC (acute anemia), BEP
[2017-01-01 08:52] LABS: ABSOLUTE BASOPHIL COUNT 0 /CUMM (0.0-0.2); ABSOLUTE EOSINOPHIL COUNT 0.3 /CUMM (0.0-0.7); ABSOLUTE GRANULOCYTE CT 8.1 /CUMM (1.4-6.5); ABSOLUTE LYMPH COUNT 1.6 /CUMM (1.2-3.4); ABSOLUTE MONOCYTE COUNT 1.1 /CUMM (0.10-0.60); BASOPHIL % 0.4 % (0.0-2.0); EOSINOPHIL % 2.4 % (0-5); GRANULOCYTE % 72.5 % (42.2-75.2); HEMATOCRIT 25.4 % (37-47); MEAN CORPUSCULAR HGB 26.5 PG (27.0-31.0); MEAN CORPUSCULAR HGB CONC 31.8 G/DL (33.0-37.0); MEAN CORPUSCULAR VOLUME 83.4 FL (81.0-99.0); MEAN PLATELET VOLUME 8.3 FL (7.4-10.4); PLATELET COUNT 703 /CUMM (130-400); RBC DISTRIBUTION WIDTH 18.5 % (11.5-14.5); RED BLOOD CELL CT 3.04 /CUMM (4.20-5.40); WHITE BLOOD CELL COUNT 11.2 /CUMM (4.8-10.8)
[2017-01-01 15:21] VITALS: BP 110/60
--- NOTE | 2017-01-01 18:04 | Event Note ---
Event Note Event Note: Patient had a huge bowel movement last night with streaks of pato blood. HB stable this am, will recheck HB at 6pm and call GI if patient bleeds again.
--- NOTE | 2017-01-01 18:10 | Patient Discharge Instructions ---
Discharge Instructions General Discharge Information Special Instructions: Please follow up with PCP upon discharge Acute Coronary Syndrome Inclusion Criteria At DC or during hospital stay patient has or had the following: ACS DIAGNOSIS No Discharge Core Measures Meds if any: Prescribed or Continued at Discharge Meds if any: NOT Prescribed or Continued at Discharge Congestive Heart Failure Inclusion Criteria At DC or during hospital stay patient has or had the following: CHF DIAGNOSIS No Discharge Core Measures Meds if any: Prescribed or Continued at Discharge Meds if any: NOT Prescribed or Continued at Discharge Cerebrovascular accident Inclusion Criteria At DC or during hospital stay patient has or had the following: CVA/TIA Diagnosis No Discharge Core Measures Meds if any: Prescribed or Continued at Discharge Meds if any: NOT Prescribed or Continued at Discharge Venous thromboembolism Inclusion Criteria VTE Diagnosis No VTE Type NONE VTE Confirmed by (Test) NONE Discharge Core Measures - Per Current guidelines, there needs to be overlap - treatment for the first 5 days of Warfarin therapy. - If discharged on Warfarin prior to 5 days of - overlap therapy, the patient will need to be - assessed for post discharge needs including - *Post discharge parental anticoagulation - *Warfarin and/or parental anticoagulation education - *Follow up date to check INR post discharge At least 5 days overlap therapy as Inpatient No Meds if any: Prescribed or Continued at Discharge Note: Overlap Therapy is Warfarin and Anticoagulant Meds if any: NOT Prescribed or Continued at Discharge
[2017-01-01 19:55] LABS: ABSOLUTE BASOPHIL COUNT 0 /CUMM (0.0-0.2); ABSOLUTE EOSINOPHIL COUNT 0.3 /CUMM (0.0-0.7); ABSOLUTE GRANULOCYTE CT 7.3 /CUMM (1.4-6.5); ABSOLUTE LYMPH COUNT 1.6 /CUMM (1.2-3.4); BASOPHIL % 0.4 % (0.0-2.0); EOSINOPHIL % 2.5 % (0-5); GRANULOCYTE % 71.7 % (42.2-75.2); HEMATOCRIT 25.6 % (37-47); MEAN CORPUSCULAR HGB 25.6 PG (27.0-31.0); MEAN CORPUSCULAR HGB CONC 30.8 G/DL (33.0-37.0); MEAN CORPUSCULAR VOLUME 83.1 FL (81.0-99.0); MEAN PLATELET VOLUME 8.3 FL (7.4-10.4); PLATELET COUNT 739 /CUMM (130-400); RBC DISTRIBUTION WIDTH 18.1 % (11.5-14.5); RED BLOOD CELL CT 3.08 /CUMM (4.20-5.40); WHITE BLOOD CELL COUNT 10.2 /CUMM (4.8-10.8)
[2017-01-01 21:08] VITALS: BP 110/58
[2017-01-01 23:13] VITALS: BP 110/58
[2017-01-02 08:15] VITALS: BP 106/58
--- NOTE | 2017-01-02 08:33 | PN- Housestaff ---
THEA JERONIMO 01/02/17 0833: Subjective Follow-up For: Acute diastolic heart failure PAD with left lower extremity ischemia currently post-operative with wound vac Anemia Hypotension Tele-Events Since Last Visit: Sinus rhythm, heart rate 90s to low 100s Subjective: Seen and examined patient. Complains of left leg pain she had just received pain medication and did not wish more. Denied fever, chest pain, palpitations. Stated that she is voiding on her own but she also needs to be straight cath. Denies any burning on urination or any abdominal pain. Review of Systems Constitutional: Denies: chills, diaphoresis, fever, malaise, weakness, unexplained weight loss. Cardiovascular: Denies: chest pain, edema, orthopena, palpitations, peripheral edema, syncope. Respiratory: Denies: cough, hemoptysis, orthopnea, short of breath, sputum production, stridor, wheezing. Gastrointestinal: Denies: abdominal pain, bloating, constipation, diarrhea, distention, bowel incontinence, melena, nausea, bloody stool, changes in stool, vomiting, steatorrhea. Genitourinary: Denies: discharge, dysuria, frequency, hematuria, hesitation, nocturia, pain, urgency. Objective Last 24 Hrs of Vital Signs/I&O Vital Signs Date Time Temp Pulse Resp B/P Pulse O2 O2 Flow FiO2 Ox Delivery Rate 01/02 0852 94 106/58 01/02 0815 98.0 94 16 106/58 98 Room Air 01/01 2313 98.6 86 18 110/58 99 Room Air 01/01 2108 94 110/58 01/01 2104 94 110/58 01/01 1521 97.6 88 16 110/60 100 Room Air Intake & Output 01/02 1600 01/02 0800 01/02 0000 Intake Total 620 400 Output Total 650 350 Balance -30 50 Intake, IV 380 Intake, Oral 240 400 Number 0 Bowel Movements Output, Urine 650 350 Patient 133 lb Weight Physical Exam General Appearance: Alert, Oriented X3, Cooperative, No Acute Distress Cardiovascular: Regular Rate, Normal S1, Normal S2 Lungs: Clear to Auscultation, Normal Air Movement Extremities: Wound Vac on left leg Current Medications: Current Medications Sig/Bibi Start time Last Medication Dose Route Stop Time Status Admin Acetaminophen 650 MG Q8P PRN 12/27 1800 AC PO Aspirin 325 MG DAILY 12/28 1000 AC 01/02 PO 0851 Atorvastatin Calcium 40 MG 1700 12/28 1700 AC 01/01 PO 1821 Bisacodyl 5 MG DAILY 12/28 1000 AC 12/31 PO 0931 Clopidogrel Bisulfate 75 MG DAILY 12/28 1000 AC 01/02 PO 0853 Heparin Sodium 5,000 UNIT Q8 12/28 0820 AC 01/02 (Porcine) SC 0558 Levothyroxine Sodium 0.125 MG DAILY AC 12/28 0700 AC 01/02 PO 0558 Metoprolol Tartrate 25 MG BID 12/30 2200 AC 01/02 PO 0852 Morphine Sulfate 2 MG Q3P PRN 12/27 1400 AC 12/28 IV 0838 Ondansetron HCl 4 MG Q6P PRN 12/27 1800 AC IV Oxycodone/ 1 TAB Q4P PRN 12/27 1400 AC Acetaminophen PO Oxycodone/ 2 TAB Q4P PRN 12/27 1400 AC 01/02 Acetaminophen PO 0946 Polyethylene Glycol 17 GM DAILY 12/31 1000 AC 12/31 PO 1034 Senna/Docusate Sodium 2 TAB DAILY 12/31 1000 AC 01/02 PO 0853 Last 24 Hrs of Lab/Ernesto Results Last 24 Hrs of Labs/Mics: Laboratory Tests 01/02/17 0704: Anion Gap 11, Estimated GFR > 60, BUN/Creatinine Ratio 20.0, CBC w Diff NO MAN DIFF REQ, RBC 3.61 L, MCV 83.4, MCH 26.5 L, RDW 17.4 H, MPV 8.2, Gran % 67.7, Lymphocytes % 18.0 L, Monocytes % 11.3 H, Eosinophils % 2.5, Basophils % 0.5, Absolute Granulocytes 7.0 H, Absolute Lymphocytes 1.9, Absolute Monocytes 1.2 H, Absolute Eosinophils 0.3, Absolute Basophils 0.1, PUBS MCHC 31.8 L 01/01/17 1850: CBC w Diff NO MAN DIFF REQ, RBC 3.08 L, MCV 83.1, MCH 25.6 L, RDW 18.1 H, MPV 8.3, Gran % 71.7, Lymphocytes % 15.9 L, Monocytes % 9.5 H, Eosinophils % 2.5, Basophils % 0.4, Absolute Granulocytes 7.3 H, Absolute Lymphocytes 1.6, Absolute Monocytes 1.0 H, Absolute Eosinophils 0.3, Absolute Basophils 0, PUBS MCHC 30.8 L Assessment/Plan Assessment: 61 y/o woman with PMHx of severe PAD, HTN and HLD admitted for chronic non healing ischemic ulcer of left foot s/p revascularization of LLE, with a hospital course complicated by elevated troponins and acute diastolic CHF. Admitted to ICU for closer monitoring was transferred back to telemetry on 12/31. No overnight events noted on telemetry, a febrile white count trending down, BP stable, UA neg for infection, #Chronic non healing ischemic ulcer of LLE: * Status post axillary bifemoral bypass (12/27/16) and debridement and wound VAC placement. * Deep tissue prelim showing scant growth of staph coag, diptheroids, staph aureus, ID on board, apprec recommendations. will follow off abx for now * Vascular surgery following. Appreciate their recs. * Continue atorvastatin 40 mg PO daily. * Continue aspirin 325 mg PO daily and Plavix 75 mg PO daily. * Continue PT * Encourage incentive spirometry. #Anemia: Chronic anemia versus postop blood loss with baseline Hgb of 8-9. * S/p 1 unit of pRBCs on 12/28/16 and 1 unit overnight H/H 9.04/22.1 * Continue to monitor H/H daily and transfuse as needed. #Urinary retention * On straight cath protocol but she also starting to void on her own * UA neg for infection, no dysuria or hematuria noted. #Acute diastolic CHF: * Cardiology following. Appreciate their recs. * Monitor strict I/Os. * Continue telemetry monitoring. * Holding her lasix, lisinopril * Continue metoprolol 25 mg PO BID * Normal Persantine stress and resting myocardial perfusion study with normal, left ventricular wall motion and ejection fraction 80%. #Grounglass opacity in RML: Present on CTA Chest (12/21/16). * Repeat CT scan in 3-4 months. Diet: Heart Healthy Diet DVT PPx: HSQ CODE: FULL Problem List: 1. Wound of left lower extremity 2. CHF (congestive heart failure) 3. HTN (hypertension) 4. PAD (peripheral artery disease) 5. S/P vascular surgery 6. S/P debridement Pain Ratin Pain Location: left leg Pain Goal: Pain 4 or less Pain Plan: current regimen Tomorrow's Labs & Rationales: none required APERGIS MD,YIANNIS 01/02/17 1538: Attending MD Review Statement Attending Statement Attending MD Statement: examined this patient, discuss w/resident/PA/SYSTEMATIC THEOLOGY PROFESSOR, agreed w/resident/PA/SYSTEMATIC THEOLOGY PROFESSOR, reviewed EMR data (avail) Attending Assessment/Plan: Patient doing well. SHe still has pain but it is moderately controlled and she is comfortable with her current level of pain. Still having urinary retention requiring straight cath early this morning. Will continue current management and PRN straight caths, will consider replacing Costa tomorrow. Possible discharge to [facility] tomorrow if continues to improve.
[2017-01-02 08:44] LABS: ABSOLUTE BASOPHIL COUNT 0.1 /CUMM (0.0-0.2); ABSOLUTE EOSINOPHIL COUNT 0.3 /CUMM (0.0-0.7); ABSOLUTE LYMPH COUNT 1.9 /CUMM (1.2-3.4); ABSOLUTE MONOCYTE COUNT 1.2 /CUMM (0.10-0.60); BASOPHIL % 0.5 % (0.0-2.0); EOSINOPHIL % 2.5 % (0-5); GRANULOCYTE % 67.7 % (42.2-75.2); HEMATOCRIT 30.1 % (37-47); MEAN CORPUSCULAR HGB 26.5 PG (27.0-31.0); MEAN CORPUSCULAR HGB CONC 31.8 G/DL (33.0-37.0); MEAN CORPUSCULAR VOLUME 83.4 FL (81.0-99.0); MEAN PLATELET VOLUME 8.2 FL (7.4-10.4); PLATELET COUNT 703 /CUMM (130-400); RBC DISTRIBUTION WIDTH 17.4 % (11.5-14.5); RED BLOOD CELL CT 3.61 /CUMM (4.20-5.40); WHITE BLOOD CELL COUNT 10.3 /CUMM (4.8-10.8)
[2017-01-02 15:45] VITALS: BP 112/64
[2017-01-03 00:20] VITALS: BP 108/64
[2017-01-03 07:30] VITALS: BP 108/60
--- NOTE | 2017-01-03 08:24 | PN- Housestaff ---
THEA JERONIMO 01/03/17 0824: Subjective Follow-up For: Acute diastolic heart failure PAD with left lower extremity ischemia currently post-operative with wound vac Anemia Hypotension Tele-Events Since Last Visit: Sinus rhythm, 81-85 Subjective: Seen and examined patient, states that she has been unable to void since last night and continues to require straight cath. Denies abdominal pain, fever, chills and states that her pain is controlled Review of Systems Constitutional: Denies: chills, diaphoresis, fever, malaise, weakness, unexplained weight loss. Cardiovascular: Denies: chest pain, edema, orthopena, palpitations, peripheral edema, syncope. Respiratory: Denies: cough, hemoptysis, orthopnea, short of breath, sputum production, stridor, wheezing. Objective Last 24 Hrs of Vital Signs/I&O Vital Signs Date Time Temp Pulse Resp B/P Pulse O2 O2 Flow FiO2 Ox Delivery Rate 01/03 1505 99.0 98 16 108/66 01/03 1101 Room Air Room Air 01/03 1012 99.0 98 16 108/66 01/03 0730 99.0 98 16 108/60 96 Room Air 01/03 0020 97.9 72 12 108/64 98 Room Air 01/02 2227 80 118/56 Intake & Output 01/03 1600 01/03 0800 01/03 0000 Intake Total 100 450 Output Total 250 650 Balance -150 -200 Intake, IV 0 Intake, Oral 100 450 Number 0 1 Bowel Movements Output, Urine 250 650 Patient 132 lb Weight Physical Exam General Appearance: Alert, Oriented X3, Cooperative, No Acute Distress Cardiovascular: Regular Rate, Normal S1, Normal S2 Lungs: Clear to Auscultation, Normal Air Movement Extremities: a wound VAC on left leg Assessment/Plan Assessment: 61 y/o woman with PMHx of severe PAD, HTN and HLD admitted for chronic non healing ischemic ulcer of left foot s/p revascularization of LLE, with a hospital course complicated by elevated troponins and acute diastolic CHF. Admitted to ICU for closer monitoring was transferred back to telemetry on 12/31. Patient is stable for discharge today no overnight events noted. #Chronic non healing ischemic ulcer of LLE: * Status post axillary bifemoral bypass (12/27/16) and debridement and wound VAC placement. * Deep tissue prelim showing scant growth of staph coag, diptheroids, staph aureus, ID on board, apprec recommendations. will follow off abx for now * Vascular surgery following. Appreciate their recs. * Continue atorvastatin 40 mg PO daily. * Continue aspirin 325 mg PO daily and Plavix 75 mg PO daily. * Continue PT #Anemia: Chronic anemia versus postop blood loss with baseline Hgb of 8-9. * S/p 1 unit of pRBCs on 12/28/16 and 1 unit overnight H/H 9.04/22.1 * Continue to monitor H/H daily and transfuse as needed. #Urinary retention * On straight cath protocol, patient prefers to be referred to urology for outpatient workup * UA neg for infection, no dysuria or hematuria noted. #Acute diastolic CHF: * Cardiology following. Appreciate their recs. * Monitor strict I/Os. * Continue telemetry monitoring. * Holding her lasix, lisinopril upon discharge * Continue metoprolol at 25 mg PO BID * Normal Persantine stress and resting myocardial perfusion study with normal, left ventricular wall motion and ejection fraction 80%. #Grounglass opacity in RML: Present on CTA Chest (12/21/16). * Repeat CT scan in 3-4 months. Diet: Heart Healthy Diet DVT PPx: HSQ CODE: FULL Problem List: 1. Cellulitis 2. S/P debridement 3. S/P vascular surgery 4. PAD (peripheral artery disease) Pain Ratin Pain Location: Not applicable Pain Goal: Pain 4 or less Pain Plan: Current regimen Tomorrow's Labs & Rationales: none required CLARIBEL TOM,JUSTINO 01/03/17 1146: Attending MD Review Statement Attending Statement Attending MD Statement: examined this patient, discuss w/resident/PA/PORCELAIN ENAMEL SPRAYER, agreed w/resident/PA/PORCELAIN ENAMEL SPRAYER, reviewed EMR data (avail), discussed with nursing, discussed with case mgmt, reviewed images Attending Assessment/Plan: Patient feels okay. She is eager to leave and says that she feels like her urinary retention is getting better. At this point the plan is discharge to [facility] on a bowel regimen and a straight cath protocol with the idea that if the urinary retention doesn't improve in 48-72 hours ,she may need urological input. We think this is a combination of the opiates, the anticholinergics and with pain that's causing the urinary retention. The cardiac meds need to be titrated closely on discharge. She did go into preop heart failure and demand ischemia and postoperatively her blood pressure is on the low side not allowing us to use most of the meds. Cardiology is aware and are okay with her leaving on metoprolol with close outpatient follow-up. We did clarify with the surgical PA and the surgeons do want full dose aspirin with Plavix for the axillofemoral bypass. We put all of this in the discharge summary and the W 10 and the total time spent coordinating discharge was 38 minutes.
[2017-01-03] MEDS ORDERED: MIRALAX17 G1 PO (09:57)
[2017-01-03] MEDS ORDERED: DOCUSATE SODIU1 EACH PO (09:57)
[2017-01-03] MEDS ORDERED: ASPIRIN325 M2 PO (12:05)
[2017-01-03] MEDS ORDERED: PLAVIX75 M1 PO (12:06)
[2017-01-03] MEDS ORDERED: METOPROLOL TART25 M1 PO (12:06)
[2017-01-03] MEDS ORDERED: PERCOCET 5-3251 EACH PO (12:08)
--- NOTE | 2017-01-03 14:42 | PN- Infect Dx ---
Subjective Subjective: Afebrile. She notes mild discomfort in the left leg. She continues to require straight catheterization. Objective Last 24 Hrs of Vital Signs/I&O Vital Signs Date Time Temp Pulse Resp B/P Pulse O2 O2 Flow FiO2 Ox Delivery Rate 01/03 1101 Room Air Room Air 01/03 1012 99.0 98 16 108/66 01/03 0730 99.0 98 16 108/60 96 Room Air 01/03 0020 97.9 72 12 108/64 98 Room Air 01/02 2227 80 118/56 01/02 1545 97.8 94 16 112/64 97 Room Air Intake & Output 01/03 1600 01/03 0800 01/03 0000 Intake Total 100 450 Output Total 250 650 Balance -150 -200 Intake, IV 0 Intake, Oral 100 450 Number 0 1 Bowel Movements Output, Urine 250 650 Patient 132 lb Weight Physical Exam Other Physical Findings: She appears comfortable in no acute distress Extremities left leg wound VAC in place Results Last 24 Hours of Lab Results: Laboratory Tests 01/02 01/01 0704 1850 Chemistry Sodium (137 - 145 mmol/L) 138 Potassium (3.5 - 5.1 mmol/L) 4.7 Chloride (98 - 107 mmol/L) 100 Carbon Dioxide (22 - 30 mmol/L) 28 Anion Gap (5 - 16) 11 BUN (7 - 17 mg/dL) 14 Creatinine (0.5 - 1.0 mg/dL) 0.7 Estimated GFR (>60 ml/min) > 60 BUN/Creatinine Ratio (7 - 25 %) 20.0 Hematology CBC w Diff NO MAN DIFF REQ NO MAN DIFF REQ WBC (4.8 - 10.8 /CUMM) 10.3 10.2 RBC (4.20 - 5.40 /CUMM) 3.61 L 3.08 L Hgb (12.0 - 16.0 G/DL) 9.6 L 7.9 L Hct (37 - 47 %) 30.1 L 25.6 L MCV (81.0 - 99.0 FL) 83.4 83.1 MCH (27.0 - 31.0 PG) 26.5 L 25.6 L RDW (11.5 - 14.5 %) 17.4 H 18.1 H Plt Count (130 - 400 /CUMM) 703 H 739 H MPV (7.4 - 10.4 FL) 8.2 8.3 Gran % (42.2 - 75.2 %) 67.7 71.7 Lymphocytes % (20.5 - 51.1 %) 18.0 L 15.9 L Monocytes % (1.7 - 9.3 %) 11.3 H 9.5 H Eosinophils % (0 - 5 %) 2.5 2.5 Basophils % (0.0 - 2.0 %) 0.5 0.4 Absolute Granulocytes (1.4 - 6.5 /CUMM) 7.0 H 7.3 H Absolute Lymphocytes (1.2 - 3.4 /CUMM) 1.9 1.6 Absolute Monocytes (0.10 - 0.60 /CUMM) 1.2 H 1.0 H Absolute Eosinophils (0.0 - 0.7 /CUMM) 0.3 0.3 Absolute Basophils (0.0 - 0.2 /CUMM) 0.1 0 PUBS MCHC (33.0 - 37.0 G/DL) 31.8 L 30.8 L Last 24 Hours of Ernesto Results: Urine culture December 30 negative OR culture December 29 labeled left leg positive for diphtheroids, coag negative Staph and MSSA Assessment/Plan Impression: Stable status post debridement of the left leg ulcer 5 days ago now 1 week status post left leg revascularization. She remains afebrile with white blood cell count normal off antibiotics. The significance of the OR culture is unclear, with isolation of coag-negative Staph and diphtheroids suggesting contamination from more superficial tissues at the time of debridement. Urinary retention persists and she will need to continue to be straight cathed at the rehabilitation facility. Suggestion: 1. Continue straight catheterization protocol 2. Urology input at some point 3. Continue to follow off antibiotics
[2017-01-03 15:05] VITALS: BP 108/66
--- NOTE | 2017-01-05 13:42 | PN- Vascular Surgery ---
Surgical Brief Attending Note Brief Attending Note: VASCULAR ATTENDING NOTE: Please note that the patient underwent a LEFT leg debridement on 12/29/16.
[2017-02-14] MEDS ORDERED: FERROUS SULFAT325 M3 PO (08:57)
[2017-02-14] MEDS ORDERED: GABAPENTIN300 M2 PO (08:58)
== END 2017-01-03 15:00 | DRG 181 ==
LOC: ENRESERVTM → ENRESERVDT → CANRESERV → 2NB 11:50 → 1NO 11:50 → CRI 11:50 → 1NO 12-21 01:00 → CRI 12-27 13:31 → CANBEDREQ 12-28 15:00 → 1NO 12-29 16:36
PROVIDERS: Dermatology; Internal Medicine; Internal Medicine Interventional Cardiology; Physician Assistant; Physician Assistant Surgical; Radiology Diagnostic Radiology; Student in an Organized Health Care Education/Training Program; ADMIT Surgery Vascular Surgery
PROC: 03160J8 Bypass Left Axillary Artery to Bilateral Upper Leg Artery with Synthetic Substitute, Open Approach (ICD-10-PCS; principal; 2016-12-27)
PROC: B41GZZZ Fluoroscopy of Left Lower Extremity Arteries (ICD-10-PCS; 2016-12-27)
PROC: 30233N1 Transfusion of Nonautologous Red Blood Cells into Peripheral Vein, Percutaneous Approach (ICD-10-PCS; 2016-12-28)
PROC: 0KBT0ZZ Excision of Left Lower Leg Muscle, Open Approach (ICD-10-PCS; 2016-12-29)
DX: I73.9 Peripheral vascular disease, unspecified (principal); I50.31 Acute diastolic (congestive) heart failure; I74.5 Embolism and thrombosis of iliac artery; I74.9 Embolism and thrombosis of unspecified artery; I24.8 Other forms of acute ischemic heart disease; L97.829 Non-pressure chronic ulcer of other part of left lower leg with unspecified severity; I11.0 Hypertensive heart disease with heart failure; D62 Acute posthemorrhagic anemia; B96.89 Other specified bacterial agents as the cause of diseases classified elsewhere; I99.8 Other disorder of circulatory system; R33.9 Retention of urine, unspecified; D64.89 Other specified anemias; E78.5 Hyperlipidemia, unspecified; I25.10 Atherosclerotic heart disease of native coronary artery without angina pectoris; E03.9 Hypothyroidism, unspecified; Z87.891 Personal history of nicotine dependence
CPT/HCPCS: 1NSP; 2NBSP; 87070; 87075; 87184; CCU; 36415; 74000; 78452; 81001; 82436; 86920; 87071; 87086; 87147; 93005; 93010; 93016; 93017; 93306; 97002-GP; 97110-GO; 97116-GO; 97162-GP; 97530-GO; A9502; C1725; C1768; G0463; J0690; J1245; J1644; J1720; J1940; J2405; J2920; J3370; J3490; J7042; J7060; P9016; Q9967

== ENCOUNTER 2017-02-15 02:09 | Inpatient (IN) | payer OTHER ==
[~2017-02-15] VITALS: Ht 152.4 cm; Wt 56.2 kg
[~2017-02-15 02:09] MED LIST changes: +ASPIRIN325 M2 PO; +DOCUSATE SODIU1 EACH PO; +FERROUS SULFAT325 M3 PO; +GABAPENTIN300 M2 PO; +LEVOTHYROXINE125 MCG PO; +METOPROLOL TART25 M1 PO; +MIRALAX17 G1 PO; +PERCOCET 5-3251 EACH PO; +PLAVIX75 M1 PO
[2017-02-15] MEDS ORDERED: ASPIRIN81 M4 PO (09:37)
--- NOTE | 2017-02-15 13:26 | Admission Core Measures ---
Acute Coronary Syndrome Inclusion Criteria ACS Diagnosis No Inpatient Core Measures LDL Reminder: If No, please order W/I first 24hr of stay Congestive Heart Failure Inclusion Criteria CHF Diagnosis No Cerebrovascular accident Inclusion Criteria CVA/TIA Diagnosis No Inpatient Core Measures Bedside Swallow Eval Reminder: If BSE failed, place ST order Antithrombotic Reminder: Order Antithrombotic Medication by end of day 2 Antithrombotic Reminder: Document Reason Antithrombotic Not ordered by end of day 2 AFIB/Flutter Reminder: If Present, add to problem list AFIB/Flutter Reminder: Order Anticoag Medication for pts with AFIB/Flutter Atherosclerosis Reminder: If Present, add to problem list LDL Reminder: If No, please order W/I first 24hr of stay PT Order Reminder: If No, please order Venous thromboembolism Inpatient Core Measures VTE Risk Factors: Age > 40, Surgery No [facility] VTE prophylaxis d/t Surgical procedure LE No VTE Pharm Prophylaxis d/t Active bleeding Inclusion Criteria - Per Current guidelines, there needs to be overlap - treatment for the first 5 days of Warfarin therapy. - Parenteral Anticoagulation (IV or SC) needs to be - given along with Warfarin therapy. VTE Diagnosis No VTE Type NONE VTE Confirmed by (Test) NONE Problem List As ranked by this Provider includes Assessment & Plan 1. Wound of left lower extremity HOME MEDS Home Med List Aspirin (Aspirin*) 81 MG TAB.CHEW 1 TAB PO DAILY HEART HEALTH (Reported) Atorvastatin Calcium 40 MG TABLET 1 TAB PO DAILY CHOLESTEROL (Reported) Clopidogrel Bisulfate (Plavix) 75 MG TABLET 75 MG PO DAILY antiplatelet Ferrous Sulfate 325 MG (65 MG IRON) TABLET 1 TAB PO DAILY ANEMIA (Reported) Gabapentin 300 MG CAPSULE 1 TAB PO EVERY 12 PAIN (Reported) Levothyroxine Sodium (Synthroid) 0.125 MG TAB 1 TAB PO DAILY AC THYROID HEALTH Metoprolol Tartrate 25 MG TABLET 25 MG PO BID blood pressure Oxycodone HCl/Acetaminophen (Percocet 5-325 MG Tablet) 5 MG-325 MG TABLET 1 TAB PO Q4P PRN PAIN SCALE 1-3 (MILD) Oxycodone HCl/Acetaminophen (Percocet 5-325 MG Tablet) 5 MG-325 MG TABLET 2 TAB PO Q4P PRN PAIN SCALE 4-6 (MODERATE) Polyethylene Glycol 3350 (Miralax) 17 GRAM POWD.PACK 1 PAC PO DAILY PRN CONSTIPATION Sennosides/Docusate Sodium (Docusate Sodium-Senna Tablet) 8.6 MG-50 MG TABLET 1 TAB PO DAILY PRN CONSTIPATION
--- NOTE | 2017-02-15 14:06 | Operative Report ---
Operative/Inv Procedure Report Surgery Date: 02/15/17 Name of Procedure: 1 split-thickness skin grafting left leg wound measuring 20 x 8 cm 2 wound bed prep left leg 3 negative pressure wound therapy left leg Pre-Operative Diagnosis: 1 Chronic, nonhealing ulcer left leg 2 severe peripheral arterial disease Post-Operative Diagnosis: The same Estimated Blood Loss: less than 50ml Surgeon/Radiator Cleaner: RASHID TOM,ELINA Kline DPM Anesthesia: laryngeal mask airway Operative/Procedure Note Note: After obtaining informed consent the patient was brought to the operating room and placed on the operating table in the supine position. The patient was then securely fastened to the operating table utilizing safety belt. After administration of laryngeal mask airway anesthesia the left lower extremity was prepped from the foot to the inguinal region. 2 g of Ancef were delivered intravenously times one dose. An 8 cm x 20 cm Valentino grade 2 ulceration was identified extending from the proximal left leg down to the anterior ankle. There was superficial slough overlying an otherwise uniformly granulated wound bed. No probing or undermining identified. Minimal serous drainage identified. No cellulitis noted. The wound bed was then prepped with sharp curettage and hemostasis achieved with topical thrombin and pressure. A 17 1007 inch split- thickness skin graft was then elevated from the anterior thigh and meshed a ratio of 1/2-1. It was then fixated to the wound bed at its margins with skin emma. This is followed by the application of Adaptic and negative pressure wound therapy. The donor site was then dressed with copious amounts of bacitracin and Xeroform, followed by Kerlix. A Kerlix was then placed about the leg followed by an Jevon wrap extending from the foot to the inguinal region. The patient was noted to tolerate both procedure and anesthesia well and the patient was transported from the operating room to recovery with vital signs stable.
--- NOTE | 2017-02-15 17:41 | PN- Vascular Surgery ---
See Addendum Subjective Subjective: Patient received on general surgical floor status post skin grafting to chronic wound on lle. She states that she is not having pain at this time. She denies chest pain, shortness of breath and difficulty breathing. She denies nausea and vomitting. Objective Vital Signs and I&Os Intake & Output 02/15 1600 02/15 0800 02/15 0000 02/14 1600 02/14 0800 02/14 0000 Intake Total Output Total Balance Patient 136 lb Weight T: 99.1, HR: 115, BP 92/60, RR: 18 O2: 98% on RA Physical Exam: General: Alert and oriented x3, no distress Cardiac: Sinus tachycardia, hr 110, s1s2 Pulm: CTA bilaterally Abd: Non-tender Extremities: LLE dressing saturated from anterior thigh, distal dressing dry and intact, woundvac in place. Distal sensations grossly intact, moves all extremities. Calves soft and not tender Assessment/Plan Assessment/Plan This is a 61 year old female with severe preipheral arterial disease who presented to day for a split thickness skin grafting of a left leg wound. Post operatively is hypotensive and mildly tachycardic. At the present time is asymptomatic. Is bleeding from graft harvesting site. -Stat cbc, type and screen, and electrolytes -Continue IV fluids: running at 75 cc/hr, consider bolus if pressure does not respond -Consider transfusion -Reinforce dressing as needed -ABX to continue, unasyn -Will consider medical consult for comanagement -Will discuss anticoagulation with Dr. Kline and Dr. Knutson Core Measures/Miscellaneous Venous Thromboembolism VTE Risk Factors: Age > 40, Surgery VTE Contraindications: No Contraindications VTE Diagnosis: No VTE Type: NONE VTE Confirmed by (Test): NONE Beta Nury Is Beta Nury a Home Med? No Antibiotics Is Patient on Antibiotics? Yes If Yes: prophylaxis
[2017-02-15 17:54] LABS: ABSOLUTE BASOPHIL COUNT 0.1 /CUMM (0.0-0.2); ABSOLUTE EOSINOPHIL COUNT 0.1 /CUMM (0.0-0.7); ABSOLUTE GRANULOCYTE CT 9.7 /CUMM (1.4-6.5); ABSOLUTE LYMPH COUNT 1.2 /CUMM (1.2-3.4); HEMATOCRIT 22.7 % (37-47); PLATELET COUNT 498 /CUMM (130-400); RED BLOOD CELL CT 2.76 /CUMM (4.20-5.40)
[2017-02-15 18:02] LABS: ABSOLUTE MONOCYTE COUNT 1.6 /CUMM (0.10-0.60); BASOPHIL % 0.7 % (0.0-2.0); EOSINOPHIL % 0.6 % (0-5); GRANULOCYTE % 76.7 % (42.2-75.2); MEAN CORPUSCULAR HGB 25.4 PG (27.0-31.0); MEAN CORPUSCULAR HGB CONC 30.7 G/DL (33.0-37.0); MEAN CORPUSCULAR VOLUME 82.5 FL (81.0-99.0); MEAN PLATELET VOLUME 8.1 FL (7.4-10.4); RBC DISTRIBUTION WIDTH 17.6 % (11.5-14.5); WHITE BLOOD CELL COUNT 12.7 /CUMM (4.8-10.8)
[2017-02-15 19:19] VITALS: BP 100/54
--- NOTE | 2017-02-15 20:11 | NUR ---
PT ARRIVED TO FLOOR. WOUND WAS SATURATED IN BLOOD ON LT UPPER THIGH. IN REPORT I WAS TOLD DSG WAS REINFORCED. ROBERT PAD, GOWN, COVERED. PTS VS WERE 92/60 P 115 TEMP 99.1. IV FLUIDS WERE RUNNING AT 75 ML/HR. PT WAS PALE. SPOKE TO SURGICAL PA LUIS EDUARDO AT THIS TIME. PATRICK THE PA CAME UP AND CHANGED THE DSG/ REINFORCED. CBC WAS ORDERED. CRITICAL VALUE H/H 7/22.7. AT 7:00 PM PT DEVELOPED TEMPERATURE. CALLED PA . PA ORDERED IV TYLENOL INFORMED NEXT NURSE. VALERIE ASHLEY IS TO CHANGE DSG.
[2017-02-15 21:00] VITALS: BP 94/60
[2017-02-15 23:45] VITALS: BP 98/80
[2017-02-16 06:44] VITALS: BP 96/62
--- NOTE | 2017-02-16 07:43 | PN- Vascular Surgery ---
Subjective Subjective: Patient reporting no acute overnight events. States that she does have pain as a baseline, but is not requesting any medications at the present time. She denies chest pain, shortness of breath and difficulty breathing. She denies nausea and vomitting. She has been voiding spontaneously. Objective Vital Signs and I&Os Vital Signs Date Time Temp Pulse Resp B/P B/P Pulse O2 O2 Flow FiO2 Mean Ox Delivery Rate 02/16 0644 98.8 69 20 96/62 97 Room Air 02/15 2303 80 96/60 02/15 2100 100.0 02/15 2100 100.0 113 20 94/60 97 Room Air 02/15 2029 101.8 02/15 1919 101.8 121 19 100/54 97 Room Air 02/15 1832 Room Air 02/15 1650 Room Air Room Air Intake & Output 02/16 0800 02/16 0000 02/15 1600 02/15 0800 02/15 0000 02/14 1600 Intake Total 300 Output Total 400 650 Balance -400 -350 Intake, IV 300 Number 0 Bowel Movements Output, Urine 400 650 Patient 125 lb 136 lb Weight Physical Exam: General: Alert and oriented x3, no acute distress Cardiac: RRR. s1s2 Pulm: CTA bilaterally Abdomen: Non-tender, non-distended Extremities: Moves all extremiteis, distal sensation intact. SKin warm. Dressing to LLE clean dry and intact. Wound vac in place, holding suction, output minimal serosanguinous Assessment/Plan Assessment/Plan This is a 61 year old female POD 1 s/p stsg. Post operative course included mild hypotension and tachycardia with bleeding from graft doner sites. A stat CBC was ordered and a subsequent transfusion was given for 1 unit of blood. That unit was not completely infused due to a malfunction of her IV catheter. -Follow up am labs -Continue to monitor I/O, strict, consider d/c iv fluids if normotensive -Continue IV abx -Continue wound vac, to be changed by Dr. Kline -Will discuss status with Dr. Knutson Core Measures/Miscellaneous Venous Thromboembolism VTE Risk Factors: Age > 40, Surgery VTE Contraindications: No Contraindications VTE Diagnosis: No VTE Type: NONE VTE Confirmed by (Test): NONE Beta Nury Is Beta Nury a Home Med? No Antibiotics Is Patient on Antibiotics? Yes If Yes: prophylaxis
[2017-02-16 08:06] LABS: ABSOLUTE BASOPHIL COUNT 0 /CUMM (0.0-0.2); ABSOLUTE EOSINOPHIL COUNT 0.1 /CUMM (0.0-0.7); ABSOLUTE GRANULOCYTE CT 7.3 /CUMM (1.4-6.5); ABSOLUTE LYMPH COUNT 1.4 /CUMM (1.2-3.4); ABSOLUTE MONOCYTE COUNT 1.3 /CUMM (0.10-0.60); BASOPHIL % 0.5 % (0.0-2.0); HEMATOCRIT 22.5 % (37-47); MEAN CORPUSCULAR HGB 26.4 PG (27.0-31.0); MEAN CORPUSCULAR HGB CONC 31.4 G/DL (33.0-37.0); MEAN CORPUSCULAR VOLUME 84.2 FL (81.0-99.0); MEAN PLATELET VOLUME 8.5 FL (7.4-10.4); PLATELET COUNT 402 /CUMM (130-400); RBC DISTRIBUTION WIDTH 16.5 % (11.5-14.5); RED BLOOD CELL CT 2.67 /CUMM (4.20-5.40); WHITE BLOOD CELL COUNT 10.1 /CUMM (4.8-10.8)
--- NOTE | 2017-02-16 08:41 | Operative Report ---
See Addendum Operative/Inv Procedure Report Surgery Date: 02/16/17 Name of Procedure: Excisional debridement through subcutaneous tissue and muscle first 20 cm, addition of 20 cm Pre-Operative Diagnosis: PAD Post-Operative Diagnosis: PAD Estimated Blood Loss: 50ml to 100ml Surgeon/Landfill Attendant: ELINA MIKE MD Anesthesia: laryngeal mask airway Operative Indication: 61-year-old female with a history of PAD. She underwent a extra-anatomic bypass for limb salvage. Her wound is granulated she is here now for debridement and skin grafting. Podiatry is assisting to help with the skin graft portion of the case. Consent was obtained from the patient. Operative/Procedure Note Note: Patient brought to the operating room and laid supine on the table. After adequate anesthesia and induction a timeout was held in accordance with [facility] policy. Using multiple curettes as well as Metzenbaum scissures a sharp excisional debridement was carried out through the skin and subcutaneous tissue down to the muscular level. This was in preparation for skin grafting by Dr. Kline and myself. Sharp excisional debridement increased the size of the wound in depth. The total area was greater than 20 cm. Bovie electrocautery and spray thrombin was used for hemostasis. Dr. Kline then performed the split-thickness skin graft and application of a vacuum- assisted closure device. Please see his dictation. Sponge needle and instrument counts were correct. The patient was transported to the recovery area will be kept overnight due to excessive drainage from the skin graft donor site. Additional Comments: During the procedure excessive drainage/bleeding was noted from the donor site. The patient is on antiplatelet medication for her peripheral arterial disease. Therefore she will be at risk for bleeding complications postoperatively. 2 decrease the risk of hematoma which would compromise the skin graft the decision was made to observe her in the hospital overnight or longer as needed.
--- NOTE | 2017-02-16 09:10 | NUR ---
0230 H/H 7.1/22.7.PRBC X1 STARTED @2322.INFUSING SLOWLY PUMP KEEPS SAYING OCCLUSION.HL STARTED LEAKING WITH 2/3 BAG INFUSED.BLOOD TRANSFUSION ON HOLD.2 STAFFS TRIED TO INSERT NEW HL BUT NOT SUCCESSFUL.BLOOD BANK & PA NOTIFIED OF INCOMPLETED BLOOD TRANSFUSION. 0330 1/3 BAG PRBC DISCARDED. 0400 NEW HL-#20 RFA INSERTED BY ICU NURSE.IVF RESUMED. 0430 ABLE TO GIVE IV ABX NOW.
[2017-02-16 11:00] VITALS: BP 96/50
[2017-02-16 14:57] VITALS: BP 96/60
--- NOTE | 2017-02-16 15:31 | NUR ---
SIZEWISE MATTRESS ORDERED FOR PT. SKIN BREAKDOWN NOTED TO LEFT BUTTOCK. PT WAS INFORMED OF MATTRESS USAGE BENEFITS AND REFUSED STATING, "I DONT WANT THAT I'LL KEEP THIS BED." SIZEWISE ORDER CANECELLED.
--- NOTE | 2017-02-16 21:47 | NUR ---
BP 100/58 HR 90, PT DENIES DIZZINESS. CALL PLACED TO MAKE SURGICAL PA STANLEY AWARE, HOLDING BP MED FOR NOW. WILL CONTINUE TO MONITOR
[2017-02-16 23:03] VITALS: BP 100/58
[2017-02-17 06:39] VITALS: BP 112/64
--- NOTE | 2017-02-17 07:32 | PN- Vascular Surgery ---
See Addendum Subjective Subjective: Awake, alert No complaints overnight Pain at surgical site but tolerable Has not been out of bed Objective Vital Signs and I&Os Vital Signs Date Time Temp Pulse Resp B/P B/P Pulse O2 O2 Flow FiO2 Mean Ox Delivery Rate 02/17 0639 98.4 89 18 112/64 96 Room Air 02/16 2303 98.6 97 20 100/58 97 Room Air 02/16 2059 90 100/58 02/16 1457 98.6 105 20 96/60 98 02/16 1130 100 96/50 02/16 1100 98.1 100 18 96/50 Room Air Intake & Output 02/17 0800 02/17 0000 02/16 1600 02/16 0800 02/16 0000 02/15 1600 Intake Total 503 683 2225 500 300 Output Total 400 200 500 650 Balance 450 600 910 0 -350 Intake, Blood 200 Product Intake, IV 610 600 600 200 300 Intake, Oral 240 510 100 Number 0 1 1 0 Bowel Movements Output, Urine 400 200 500 650 Patient 125 lb Weight Physical Exam: All vitals stable at this time, still with mild tachycardia and hypotension yesterday but no issues since 3 pm 02/16 General: alert and oriented times three Chest: clear anteriorly bilaterally, RRR Abd: soft Ext: RLE warm, no edema LLE: dressed in KATT from ankle to groin, dressing dry, toes with positive sensate and movement, Limited movement of LLE due to KATT and pain, vac in place under KATT with good suction Current Medications: Current Medications Sig/Bibi Start time Last Medication Dose Route Stop Time Status Admin Acetaminophen 1,000 MG Q6P PRN 02/15 1930 AC 02/15 N/A 1 UNIT IV 2028 Ampicillin Sodium/ 3,000 MG Q6H 02/16 0430 DC 02/16 Sulbactam Sodium IV 02/16 1059 1115 Sodium Chloride 100 ML Aspirin 81 MG DAILY 02/16 1000 AC 02/16 PO 1116 Atorvastatin Calcium 40 MG 1700 02/15 1700 AC 02/16 PO 1553 Clopidogrel Bisulfate 75 MG DAILY 02/16 1000 AC 02/16 PO 1116 Dextrose/Sodium 1,000 ML .[id number] 02/15 1645 AC 02/17 Chloride IV 0241 Ferrous Sulfate 325 MG DAILY 02/16 1000 AC 02/16 PO 1116 Hydromorphone HCl 1 MG Q2-3 HRS NEEDED.. 02/15 1645 AC 02/16 IV 0800 Levothyroxine Sodium 0.125 MG DAILY AC 02/16 0700 AC 02/17 PO 0621 Metoprolol Tartrate 25 MG BID 02/15 2200 AC PO Ondansetron HCl 4 MG Q6P PRN 02/15 1645 AC IV Oxycodone/ 1 TAB Q4P PRN 02/15 1645 AC Acetaminophen PO Oxycodone/ 2 TAB Q4P PRN 02/15 1645 AC 02/17 Acetaminophen PO 0226 Patient Medication 1 ED .STK-MED ONE 02/16 1413 DC Teaching ED 02/16 1414 Polyethylene Glycol 17 GM DAILY 02/16 1000 AC PO Senna 374 MG AT BEDTIME 02/15 2200 AC 02/16 PO 2057 Assessment/Plan Assessment/Plan 61 yo female s/p LLE debridement and grafting with post op blood loss anemia fu labs this am dressings per Dr Knutson/Dr Kline Vac per Dr Kline ?PT consult - pt with decreased ability to ambulate post op aspirin/plavix for PAD as well as DVT ppx Core Measures/Miscellaneous Venous Thromboembolism VTE Risk Factors: Age > 40, Surgery VTE Contraindications: No Contraindications VTE Diagnosis: No VTE Type: NONE VTE Confirmed by (Test): NONE Beta Nury Is Beta Nury a Home Med? No Antibiotics Is Patient on Antibiotics? Yes If Yes: prophylaxis
[2017-02-17 08:36] LABS: ABSOLUTE BASOPHIL COUNT 0 /CUMM (0.0-0.2); ABSOLUTE LYMPH COUNT 1.6 /CUMM (1.2-3.4); RBC DISTRIBUTION WIDTH 16.8 % (11.5-14.5); WHITE BLOOD CELL COUNT 7.7 /CUMM (4.8-10.8)
[2017-02-17 09:23] LABS: ABSOLUTE EOSINOPHIL COUNT 0.2 /CUMM (0.0-0.7); ABSOLUTE GRANULOCYTE CT 4.9 /CUMM (1.4-6.5); BASOPHIL % 0.6 % (0.0-2.0); EOSINOPHIL % 2.1 % (0-5); MEAN CORPUSCULAR HGB 26.4 PG (27.0-31.0); MEAN CORPUSCULAR HGB CONC 31.6 G/DL (33.0-37.0); MEAN CORPUSCULAR VOLUME 83.6 FL (81.0-99.0); MEAN PLATELET VOLUME 8.4 FL (7.4-10.4); PLATELET COUNT 347 /CUMM (130-400); RED BLOOD CELL CT 2.37 /CUMM (4.20-5.40)
[2017-02-17 09:42] LABS: HEMATOCRIT 19.8 % (37-47)
--- NOTE | 2017-02-17 11:34 | NUR ---
Physical therapy: Orders for PT eval and treat received, chart review initiated. Patient H and H low this AM, for blood transfusion. Will cancel PT this AM and will follow up as appropriate. Thank you.
[2017-02-17 15:13] VITALS: BP 110/60
--- NOTE | 2017-02-17 16:23 | NUR ---
WOUND CARE: REQUESTED BY NURSING STAFF TO EVALUATE PT FOR SKIN ALTERATION PRESENT ON ADMISSION - PT KNOWN TO THIS TREE [facility]ILLER FOR CHRONIC ULCERATIONS TO LEFT LEG AND LEFT BUTTOCKS - WOUND VAC INTACT LEFT LEG - LEFT BUTTOCKS NOTED WITH (2) AREAS OF HEALED EPITHELIALIZED TISSUE2 CM CIRCULAR SHAPED - PT PERSISTS WITH (2) SUPERFICIAL OPEN AREAS STAGE 2 0.4 X 0.5 CM AND 0.9 X 0.3 CM CLEAN PINK DERMAL FILL - NO DRNG - PT EDUCATED RE: WOUND CARE TREATMENT AND PREVENTION - PT REFUSING HYDROCOLLOID DRESSING - REQUESTING "CREAMS ONLY" - IMPRESSION: STAGE 2 PRESSURE ULCERS X 2 LEFT BUTTOCKS RECOMMEDNATION: APPLY MOISTURE BARRIERS QS AND PRN, PT STATES SHE HAS FREQUENT INCONTINENCE - INC CARE QS AND PRN - SIDELYING POSITION WIB - GROUP 2 APM PLEASE
[2017-02-17 23:17] VITALS: BP 116/68
[2017-02-18 06:30] VITALS: BP 128/74
--- NOTE | 2017-02-18 07:29 | PN- Vascular Surgery ---
Subjective Subjective: No acute events overnight. Vitals stable after blood transfusion. Pain well controlled. Tolerating diet, voiding spontaneously. Has not been out of bed. Labs drawn this morning. Objective Vital Signs and I&Os Vital Signs Date Time Temp Pulse Resp B/P B/P Pulse O2 O2 Flow FiO2 Mean Ox Delivery Rate 02/18 0630 98.5 69 20 128/74 98 Room Air 02/17 2317 98.1 81 18 116/68 97 Room Air 02/17 2155 78 110/62 02/17 1513 98.1 92 20 110/60 97 Room Air 02/17 0912 96 108/60 Intake & Output 02/18 0800 02/18 0000 02/17 1600 02/17 0802/17 0000 02/16 1600 Intake Total 1210 600 262 211 5053 Output Total 1000 525 400 400 200 Balance -1000 685 200 450 600 910 Intake, IV 10 610 600 600 Intake, Oral 1200 600 240 510 Number 0 0 1 Bowel Movements Output, 0 Drainage Output, Urine 1000 525 400 400 200 Patient 124 lb Weight Physical Exam: General: CAOx3, NAD. Sleeping comfortably. Chest: Normal work of breathing LLE: KATT in place from ankle to groin, dressing dry, toes with positive sensate and movement, Limited movement of LLE due to KATT and pain. Wound vac in place holding suction at 125 mmHg. Current Medications: Current Medications Sig/Bibi Start time Last Medication Dose Route Stop Time Status Admin Acetaminophen 1,000 MG Q6P PRN 02/15 1930 AC 02/15 N/A 1 UNIT IV 2028 Aspirin 81 MG DAILY 02/16 1000 AC 02/17 PO 0911 Atorvastatin Calcium 40 MG 1700 02/15 1700 AC 02/17 PO 1723 Clopidogrel Bisulfate 75 MG DAILY 02/16 1000 AC 02/17 PO 0911 Dextrose/Sodium 1,000 ML .[id number] 02/15 1645 DC 02/17 Chloride IV 0241 Ferrous Sulfate 325 MG DAILY 02/16 1000 AC 02/17 PO 0911 Hydromorphone HCl 1 MG Q2-3 HRS NEEDED.. 02/15 1645 AC 02/16 IV 0800 Levothyroxine Sodium 0.125 MG DAILY AC 02/16 0700 AC 02/18 PO 0602 Metoprolol Tartrate 25 MG BID 02/150 AC 02/17 PO 215 Ondansetron HCl 4 MG Q6P PRN 02/15 164 AC IV Oxycodone/ 1 TAB Q4P PRN 02/15 164 AC Acetaminophen PO Oxycodone/ 2 TAB Q4P PRN 02/15 164 AC 02/18 Acetaminophen PO 0224 Polyethylene Glycol 17 GM DAILY 02/16 1000 AC PO Senna 374 MG AT BEDTIME 02/15 2200 AC 02/17 PO 2155 Results Last 48 Hours of Labs: Laboratory Tests 02/17 0713 Hematology CBC w Diff NO MAN DIFF REQ WBC (4.8 - 10.8 /CUMM) 7.7 RBC (4.20 - 5.40 /CUMM) 2.37 L Hgb (12.0 - 16.0 G/DL) 6.3 *L Hct (37 - 47 %) 19.8 *L MCV (81.0 - 99.0 FL) 83.6 MCH (27.0 - 31.0 PG) 26.4 L RDW (11.5 - 14.5 %) 16.8 H Plt Count (130 - 400 /CUMM) 347 MPV (7.4 - 10.4 FL) 8.4 Gran % (42.2 - 75.2 %) 64.0 Lymphocytes % (20.5 - 51.1 %) 20.6 Monocytes % (1.7 - 9.3 %) 12.7 H Eosinophils % (0 - 5 %) 2.1 Basophils % (0.0 - 2.0 %) 0.6 Absolute Granulocytes (1.4 - 6.5 /CUMM) 4.9 Absolute Lymphocytes (1.2 - 3.4 /CUMM) 1.6 Absolute Monocytes (0.10 - 0.60 /CUMM) 1.0 H Absolute Eosinophils (0.0 - 0.7 /CUMM) 0.2 Absolute Basophils (0.0 - 0.2 /CUMM) 0 PUBS MCHC (33.0 - 37.0 G/DL) 31.6 L Assessment/Plan Assessment/Plan This is a 61 yo female s/p LLE debridement and split thickness skin graft on , postoperative day 3. Acute blood loss anemia postoperatively requiring blood transfusion. - pain control - regular diet - keep postoperative skin graft dressing/wound vac in place per Dr Knutson/Dr Kline - PT consultation pending, weight bearing as tolerated - continue aspirin/plavix for PAD as well as DVT ppx - follow up am CBC - Dispo: Likely to remain in hospital until wound vac takedown to evaluate skin graft unless clears PT and able to obtain home wound vac device. Core Measures/Miscellaneous Venous Thromboembolism VTE Risk Factors: Age > 40, Surgery VTE Contraindications: No Contraindications VTE Diagnosis: No VTE Type: NONE VTE Confirmed by (Test): NONE Beta Nury Is Beta Nury a Home Med? No Antibiotics Is Patient on Antibiotics? Yes If Yes: prophylaxis
[2017-02-18 08:08] LABS: ABSOLUTE BASOPHIL COUNT 0 /CUMM (0.0-0.2); ABSOLUTE EOSINOPHIL COUNT 0.3 /CUMM (0.0-0.7); ABSOLUTE LYMPH COUNT 1.7 /CUMM (1.2-3.4); BASOPHIL % 0.5 % (0.0-2.0); MEAN PLATELET VOLUME 8.4 FL (7.4-10.4)
[2017-02-18 08:34] LABS: ABSOLUTE GRANULOCYTE CT 5.4 /CUMM (1.4-6.5); ABSOLUTE MONOCYTE COUNT 0.7 /CUMM (0.10-0.60); EOSINOPHIL % 3.8 % (0-5); MEAN CORPUSCULAR HGB 27.3 PG (27.0-31.0); MEAN CORPUSCULAR VOLUME 85.4 FL (81.0-99.0); PLATELET COUNT 403 /CUMM (130-400); RBC DISTRIBUTION WIDTH 16.2 % (11.5-14.5); WHITE BLOOD CELL COUNT 8.2 /CUMM (4.8-10.8)
[2017-02-18 08:57] LABS: HEMATOCRIT 26.1 % (37-47); RED BLOOD CELL CT 3.06 /CUMM (4.20-5.40)
--- NOTE | 2017-02-18 09:23 | PN- Vascular Surgery ---
Surgical Brief Attending Note Brief Attending Note: 61-year-old female status post split-thickness skin graft and VAC to left lower leg. She has some mild incisional pain. However overall doing well. She has been transfused 2 units for a low hemoglobin and hematocrit post procedure. This likely was due to her antiplatelet regimen and peripheral arterial disease. However is now stabilizing. Her foot is well-perfused. She is being considered for discharge planning and will follow-up at the wound Center on Tuesday for dressing change. Her current dressing needs to remain intact.
--- NOTE | 2017-02-18 09:31 | Patient Discharge Instructions ---
Discharge Instructions General Discharge Information You were seen/treated for: PAD non healing wound left lower leg acute blood loss anemia post op fever You had these procedures: 1 split-thickness skin grafting left leg wound measuring 20 x 8 cm 2 wound bed prep left leg 3 negative pressure wound therapy left leg Watch for these problems: fever, redness, pain, swelling, flu like illness. Daily wet to dry dressings: No Special Instructions: Do not change dressings or wound vac. please place vac to intermittent suction pro protocol To follow up on tuesday with Dr Kwan at [facility] on tuesday, 02/21 Diet Continue normal diet: Yes Activity Full Activity/No Limits: No Activity Self Limited: No Activity Limited to: Weight bear as tolerated (LLE) Acute Coronary Syndrome Inclusion Criteria At DC or during hospital stay patient has or had the following: ACS DIAGNOSIS No Discharge Core Measures Meds if any: Prescribed or Continued at Discharge Meds if any: NOT Prescribed or Continued at Discharge Congestive Heart Failure Inclusion Criteria At DC or during hospital stay patient has or had the following: CHF DIAGNOSIS No Discharge Core Measures Meds if any: Prescribed or Continued at Discharge Meds if any: NOT Prescribed or Continued at Discharge Cerebrovascular accident Inclusion Criteria At DC or during hospital stay patient has or had the following: CVA/TIA Diagnosis No Discharge Core Measures Meds if any: Prescribed or Continued at Discharge Meds if any: NOT Prescribed or Continued at Discharge Venous thromboembolism Inclusion Criteria VTE Diagnosis No VTE Type NONE VTE Confirmed by (Test) NONE Discharge Core Measures - Per Current guidelines, there needs to be overlap - treatment for the first 5 days of Warfarin therapy. - If discharged on Warfarin prior to 5 days of - overlap therapy, the patient will need to be - assessed for post discharge needs including - *Post discharge parental anticoagulation - *Warfarin and/or parental anticoagulation education - *Follow up date to check INR post discharge At least 5 days overlap therapy as Inpatient No Meds if any: Prescribed or Continued at Discharge Note: Overlap Therapy is Warfarin and Anticoagulant Meds if any: NOT Prescribed or Continued at Discharge
--- NOTE | 2017-02-18 09:47 | Surgical Discharge Summary ---
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 Psychosocial History Who Do You Live With? Significant Other Services at Home: None What is Your Primary Language? Nepali Review of Systems: see [facility] Hospital Course Course Attending Physician: ELINA MIKE MD Primary Care Physician: PEÑA TOM,[facility] Course: 61-year-old female status post bypass surgery to left leg for ischemic left leg with a chronic nonhealing wound of the left lower extremity required a debridement and wound VAC placement as well as split-thickness skin graft 2 to the left lower extremity pretibial wound which was performed by Dr. Mike from vascular surgeon and Dr. Kline in podiatry . Donor site being the left proximal medial and lateral thigh. Patient received perioperative antibiotics. She had complications after surgery with excessive bleeding at the donor site which she required 2 units of transfusions of packed red blood cells due to acute blood loss anemia. She also had a postoperative fever postop day 0 which resolved. Patient is currently stable, blood counts have stabilized, she is afebrile and her pain is controlled. Complications: Postop fever Acute blood loss anemia secondary to bleeding from donor site Allergies: Coded Allergies: NO KNOWN ALLERGIES (08/11/15) Disposition Summary Disposition Principal Diagnosis: Peripheral vascular disease, chronic nonhealing left lower extremity pretibial wound Additional Diagnosis: Acute blood loss anemia, postoperative fever Discharge Disposition: SNF Discharge Instructions General Discharge Information Code Status: Full Code Patient's Diet: Regular Patient's Activity: Weight-bear as tolerated left lower extremity Follow-Up Instructions/Appts: Follow-up with wound care center at [facility], Dr Kline, on Wednesday 02/21 for dressing changes, do not change dressing or wound VAC until seen by wound care center. Continue wound VAC to suction per protocol Medications at Discharge Discharge Medications: Continue taking these medications: Levothyroxine Sodium (Synthroid) 0.125 MG TAB 1 Tablet ORAL DAILY BEFORE BREAKFAST Qty = 30 Atorvastatin Calcium (Atorvastatin Calcium) 40 MG TABLET 1 Tablet ORAL DAILY Comments: Last Taken: 02/17/17 Time: 5 PM Clopidogrel Bisulfate (Plavix) 75 MG TABLET 75 Milligram ORAL DAILY Days = 30 Comments: Last Taken: 02/18/17 Time: 1000 AM Metoprolol Tartrate (Metoprolol Tartrate) 25 MG TABLET 25 Milligram ORAL TWICE DAILY Qty = 60 Comments: Last Taken: 01/03/17 Time: 1012 AM Oxycodone HCl/Acetaminophen (Percocet 5-325 MG Tablet) 5 MG-325 MG TABLET 1 Tablet ORAL EVERY 4 HOURS NEEDED as needed for PAIN SCALE 1-3 (MILD) Qty = 15 Comments: Last Taken: 01/02/17 Time: 446 PM Oxycodone HCl/Acetaminophen (Percocet 5-325 MG Tablet) 5 MG-325 MG TABLET 2 Tablet ORAL EVERY 4 HOURS NEEDED as needed for PAIN SCALE 4-6 (MODERATE ) Qty = 30 Instructions: DO NOT EXCEED THE INTAKE OF ACETAMINOPHEN BY 3g/DAY Comments: Last Taken: 01/03/17 Time: 522 AM Polyethylene Glycol 3350 (Miralax) 17 GRAM POWD.PACK 1 Packet ORAL DAILY as needed for CONSTIPATION Qty = 30 Instructions: dissolve in water Comments: Last Taken: 01/03/17 Time: 1015 AM Sennosides/Docusate Sodium (Docusate Sodium-Senna Tablet) 8.6 MG-50 MG TABLET 1 Tablet ORAL DAILY as needed for CONSTIPATION Qty = 20 Comments: Last Taken: 01/02/17 Time: 853 AM Ferrous Sulfate (Ferrous Sulfate) 325 MG (65 MG IRON) TABLET 1 Tablet ORAL DAILY Comments: Last Taken: 02/18/17 Time: 1000 Gabapentin (Gabapentin) 300 MG CAPSULE 1 Tablet ORAL EVERY 12 Comments: NOT GIVEN IN HOSPITAL. Aspirin (Aspirin*) 81 MG TAB.CHEW 1 Tablet ORAL DAILY Comments: Last Taken:02/18/17 Time:1000
[2017-02-18 10:11] VITALS: BP 118/62
[2017-02-18 14:07] VITALS: BP 118/62
[2017-02-18 14:31] VITALS: BP 118/64
== END 2017-02-18 15:00 | DRG 180 ==
LOC: STS 02:09 → 2NA 09:26 → PACUH 09:26 → ENRESERV 14:27 → 2NA 16:14 → ENPENDDIS 02-18 14:21 → 2NA 02-18 15:00
PROVIDERS: Nurse Practitioner; Physician Assistant; Physician Assistant Surgical; ADMIT Surgery Vascular Surgery
PROC: 0HBJXZZ Excision of Left Upper Leg Skin, External Approach (ICD-10-PCS; principal; 2017-02-15)
PROC: 0JBP0ZZ Excision of Left Lower Leg Subcutaneous Tissue and Fascia, Open Approach (ICD-10-PCS; principal; 2017-02-15)
PROC: 0HRLX74 Replacement of Left Lower Leg Skin with Autologous Tissue Substitute, Partial Thickness, External Approach (ICD-10-PCS; principal; 2017-02-15)
PROC: 30233N1 Transfusion of Nonautologous Red Blood Cells into Peripheral Vein, Percutaneous Approach (ICD-10-PCS; 2017-02-15)
DX: I70.248 Atherosclerosis of native arteries of left leg with ulceration of other part of lower leg (principal); D62 Acute posthemorrhagic anemia; L97.829 Non-pressure chronic ulcer of other part of left lower leg with unspecified severity; I95.81 Postprocedural hypotension; L76.22 Postprocedural hemorrhage of skin and subcutaneous tissue following other procedure; R50.82 Postprocedural fever; Y83.8 Other surgical procedures as the cause of abnormal reaction of the patient, or of later complication, without mention of misadventure at the time of the procedure; R00.0 Tachycardia, unspecified; I25.10 Atherosclerotic heart disease of native coronary artery without angina pectoris; I10 Essential (primary) hypertension; E78.5 Hyperlipidemia, unspecified; E03.9 Hypothyroidism, unspecified; Z87.891 Personal history of nicotine dependence
CPT/HCPCS: 2NAP; 82436; 86902; 86920; 86922; 97161-GP; J0131; J1170; J1885; J2405; J3490; J7042; P9016

== ENCOUNTER 2018-02-28 02:17 | Inpatient (IN) | payer OTHER ==
--- NOTE | 2018-02-26 13:44 | History & Physical Pre-Op ---
General Information and HPI History of Present Illness: Caty is a 62-year-old female with a long-standing complaint of a nonhealing ulcer to the anterior aspect of her left ankle. The patient is followed in the wound center for periodic debridements with the wound bed now optimized for definitive closure with split-thickness skin grafting. Of note, the patient underwent multiple vascular procedures to restore perfusion to the foot. Allergies/Medications Allergies: Coded Allergies: No Known Allergies (02/24/18) Home Med list Aspirin (Aspirin*) 81 MG TAB.CHEW 1 TAB PO DAILY HEART HEALTH (Reported) Atorvastatin Calcium 40 MG TABLET 1 TAB PO DAILY CHOLESTEROL (Reported) Clopidogrel Bisulfate (Plavix) 75 MG TABLET 75 MG PO DAILY antiplatelet Ferrous Sulfate 325 MG (65 MG IRON) TABLET 1 TAB PO DAILY ANEMIA (Reported) Gabapentin 300 MG CAPSULE 1 TAB PO EVERY 12 PAIN (Reported) Levothyroxine Sodium (Synthroid) 0.125 MG TAB 1 TAB PO DAILY AC THYROID HEALTH Metoprolol Tartrate 25 MG TABLET 25 MG PO BID blood pressure Oxycodone HCl/Acetaminophen (Percocet 5-325 MG Tablet) 5 MG-325 MG TABLET 1 TAB PO Q4P PRN PAIN SCALE 1-3 (MILD) Oxycodone HCl/Acetaminophen (Percocet 5-325 MG Tablet) 5 MG-325 MG TABLET 2 TAB PO Q4P PRN PAIN SCALE 4-6 (MODERATE) DO NOT EXCEED THE INTAKE OF ACETAMINOPHEN BY 3g/DAY Polyethylene Glycol 3350 (Miralax) 17 GRAM POWD.PACK 1 PAC PO DAILY PRN CONSTIPATION dissolve in water Sennosides/Docusate Sodium (Docusate Sodium-Senna Tablet) 8.6 MG-50 MG TABLET 1 TAB PO DAILY PRN CONSTIPATION Past History Medical History Neurological: NONE EENT: NONE Cardiovascular: CAD, hypertension, hyperlipidemia, PVD Respiratory: NONE Gastrointestinal: NONE Hepatic: NONE Renal: KIDNEY STONES Musculoskeletal: NONE Psychiatric: NONE Endocrine: hypothyroidism Blood Disorders: DVT Cancer(s): NONE 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 Psychosocial History Services at Home None Functional Ability ADLs Independent: dressing, eating, toileting, bathing. Ambulation: independent IADLs Independent: shopping, housework, finances, food prep, telephone, transportation , medication admin. Exam & Diagnostic Data Last 24 Hrs of Vital Signs/I&O Unremarkable except for that noted in history of present illness Physical Exam: Lungs clear bilaterally. Heart sounds rate and rhythm regular. Lower extremity physical exam demonstrates intact pedal pulses bilaterally. Pulses dorsalis pedis and posterior tibial arteries are palpable bilaterally. Patient with a sensory deficit identified in the plantar aspect of the foot in a moccasin type distribution bilaterally. Patient noted to have a 12 cm x 8 cm full-thickness Valentino grade 2 ulceration to the anterior aspect of her left ankle. There is slough overlying a otherwise granular wound bed. No probing or undermining identified. Assessment/Plan Assessment/Plan: Nonhealing ulcer anterior aspect left ankle. A lengthy discussion reviewing both surgical and conservative options was held the patient at bedside and the patient elects to go forward with surgery despite the risks. As Ranked By This Provider Problem List: 1. Non-pressure chronic ulcer of left ankle with fat layer exposed Attending MD Review Statement Attending Statement Attending MD Statement: examined this patient
[~2018-02-28] VITALS: Ht 152.4 cm; Wt 76.7 kg
--- NOTE | 2018-02-28 12:10 | Operative Report ---
Operative/Inv Procedure Report Surgery Date: 02/28/18 Name of Procedure: 1 10 cm x 8 cm split-thickness skin graft anterior left ankle 2 negative pressure wound therapy anterior left ankle Pre-Operative Diagnosis: 1 nonhealing ulcer anterior left ankle 2 chronic venous insufficiency left lower extremity Post-Operative Diagnosis: Same Estimated Blood Loss: scant Surgeon/[employer]: Bob Kline DPM, Dr., DPM Anesthesia: moderate sedation, block Operative/Procedure Note Note: After obtaining informed consent the patient was brought to the operating room and placed on the operating table in the supine position. The patient isn't securely fastened to the operating table utilizing safety belt. After administration of IV sedation, 10 mL of 0.5% Marcaine plain was infiltrated about the left ankle. The left lower extremity was then scrubbed, prepped and draped in usual aseptic manner. 1 g of vancomycin was delivered intravenously times one dose. This was then directed to the anterior aspect of the left ankle , where a 10 cm x 8 cm full-thickness wound was identified. There was superficial slough overlying an otherwise uniformly granulated wound bed. No probing or undermining identified. Moderate amount of serous drainage identified. The wound margins and centrally within curetted of any overlying slough in the wound bed was then prepared with pulse irrigation consisting of 3 L normal sterile saline fissure 50,000 units of bacitracin. Following this, a pressure dressing was placed at the debridement site. The recipient site was then marked out the anterior thigh and the margins of the site were infiltrated with 1% lidocaine with epinephrine. A 17 1000 of an inch split-thickness skin graft was elevated off the donor site and meshed a ratio of 1/2-1. The graft was then fixated into the recipient site at its margins with skin emma, followed by the application of Adaptic and negative pressure wound therapy. The donor site was dressed with copious amounts of bacitracin followed by Xeroform, Kerlix and an Jevon wrap. The patient was noted tolerate both procedure and anesthesia well and the patient was transported from the operating room to recovery with vital signs stable.
[2018-02-28 14:23] VITALS: BP 130/70
--- NOTE | 2018-02-28 16:31 | PN- Vascular Surgery ---
Subjective Subjective: POST-OP NOTE Reports pain currently "2/10", well controlled after a percocet. Tolerating clears. Eager to eat dinner. No nausea. No dizziness. No shortness of breath. No chest pains. Objective Vital Signs and I&Os Vital Signs Date Time Temp Pulse Resp B/P B/P Pulse O2 O2 Flow FiO2 Mean Ox Delivery Rate 02/28 1423 97.9 84 18 130/70 98 Room Air Room Air Intake & Output 02/28 1600 02/28 0000 02/27 1600 02/27 0000 Intake Total Output Total Balance Patient 169 lb Weight Weight Standing Scale Measurement Method Physical Exam: General - alert & oriented x 3. comfortable. no acute distress. Lungs - clear bilaterally. no w/r/r. Cardiac - s1s2. reg. Abdomen - soft. nontender. Extremities - warm bilaterally. wound vac in place with KATT wrap cover, without evidence of leak. nvi. Current Medications: Current Medications Sig/Bibi Start time Last Medication Dose Route Stop Time Status Admin Acetaminophen 650 MG Q6P PRN 02/28 1430 AC PO Aspirin Buffered 81 MG DAILY 03/01 900 AC PO Cefazolin Sodium 2,000 MG ONCE 02/28 0000 DC IV 02/28 2359 Clopidogrel Bisulfate 75 MG DAILY 03/01 900 AC PO Dextrose/Sodium 1,000 ML Q10H 02/28 1430 AC 02/28 Chloride IV 1451 Docusate Sodium 100 MG BID 02/28 2100 AC PO Fentanyl Citrate 100 MCG .STK-MED ONE 02/29 656 DC IM 02/28 657 Gabapentin 300 MG Q12 02/28 2100 AC PO Ketorolac 30 MG .STK-MED ONE 02/28 657 DC Tromethamine IM 02/28 658 Levothyroxine Sodium 0.125 MG DAILY AC 03/01 700 AC PO Metoprolol Tartrate 25 MG BID 02/28 2100 AC PO Midazolam HCl 2 MG .STK-MED ONE 02/28 657 DC IM 02/28 658 Morphine Sulfate 2 MG Q4-6 PRN PRN 02/28 1430 AC IV Ondansetron HCl 4 MG Q6P PRN 02/28 1430 AC IV Oxycodone/ 1 TAB Q4P PRN 02/28 1430 AC 02/28 Acetaminophen PO 1454 Oxycodone/ 2 TAB Q4P PRN 02/28 1430 AC Acetaminophen PO Polyethylene Glycol 17 GM DAILY NEEDED PRN 02/28 1430 AC PO Senna 374 MG AT BEDTIME NEED.. 02/28 1430 AC PO Vancomycin HCl 1,000 MG Q24H 02/28 1800 AC Sodium Chloride 250 ML IV Assessment/Plan Assessment/Plan This 62 year old female with hx chronic renal insufficiency, peripheral vascular disease, with chronic nonhealing ulcers on the lateral aspect of the left leg, s /p multiple debridements and s/p a failed skin graft, is now POD#0 s/p 10 cm x 8 cm split-thickness skin graft anterior left ankle, with negative pressure wound therapy anterior left ankle advance diet as tolerated iv vanco wound vac in place, does not need to be changed as per ok to resume asa/plavix in am heal touch LLE as tolerated f/u am labs home meds resumed d/c planning, vs tuesday per Core Measures Venous Thromboembolism VTE Risk Factors Surgery No Mechanical VTE Prophylaxis d/t N/A MechProphylax Ordered No VTE Pharm Prophylaxis d/t NA PharmProphylax ordered
[2018-02-28 22:39] VITALS: BP 120/84
[2018-03-01 06:26] VITALS: BP 98/54
--- NOTE | 2018-03-01 08:04 | PN- Vascular Surgery ---
Subjective Subjective: No acute overnight events reported. Feels minimal discomfort in left ankle. Denies chest pain, shortness of breath and difficulty breathing. Has been tolerating diet, denies nausea and vomitting. Has been voiding without difficulty. Objective Vital Signs and I&Os Vital Signs Date Time Temp Pulse Resp B/P B/P Pulse O2 O2 Flow FiO2 Mean Ox Delivery Rate 03/01 0754 136/80 03/01 0626 98.2 89 20 98/54 92 Room Air 02/28 2239 98.1 90 19 120/84 99 Room Air 02/28 2005 86 130/80 02/28 1722 Room Air Room Air 02/28 1423 97.9 84 18 130/70 98 Room Air Room Air Intake & Output 03/01 0000 02/28 1600 02/28 0000 Intake Total 940 Output Total Balance 940 Intake, IV 800 Intake, Oral 140 Patient 169 lb Weight Weight Standing Scale Measurement Method Physical Exam: General: Alert and oriented x3, no acute distress Cardiac: RRR, s1s2 Pulm: CTA bilaterally ABD: Non-tener, non-distended Extremities: Motor/sensory grossly intact, some residual, ?chronic sensory defects plantar aspect bilaterally. Left foot/ankle with clifford bandage and wound vac in place. Vac holding suction, outer dressing dry and intact. Skin distally warm and dry. Distal pulses palpable bilaterally, no edema/tenderness to bilateral calves. Assessment/Plan Assessment/Plan This is a 62 year old female, POD 1, s/p 10 cm x 8 cm split-thickness skin graft to anterior left ankle with placement of negative pressure wound therapy anterior left ankle for treatment of non-healing ulcer likely related to chronic venous insufficiency. -Continue wound vac treatment as is today, no indication to change dressing -Can be oob with heal touch weight bearing to lle -Continue vancomycin, dc maintenance iv fluids -Continue home meds -Continue diet as tolerated -DC planning, anticpate possible dc tomorrow or tuesday Will discuss plan of care with Dr. Knutson and Dr. Kline Core Measures Venous Thromboembolism VTE Risk Factors Surgery No Mechanical VTE Prophylaxis d/t N/A MechProphylax Ordered No VTE Pharm Prophylaxis d/t NA PharmProphylax ordered
[2018-03-01 08:46] LABS: ABSOLUTE BASOPHIL COUNT 0.1 /CUMM (0.0-0.2); ABSOLUTE EOSINOPHIL COUNT 0.2 /CUMM (0.0-0.7); ABSOLUTE GRANULOCYTE CT 3.6 /CUMM (1.4-6.5); ABSOLUTE LYMPH COUNT 1.2 /CUMM (1.2-3.4); ABSOLUTE MONOCYTE COUNT 0.6 /CUMM (0.10-0.60); BASOPHIL % 1.1 % (0.0-2.0); EOSINOPHIL % 2.7 % (0-5); GRANULOCYTE % 63.5 % (42.2-75.2); MEAN CORPUSCULAR HGB 27.3 PG (27.0-31.0); MEAN CORPUSCULAR HGB CONC 32.3 G/DL (33.0-37.0); MEAN CORPUSCULAR VOLUME 84.7 FL (81.0-99.0); MEAN PLATELET VOLUME 8.1 FL (7.4-10.4); PLATELET COUNT 264 /CUMM (130-400); RBC DISTRIBUTION WIDTH 15.2 % (11.5-14.5); RED BLOOD CELL CT 3.89 /CUMM (4.20-5.40); WHITE BLOOD CELL COUNT 5.7 /CUMM (4.8-10.8)
[2018-03-01 12:35] VITALS: BP 130/70
[2018-03-01 14:53] VITALS: BP 130/72
--- NOTE | 2018-03-01 17:26 | PN- Vascular Surgery ---
Surgical Brief Attending Note Brief Attending Note: VASCULAR ATTENDING NOTE: Patient seen and examined 02/28 prior to OR intervention. Pt. admitted after debridement due to a history of peripheral arterial disease and pain postprocedure. Further, patient has also had recent MRSA wound infection with cellulitis which is being treated with antibiotics. Physical exam today does demonstrate erythema. There is concern for early skin graft failure without appropriate leg elevation, local wound care, pain control and antibiotic therapy. Therefore she will be admitted for observation and discharged when lower extremity wound is stable Case d/w podiatry who is in agreement.
[2018-03-01 22:55] VITALS: BP 128/70
[2018-03-02 06:55] VITALS: BP 146/82
--- NOTE | 2018-03-02 09:49 | PN- Vascular Surgery ---
See Addendum Surgical Brief Attending Note Brief Attending Note: VASCULAR ATTENDING NOTE: Pt. now POD #2 s/p STSG. No complaints. PE: AF/VSS Ext- LE wound/dressed c/d/i, + VAC in place A/P Cont. local wound/VAC Will discuss d/c plan with podiatry Cont. ABX and Bactrim on d/c
[2018-03-02 11:39] LABS: ABSOLUTE BASOPHIL COUNT 0.2 /CUMM (0.0-0.2); ABSOLUTE EOSINOPHIL COUNT 0.2 /CUMM (0.0-0.7); ABSOLUTE GRANULOCYTE CT 4.8 /CUMM (1.4-6.5); ABSOLUTE LYMPH COUNT 1.3 /CUMM (1.2-3.4); ABSOLUTE MONOCYTE COUNT 0.8 /CUMM (0.10-0.60); BASOPHIL % 2.1 % (0.0-2.0); EOSINOPHIL % 2.8 % (0-5); GRANULOCYTE % 66.9 % (42.2-75.2); HEMATOCRIT 33.8 % (37-47); MEAN CORPUSCULAR HGB 27.8 PG (27.0-31.0); MEAN CORPUSCULAR VOLUME 84.5 FL (81.0-99.0); MEAN PLATELET VOLUME 8.1 FL (7.4-10.4); PLATELET COUNT 277 /CUMM (130-400); RED BLOOD CELL CT 4.01 /CUMM (4.20-5.40); WHITE BLOOD CELL COUNT 7.2 /CUMM (4.8-10.8)
--- NOTE | 2018-03-02 14:34 | Cons- Infect Disease ---
General Information and HPI Consulting Request Date of Consult: 03/02/18 Requested By: Tevin Knutson MD Reason for Consult: Rule out infection status post skin graft to the left leg Source of Information: patient, old records History of Present Illness: This is a 62-year-old woman with coronary artery disease, hypertension, hypothyroidism, peripheral vascular disease and chronic venous insufficiency, with a chronic, painful, nonhealing ulcer on the lateral aspect of her left leg for 3 years, status post left leg revascularization, hyperbaric oxygen, several failed skin grafts, most recently one year prior to admission, and multiple courses of antibiotics, most recently over the past 2 weeks prior to admission ( possibly Bactrim), with a superficial culture from 1 month prior to admission positive for MRSA and Group B strep, admitted on February 28 for a split thickness skin graft to the left leg with placement of a wound VAC, which was performed on the day of admission. She was given Vancomycin prophylaxis, which has been continued postoperatively. She has remained afebrile with a normal white blood cell count since admission. At present she does not report any pain. Allergies/Medications Allergies: Coded Allergies: No Known Allergies (02/24/18) Home Med List: Aspirin (Aspirin*) 81 MG TAB.CHEW 1 TAB PO DAILY HEART HEALTH (Reported) Atorvastatin Calcium 40 MG TABLET 1 TAB PO DAILY CHOLESTEROL (Reported) Clopidogrel Bisulfate (Plavix) 75 MG TABLET 75 MG PO DAILY antiplatelet Ferrous Sulfate 325 MG (65 MG IRON) TABLET 1 TAB PO DAILY ANEMIA (Reported) Gabapentin 300 MG CAPSULE 1 TAB PO EVERY 12 PAIN (Reported) Levothyroxine Sodium (Synthroid) 0.125 MG TAB 1 TAB PO DAILY AC THYROID HEALTH Metoprolol Tartrate 25 MG TABLET 25 MG PO BID blood pressure Oxycodone HCl/Acetaminophen (Percocet 5-325 MG Tablet) 5 MG-325 MG TABLET 1 TAB PO Q4P PRN PAIN SCALE 1-3 (MILD) Oxycodone HCl/Acetaminophen (Percocet 5-325 MG Tablet) 5 MG-325 MG TABLET 2 TAB PO Q4P PRN PAIN SCALE 4-6 (MODERATE) DO NOT EXCEED THE INTAKE OF ACETAMINOPHEN BY 3g/DAY Polyethylene Glycol 3350 (Miralax) 17 GRAM POWD.PACK 1 PAC PO DAILY PRN CONSTIPATION dissolve in water Sennosides/Docusate Sodium (Docusate Sodium-Senna Tablet) 8.6 MG-50 MG TABLET 1 TAB PO DAILY PRN CONSTIPATION Past History Medical History Blood Transfusion Hx: Yes Neurological: NONE EENT: NONE Cardiovascular: CAD, chronic venous insuff, hypertension, hyperlipidemia, PVD Respiratory: NONE Gastrointestinal: NONE Hepatic: NONE Renal: KIDNEY STONES Musculoskeletal: NONE Psychiatric: NONE Endocrine: hypothyroidism Blood Disorders: DVT Cancer(s): NONE 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 Psychosocial History Where Do You Live? Home Services at Home: None Smoking Status: Former Smoker Functional Ability ADLs Independent: dressing, eating, toileting, bathing. Ambulation: independent IADLs Independent: shopping, housework, finances, food prep, telephone, transportation , medication admin. Review of Systems Review of Systems Constitutional: Denies: chills, fever. All Other Systems: Reviewed and Negative Exam & Diagnostic Data Last 24 Hrs of Vital Signs/I&O Vital Signs Date Time Temp Pulse Resp B/P B/P Pulse O2 O2 Flow FiO2 Mean Ox Delivery Rate 03/02 0832 146/80 03/02 0655 98.9 88 18 146/82 94 Room Air 03/01 2255 98.4 74 18 128/70 94 Room Air 03/01 2020 98.5 73 130/72 03/01 1453 98.5 73 18 130/72 94 Room Air Intake & Output 03/02 1600 03/02 0800 03/02 0000 Intake Total 600 300 Output Total 850 400 Balance -250 -100 Intake, IV 300 Intake, Oral 300 300 Output, Urine 850 400 Physical Exam Other Physical Findings: She is awake and alert in no acute distress. She is afebrile. Skin reveals no rash. HEENT exam is negative. Neck is supple with no adenopathy. Lungs are clear. Heart regular rhythm with no murmur. Abdomen is soft, nontender with positive bowel sounds. Back no CVA tenderness. Extremities left leg dressing intact, with wound VAC in place; right foot with no lesions and with 1+ pulses. Neuro without focality. Last 24 Hours of Lab Results: Laboratory Tests 03/02 1130 Chemistry Albumin (3.5 - 5.0 g/dL) 3.4 L Hematology CBC w Diff NO MAN DIFF REQ WBC (4.8 - 10.8 /CUMM) 7.2 RBC (4.20 - 5.40 /CUMM) 4.01 L Hgb (12.0 - 16.0 G/DL) 11.1 L Hct (37 - 47 %) 33.8 L MCV (81.0 - 99.0 FL) 84.5 MCH (27.0 - 31.0 PG) 27.8 MCHC (33.0 - 37.0 G/DL) 33.0 RDW (11.5 - 14.5 %) 15.0 H Plt Count (130 - 400 /CUMM) 277 MPV (7.4 - 10.4 FL) 8.1 Gran % (42.2 - 75.2 %) 66.9 Lymphocytes % (20.5 - 51.1 %) 17.7 L Monocytes % (1.7 - 9.3 %) 10.5 H Eosinophils % (0 - 5 %) 2.8 Basophils % (0.0 - 2.0 %) 2.1 H Absolute Granulocytes (1.4 - 6.5 /CUMM) 4.8 Absolute Lymphocytes (1.2 - 3.4 /CUMM) 1.3 Absolute Monocytes (0.10 - 0.60 /CUMM) 0.8 H Absolute Eosinophils (0.0 - 0.7 /CUMM) 0.2 Absolute Basophils (0.0 - 0.2 /CUMM) 0.2 Last 24 Hours of Ernesto Results: No recent cultures Assessment/Plan Assessment/Plan Impression: This is a 62-year-old woman with peripheral vascular disease and chronic venous insufficiency, with a chronic, painful, nonhealing ulcer to the lateral aspect of her left leg for 3 years, status post left leg revascularization, hyperbaric oxygen, several failed skin grafts and multiple courses of antibiotics, admitted on February 28 for a split thickness skin graft to the left leg with placement of a wound VAC, which was performed on the day of admission, treated with Vancomycin since her surgery, with her temperatures and white blood cell count remaining normal. The role of antibiotics at this point is unclear. It appears that she was given Vancomycin as prophylaxis, but there is no benefit to continuing antibiotic prophylaxis postoperatively in this setting. I feel, therefore, that she can be followed off antibiotics at this point. Suggestion: 1. Discontinue Vancomycin and follow off antibiotics Consult Acknowledgment - Thank you for your consult request.
[2018-03-02 14:42] VITALS: BP 160/88
[2018-03-02 20:26] VITALS: BP 130/80
[2018-03-03 06:20] VITALS: BP 140/84
--- NOTE | 2018-03-03 09:28 | Patient Discharge Instructions ---
Discharge Instructions General Discharge Information You were seen/treated for: 1 nonhealing ulcer anterior left ankle 2 chronic venous insufficiency left lower extremity You had these procedures: Surgery Date: 02/28/18 Name of Procedure: 1 10 cm x 8 cm split-thickness skin graft anterior left ankle 2 negative pressure wound therapy anterior left ankle Watch for these problems: FEVER>101.3, INCREASED PAIN, REDNESS/SWELLING/DRAINAGE, DIZZINESS, SHORTNESS OF BREATH, PROBLEMS WITH WOUND VAC DEVICE Other wound care: WOUND VAC TO REMAIN TO NEGATIVE PRESSURE UNTIL THE FIRST DRESSING CHANGE BY ON Tuesday03/06/18 IN WOUND CARE CLINIC. Diet Continue normal diet: Yes Recommended Diet: Heart Healthy Activity Full Activity/No Limits: No Activity Self Limited: Yes Other activity limits: HEEL TOUCH WEIGHT BEARING, LEFT LEG Acute Coronary Syndrome Inclusion Criteria At DC or during hospital stay patient has or had the following: ACS DIAGNOSIS No Discharge Core Measures Meds if any: Prescribed or Continued at Discharge Meds if any: NOT Prescribed or Continued at Discharge Congestive Heart Failure Inclusion Criteria At DC or during hospital stay patient has or had the following: CHF DIAGNOSIS No Discharge Core Measures Meds if any: Prescribed or Continued at Discharge Meds if any: NOT Prescribed or Continued at Discharge Cerebrovascular accident Inclusion Criteria At DC or during hospital stay patient has or had the following: CVA/TIA Diagnosis No Discharge Core Measures Meds if any: Prescribed or Continued at Discharge Meds if any: NOT Prescribed or Continued at Discharge Venous thromboembolism Inclusion Criteria VTE Diagnosis No VTE Type NONE VTE Confirmed by (Test) NONE Discharge Core Measures - Per Current guidelines, there needs to be overlap - treatment for the first 5 days of Warfarin therapy. - If discharged on Warfarin prior to 5 days of - overlap therapy, the patient will need to be - assessed for post discharge needs including - *Post discharge parental anticoagulation - *Warfarin and/or parental anticoagulation education - *Follow up date to check INR post discharge At least 5 days overlap therapy as Inpatient No Meds if any: Prescribed or Continued at Discharge Note: Overlap Therapy is Warfarin and Anticoagulant Meds if any: NOT Prescribed or Continued at Discharge
[2018-03-03] MEDS ORDERED: BACTRIM DS TAB1 EACH PO (09:32)
[2018-03-03] MEDS ORDERED: PROBIOTIC1 EACH PO (09:32)
[2018-03-03] MEDS ORDERED: DOCUSATE SODIU100 M3 PO (09:32)
--- NOTE | 2018-03-03 09:52 | PN- Vascular Surgery ---
Subjective Subjective: No complaints. Only requiring tylenol as needed for discomfort. Wound vac remains in place. She reports out of bed as directed, with heel touch on her left leg. She understands the plan for going home with 5 more days of bactrim, following up with on tuesday in the wound care clinic for her first vac dressing change, and currently just waiting for home wound vac device to arrive in order for her to go home today with vns. Objective Vital Signs and I&Os Vital Signs Date Time Temp Pulse Resp B/P B/P Pulse O2 O2 Flow FiO2 Mean Ox Delivery Rate 03/03 859 98.8 79 20 140/84 03/03 620 98.8 79 20 140/84 96 Room Air 03/02 2026 98.5 82 20 130/80 96 Room Air 03/02 2025 98.5 82 20 130/80 03/02 1442 98.7 81 20 160/88 97 Intake & Output 03/03 1600 03/03 0000 03/02 1600 03/02 0000 Intake Total 220 220 500 600 300 Output Total 550 1200 850 400 Balance -330 -980 500 -250 -100 Intake, IV 100 100 300 Intake, Oral 120 120 500 300 300 Number 0 Bowel Movements Output, Urine 550 1200 850 400 Physical Exam: General - alert & oriented x 3. comfortable. no acute distress. Lungs - clear bilaterally. no w/r/r. Cardiac - s1s2. reg. Abdomen - soft. nontender. Extremities - warm bilaterally. wound vac in place, left lower leg, without leak. Current Medications: Current Medications Sig/Bibi Start time Last Medication Dose Route Stop Time Status Admin Acetaminophen 650 MG .STK-MED ONE 03/02 1752 DC PO 03/02 1753 Acetaminophen 650 MG Q6P PRN 02/28 1430 AC 03/02 PO 1758 Aspirin Buffered 81 MG DAILY 03/01 900 AC 03/03 PO 0859 Clopidogrel Bisulfate 75 MG DAILY 03/01 900 AC 03/03 PO 0858 Docusate Sodium 100 MG BID 02/28 2100 AC 03/03 PO 0858 Gabapentin 300 MG Q12 02/28 2100 AC 03/03 PO 0859 Levothyroxine Sodium 0.125 MG DAILY AC 03/01 07 AC 03/03 PO 0629 Metoprolol Tartrate 25 MG BID 02/28 2100 AC 03/03 PO 0859 Morphine Sulfate 2 MG Q4-6 PRN PRN 02/28 1430 AC IV Ondansetron HCl 4 MG Q6P PRN 02/28 1430 AC IV Oxycodone/ 1 TAB Q4P PRN 02/28 1430 AC 02/28 Acetaminophen PO 1454 Oxycodone/ 2 TAB Q4P PRN 02/28 1430 AC Acetaminophen PO Polyethylene Glycol 17 GM DAILY NEEDED PRN 02/28 1430 AC PO Senna 374 MG AT BEDTIME NEED.. 02/28 1430 AC PO Vancomycin HCl 1,000 MG Q24H 02/28 1800 AC 03/02 Sodium Chloride 250 ML IV 1758 Results Last 48 Hours of Labs: Laboratory Tests 03/02 1130 Chemistry Albumin (3.5 - 5.0 g/dL) 3.4 L Hematology CBC w Diff NO MAN DIFF REQ WBC (4.8 - 10.8 /CUMM) 7.2 RBC (4.20 - 5.40 /CUMM) 4.01 L Hgb (12.0 - 16.0 G/DL) 11.1 L Hct (37 - 47 %) 33.8 L MCV (81.0 - 99.0 FL) 84.5 MCH (27.0 - 31.0 PG) 27.8 MCHC (33.0 - 37.0 G/DL) 33.0 RDW (11.5 - 14.5 %) 15.0 H Plt Count (130 - 400 /CUMM) 277 MPV (7.4 - 10.4 FL) 8.1 Gran % (42.2 - 75.2 %) 66.9 Lymphocytes % (20.5 - 51.1 %) 17.7 L Monocytes % (1.7 - 9.3 %) 10.5 H Eosinophils % (0 - 5 %) 2.8 Basophils % (0.0 - 2.0 %) 2.1 H Absolute Granulocytes (1.4 - 6.5 /CUMM) 4.8 Absolute Lymphocytes (1.2 - 3.4 /CUMM) 1.3 Absolute Monocytes (0.10 - 0.60 /CUMM) 0.8 H Absolute Eosinophils (0.0 - 0.7 /CUMM) 0.2 Absolute Basophils (0.0 - 0.2 /CUMM) 0.2 Assessment/Plan Assessment/Plan This 62 year old female with hx chronic renal insufficiency, peripheral vascular disease, with chronic nonhealing ulcers on the lateral aspect of the left leg, s /p multiple debridements and s/p a failed skin graft, is now POD#3 s/p 10 cm x 8 cm split-thickness skin graft anterior left ankle, with negative pressure wound therapy anterior left ankle tolerating diet transitioning iv vanco to oral bactrim today when discharged wound vac in place, does not need to be changed until tuesday by in wound care clinic continue asa/plavix heal touch LLE as tolerated d/c home today with vns once home wound vac device arrives will d/w Core Measures Venous Thromboembolism VTE Risk Factors Surgery No Mechanical VTE Prophylaxis d/t N/A MechProphylax Ordered No VTE Pharm Prophylaxis d/t NA PharmProphylax ordered
--- NOTE | 2018-03-03 09:52 | Surgical Discharge Summary ---
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 Psychosocial History Where Do You Live? Home Who Do You Live With? Significant Other Services at Home: None What is Your Primary Language? Irish Review of Systems: SEE H&P Hospital Course Course Attending Physician: Tevin Knutson MD Primary Care Physician: Roberto TOM,[facility] Course: Electively scheduled 10 cm x 8 cm split-thickness skin graft anterior left ankle , and placement of negative pressure wound therapy anterior left ankle on 02/28/18 by and , for history of nonhealing ulcer anterior left ankle , and chronic venous insufficiency left lower extremity. She remained on iv vancomycin while she was inpatient, transitioned to oral bactrim to be continued for 5 days at home. Wound vac therapy continued through hospitalization, with plans for first dressing change on tuesday03/06/18 by in the wound care clinic. She is currently heel touch weight bearing on her left leg. She is taking only tylenol as needed for painc control. A home wound vac device and vna services are being arranged for her home discharge today, 03/03/18. Complications: None Allergies: Coded Allergies: No Known Allergies (02/24/18) Disposition Summary Disposition Principal Diagnosis: 1 nonhealing ulcer anterior left ankle 2 chronic venous insufficiency left lower extremity Additional Diagnosis: same as above, s/p Surgery Date: 02/28/18 Name of Procedure: 1 10 cm x 8 cm split-thickness skin graft anterior left ankle 2 negative pressure wound therapy anterior left ankle Discharge Disposition: home health services Discharge Instructions General Discharge Information Code Status: Full Code Patient's Diet: heart healthy as tolerated Patient's Activity: heel touch weight bearing, left leg Follow-Up Instructions/Appts: wound vac change on tuesday by in wound care clinic continue bactrim as directed, for 5 days vna services being arranged for home follow up with in 1-2 weeks Medications at Discharge Discharge Medications: Continue taking these medications: Levothyroxine Sodium (Synthroid) 0.125 MG TAB 1 Tablet ORAL DAILY BEFORE BREAKFAST Qty = 30 Atorvastatin Calcium (Atorvastatin Calcium) 40 MG TABLET 1 Tablet ORAL DAILY Comments: Last Taken: 02/17/17 Time: 5 PM Clopidogrel Bisulfate (Plavix) 75 MG TABLET 75 Milligram ORAL DAILY Days = 30 Comments: Last Taken: 02/18/17 Time: 1000 AM Metoprolol Tartrate (Metoprolol Tartrate) 25 MG TABLET 25 Milligram ORAL TWICE DAILY Qty = 60 Comments: Last Taken: 02/18/17 Time: 1000 AM Oxycodone HCl/Acetaminophen (Percocet 5-325 MG Tablet) 5 MG-325 MG TABLET 1 Tablet ORAL EVERY 4 HOURS NEEDED as needed for PAIN SCALE 1-3 (MILD) Qty = 15 Oxycodone HCl/Acetaminophen (Percocet 5-325 MG Tablet) 5 MG-325 MG TABLET 2 Tablet ORAL EVERY 4 HOURS NEEDED as needed for PAIN SCALE 4-6 (MODERATE ) Qty = 30 Instructions: DO NOT EXCEED THE INTAKE OF ACETAMINOPHEN BY 3g/DAY Comments: Last Taken: 02/18/17 Time: 1230 PM Polyethylene Glycol 3350 (Miralax) 17 GRAM POWD.PACK 1 Packet ORAL DAILY as needed for CONSTIPATION Qty = 30 Instructions: dissolve in water Comments: Last Taken: 02/18/17 Time: 1000 Sennosides/Docusate Sodium (Docusate Sodium-Senna Tablet) 8.6 MG-50 MG TABLET 1 Tablet ORAL DAILY as needed for CONSTIPATION Qty = 20 Comments: Last Taken: 02/17/17 Time: 2155 PT GIVEN 2 TABS WHILE IN HOSPITAL. Ferrous Sulfate (Ferrous Sulfate) 325 MG (65 MG IRON) TABLET 1 Tablet ORAL DAILY Comments: Last Taken: 02/18/17 Time: 1000 Gabapentin (Gabapentin) 300 MG CAPSULE 1 Tablet ORAL EVERY 12 Comments: NOT GIVEN IN HOSPITAL. Aspirin (Aspirin*) 81 MG TAB.CHEW 1 Tablet ORAL DAILY Comments: Last Taken:02/18/17 Time:1000 Start taking the following new medications: Docusate Sodium (Docusate Sodium) 100 MG CAPSULE 100 Milligram ORAL TWICE DAILY as needed for CONSTIPATION Qty = 60 No Refills Instructions: STOOL SOFTENER, HOLD FOR LOOSE STOOL/DIARRHEA Sulfamethoxazole/Trimethoprim (Bactrim Ds Tablet) 800 MG-160 MG TABLET 1 Tablet ORAL TWICE DAILY Qty = 10 No Refills Instructions: TAKE WITH FOOD Lactobacillus Acidophilus (Probiotic) 10 BILLION CELL CAPSULE 1 Capsule ORAL THREE TIMES DAILY as needed for PROBIOTICS Days = 14 No Refills Instructions: AVAILABLE OVER THE COUNTER Copies To: Eliud DO,Bob; Roberto TOM,Perry Perez
[2018-03-03 14:15] VITALS: BP 130/70
== END 2018-03-03 17:04 | disposition home health service (06) | DRG 361 ==
LOC: STS 02:17 → PACUH 12:02 → 2NA 12:02 → ENRESERV 12:17 → PACUH 13:05 → ENTRNSPT 13:53 → EDTRNSPTSTS 14:01 → 2NA 14:10 → CMPTRNSPT 14:25 → ENPENDDIS 03-03 10:03 → ENTRNSPT 03-03 16:54 → EDTRNSPT 03-03 16:57 → EDTRNSPTSTS 03-03 16:57 → 2NA 03-03 17:04 → CMPTRNSPT 03-03 17:10
PROVIDERS: Physician Assistant; Physician Assistant Surgical
PROC: 0HRNX74 Replacement of Left Foot Skin with Autologous Tissue Substitute, Partial Thickness, External Approach (ICD-10-PCS; principal; 2018-02-28)
PROC: 3E0T3BZ Introduction of Anesthetic Agent into Peripheral Nerves and Plexi, Percutaneous Approach (ICD-10-PCS; principal; 2018-02-28)
PROC: 0HBJXZZ Excision of Left Upper Leg Skin, External Approach (ICD-10-PCS; principal; 2018-02-28)
PROC: 2W1TX6Z Compression of Left Foot using Pressure Dressing (ICD-10-PCS; principal; 2018-02-28)
DX: L97.322 Non-pressure chronic ulcer of left ankle with fat layer exposed (principal); I73.9 Peripheral vascular disease, unspecified; I87.2 Venous insufficiency (chronic) (peripheral); E03.9 Hypothyroidism, unspecified; I10 Essential (primary) hypertension; E78.5 Hyperlipidemia, unspecified; Z79.82 Long term (current) use of aspirin; Z79.891 Long term (current) use of opiate analgesic; I25.10 Atherosclerotic heart disease of native coronary artery without angina pectoris; Z98.51 Tubal ligation status; B95.62 Methicillin resistant Staphylococcus aureus infection as the cause of diseases classified elsewhere
CPT/HCPCS: 2NAP; 36415; 82436; J0690; J1885; J2001; J3370; J7040; J7042